=== PATIENT | male | born 1970 | race Caucasian/White ===

== ENCOUNTER → 2017-09-11 | Outpatient (CLI) | payer OTHER ==
[~2017-09-11] MED LIST: DILT120C68 PO; LISI-726 PO; LPR100 PO; LPT40 PO; XRL20 PO
[2017-09-11 17:07] LABS: BLOOD UREA NITROGEN 19 mg/dl (7-18); CALCIUM 9.2 mg/dl (8.5-10.1); CARBON DIOXIDE 26 mmol/L (21-32); GLUCOSE 99 mg/dl (70-99); POTASSIUM 4.4 mmol/L (3.5-5.1); SODIUM 137 mmol/L (136-145)
== END | disposition home or self-care (01) ==
LOC: C.LABPBG 13:51
PROVIDERS: ATTEND Physician Assistant
DX: I10 Essential (primary) hypertension (principal)

== ENCOUNTER → 2017-09-26 | Outpatient (CLI) | payer OTHER | END | disposition home or self-care (01) | LOC: C.LABPBG 07:36 | PROVIDERS: ATTEND Physician Assistant | DX: R63.8 Other symptoms and signs concerning food and fluid intake (principal) ==

== ENCOUNTER 2018-05-31 10:27 | Inpatient (IN) ==
[2018-05-31] MEDS ORDERED: LEVALBUTEROL 0.31MG/3 ML VIAL NEB STA (11:06)
--- NOTE | 2018-05-31 11:11 | XRay Report ---
XR chest 1V portable CLINICAL HISTORY: Chest Pain dyspnea COMPARISON STUDY: 03/15/2018 FINDINGS: Stable cardiomegaly. Diaphragms are smooth. Lungs are clear. Mild chronic prominence of the pulmonary vasculature. IMPRESSION: Cardiomegaly. Mild chronic pulmonary vascular congestion. The above report was generated using voice recognition software. It may contain grammatical, syntax or spelling errors. Electronically signed by: Jamari Ch M.D. 05/31/2018 11:10 AM
[2018-05-31] MEDS ORDERED: FUROSEMIDE 40 MG/4 ML VIAL IV STA (11:20)
[2018-05-31 11:28] LABS: Basophils # (auto) 0.01 K/uL (0-0.2); Basophils % (auto) 0.1 %; Eosinophils # (auto) 0.09 K/uL (0-0.5); Eosinophils % (auto) 1.3 %; Hematocrit (blood only) 44.6 % (42-52); Hemoglobin 14.9 g/dL (14.0-18.0); Immature Granulocytes # (auto) 0.02 K/uL (0.00-0.02); Immature Granulocytes % (auto) 0.3 %; Lymphocytes # (auto) 1.61 K/uL (1.2-3.4); Lymphocytes % (auto) 22.6 %; Mean Corpuscular Hgb Conc 33.4 g/dL (32-36); Mean Corpuscular Volume 93.3 fL (80-100); Mean Platelet Volume 11.8 fL (7.4-10.4); Monocytes # (auto) 0.77 K/uL (0.11-0.59); Monocytes % (auto) 10.8 %; Neutrophils # (auto) 4.62 K/uL (1.4-6.5); Neutrophils % (auto) 64.9 %; Platelet Count 219 K/uL (130-400); RDW Coefficient of Variation 14.2 % (11.5-14.5); RDW Standard Deviation 48.4 fL (36.4-46.3); Red Blood Count 4.78 M/uL (4.7-6.1); White Blood Count 7.12 K/uL (4.8-10.8)
[2018-05-31 11:45] LABS: Albumin Level 3.6 gm/dl (3.4-5.0); BUN Creatinine Ratio 12.8 (10-20); Creatinine Clr Calc Pharmacy 110.8 ml/min; Est GFR (Non-African American) 68.1; Potassium 4.2 mmol/L (3.5-5.1)
[2018-05-31 11:50] LABS: Albumin Globulin Ratio 1.1 (0.9-2); Bilirubin,Total 0.7 mg/dl (0.2-1); Creatine Kinase MB 6.9 ng/ml (0.5-3.6); Globulin 3.3 gm/dl (2.5-4.0); Total Protein 6.9 gm/dl (6.4-8.2); Troponin I 0.045 ng/ml (0-0.045)
--- NOTE | 2018-05-31 13:05 | History & Physical Report ---
Date of Service May 31, 2018 History of Present Illness Chief Complaint: Shortness of breath Primary Care Provider: Margarita Morgan DO 47 y/o M Hx HTN, HLD, DM II Allergies Allergy/AdvReac Type Severity Reaction Status Date / Time No Known Allergies Allergy Verified 05/31/18 10:58 Home Medications Home Medications Medication Instructions Recorded Confirmed Type Xarelto 20 mg PO PM 03/15/18 05/31/18 History atorvastatin 40 mg PO PM 03/15/18 05/31/18 History diltiazem HCl 240 mg PO DAILY 03/15/18 05/31/18 History lisinopril 40 mg PO DAILY 03/15/18 05/31/18 History metformin 500 mg PO PM 03/15/18 05/31/18 History metoprolol tartrate 100 mg PO BID 03/15/18 05/31/18 History metoprolol tartrate 150 mg PO BID 03/15/18 05/31/18 History furosemide 20 mg PO DAILY 05/31/18 05/31/18 History Past Med/Surg History Medical History Hypertension (Chronic) Hematuria (Acute) Abdominal pain (Acute) Atrial fibrillation Diabetes mellitus Atrial fibrillation Diabetes mellitus, type 2 Family History Other No significant family history Social History Preferred Language: Egyptian Beliefs That Will Affect Care: None marital status: Current Living Situation: Family current occupational status: employed Feels Safe at Home: Yes Smoking Status: Never smoker Hx Alcohol Use: No Hx Substance Use: No Physical Exam Vital Signs (Past 24 Hours): Last Vital Signs Temp 36.5 C 05/31/18 10:40 Pulse 99 H 05/31/18 12:10 Resp 25 H 05/31/18 12:10 BP 120/103 H 05/31/18 12:10 Pulse Ox 96 05/31/18 12:50
[2018-05-31] MEDS ORDERED: PROPOFOL IV EMULSION 10 MG/ML 20 ML VIAL IV STA (13:17)
[2018-05-31] MEDS ORDERED: ONDANSETRON INJ 2 MG/ML 2 ML VIAL IV STA (13:17)
--- NOTE | 2018-05-31 15:49 | History & Physical Report ---
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 Presents with progressive SOB pronounced with exertion. The pt was requiring supplemental oxygen on arrival to the ER. He was also notably in AF with a borderline HR around 100. He tends to develop volume overload with onset of AF. The pt was provided with a dose of Lasix in the ER and cardioversion was then attempted. Despite 2 attempt with 200J, he did not revert to a sinus rhythm. He has not c/o CP a productive cough or fevers. He does have a degree of orthopnea. He also notes that he was diagn osed with DAVID as early as 15 years prior but has not followed up on this issue since that time. 1) Volume overload owing to AF and a reduced EF. The pt will ne placed on IV Lasix - I/O daily weights requested. As his volume status appears to be tied to AF and rate, I have placed him on a Cardizem GTT to attain an HR between 60-80. 02 protocol is provided. He is comfortable with 02 and at rest. 2) PAF - AF on arrival - rate 90-110. It might make sense to place the pt on Sotalol as 2 cardioversion attempts failed. This may increase the chances of being able to cardiovert him and additionally, may better prevent relapse. He is on a Cardizem drip as above. We will continue his PO B rocio as well. Anticoagulated with Xarelto. 3) It is noted that a CK and MB were elevated on arrival where as his trop was WNL. We will recheck this PM essentially to avoid missing a developing rhabdo, however, his enzymes will likely now elevate regardless having received to 200J shocks prior to admission. He is anticoagulated with Xarelto. 4) DM II - sliding scale 5) HTN, HLD - Lisinopril held to allow for rate agents, cont atorvastatin. 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 Presents with progressive SOB pronounced with exertion. The pt was requiring supplemental oxygen on arrival to the ER. He was also notably in AF with a borderline HR around 100. He tends to develop volume overload with onset of AF. The pt was provided with a dose of Lasix in the ER and cardioversion was then attempted. Despite 2 attempt with 200J, he did not revert to a sinus rhythm. He has not c/o CP a productive cough or fevers. He does have a degree of orthopnea. He also notes that he was diagnosed with DAVID as early as 15 years prior but has not followed up on this issue since that time. PMH: 1) Paroxysmal AF 2) DM II 3) HTN 4) HLD 5) Morbidly obese - BMI 43 6) DAVID - not treated 7) Tachycardic cardiomyopathy - systolic dysfunction - EF 40-45% Surgical: Has not had surgery Social: He works construction for [employer] and is currently spending a lot of time at [employer]. He does not smoke or drink. He chews tobacco. Family: DM - both parents Allergies Allergy/AdvReac Type Severity Reaction Status Date / Time No Known Allergies Allergy Verified 05/31/18 10:58 Home Medications Home Medications Medication Instructions Recorded Confirmed Type Xarelto 20 mg PO PM 03/15/18 05/31/18 History atorvastatin 40 mg PO PM 03/15/18 05/31/18 History diltiazem HCl 240 mg PO DAILY 03/15/18 05/31/18 History lisinopril 40 mg PO DAILY 03/15/18 05/31/18 History metformin 500 mg PO PM 03/15/18 05/31/18 History metoprolol tartrate 100 mg PO BID 03/15/18 05/31/18 History metoprolol tartrate 150 mg PO BID 03/15/18 05/31/18 History furosemide 20 mg PO DAILY 05/31/18 05/31/18 History Past Med/Surg History Medical History Hypertension (Chronic) Hematuria (Acute) Abdominal pain (Acute) Atrial fibrillation Diabetes mellitus Atrial fibrillation Diabetes mellitus, type 2 Family History Other No significant family history Social History Preferred Language: Portuguese Beliefs That Will Affect Care: None marital status: Current Living Situation: Family current occupational status: employed Feels Safe at Home: Yes Smoking Status: Never smoker Hx Alcohol Use: No Hx Substance Use: No Review of Systems Gen: Denies fevers, night sweats, rigors, fatigue, malaise, weight loss/gain ENT: Denies congestion, throat pain, hearing loss Eyes: Denies acute visual changes CV: Denies CP, palpitations + orthopnea Pulmonary: Progressive SOB, exertional dyspnea, orthopnea GI: Denies N/V, diarrhea, constipation Neuro: Denies acute or unilateral weakness, acute gait impairment, headache or acute visual changes Musculoskeletal: Denies joint pain, inflammation Endocrine: Denies polydipsia, polyuria Skin: Denies acute rashes or ulcers Physical Exam Vital Signs (Past 24 Hours): Last Vital Signs Temp 36.5 C 05/31/18 10:40 Pulse 99 H 05/31/18 14:30 Resp 25 H 05/31/18 14:30 BP 140/113 H 05/31/18 14:30 Pulse Ox 96 05/31/18 14:30 Physical Exam: General: Middle-aged male with a grand stature, AAO x 3, no distress ENT: No erythema or exudates, no thrush Eyes: ESTUARDO, EOMI Head and neck: Normocephalic, atraumatic - cannot assess JVD due to habitus Chest/heart: Nontender, S1,2, RRR, no murmurs, no gallops Lungs: Lungs are clear although I am assessing the pt an hour after Lasix Abdomen: Nontender, nondistended, BS+ Neuro: AAO x 3, speech is clear, no unilateral weakness or loss of sensation, coordination intact Musculoskeletal: No joint inflammation, muscle tenderness, FROM Skin: No acute rashes or ulcers Extremities: No clubbing, cyanosis, edema (1) Congestive heart failure Heart failure chronicity: unspecified Heart failure type: unspecified Qualified Code(s): I50.9 - Heart failure, unspecified
[2018-05-31] MEDS ORDERED: ALUMINUM/MAGNESIUM SUSP 30 ML UDC PO PRN (15:55)
[2018-05-31] MEDS ORDERED: ONDANSETRON INJ 2 MG/ML 2 ML VIAL IV PRN (15:55)
[2018-05-31] MEDS ORDERED: ACETAMINOPHEN 325 MG TAB PO PRN (15:55)
[2018-05-31] MEDS ORDERED: ZOLPIDEM TARTRATE 5 MG TAB PO PRN (15:55)
[2018-05-31] MEDS ORDERED: MAGNESIUM HYDROXIDE SUSP 30 ML UDC PO PRN (15:55)
[2018-05-31] MEDS ORDERED: POLYETHYLENE (MIRALAX) 17 GM PACK PO PRN (15:55)
[2018-05-31] MEDS ORDERED: DEXTROSE 50% 50 ML SYRINGE IV PRN (16:15)
[2018-05-31] MEDS ORDERED: GLUCAGON FOR INJ 1 MG VIAL IM PRN (16:15)
[2018-05-31] MEDS ORDERED: GLUCOSE 40% GEL 15 GM TUBE PO PRN (16:15)
[2018-05-31] MEDS ORDERED: CARBOHYDRATES FOR HYPOGLYCEMIA PO PRN (16:15)
[2018-05-31] MEDS ORDERED: GLUCOSE 10 TABS/TUBE PO PRN (16:15)
[2018-05-31] MEDS ORDERED: MAGNESIUM SULFATE / D5W 1 GM/100 ML BAG IV ONE (16:30)
[2018-05-31] MEDS: INSULIN ASPART 100 UNITS/ML 3 ML PEN SC SCH ×2 (16:49→20:32)
[2018-05-31] MEDS: dilTIAZem HCl 125 MG in DEXTROSE 5% 100 ML IV SCH ×2 (17:18→18:02)
[2018-05-31] MEDS ORDERED: BENZOCAINE 20% (ORAJEL) 11.9 GM TUBE MT PRN (20:13)
[2018-05-31] MEDS: RIVAROXABAN 20 MG TAB PO SCH (20:38)
[2018-05-31] MEDS: ATORVASTATIN 40 MG TAB PO SCH (20:38)
[2018-05-31] MEDS: METOPROLOL TARTRATE 50 MG TAB PO SCH (20:38)
[2018-05-31 20:58] LABS: Troponin I 0.041 ng/ml (0-0.045)
[2018-06-01] MEDS: INSULIN ASPART 100 UNITS/ML 3 ML PEN SC SCH ×4 (08:10→20:31)
[2018-06-01] MEDS: FUROSEMIDE 40 MG in SYRINGE 0 ML IV SCH (08:30)
[2018-06-01] MEDS: METOPROLOL TARTRATE 50 MG TAB PO SCH (08:30)
--- NOTE | 2018-06-01 09:25 | Cardiology Consultation ---
Date of Consultation June 01, 2018 Assessment & Plan (1) Congestive heart failure: Mr. Lomeli is a 47-year-old male with a history of Hypertension, Dyslipidemia, Obesity, DAVID, Paroxysmal Atrial Fibrillation, Tachycardia Induced Cardiomyopathy (most recent LVEF 40% to 45% February 2018) who was admitted on 05/31/2018 with SOB, SALEH, Fatigue, and Palpitations / Atrial Fibrillation and Acute Systolic CHF. Patient remains in Atrial Fibrillation with a V-rate in 90 to 100 bpm range and has evidence of CHF / Volume Overload. Patient is currently on a Diltiazem Drip, Lopressor 150 mg bid, Xarelto 20 mg daily, and IV Lasix 40 mg daily. Patient has a negative fluid balance of - 293 ml total and his breathing has improved. Patient does not tolerate A-Fib which manifests as palpitations, reduced LV systolic function, and CHF. -- Continue IV Lasix 40 mg daily. -- Monitor daily I&O's, body weights. -- Monitor daily labs. -- Stop Metoprolol Tartrate -- convert to Sotalol 80 mg now x 1 dose. -- Beginning this evening Sotalol will be increased and maintained at 120 mg bid. -- Continue Xarelto 20 mg daily. -- Daily EKG's, monitor QT interval. -- Continue Diltiazem Drip for the time being. Present on Admission?: Yes (2) Paroxysmal atrial fibrillation: As described above: -- Stop Metoprolol. -- Begin Sotalol 80 mg now x 1 dose (since he already received his morning dose of metoprolol tartrate). -- This evening Sotalol will be increased and maintained at 120 mg bid. -- Continue Xarelto 20 mg daily. -- Continue telemetry. -- If patient doesn't covert after 5th dose of Sotalol -- we will likely attempt an Elective Electrical Cardioversion. Present on Admission?: Yes (3) Hypertension: -- On IV diltiazem drip currently. -- Can resume oral diltiazem when no longer on Iv Diltiazem. -- Sotalol will also reduce his BP. Present on Admission?: Yes (4) Cardiomyopathy: -- Most recent LVEF 40% to 45% -- which is likely decreased due to the presence of Atrial Fibrillation. -- Most likely this Cardiomyopathy will resolve if we can keep him in a normal sinus rhythm -- converting from Metoprolol Tartrate to Sotalol. Present on Admission?: Yes Supervising Physician Co-Signing Physician Notes Kain Tejeda MD History of Present Illness Reason for Consultation: -- Paroxysmal Atrial Fibrillation. -- Tachycardia Induced Cardiomyopathy. -- Acute Systolic CHF. Requesting Physician: Cas Lomeli MD Attending Physician: Kain Tejeda MD History of Present Illness Mr. Lomeli is a 47-year-old male with a history of Hypertension, Dyslipidemia, Obesity, DAVID, Paroxysmal Atrial Fibrillation, Tachycardia Induced Cardiomyopathy (most recent LVEF 40% to 45% February 2018) who was admitted on 05/31/2018 with SOB, SALEH, Fatigue, and Palpitations / Atrial Fibrillation and Acute Systolic CHF. Patient states that he has not been feeling well for a few weeks -- thought he may have had a cold which was going into chest -- but on 05/29/2018 he noticed worsening SOB, SALEH, Fatigue, Palpitations, and Non-Intentional Weight Gain. On admission he was noted to be in Atrial Fibrillation with a V-rate in 90 to 110 bpm range and had evidence of CHF. Patient started on a Diltiazem Drip, maintained on Lopressor 150 mg bid and Xarelto 20 mg daily, and was given IV Lasix. Patient has a negative fluid balance of - 293 ml total. His breathing has improved but he remains in A-Fib. He denies any chest pain, heaviness, tightness, or pressure. He denies any exertional neck, jaw, back, or arm pain. No syncope or near syncope. The patient's recent cardiac history began back in July of 2017 when the patient presented to an outside institution complaining of profound exertional dyspnea and fatigue over 1 week timeframe. He was found to be in atrial fibrillation with a rapid ventricular response. An echocardiogram noted moderate left ventricular dysfunction with an ejection fraction of 35-40% and mild LVH. Attempts at rate control were not successful and patient was transiently placed on Amiodarone -- which was eventually stopped in December 2017 due to the risk of side effects custodial. He was hospitalized in February 2018 with A-Fib. Past Medical History: 1. Paroxysmal atrial fibrillation-July 2017 2. Transient, tachycardia induced cardiomyopathy 3. Hypertension 4. Mild LVH 5. Hypercholesterolemia 6. Hyperglycemia 7. Obesity 8. Obstructive sleep apnea Social History: and lives with his . Railway Equipment Operator for [employer] Uses 1 can of snuff per day No alcohol Family History: Mother 62 with diabetes Father 65 diabetes Siblings are healthy No premature coronary artery disease Allergies Allergy/AdvReac Type Severity Reaction Status Date / Time No Known Allergies Allergy Verified 05/31/18 10:58 Home Medications Home Medications Medication Instructions Recorded Confirmed Type Xarelto 20 mg PO PM 03/15/18 05/31/18 History atorvastatin 40 mg PO PM 03/15/18 05/31/18 History diltiazem HCl 240 mg PO DAILY 03/15/18 05/31/18 History lisinopril 40 mg PO DAILY 03/15/18 05/31/18 History metformin 500 mg PO PM 03/15/18 05/31/18 History metoprolol tartrate 100 mg PO BID 03/15/18 05/31/18 History metoprolol tartrate 150 mg PO BID 03/15/18 05/31/18 History furosemide 20 mg PO DAILY 05/31/18 05/31/18 History Patient History Medical History Hypertension (Chronic) Hematuria (Acute) Abdominal pain (Acute) Atrial fibrillation Diabetes mellitus Atrial fibrillation (Acute) Diabetes mellitus, type 2 Family History Other No significant family history Social History Preferred Language: Malaysian Communication Ability: Effective Blast Furnace Checker Required: No Beliefs That Will Affect Care: None marital status: Current Living Situation: Spouse current occupational status: employed Other Information That Helps Us Care for You: No Feels Safe at Home: Yes Safety Concerns: Feels Safe At This Time Smoking Status: Never smoker Hx Alcohol Use: No Hx Substance Use: No Physical Exam Vital Signs (Past 24 Hours): Last Vital Signs Temp 37.1 C 06/01/18 07:38 Pulse 103 H 06/01/18 07:38 Resp 20 06/01/18 07:38 BP 140/97 06/01/18 07:38 Pulse Ox 91 06/01/18 07:38 Physical Exam: General: Patient in no acute distress. HEENT: Head is atraumatic, normocephalic. EOMs intact. Sclerae anicteric. Facies symmetric. No perioral cyanosis. Neck: No JVD. Carotid upstrokes +2 bilaterally without bruits. JVP is slightly elevated Chest and Lungs: Mildly diminished breath sounds in bilateral bases. No wheezes, rales, or rhonchi. CVS: S1 and S2 are irregularly irregular without obvious murmurs, gallops, or rubs. PMI is nonpalpable. No lifts, heaves, or thrills. No abdominal aortic or renal bruits. Abdominal Exam: Bowel sounds present. No masses, organomegaly, or tenderness. Extremities: No clubbing or cyanosis. Trace to +1 pretibial edema is noted bilaterally. Intact posterior tibial and radial pulses bilaterally. Neurologic Exam: Patient is awake, alert, and oriented. Pleasant and cooperative. Answers questions appropriately. Speech is clear. Normal movement in all 4 extremities. Gait pattern is unremarkable. Results & Data Laboratory Results Laboratory Results - last 24 hr 05/31/18 05/31/18 05/31/18 11:15 11:15 11:15 WBC 7.12 RBC 4.78 Hgb 14.9 Hct 44.6 MCV 93.3 MCH 31.2 MCHC 33.4 RDW Std Deviation 48.4 H RDW Coeff of Kaley 14.2 Plt Count 219 MPV 11.8 H Immature Gran % (Auto) 0.3 Neut % (Auto) 64.9 Lymph % (Auto) 22.6 [place] % (Auto) 10.8 Eos % (Auto) 1.3 Baso % (Auto) 0.1 Immature Gran # (Auto) 0.02 Neut # (Auto) 4.62 Lymph # (Auto) 1.61 [place] # (Auto) 0.77 H Eos # (Auto) 0.09 Baso # (Auto) 0.01 Sodium 141 Potassium 4.2 Chloride 108 H Carbon Dioxide 26 Anion Gap 7.0 BUN 16 Creatinine 1.25 Est Cr Clr Drug Dosing 110.8 Est GFR ( Amer) 79.0 Est GFR (Non-Af Amer) 68.1 BUN/Creatinine Ratio 12.8 Glucose 125 H POC Glucose Calcium 9.0 Total Bilirubin 0.7 AST 41 H ALT 87 H Alkaline Phosphatase 66 Total Creatine Kinase 559 H CK-MB (CK-2) 6.9 H CK/CKMB % Calc 1.2 Troponin I 0.045 NT-Pro-B Natriuret Pep 1495 H Cancelled Total Protein 6.9 Albumin 3.6 Globulin 3.3 Albumin/Globulin Ratio 1.1 Lipase 163 Influenza Type A Ag Influenza Type B Ag 05/31/18 05/31/18 05/31/18 11:23 16:12 20:07 WBC RBC Hgb Hct MCV MCH MCHC RDW Std Deviation RDW Coeff of Kaley Plt Count MPV Immature Gran % (Auto) Neut % (Auto) Lymph % (Auto) [place] % (Auto) Eos % (Auto) Baso % (Auto) Immature Gran # (Auto) Neut # (Auto) Lymph # (Auto) [place] # (Auto) Eos # (Auto) Baso # (Auto) Sodium Potassium Chloride Carbon Dioxide Anion Gap BUN Creatinine Est Cr Clr Drug Dosing Est GFR ( Amer) Est GFR (Non-Af Amer) BUN/Creatinine Ratio Glucose POC Glucose 128 H Calcium Total Bilirubin AST ALT Alkaline Phosphatase Total Creatine Kinase TNP CK-MB (CK-2) CK/CKMB % Calc Troponin I 0.041 NT-Pro-B Natriuret Pep Total Protein Albumin Globulin Albumin/Globulin Ratio Lipase Influenza Type A Ag Neg for Influ A Influenza Type B Ag Neg for Influ B 05/31/18 05/31/18 06/01/18 20:13 21:18 07:50 WBC RBC Hgb Hct MCV MCH MCHC RDW Std Deviation RDW Coeff of Kaley Plt Count MPV Immature Gran % (Auto) Neut % (Auto) Lymph % (Auto) [place] % (Auto) Eos % (Auto) Baso % (Auto) Immature Gran # (Auto) Neut # (Auto) Lymph # (Auto) [place] # (Auto) Eos # (Auto) Baso # (Auto) Sodium Potassium Chloride Carbon Dioxide Anion Gap BUN Creatinine Est Cr Clr Drug Dosing Est GFR ( Amer) Est GFR (Non-Af Amer) BUN/Creatinine Ratio Glucose POC Glucose 125 H 128 H Calcium Total Bilirubin AST ALT Alkaline Phosphatase Total Creatine Kinase 474 H CK-MB (CK-2) CK/CKMB % Calc Troponin I NT-Pro-B Natriuret Pep Total Protein Albumin Globulin Albumin/Globulin Ratio Lipase Influenza Type A Ag Influenza Type B Ag Medications Administered Active Medications Generic Name Dose Route Start Last Admin Trade Name Freq PRN Reason Stop Dose Admin Acetaminophen 650 mg 05/31/18 15:55 05/31/18 19:56 Tylenol PO 06/30/18 15:54 650 mg Q4H PRN Administration Pain or Fever Al Hydrox/Mg Hydrox/Simethicone 15 ml 05/31/18 15:55 Maalox PO 06/30/18 15:54 Q4H PRN Dyspepsia Atorvastatin Calcium 40 mg 05/31/18 21:00 05/31/18 20:38 Lipitor PO 06/30/18 20:59 40 mg PM KAY Administration Benzocaine 1 appln 05/31/18 20:13 05/31/18 20:39 Orajel 20% MT 06/30/18 20:12 1 appln Q1H PRN Administration Pain Dextrose 25 - 50 ml 05/31/18 16:15 Dextrose 50% IV 06/30/18 16:14 UD PRN Hypoglycemia Protocol Protocol Glucagon 1 mg 05/31/18 16:15 Glucagen IM 06/30/18 16:14 UD PRN Hypoglycemia Protocol Protocol Glucose 15 - 30 gm 05/31/18 16:15 Glucose 40% PO 06/30/18 16:14 UD PRN Hypoglycemia Protocol Protocol Glucose 4 - 8 tabs 05/31/18 16:15 Dex4 Glucose PO 06/30/18 16:14 UD PRN Hypoglycemia Protocol Protocol Diltiazem HCl 125 mg/ Dextrose 125 mls @ 10 mls/hr 05/31/18 15:55 06/01/18 08:40 IV 06/30/18 15:54 10 mg/hr .[id number] KAY 10 mls/hr Titration Protocol 10 MG/HR Furosemide 40 mg/ Syringe 4 mls @ 4 mls/min 06/01/18 09:00 06/01/18 08:30 IV 07/01/18 08:59 4 mls/min DAILY KAY Administration Insulin Aspart 0 units 05/31/18 16:30 06/01/18 08:10 Novolog Flexpen SC 06/30/18 16:29 Not Given ACHS KAY Magnesium Hydroxide 30 ml 05/31/18 15:55 Milk Of Magnesia PO 06/30/18 15:54 Q12H PRN Constipation Miscellaneous 15 - 30 gm 05/31/18 16:15 Carbohydrates For Hypoglycemia PO 06/30/18 16:14 UD PRN Hypoglycemia Treatment Ondansetron HCl 4 mg 05/31/18 15:55 Zofran IV 06/30/18 15:54 Q6H PRN Nausea Polyethylene Glycol 17 gm 05/31/18 15:55 Miralax Powder Packet PO 06/30/18 15:54 DAILY PRN Constipation Rivaroxaban 20 mg 05/31/18 21:00 05/31/18 20:38 Xarelto PO 06/30/18 20:59 20 mg PM KAY Administration Sotalol HCl 120 mg 06/01/18 21:00 Betapace PO 07/01/18 20:59 Q12 KAY Zolpidem Tartrate 5 mg 05/31/18 15:55 Ambien PO 06/30/18 15:54 HS PRN Sleep (1) Congestive heart failure Heart failure chronicity: unspecified Heart failure type: unspecified Qualified Code(s): I50.9 - Heart failure, unspecified
--- NOTE | 2018-06-01 13:50 | Hospitalist Progress Note ---
Date of Service June 01, 2018 Assessment & Plan (1) Acute on chronic systolic (congestive) heart failure: Systolic CHF due to tachycardic cardiomyopathy. Exacerbation caused by afib with RVR. - Continue Lasix 40mg IV daily - Monitor I&Os, weights - Telemetry - Sotalol per cardiology (2) Paroxysmal atrial fibrillation: Failed cardioversion x 2 in the ED this admission. Rate control with beta- rocio and calcium channel rocio. - Started sotalol on 06/01 per cardiology - Rivaroxaban for anticoagulation (3) Diabetes mellitus: A1c was 6.9% in 02/2018. - Hold metformin - Sliding scale insulin (4) Hypertension: BP was 100/50 to 150/110 so far this admission. - Holding lisinopril for conversion to sotalol - Monitor BP (5) DVT prophylaxis: On Xarelto for his afib Subjective 47yo M w/ hx of cardiomyopathy who presents with afib and CHF exacerbation. Feels better this morning after his first dose of Lasix. Reports no fevers/chills, chest pain, shortness of breath, abdominal pain, nausea, or vomiting. Physical Exam Vital Signs (Past 24 Hours): Last Vital Signs Temp 36.4 C L 06/01/18 11:43 Pulse 72 06/01/18 11:43 Resp 19 06/01/18 11:43 BP 109/79 06/01/18 11:43 Pulse Ox 90 06/01/18 11:43 Constitutional: WD/WN, vitals as above Eyes: EOM intact bilaterally; no conjunctival abnormality ENMT: external ear and nose normal, oropharynx normal Neck: trachea midline, no thyromegaly normal visual inspection Respiratory: normal respiratory effort, lungs clear to auscultation no respiratory distress Cardiovascular: Rate/Rhythm: + irregularly irregular Heart Sounds: normal S1 and normal S2 Extremities: + edema Gastrointestinal (Abdomen): Inspection/Auscultation: abdomen normal to inspection; abdomen not distended Musculoskeletal: no cyanosis or clubbing, extremities motor strength 5/5 Skin: no rashes, warm and dry Neurologic: moves all extremities and awake Psychiatric: Orientation: alert, oriented to person and cooperative
[2018-06-01] MEDS ORDERED: ALBUT/IPRATROP 3MG/0.5MG NEB 3 ML VIAL NEB STA (14:47)
[2018-06-01] MEDS ORDERED: ALBUT/IPRATROP 3MG/0.5MG NEB 3 ML VIAL NEB PRN (15:39)
[2018-06-01] MEDS: ATORVASTATIN 40 MG TAB PO SCH (19:49)
[2018-06-01] MEDS: SOTALOL HCL 80 MG TAB PO SCH (19:49)
[2018-06-01] MEDS: RIVAROXABAN 20 MG TAB PO SCH (19:49)
[2018-06-02 06:44] LABS: Hematocrit (blood only) 43.3 % (42-52); Hemoglobin 14.5 g/dL (14.0-18.0); Mean Corpuscular Hgb Conc 33.5 g/dL (32-36); Mean Corpuscular Volume 91.9 fL (80-100); Mean Platelet Volume 11.8 fL (7.4-10.4); Platelet Count 219 K/uL (130-400); RDW Coefficient of Variation 13.9 % (11.5-14.5); RDW Standard Deviation 46.8 fL (36.4-46.3); Red Blood Count 4.71 M/uL (4.7-6.1); White Blood Count 9.17 K/uL (4.8-10.8)
[2018-06-02 07:14] LABS: BUN Creatinine Ratio 15.6 (10-20); Calcium 8.8 mg/dl (8.5-10.1); Creatinine Clr Calc Pharmacy 100.9 ml/min; Est GFR (African American) 71.9; Est GFR (Non-African American) 62.1; Magnesium 2.2 mg/dl (1.8-2.4); Potassium 3.9 mmol/L (3.5-5.1)
[2018-06-02] MEDS: FUROSEMIDE 40 MG in SYRINGE 0 ML IV SCH (08:20)
[2018-06-02] MEDS: INSULIN ASPART 100 UNITS/ML 3 ML PEN SC SCH ×4 (08:20→21:37)
[2018-06-02] MEDS: SOTALOL HCL 80 MG TAB PO SCH ×2 (08:21→19:46)
--- NOTE | 2018-06-02 09:35 | Cardiology Progress Note ---
Date of Service June 02, 2018 Assessment & Plan (1) Congestive heart failure: Mr. Lomeli is a 47-year-old male with a history of Hypertension, Dyslipidemia, Obesity, DAVID, Paroxysmal Atrial Fibrillation, Tachycardia Induced Cardiomyopathy (most recent LVEF 40% to 45% February 2018) who was admitted on 05/31/2018 with SOB, SALEH, Fatigue, and Palpitations / Atrial Fibrillation and Acute Systolic CHF. Patient remains in Atrial Fibrillation with a V-rate in 90 to 100 bpm range and has evidence of CHF / Volume Overload. Patient is currently on a Diltiazem Drip, Lopressor 150 mg bid, Xarelto 20 mg daily, and IV Lasix 40 mg daily. Patient has a negative fluid balance of - 1314 ml total and his breathing has improved. Patient does not tolerate A-Fib which manifests as palpitations, reduced LV systolic function, and CHF. -- Continue IV Lasix 40 mg daily. -- Monitor daily I&O's, body weights. -- Monitor daily labs. -- Continue Sotalol 120 mg BID -- Continue Xarelto 20 mg daily. -- Daily EKG's, monitor QT interval. -- Continue Diltiazem Drip for the time being. (2) Paroxysmal atrial fibrillation: As described above: -- Continue Sotalol 120 mg BID. -- Continue Xarelto 20 mg daily. -- Continue telemetry. -- If patient doesn't convert after 5th dose of Sotalol -- we will arrange an Elective Electrical Cardioversion. (3) Hypertension: -- Restart Lisinopril 40 mg daily -- On IV diltiazem drip currently. -- Can resume oral Diltiazem when no longer on IV Diltiazem. -- Sotalol will also reduce his BP. (4) Cardiomyopathy: -- Most recent LVEF 40% to 45% -- which is likely decreased due to the presence of Atrial Fibrillation. -- Most likely this Cardiomyopathy will resolve if he maintains a normal sinus rhythm. Supervising Physician Co-Signing Physician Notes Kain Tejeda MD Subjective Review of Systems All systems reviewed & are unremarkable except as noted in HPI & below Mr Lomeli is a 47 year old white male with a past medical history of Hypertension, Dyslipidemia, Obesity, DAVID, Paroxysmal Atrial Fibrillation, Tachycardia Induced Cardiomyopathy (most recent LVEF 40% to 45% February 2018) who was admitted on 05/31/2018 with SOB, SALEH, Fatigue, and Palpitations / Atrial Fibrillation and Acute Systolic CHF. Today, he has no acute complaints and states he is feeling well. He used a CPAP machine last night for the first time and states he had a great night of sleep. He says his swelling in his lower extremities has improved since yesterday. He denies any chest pain or tightness, neck/arm/jaw pain, dyspnea, palpitations, orthopnea, or PND. He had no problem with the start of Sotalol yesterday morning and denied any lightheadness, dizziness, near syncope, or syncope. Since yesterday, he has had a negative fluid balance of 1314.583 ml and has lost 4.3 kg of water weight. His blood pressure was mildly elevated this morning at 147/114. His EKG shows that he remains in rate controlled Atrial Fibrillation at a rate of 90-100. Physical Exam Vital Signs (Past 24 Hours): Last Vital Signs Temp 36.7 C 06/02/18 07:46 Pulse 92 H 06/02/18 07:46 Resp 17 06/02/18 07:46 BP 147/114 H 06/02/18 07:46 Pulse Ox 92 06/02/18 07:46 Physical Exam: General: Patient in no acute distress. HEENT: Head is atraumatic, normocephalic. EOMs intact. Sclerae anicteric. Facies symmetric. No perioral cyanosis. Neck: No JVD. Carotid upstrokes +2 bilaterally without bruits. JVP is at the level of the clavicle sitting upright. Chest and Lungs: Clear to auscultation throughout all lung tejeda, no wheezes, rales, or rhonchi. CVS: Rate is irregularly irregular. S1 and S2 appreciated without murmurs, gallops, or rubs. PMI is nondisplaced. No lifts, heaves, or thrills. No abdominal aortic or renal bruits. Abdominal Exam: Bowel sounds present. No masses, organomegaly, or tenderness. Extremities: No clubbing, cyanosis, or edema. Intact posterior tibial and radial pulses bilaterally. Neurologic Exam: Patient is awake, alert, and oriented. Pleasant and coopera tive. Answers questions appropriately. Speech is clear. Results & Data Laboratory Results Laboratory Results - last 24 hr 0406/01/18 06/01/18 11:19 16:15 20:23 WBC RBC Hgb Hct MCV MCH MCHC RDW Std Deviation RDW Coeff of Kaley Plt Count MPV Sodium Potassium Chloride Carbon Dioxide Anion Gap BUN Creatinine Est Cr Clr Drug Dosing Est GFR ( Amer) Est GFR (Non-Af Amer) BUN/Creatinine Ratio Glucose POC Glucose 109 H 109 H 107 H Calcium Magnesium 06/02/18 06/02/18 06/02/18 06:15 06:15 07:35 WBC 9.17 RBC 4.71 Hgb 14.5 Hct 43.3 MCV 91.9 MCH 30.8 MCHC 33.5 RDW Std Deviation 46.8 H RDW Coeff of Kaley 13.9 Plt Count 219 MPV 11.8 H Sodium 140 Potassium 3.9 Chloride 105 Carbon Dioxide 30 Anion Gap 5.0 BUN 21 H Creatinine 1.35 Est Cr Clr Drug Dosing 100.9 Est GFR ( Amer) 71.9 Est GFR (Non-Af Amer) 62.1 BUN/Creatinine Ratio 15.6 Glucose 106 H POC Glucose 115 H Calcium 8.8 Magnesium 2.2 Medications Administered Active Medications Generic Name Dose Route Start Last Admin Trade Name Freq PRN Reason Stop Dose Admin Acetaminophen 650 mg 05/31/18 15:55 05/31/18 19:56 Tylenol PO 06/30/18 15:54 650 mg Q4H PRN Administration Pain or Fever Al Hydrox/Mg Hydrox/Simethicone 15 ml 05/31/18 15:55 Maalox PO 06/30/18 15:54 Q4H PRN Dyspepsia Albuterol 3 ml 06/01/18 15:39 Duoneb NEB 07/01/18 15:59 QIDR PRN Shortness Of Breath Or Wheezing Atorvastatin Calcium 40 mg 05/31/18 21:00 06/01/18 19:49 Lipitor PO 06/30/18 20:59 40 mg PM KAY Administration Benzocaine 1 appln 05/31/18 20:13 05/31/18 20:39 Orajel 20% MT 06/30/18 20:12 1 appln Q1H PRN Administration Pain Dextrose 25 - 50 ml 05/31/18 16:15 Dextrose 50% IV 06/30/18 16:14 UD PRN Hypoglycemia Protocol Protocol Glucagon 1 mg 05/31/18 16:15 Glucagen IM 06/30/18 16:14 UD PRN Hypoglycemia Protocol Protocol Glucose 15 - 30 gm 05/31/18 16:15 Glucose 40% PO 06/30/18 16:14 UD PRN Hypoglycemia Protocol Protocol Glucose 4 - 8 tabs 05/31/18 16:15 Dex4 Glucose PO 06/30/18 16:14 UD PRN Hypoglycemia Protocol Protocol Diltiazem HCl 125 mg/ Dextrose 125 mls @ 0 mls/hr 05/31/18 15:55 06/01/18 13:15 IV 06/30/18 15:54 0 mg/hr .Q0M KAY 0 mls/hr Titration Protocol 0 MG/HR Furosemide 40 mg/ Syringe 4 mls @ 4 mls/min 06/01/18 09:00 06/02/18 08:20 IV 07/01/18 08:59 4 mls/min DAILY KAY Administration Insulin Aspart 0 units 05/31/18 16:30 06/02/18 08:20 Novolog Flexpen SC 06/30/18 16:29 Not Given ACHS KAY Magnesium Hydroxide 30 ml 05/31/18 15:55 Milk Of Magnesia PO 06/30/18 15:54 Q12H PRN Constipation Miscellaneous 15 - 30 gm 05/31/18 16:15 Carbohydrates For Hypoglycemia PO 06/30/18 16:14 UD PRN Hypoglycemia Treatment Ondansetron HCl 4 mg 05/31/18 15:55 Zofran IV 06/30/18 15:54 Q6H PRN Nausea Polyethylene Glycol 17 gm 05/31/18 15:55 Miralax Powder Packet PO 06/30/18 15:54 DAILY PRN Constipation Rivaroxaban 20 mg 05/31/18 21:00 06/01/18 19:49 Xarelto PO 06/30/18 20:59 20 mg PM KAY Administration Sotalol HCl 120 mg 06/01/18 21:00 06/02/18 08:21 Betapace PO 07/01/18 20:59 120 mg Q12 KAY Administration Zolpidem Tartrate 5 mg 05/31/18 15:55 Ambien PO 06/30/18 15:54 HS PRN Sleep ECG Additional Comments: EKG on 06/02 at 07:00 showed Atrial Fibrillation with ventricular rate of 99 bpm. Corrected QT interval 465 msec. (1) Congestive heart failure Heart failure chronicity: unspecified Heart failure type: unspecified Qualified Code(s): I50.9 - Heart failure, unspecified
--- NOTE | 2018-06-02 09:49 | Cardiology Progress Note ---
Date of Service June 02, 2018 Assessment & Plan (1) Congestive heart failure: The patient remains in negative fluid balance and has lost 4 kilogram since admission. Would continue intravenous furosemide for now. He may benefit from daily weights and sliding-scale diuretics as an outpatient. Suspect the etiology of his recent decompensation is related to his atrial fibrillation with a rapid ventricular response in the face of his tachycardic induced cardiomyopathy. (2) Paroxysmal atrial fibrillation: The patient is tolerating addition of sotalol. No significant QT prolongation. Would continue sotalol at 120 mg b.i.d. and discussed a possible extra cardioversion on if needed. (3) Hypertension: Consider Re initiating lisinopril at 40 mg daily. (4) Cardiomyopathy: Suspect this is a tachycardic induced phenomena. Most recent echocardiogram was performed in February of the noted an ejection fraction of 40- 45%. Hopefully, this will normalize with conversion to sinus rhythm. Subjective Mr. Lomeli is resting comfortably in the bedside chair without complaints of chest pain, dyspnea, palpitations. Slept well last night as he used a CPAP mask. Physical Exam Vital Signs (Past 24 Hours): Last Vital Signs Temp 36.7 C 06/02/18 07:46 Pulse 92 H 06/02/18 07:46 Resp 17 06/02/18 07:46 BP 147/114 H 06/02/18 07:46 Pulse Ox 92 06/02/18 07:46 Physical Exam: In general is obese white male in no acute distress. HEENT exam is negative. Neck is supple with full carotid upstrokes. There are no carotid bruits. Jugular venous pressure is flat at 90 degrees. There is no thyromegaly. Cardiovascular exam reveals an irregular irregular rhythm with distant heart sounds. No obvious murmurs. Lungs are clear without rales, rhonchi, or wheezes. Abdomen is obese without bruits. Extremities reveal intact radial artery pulses bilaterally. There is trace pretibial edema. Results & Data Diagnostic Findings senior manager quality assurance notes atrial fibrillation with a ventricular response of approximately 100 beats per minute. (1) Congestive heart failure Heart failure chronicity: unspecified Heart failure type: unspecified Qualified Code(s): I50.9 - Heart failure, unspecified
--- NOTE | 2018-06-02 15:56 | Emergency Department Note ---
Entered by Marj Palumbo acting as a scribe for Dayne Astudillo MD History of Present Illness General Chief complaint: Arrhythmia/Palpitations Stated complaint: AFIB Time Seen by Provider: 05/31/18 10:49 Source: patient History of Present Illness Onset (ago): week(s) 2 Location: chest Pain Consistency: + other (persistent) Maximum Pain Intensity: 0 Quality: + other (atrial fibrillations) Associated symptoms: + cough (productive) The patient is a 47 year old male who presents to the Emergency Room with complaints of persistent atrial fibrillation that started 2 weeks ago. The patient reports that he has had atrial fibrillation intermittently for awhile but it usually passes quickly. He states that he has had a chest cold recently that has mostly resolved except for a productive cough. He notes that this episode of atrial fibrillation started around the same time as the chest cold. He reports that he is currently followed by Dr. Tejeda, Cardiology, and is taking Xarelto as prescribed. He denies using any inhalers. He states that he has never needed to be defibrillated back into normal sinus rhythm. He notes that he is supposed to see Dr. Tejeda in 2 days. He states that his PCP told him to come into the Emergency Room 2 days ago but refused. He noted that his symptoms have not changed over the past 48 hours so he decided to come in today. Home Medications Home Medications Medication Instructions Recorded Confirmed Type Xarelto 20 mg PO PM 03/15/18 05/31/18 History atorvastatin 40 mg PO PM 03/15/18 05/31/18 History diltiazem HCl 240 mg PO DAILY 03/15/18 05/31/18 History lisinopril 40 mg PO DAILY 03/15/18 05/31/18 History metformin 500 mg PO PM 03/15/18 05/31/18 History metoprolol tartrate 100 mg PO BID 03/15/18 05/31/18 History metoprolol tartrate 150 mg PO BID 03/15/18 05/31/18 History furosemide 20 mg PO DAILY 05/31/18 05/31/18 History Allergies Allergy/AdvReac Type Severity Reaction Status Date / Time No Known Allergies Allergy Verified 05/31/18 10:58 Past Med/Surg History Medical History Hypertension (Chronic) Hematuria (Acute) Abdominal pain (Acute) Atrial fibrillation Diabetes mellitus Atrial fibrillation (Acute) Diabetes mellitus, type 2 Family History Other No significant family history Social History Preferred Language: Lao Communication Ability: Effective Tooling Inspector Required: No Beliefs That Will Affect Care: None marital status: Current Living Situation: Spouse current occupational status: employed Other Information That Helps Us Care for You: No Feels Safe at Home: Yes Safety Concerns: Feels Safe At This Time Smoking Status: Never smoker Hx Alcohol Use: No Hx Substance Use: No Review of Systems See HPI for pertinent positives & negatives. and A total of 10 systems reviewed and were otherwise negative Physical Exam Vital Signs Vital Signs - 24 hr 06/01/18 19:10 06/01/18 23:30 06/01/18 23:39 Temperature 36.6 C 36.0 C L Temperature Source Oral Axillary Pulse Rate 76 Pulse Rate [Right Finger] 80 74 Respiratory Rate 20 23 19 Respiratory Effort / Characteristics Non-Labored Spontaneous Respiratory Depth Normal Respiratory Pattern Regular Blood Pressure [Left Arm] 146/80 H Blood Pressure [Right Arm] 109/75 Blood Pressure Mean [Left Arm] 102 Blood Pressure Mean [Right Arm] 86 Blood Pressure Position [Left Arm] Sitting Blood Pressure Position [Right Arm] Lying Pulse Oximetry 94 96 94 Oxygen Delivery Method Room Air BiPAP Oxygen Flow Rate 2 2 06/02/18 01:57 06/02/18 04:17 06/02/18 07:35 Temperature 36.0 C L Temperature Source Oral Pulse Rate 73 102 H Pulse Rate [Right Finger] 96 H Respiratory Rate 20 Respiratory Effort / Characteristics Respiratory Depth Respiratory Pattern Blood Pressure [Left Arm] 128/89 Blood Pressure [Right Arm] Blood Pressure Mean [Left Arm] 102 Blood Pressure Mean [Right Arm] Blood Pressure Position [Left Arm] Lying Blood Pressure Position [Right Arm] Pulse Oximetry 97 Oxygen Delivery Method BiPAP Oxygen Flow Rate 2 06/02/18 07:46 06/02/18 11:30 06/02/18 15:15 Temperature 36.7 C 36.6 C 37.0 C Temperature Source Oral Oral Oral Pulse Rate Pulse Rate [Right Finger] 92 H 97 H 89 Respiratory Rate 17 18 18 Respiratory Effort / Characteristics Respiratory Depth Respiratory Pattern Blood Pressure [Left Arm] Blood Pressure [Right Arm] 147/114 H 125/76 120/85 Blood Pressure Mean [Left Arm] Blood Pressure Mean [Right Arm] 125 92 96 Blood Pressure Position [Left Arm] Blood Pressure Position [Right Arm] Sitting Sitting Sitting Pulse Oximetry 92 95 96 Oxygen Delivery Method Room Air Room Air Room Air Oxygen Flow Rate GENERAL: Patient is a healthy-appearing well-nourished HEAD: Normocephalic atraumatic EYES: Ocular movements intact pupils equal and react to light OROPHARYNX mucous membranes are moist no exudates present no erythema or edema present NECK: Supple no nuchal rigidity CHEST: Good equal expansion LUNGS: Clear and equal to auscultation CARDIAC: Normal S1 and S2 ABDOMEN: Soft nontender no guarding BACK: No CVA tenderness EXTREMITIES: No pain upon palpation normal muscle strength in all groups no clubbing cyanosis or edema NEURO: Patient is following commands is answering questions appropriately. Alert and oriented x3 Cranial Nerves 2-12 grossly intact Procedures Free Text Procedures Indication: Atrial Fibrillation Written consent was obtained after the risks and benefits were explained, including but not limited to pain, thermal burn, allergic reaction, aspiration, airway obstruction, laryngospasm, infection, hypotension, and cardiorespiratory arrest. At this time, the risks of the procedure are less than the risks of NOT performing the procedure. A time out was taken and the correct patient and procedure identified. The patient was on 100% via NRB and end tidal CO2 monitoring prior to the procedure. Suction, airway equipment, medications, respiratory equipment, ACLS cart, and appropriate personnel were prepared prior to the initiation of the procedure. Sedation was achieved utilizing Propofol 170mg. The biphasic defibrillator was set to 200 joules of energy and synched. After confirmation of sedation and "all clear" safety check the synchronized shock was delivered. This resulted in successful conversion of the dysrhythmia back into sinus rhythm. See nursing notes for dosages and times. There were no complications and the patient recovered uneventfully from the procedure. Procedural Sedation Indication: other (Cardioversion) ASA Class: III Time of Last PO Intake: 00:00 Preparation: threat monitoring analyst applied, pulse oximeter, capnometry used, supplemental O2 applied, suction/airway equipment at bedside and IV secured IV Propofol dose (mg): 170 Patient Tolerated Procedure: well and no complications Interventions: oxygen applied Additional Comments: Total time: 20 minutes Course 1049: The patient was evaluated in room C9, and a complete history and physical examination were performed. 1210: I discussed the patient's case with [facility], who agreed with the patient's treatment plan and recommended the patient be evaluated by a hospitalist for further management and care. 1226: I discussed the patient's case with OSKAR Bey Hospitalist, who will evaluate the patient for further management and care. 1310: I reevaluated the patient's status with OSKAR Bey, who agreed that we should attempt cardioversion to put the patient back in normal rhythm. 1330: I performed a cardioversion on the patient. The patient tolerated the procedure well but I was unable to get the patient back into normal sinus rhythm. Dr. Spring will evaluate the patient for further management and care. 1345: I discussed today's findings with the patient. He verbalized agreement of the treatment plan. He will be evaluated for further management and care. Consultations Consultation #1: I discussed the patient's case with [facility], who agreed with the patient's treatment plan and recommended the pa tient be evaluated by a hospitalist for further management and care. Time: 12:10 Consultation #2: I discussed the patient's case with OSKAR Bey Hospitalist, who will evaluate the patient for further management and care. Time: 12:26 Consultation #3: I reevaluated the patient's status with OSKAR Bey, who agreed that we should attempt cardioversion to put the patient back in normal rhythm. Time: 13:10 Additional Consultation(s): 1345: Dr. Spring will evaluate the patient for further management and care. Administered Medications Acetaminophen (Tylenol) 650 mg PO Q4H PRN PRN Reason: Pain or Fever Stop: 06/30/18 15:54 Last Admin: 05/31/18 19:56 Dose: 650 mg Documented by: [id number] Atorvastatin Calcium (Lipitor) 40 mg PO PM KAY Stop: 06/30/18 20:59 Last Admin: 06/01/18 19:49 Dose: 40 mg Documented by: [id number] Admin: 05/31/18 20:38 Dose: 40 mg Documented by: [id number] Benzocaine (Orajel 20%) 1 appln MT Q1H PRN PRN Reason: Pain Stop: 06/30/18 20:12 Last Admin: 05/31/18 20:39 Dose: 1 appln Documented by: [id number] Diltiazem HCl 125 mg/ Dextrose 125 mls @ 0 mls/hr IV .Q0M KAY; Protocol Stop: 06/30/18 15:54 Last Titration: 06/01/18 13:15 Dose: 0 mg/hr, 0 mls/hr Documented by: [id number] Titration: 06/01/18 10:35 Dose: 5 mg/hr, 5 mls/hr Documented by: [id number] Titration: 06/01/18 08:40 Dose: 10 mg/hr, 10 mls/hr Documented by: [id number] Titration: 06/01/18 08:05 Dose: 5 mg/hr, 5 mls/hr Documented by: [id number] Titration: 05/31/18 21:45 Dose: 0 mg/hr, 0 mls/hr Documented by: [id number] Titration: 05/31/18 20:50 Dose: 5 mg/hr, 5 mls/hr Documented by: [id number] Titration: 05/31/18 20:20 Dose: 10 mg/hr, 10 mls/hr Documented by: [id number] Titration: 05/31/18 19:03 Dose: 15 mg/hr, 15 mls/hr Documented by: [id number] Cosigned by: [id number] Admin: 05/31/18 18:02 Dose: Not Given Documented by: [id number] Titration: 05/31/18 17:52 Dose: 15 mg/hr, 15 mls/hr Documented by: [id number] Admin: 05/31/18 17:18 Dose: 10 mg/hr, 10 mls/hr Documented by: [id number] Cosigned by: [id number] Furosemide 40 mg/ Syringe 4 mls @ 4 mls/min IV DAILY KAY Stop: 07/01/18 08:59 Last Admin: 06/02/18 08:20 Dose: 4 mls/min Documented by: [id number] Admin: 06/01/18 08:30 Dose: 4 mls/min Documented by: [id number] Insulin Aspart (Novolog Flexpen) 0 units SC ACHS KAY Stop: 06/30/18 16:29 Last Admin: 06/02/18 11:53 Dose: Not Given Documented by: [id number] Cosigned by: [id number] Admin: 06/02/18 08:20 Dose: Not Given Documented by: [id number] Cosigned by: [id number] Admin: 06/01/18 20:31 Dose: Not Given Documented by: [id number] Cosigned by: [id number] Admin: 06/01/18 17:49 Dose: Not Given Documented by: [id number] Cosigned by: [id number] Admin: 06/01/18 12:21 Dose: Not Given Documented by: [id number] Cosigned by: [id number] Admin: 06/01/18 08:10 Dose: Not Given Documented by: [id number] Cosigned by: [id number] Admin: 05/31/18 20:32 Dose: Not Given Documented by: [id number] Cosigned by: [id number] Admin: 05/31/18 16:49 Dose: Not Given Documented by: [id number] Cosigned by: [id number] Rivaroxaban (Xarelto) 20 mg PO PM KAY Stop: 06/30/18 20:59 Last Admin: 06/01/18 19:49 Dose: 20 mg Documented by: [id number] Admin: 05/31/18 20:38 Dose: 20 mg Documented by: [id number] Sotalol HCl (Betapace) 120 mg PO Q12 KAY Stop: 07/01/18 20:59 Last Admin: 06/02/18 08:21 Dose: 120 mg Documented by: [id number] Admin: 06/01/18 19:49 Dose: 120 mg Documented by: [id number] Discontinued Medications Albuterol (Duoneb) 3 ml NEB NOW STA Stop: 06/01/18 14:48 Last Admin: 06/01/18 14:58 Dose: 3 ml Documented by: [id number] Furosemide (Lasix) 40 mg IV NOW STA Stop: 05/31/18 11:21 Last Admin: 05/31/18 11:36 Dose: 40 mg Documented by: [id number] Magnesium Sulfate/Dextrose (Magnesium Sulfate / D5w) 1 gm in 100 mls @ 100 mls/hr IV TODAY@1630 ONE Stop: 05/31/18 17:29 Last Infusion: 05/31/18 17:44 Dose: 0 mls/hr Documented by: [id number] Admin: 05/31/18 16:42 Dose: 100 mls/hr Documented by: [id number] Levalbuterol HCl (Xopenex 0.31mg/3 Ml) 0.31 mg NEB NOW STA Stop: 05/31/18 11:07 Last Admin: 05/31/18 11:23 Dose: 0.31 mg Documented by: [id number] Metoprolol Tartrate (Lopressor) 150 mg PO BID KAY Stop: 06/30/18 20:59 Last Admin: 06/01/18 08:30 Dose: 150 mg Documented by: [id number] Admin: 05/31/18 20:38 Dose: 150 mg Documented by: [id number] Ondansetron HCl (Zofran) 4 mg IV NOW STA Stop: 05/31/18 13:18 Last Admin: 05/31/18 13:41 Dose: 4 mg Documented by: [id number] Propofol (Diprivan) 150 mg IV NOW STA Stop: 05/31/18 13:18 Last Admin: 05/31/18 13:41 Dose: 170 mg Documented by: [id number] Cosigned by: [id number] Medical Decision Making Differential Diagnosis Differential diagnosis: Etiologies such as cardiac ischemia, aortic dissection, pulmonary embolism, pneumonia, pneumothorax, musculoskeletal, infections, pericarditis, myocarditis, esophageal rupture, gastrointestinal, as well as others were entertained. Medical Records Attestation: I reviewed the patient's medical records. Home Medications Current Medication List: was personally reviewed by me Laboratory Data Attestation: I reviewed the patient's lab results. Result diagrams: 06/02/18 06:15 06/02/18 06:15 Lab Results 05/31/18 05/31/18 05/31/18 Range/Units 11:15 11:15 11:15 WBC 7.12 (4.8-10.8) K/uL RBC 4.78 (4.7-6.1) M/uL Hgb 14.9 (14.0-18.0) g/dL Hct 44.6 (42-52) % MCV 93.3 (80-100) fL MCH 31.2 (25-34) pg MCHC 33.4 (32-36) g/dL RDW Std Deviation 48.4 H (36.4-46.3) fL RDW Coeff of Kaley 14.2 (11.5-14.5) % Plt Count 219 (130-400) K/uL MPV 11.8 H (7.4-10.4) fL Immature Gran % (Auto) 0.3 % Neut % (Auto) 64.9 % Lymph % (Auto) 22.6 % [place] % (Auto) 10.8 % Eos % (Auto) 1.3 % Baso % (Auto) 0.1 % Immature Gran # (Auto) 0.02 (0.00-0.02) K/uL Neut # (Auto) 4.62 (1.4-6.5) K/uL Lymph # (Auto) 1.61 (1.2-3.4) K/uL [place] # (Auto) 0.77 H (0.11-0.59) K/uL Eos # (Auto) 0.09 (0-0.5) K/uL Baso # (Auto) 0.01 (0-0.2) K/uL Sodium 141 (136-145) mmol/L Potassium 4.2 (3.5-5.1) mmol/L Chloride 108 H (98-107) mmol/L Carbon Dioxide 26 (21-32) mmol/L Anion Gap 7.0 (3-11) BUN 16 (7-18) mg/dl Creatinine 1.25 (0.6-1.4) mg/dl Est Cr Clr Drug Dosing 110.8 ml/min Est GFR ( Amer) 79.0 Est GFR (Non-Af Amer) 68.1 BUN/Creatinine Ratio 12.8 (10-20) Glucose 125 H (70-99) mg/dl POC Glucose (70-99) Calcium 9.0 (8.5-10.1) mg/dl Magnesium (1.8-2.4) mg/dl Total Bilirubin 0.7 (0.2-1) mg/dl AST 41 H (15-37) U/L ALT 87 H (12-78) U/L Alkaline Phosphatase 66 (45-117) U/L Total Creatine Kinase 559 H (39-308) U/L CK-MB (CK-2) 6.9 H (0.5-3.6) ng/ml CK/CKMB % Calc 1.2 (0-3.0) Troponin I 0.045 (0-0.045) ng/ml NT-Pro-B Natriuret Pep 1495 H Cancelled (0-450) pg/ml Total Protein 6.9 (6.4-8.2) gm/dl Albumin 3.6 (3.4-5.0) gm/dl Globulin 3.3 (2.5-4.0) gm/dl Albumin/Globulin Ratio 1.1 (0.9-2) Lipase 163 (73-393) U/L Influenza Type A Ag (Neg) Influenza Type B Ag (Neg) 05/31/18 05/31/18 05/31/18 Range/Units 11:23 16:12 20:07 WBC (4.8-10.8) K/uL RBC (4.7-6.1) M/uL Hgb (14.0-18.0) g/dL Hct (42-52) % MCV (80-100) fL MCH (25-34) pg MCHC (32-36) g/dL RDW Std Deviation (36.4-46.3) fL RDW Coeff of Kaley (11.5-14.5) % Plt Count (130-400) K/uL MPV (7.4-10.4) fL Immature Gran % (Auto) % Neut % (Auto) % Lymph % (Auto) % [place] % (Auto) % Eos % (Auto) % Baso % (Auto) % Immature Gran # (Auto) (0.00-0.02) K/uL Neut # (Auto) (1.4-6.5) K/uL Lymph # (Auto) (1.2-3.4) K/uL [place] # (Auto) (0.11-0.59) K/uL Eos # (Auto) (0-0.5) K/uL Baso # (Auto) (0-0.2) K/uL Sodium (136-145) mmol/L Potassium (3.5-5.1) mmol/L Chloride (98-107) mmol/L Carbon Dioxide (21-32) mmol/L Anion Gap (3-11) BUN (7-18) mg/dl Creatinine (0.6-1.4) mg/dl Est Cr Clr Drug Dosing ml/min Est GFR ( Amer) Est GFR (Non-Af Amer) BUN/Creatinine Ratio (10-20) Glucose (70-99) mg/dl POC Glucose 128 H (70-99) Calcium (8.5-10.1) mg/dl Magnesium (1.8-2.4) mg/dl Total Bilirubin (0.2-1) mg/dl AST (15-37) U/L ALT (12-78) U/L Alkaline Phosphatase (45-117) U/L Total Creatine Kinase TNP (39-308) U/L CK-MB (CK-2) (0.5-3.6) ng/ml CK/CKMB % Calc (0-3.0) Troponin I 0.041 (0-0.045) ng/ml NT-Pro-B Natriuret Pep (0-450) pg/ml Total Protein (6.4-8.2) gm/dl Albumin (3.4-5.0) gm/dl Globulin (2.5-4.0) gm/dl Albumin/Globulin Ratio (0.9-2) Lipase (73-393) U/L Influenza Type A Ag Neg for Influ A (Neg) Influenza Type B Ag Neg for Influ B (Neg) 05/31/18 05/31/18 06/01/18 Range/Units 20:13 21:18 07:50 WBC (4.8-10.8) K/uL RBC (4.7-6.1) M/uL Hgb (14.0-18.0) g/dL Hct (42-52) % MCV (80-100) fL MCH (25-34) pg MCHC (32-36) g/dL RDW Std Deviation (36.4-46.3) fL RDW Coeff of Kaley (11.5-14.5) % Plt Count (130-400) K/uL MPV (7.4-10.4) fL Immature Gran % (Auto) % Neut % (Auto) % Lymph % (Auto) % [place] % (Auto) % Eos % (Auto) % Baso % (Auto) % Immature Gran # (Auto) (0.00-0.02) K/uL Neut # (Auto) (1.4-6.5) K/uL Lymph # (Auto) (1.2-3.4) K/uL [place] # (Auto) (0.11-0.59) K/uL Eos # (Auto) (0-0.5) K/uL Baso # (Auto) (0-0.2) K/uL Sodium (136-145) mmol/L Potassium (3.5-5.1) mmol/L Chloride (98-107) mmol/L Carbon Dioxide (21-32) mmol/L Anion Gap (3-11) BUN (7-18) mg/dl Creatinine (0.6-1.4) mg/dl Est Cr Clr Drug Dosing ml/min Est GFR ( Amer) Est GFR (Non-Af Amer) BUN/Creatinine Ratio (10-20) Glucose (70-99) mg/dl POC Glucose 125 H 128 H (70-99) Calcium (8.5-10.1) mg/dl Magnesium (1.8-2.4) mg/dl Total Bilirubin (0.2-1) mg/dl AST (15-37) U/L ALT (12-78) U/L Alkaline Phosphatase (45-117) U/L Total Creatine Kinase 474 H (39-308) U/L CK-MB (CK-2) (0.5-3.6) ng/ml CK/CKMB % Calc (0-3.0) Troponin I (0-0.045) ng/ml NT-Pro-B Natriuret Pep (0-450) pg/ml Total Protein (6.4-8.2) gm/dl Albumin (3.4-5.0) gm/dl Globulin (2.5-4.0) gm/dl Albumin/Globulin Ratio (0.9-2) Lipase (73-393) U/L Influenza Type A Ag (Neg) Influenza Type B Ag (Neg) 06/01/18 06/01/18 06/01/18 Range/Units 11:19 16:15 20:23 WBC (4.8-10.8) K/uL RBC (4.7-6.1) M/uL Hgb (14.0-18.0) g/dL Hct (42-52) % MCV (80-100) fL MCH (25-34) pg MCHC (32-36) g/dL RDW Std Deviation (36.4-46.3) fL RDW Coeff of Kaley (11.5-14.5) % Plt Count (130-400) K/uL MPV (7.4-10.4) fL Immature Gran % (Auto) % Neut % (Auto) % Lymph % (Auto) % [place] % (Auto) % Eos % (Auto) % Baso % (Auto) % Immature Gran # (Auto) (0.00-0.02) K/uL Neut # (Auto) (1.4-6.5) K/uL Lymph # (Auto) (1.2-3.4) K/uL [place] # (Auto) (0.11-0.59) K/uL Eos # (Auto) (0-0.5) K/uL Baso # (Auto) (0-0.2) K/uL Sodium (136-145) mmol/L Potassium (3.5-5.1) mmol/L Chloride (98-107) mmol/L Carbon Dioxide (21-32) mmol/L Anion Gap (3-11) BUN (7-18) mg/dl Creatinine (0.6-1.4) mg/dl Est Cr Clr Drug Dosing ml/min Est GFR ( Amer) Est GFR (Non-Af Amer) BUN/Creatinine Ratio (10-20) Glucose (70-99) mg/dl POC Glucose 109 H 109 H 107 H (70-99) Calcium (8.5-10.1) mg/dl Magnesium (1.8-2.4) mg/dl Total Bilirubin (0.2-1) mg/dl AST (15-37) U/L ALT (12-78) U/L Alkaline Phosphatase (45-117) U/L Total Creatine Kinase (39-308) U/L CK-MB (CK-2) (0.5-3.6) ng/ml CK/CKMB % Calc (0-3.0) Troponin I (0-0.045) ng/ml NT-Pro-B Natriuret Pep (0-450) pg/ml Total Protein (6.4-8.2) gm/dl Albumin (3.4-5.0) gm/dl Globulin (2.5-4.0) gm/dl Albumin/Globulin Ratio (0.9-2) Lipase (73-393) U/L Influenza Type A Ag (Neg) Influenza Type B Ag (Neg) 06/02/18 06/02/18 06/02/18 Range/Units 06:15 06:15 07:35 WBC 9.17 (4.8-10.8) K/uL RBC 4.71 (4.7-6.1) M/uL Hgb 14.5 (14.0-18.0) g/dL Hct 43.3 (42-52) % MCV 91.9 (80-100) fL MCH 30.8 (25-34) pg MCHC 33.5 (32-36) g/dL RDW Std Deviation 46.8 H (36.4-46.3) fL RDW Coeff of Kaley 13.9 (11.5-14.5) % Plt Count 219 (130-400) K/uL MPV 11.8 H (7.4-10.4) fL Immature Gran % (Auto) % Neut % (Auto) % Lymph % (Auto) % [place] % (Auto) % Eos % (Auto) % Baso % (Auto) % Immature Gran # (Auto) (0.00-0.02) K/uL Neut # (Auto) (1.4-6.5) K/uL Lymph # (Auto) (1.2-3.4) K/uL [place] # (Auto) (0.11-0.59) K/uL Eos # (Auto) (0-0.5) K/uL Baso # (Auto) (0-0.2) K/uL Sodium 140 (136-145) mmol/L Potassium 3.9 (3.5-5.1) mmol/L Chloride 105 (98-107) mmol/L Carbon Dioxide 30 (21-32) mmol/L Anion Gap 5.0 (3-11) BUN 21 H (7-18) mg/dl Creatinine 1.35 (0.6-1.4) mg/dl Est Cr Clr Drug Dosing 100.9 ml/min Est GFR ( Amer) 71.9 Est GFR (Non-Af Amer) 62.1 BUN/Creatinine Ratio 15.6 (10-20) Glucose 106 H (70-99) mg/dl POC Glucose 115 H (70-99) Calcium 8.8 (8.5-10.1) mg/dl Magnesium 2.2 (1.8-2.4) mg/dl Total Bilirubin (0.2-1) mg/dl AST (15-37) U/L ALT (12-78) U/L Alkaline Phosphatase (45-117) U/L Total Creatine Kinase (39-308) U/L CK-MB (CK-2) (0.5-3.6) ng/ml CK/CKMB % Calc (0-3.0) Troponin I (0-0.045) ng/ml NT-Pro-B Natriuret Pep (0-450) pg/ml Total Protein (6.4-8.2) gm/dl Albumin (3.4-5.0) gm/dl Globulin (2.5-4.0) gm/dl Albumin/Globulin Ratio (0.9-2) Lipase (73-393) U/L Influenza Type A Ag (Neg) Influenza Type B Ag (Neg) 06/02/18 Range/Units 11:13 WBC (4.8-10.8) K/uL RBC (4.7-6.1) M/uL Hgb (14.0-18.0) g/dL Hct (42-52) % MCV (80-100) fL MCH (25-34) pg MCHC (32-36) g/dL RDW Std Deviation (36.4-46.3) fL RDW Coeff of Kaley (11.5-14.5) % Plt Count (130-400) K/uL MPV (7.4-10.4) fL Immature Gran % (Auto) % Neut % (Auto) % Lymph % (Auto) % [place] % (Auto) % Eos % (Auto) % Baso % (Auto) % Immature Gran # (Auto) (0.00-0.02) K/uL Neut # (Auto) (1.4-6.5) K/uL Lymph # (Auto) (1.2-3.4) K/uL [place] # (Auto) (0.11-0.59) K/uL Eos # (Auto) (0-0.5) K/uL Baso # (Auto) (0-0.2) K/uL Sodium (136-145) mmol/L Potassium (3.5-5.1) mmol/L Chloride (98-107) mmol/L Carbon Dioxide (21-32) mmol/L Anion Gap (3-11) BUN (7-18) mg/dl Creatinine (0.6-1.4) mg/dl Est Cr Clr Drug Dosing ml/min Est GFR ( Amer) Est GFR (Non-Af Amer) BUN/Creatinine Ratio (10-20) Glucose (70-99) mg/dl POC Glucose 114 H (70-99) Calcium (8.5-10.1) mg/dl Magnesium (1.8-2.4) mg/dl Total Bilirubin (0.2-1) mg/dl AST (15-37) U/L ALT (12-78) U/L Alkaline Phosphatase (45-117) U/L Total Creatine Kinase (39-308) U/L CK-MB (CK-2) (0.5-3.6) ng/ml CK/CKMB % Calc (0-3.0) Troponin I (0-0.045) ng/ml NT-Pro-B Natriuret Pep (0-450) pg/ml Total Protein (6.4-8.2) gm/dl Albumin (3.4-5.0) gm/dl Globulin (2.5-4.0) gm/dl Albumin/Globulin Ratio (0.9-2) Lipase (73-393) U/L Influenza Type A Ag (Neg) Influenza Type B Ag (Neg) Imaging Data Radiologist's Impression: Radiology results as stated below per my review and the radiologist's interpretation: XR chest 1V portable CLINICAL HISTORY: Chest Pain dyspnea COMPARISON STUDY: 03/15/2018 FINDINGS: Stable cardiomegaly. Diaphragms are smooth. Lungs are clear. Mild chronic prominence of the pulmonary vasculature. IMPRESSION: Cardiomegaly. Mild chronic pulmonary vascular congestion. The above report was generated using voice recognition software. It may contain grammatical, syntax or spelling errors. Electronically signed by: Jamari Ch M.D. 05/31/2018 11:10 AM ECG Data Attestation: I personally reviewed and interpreted this ECG as follows: Indication: chest pain Rate (beats per minute): 97 Rhythm: atrial fibrillation Findings: no PAC, no PVC, no ST depression, no ST elevation, no acute ischemic change and no ectopy Blood Pressure Blood Pressure Findings: Normal blood pressure MDM Narrative This is a 47-year-old male who presents emergency department complaining of shortness of breath. The patient is in atrial fibrillation. He admits to history of paroxysmal atrial fibrillation. He believes he has been in atrial fibrillation for apparently the past 2 weeks. He denies missing any doses of his Xarelto during that time. His chest x-ray is concerning for congestive heart failure. For this reason he was given Lasix here in the emergency department. I did discuss the case with cardiology as well as the hospitalist and the decision was made to cardiovert the patient. He has not eaten since yesterday afternoon. Procedural sedation was done as above. I attempted to cardiovert this patient x2 however he did not convert to a normal sinus rhythm. For this reason the decision was made to admit the patient. Patient was in agreement with the treatment plan. Impression & Plan Atrial fibrillation, Congestive heart failure Critical Care Time I have personally spent greater than 30 minutes of critical care time in the dir ect management of this patient. This includes bedside care, interpretation of diagnostic studies, and testing, discussion with consultants, patient, and family members, and other required patient management activities. This 30 minutes is in excess of all separately billable procedures. Discharge Plan Visit Data *Final* Discharge Date/Time: 05/31/18 15:36 Chief Complaint: Arrhythmia/Palpitations Stated Complaint: AFIB ED Provider: Dayne Astudillo Discharge Problem: Atrial fibrillation, Congestive heart failure Patient Disposition: Admitted As Inpatient Discharge Instructions Interventions: ED Discharge Assessment Last Done: 05/31/18 15:36 Discharge Problem: Atrial fibrillation Qualifiers: Atrial fibrillation type: unspecified Qualified Code(s): I48.91 - Unspecified atrial fibrillation The scribe's documentation has been prepared under my direction and personally reviewed by me in its entirety. I confirm that the note above accurately reflects all work, treatment, procedures, and medical decision making performed by me.
--- NOTE | 2018-06-02 15:56 | Emergency Department Note ---
ED Visit Note The planned sedation has been discussed with the patient. Informed Consent was obtained. I have identified the patient, determined the appropriateness of sedation and have assessed the patient immediately prior to the procedure. All medicine(s) and interventions are by my order. . : Atrial fibrillation Qualifiers: Atrial fibrillation type: unspecified Qualified Code(s): I48.91 - Unspecified atrial fibrillation
--- NOTE | 2018-06-02 15:58 | Emergency Department Note ---
ED Visit Note On clinical assessment, the patient appears to have tolerated the sedation without complications. Patient is recovering as anticipated. Patient will continue to be monitored by nursing and may be discharged when sedation discharge criteria are met per below protocol. Upon Completions of procedure and additional 15 minutes continue every 5 minute vital signs and the P.A.R. score; then discharge to a Phase I or Fast Track to Phase II per the following guidelines: * Discharge Patient to appropriate Phase II area if PAR is 8 or greater or retur n to pre- procedure baseline. The post - procedure orders will be as directed. * If PAR score is less than 8 or not return to pre-procedure baseline then patient will follow Phase I monitoring till PAR is reached for Phase II. The Phase I may be done in procedure room or may call to secure a Phase I area. * If naloxone or flumazenil are used for reversal, hold in Phase I for continued monitoring from when last reversal dose was given for a minimum of 60 minutes or longer pending the nurse and/or physician discretion of patient condition before discharge to Phase II. Please call the Sedation Physician to re-evaluate and complete post-note for discharge to Phase II area. Do NOT discharge from procedure sedation or Phase 1 until post- sedation evaluation note is complete by procedure /sedation MD Sedation Discharge Instructions to be given to the patient at discharge to home. . : Atrial fibrillation Qualifiers: Atrial fibrillation type: unspecified Qualified Code(s): I48.91 - Unspecified atrial fibrillation
--- NOTE | 2018-06-02 16:48 | Hospitalist Progress Note ---
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 Exacerbation caused by afib with RVR. - Continue Lasix 40mg IV daily - Monitor I&Os, weights - Telemetry - Sotalol per cardiology - On 06/02, net -1L, weight is down. Continue current IV diuresis. (2) Paroxysmal atrial fibrillation: Failed cardioversion x 2 in the ED this admission. Rate control with beta- rocio and calcium channel rocio as outpatient. - Started sotalol on 06/01 per cardiology - Holding diltiazem and metoprolol while on sotalol. - Rivaroxaban for anticoagulation (3) Diabetes mellitus: A1c was 6.9% in 02/2018. - Hold metformin - Sliding scale insulin (4) Hypertension: BP was 100/50 to 150/110 so far this admission. - Held lisinopril for conversion to sotalol - Restart on 06/03 for continued HTN - Will lower dose though to prevent hypotension - Monitor BP (5) DVT prophylaxis: On Xarelto for his afib Subjective 47yo M w/ hx of cardiomyopathy who presents with afib and CHF exacerbation. Feels better this morning. No further shortness of breath. Legs are mostly at baseline. Reports no fevers/chills, chest pain, shortness of breath, abdominal pain, nausea, or vomiting. Physical Exam Vital Signs (Past 24 Hours): Last Vital Signs Temp 37.0 C 06/02/18 15:15 Pulse 89 06/02/18 15:15 Resp 18 06/02/18 15:15 BP 120/85 06/02/18 15:15 Pulse Ox 96 06/02/18 15:15 Constitutional: WD/WN, vitals as above Eyes: EOM intact bilaterally; no conjunctival abnormality ENMT: external ear and nose normal, oropharynx normal Neck: trachea midline, no thyromegaly normal visual inspection Respiratory: normal respiratory effort, lungs clear to auscultation no respiratory distress Cardiovascular: Rate/Rhythm: + irregularly irregular Heart Sounds: normal S1 and normal S2 Gastrointestinal (Abdomen): Inspection/Auscultation: abdomen normal to inspection; abdomen not distended Musculoskeletal: no cyanosis or clubbing, extremities motor strength 5/5 Skin: no rashes, warm and dry Neurologic: moves all extremities and awake Psychiatric: Orientation: alert, oriented to person and cooperative
[2018-06-02] MEDS: ATORVASTATIN 40 MG TAB PO SCH (19:47)
[2018-06-02] MEDS: RIVAROXABAN 20 MG TAB PO SCH (19:47)
[2018-06-03 07:42] LABS: BUN Creatinine Ratio 16.3 (10-20); Creatinine Clr Calc Pharmacy 112.4 ml/min; Est GFR (Non-African American) 71.6; Potassium 4.2 mmol/L (3.5-5.1)
[2018-06-03] MEDS: SOTALOL HCL 80 MG TAB PO SCH ×2 (08:13→20:53)
[2018-06-03] MEDS: FUROSEMIDE 40 MG in SYRINGE 0 ML IV SCH (08:13)
[2018-06-03] MEDS: LISINOPRIL 10 MG TAB PO SCH (08:14)
[2018-06-03] MEDS: INSULIN ASPART 100 UNITS/ML 3 ML PEN SC SCH ×4 (09:47→20:54)
--- NOTE | 2018-06-03 10:41 | Cardiology Progress Note ---
Date of Service June 03, 2018 Assessment & Plan (1) Congestive heart failure: Admitted with acute on chronic systolic CHF The patient continues to diurese. Was down to 311 pounds today. His typical dry weight is 295 pounds. (2) Paroxysmal atrial fibrillation: Fortunately, his ventricular response is now well controlled. He is tolerating sotalol without difficulty. EKG today notes no evidence of QT prolongation. We will proceed with an elective, electrical cardioversion tomorrow at 7:45 a.m. (3) Hypertension: Adequate control now that lisinopril has been restarted. 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 Ejection fraction was 40-45% on his last echocardiogram. Subjective Mr. Lomeli is resting comfortably in the bedside chair without complaints of chest pain, dyspnea, or palpitations. We have discussed proceeding with an electrical cardioversion tomorrow. Physical Exam Vital Signs (Past 24 Hours): Last Vital Signs Temp 36.5 C 06/03/18 07:45 Pulse 100 H 06/03/18 07:45 Resp 18 06/03/18 07:45 BP 137/99 06/03/18 07:45 Pulse Ox 96 06/03/18 07:45 Physical Exam: In general is obese white male in no acute distress. HEENT exam is negative. Neck is supple with full carotid upstrokes. There are no carotid bruits. Jugular venous pressure is flat at 90 degrees. There is no thyromegaly. Cardiovascular exam reveals an irregular irregular rhythm with distant heart sounds. No obvious murmurs. Lungs are clear without rales, rhonchi, or wheezes. Abdomen is obese without bruits. Extremities reveal intact radial artery pulses bilaterally. There is trace pretibial edema. 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 EKG notes atrial fibrillation with a controlled ventricular response. (1) Congestive heart failure Heart failure chronicity: unspecified Heart failure type: unspecified Qualified Code(s): I50.9 - Heart failure, unspecified
--- NOTE | 2018-06-03 15:43 | Hospitalist Progress Note ---
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 Exacerbation caused by afib with RVR. - Continue Lasix 40mg IV daily - Monitor I&Os, weights - Telemetry - Sotalol per cardiology - On 06/03, net -1L, weight is down to 141kg. Baseline appears to be ~135-140kg. Continue current IV diuresis. (2) Paroxysmal atrial fibrillation: Failed cardioversion x 2 in the ED this admission. Rate control with beta- rocio and calcium channel rocio as outpatient. - Started sotalol on 06/01 per cardiology - Holding diltiazem and metoprolol while on sotalol. - Rivaroxaban for anticoagulation (3) Diabetes mellitus: A1c was 6.9% in 02/2018. - Hold metformin - Sliding scale insulin (4) Hypertension: BP was 100/50 to 150/110 so far this admission. - Held lisinopril for conversion to sotalol - Restarted on 06/03 for continued HTN - Started 10mg dose to prevent hy potension - Monitor BP (5) DVT prophylaxis: On Xarelto for his afib Subjective 47yo M w/ tachycardia-induced cardiomyopathy who presents with afib and RVR. Mr. Lomeli is resting comfortably in the bedside chair without complaints of chest pain, dyspnea, or palpitations. We have discussed proceeding with an electrical cardioversion tomorrow. Review of Systems Constitutional: no fever, no chills and no sweats Eyes: no diplopia Ear, Nose, Mouth, Throat: no ear trauma, no nasal discharge and no dental pain Respiratory: no cough, no chest congestion and no dyspnea Cardiovascular: no chest pain, no dyspnea on exertion, no palpitations and no syncope Gastrointestinal: no abdominal pain, no belching, no constipation, no diarrhea/loose stools, no blood in stools and no melena Musculoskeletal: no back pain, no joint pain and no muscle weakness Integumentary: no rash, no skin ulcer and no erythema Neurologic: no generalized weakness, no loss of sensation, no numbness and no paresthesia Psychiatric: no depression and no anxiety Endocrine: no fatigue, no polydipsia and no polyphagia Physical Exam Constitutional: WD/WN, vitals as above Eyes: EOM intact bilaterally; no conjunctival abnormality ENMT: external ear and nose normal, oropharynx normal Neck: trachea midline, no thyromegaly normal visual inspection Respiratory: normal respiratory effort, lungs clear to auscultation no respiratory distress Cardiovascular: Rate/Rhythm: + irregularly irregular Heart Sounds: normal S1 and normal S2 Extremities: + edema Gastrointestinal (Abdomen): Inspection/Auscultation: abdomen normal to inspection; abdomen not distended Musculoskeletal: no cyanosis or clubbing, extremities motor strength 5/5 Skin: no rashes, warm and dry Neurologic: moves all extremities and awake Psychiatric: Orientation: alert, oriented to person and cooperative Results & Data Vital Signs (Past 12 Hours) Vital Signs Temp Pulse Pulse Resp BP BP Pulse Ox 06/03/18 15:05 37.2 C 103 H 20 124/85 98 06/03/18 14:49 100 H 06/03/18 11:30 36.9 C 84 18 128/90 95 06/03/18 07:45 36.5 C 100 H 18 137/99 96 06/03/18 07:40 91 H 06/03/18 04:21 37.0 C 66 18 124/77 92
--- NOTE | 2018-06-03 16:26 | Anesthesiology Consultation ---
Date of Service June 03, 2018 Assessment & Plan (1) Encounter for pre-operative examination: Chart Review Chart Review: Acceptable Risk for Surgery History Surgery Operation Date: 06/04/18 07:45 Proposed Procedures p Cardioversion Service Consultant w/Anesthesia - Kain Tejeda MD Height/Weight Height: 6 ft 1 in Weight: 141.3 kg Allergies Allergy/AdvReac Type Severity Reaction Status Date / Time No Known Allergies Allergy Verified 05/31/18 10:58 Medications Home Medications Medication Instructions Recorded Confirmed Last Taken Xarelto 20 mg PO PM 03/15/18 05/31/18 05/30/18 atorvastatin 40 mg PO PM 03/15/18 05/31/18 05/30/18 diltiazem HCl 240 mg PO DAILY 03/15/18 05/31/18 05/30/18 lisinopril 40 mg PO DAILY 03/15/18 05/31/18 05/30/18 metformin 500 mg PO PM 03/15/18 05/31/18 05/30/18 metoprolol tartrate 100 mg PO BID 03/15/18 05/31/18 05/30/18 metoprolol tartrate 150 mg PO BID 03/15/18 05/31/18 05/30/18 furosemide 20 mg PO DAILY 05/31/18 05/31/18 05/30/18 Active Medications Generic Name Dose Route Start Last Admin Trade Name Freq PRN Reason Stop Dose Admin Acetaminophen 650 mg 05/31/18 15:55 05/31/18 19:56 Tylenol PO 06/30/18 15:54 650 mg Q4H PRN Administration Pain or Fever Atorvastatin Calcium 40 mg 05/31/18 21:00 06/02/18 19:47 Lipitor PO 06/30/18 20:59 40 mg PM KAY Administration Benzocaine 1 appln 05/31/18 20:13 05/31/18 20:39 Orajel 20% MT 06/30/18 20:12 1 appln Q1H PRN Administration Pain Furosemide 40 mg/ Syringe 4 mls @ 4 mls/min 06/01/18 09:00 06/03/18 08:13 IV 07/01/18 08:59 4 mls/min DAILY KAY Administration Insulin Aspart 0 units 05/31/18 16:30 06/03/18 17:57 Novolog Flexpen SC 06/30/18 16:29 Not Given ACHS KAY Lisinopril 10 mg 06/03/18 09:00 06/03/18 08:14 Zestril PO 07/03/18 08:59 10 mg QAM KAY Administration Rivaroxaban 20 mg 05/31/18 21:00 06/02/18 19:47 Xarelto PO 06/30/18 20:59 20 mg PM KAY Administration Sotalol HCl 120 mg 06/01/18 21:00 06/03/18 08:13 Betapace PO 07/01/18 20:59 120 mg Q12 KAY Administration Beta Nav Beta Nav Taken Within 24 Hours: Yes Past Medical History Medical History Hypertension (Chronic) Hematuria (Acute) Abdominal pain (Acute) Atrial fibrillation Diabetes mellitus Atrial fibrillation (Acute) CHF (congestive heart failure) Diabetes mellitus, type 2 Past Family History Family History Other No significant family history Social History Smoking Status: Never smoker tobacco type: smokeless tobacco Do You Dip or Chew Tobacco: No Hx Alcohol Use: No Hx Substance Use: No substance use type: does not use Physical Exam Vital Signs Last Vital Signs Temp 37.2 C 06/03/18 15:05 Pulse 103 H 06/03/18 15:05 Resp 20 06/03/18 15:05 BP 124/85 06/03/18 15:05 Pulse Ox 98 06/03/18 15:05 Testing Electrocardiogram Date: 06/03/18 Findings: + AFIB @ (86) and + WV (?inf WV) Echocardiogram Date: 03/16/18 EF: 40-45% Valvular Disease: + no significant valvular disease Laboratory Results 06/02/18 06:15 06/03/18 07:06 06/03/18 06/03/18 11:08 07:18 POC Glucose 99 114 H
[2018-06-03] MEDS: ATORVASTATIN 40 MG TAB PO SCH (20:53)
[2018-06-03] MEDS: RIVAROXABAN 20 MG TAB PO SCH (20:54)
[2018-06-04 07:12] LABS: BUN Creatinine Ratio 15.6 (10-20); Calcium 9.2 mg/dl (8.5-10.1); Creatinine Clr Calc Pharmacy 105.1 ml/min; Est GFR (African American) 76.7; Est GFR (Non-African American) 66.2; Potassium 4.1 mmol/L (3.5-5.1)
[2018-06-04] MEDS ORDERED: PROPOFOL IV EMULSION 10 MG/ML 20 ML VIAL IV ONE (07:21)
[2018-06-04] MEDS ORDERED: ePHEDrine sulfate 50 MG/ML AMP IV PRN (07:33)
[2018-06-04] MEDS ORDERED: ATROPINE SULFATE 0.1 MG/ML 10ML SYR IV PRN (07:33)
--- NOTE | 2018-06-04 07:51 | Anesthesiology Progress Note ---
Date of Service June 04, 2018 Anesthesia Post Procedure Vital Signs Vital Signs: Temp Pulse Pulse Resp BP Pulse Ox 06/04/18 03:01 36.8 C 83 24 122/82 94 06/04/18 00:24 36.8 C 91 H 18 109/73 93 06/03/18 21:00 78 20 95 06/03/18 20:50 95 H 18 134/92 06/03/18 19:20 37.0 C 109 H 18 146/108 H 94 06/03/18 15:05 37.2 C 103 H 20 124/85 98 06/03/18 14:49 100 H 06/03/18 11:30 36.9 C 84 18 128/90 95 Notes Mental Status: alert / awake / arousable Patient Amnestic to Procedure: Yes Nausea / Vomiting: adequately controlled Pain: adequately controlled Airway Patency, RR, SpO2: stable & adequate BP & HR: stable & adequate Hydration State: stable & adequate Anesthetic Complications: no major complications apparent and Pt Satisfied with anesthetic care
--- NOTE | 2018-06-04 07:56 | Cardioversion ---
Date of Service June 04, 2018 Electrical Cardioversion Rpt Electrical Cardioversion Report Date of procedure: June 04, 2018 Principle procedure: Elective, electrical cardioversion. Indication: Refractory atrial fibrillation, CHF, tachycardic induced cardiomyopathy. Protocal: After informed consent was obtained, a "time-out" was undertaken. The patient was monitored continuously following his blood pressure, ECG, oxygen saturation, and end-tidal CO2. The patient was sedated smoothly by Dr. Pierre using 50 mg of intravenous propofol. The patient was initially given 100 joules of synchronized biphasic energy via hand off paddles. This defibrillation was unsuccessful, and therefore, the patient was given 150 joules of synchronized biphasic energy. The patient was successfully converted to normal sinus rhythm. The patient tolerated the procedure well. There were no complications. Following the procedure, the patient is hemodynamically stable conversant, and without complaints. Conclusions: 1. successful cardioversion to normal sinus rhythm.
[2018-06-04] MEDS: INSULIN ASPART 100 UNITS/ML 3 ML PEN SC SCH ×2 (08:49→12:27)
[2018-06-04] MEDS: LISINOPRIL 10 MG TAB PO SCH (08:50)
[2018-06-04] MEDS: SOTALOL HCL 80 MG TAB PO SCH (08:50)
[2018-06-04] MEDS: FUROSEMIDE 40 MG in SYRINGE 0 ML IV SCH (08:51)
[2018-06-04 09:28] VITALS: O2SAT 97
[2018-06-04 12:18] VITALS: BP 136/97; PULSE 79; TEMP 98.1
--- NOTE | 2018-06-04 13:27 | Cardiology Progress Note ---
Date of Service June 04, 2018 Assessment & Plan (1) Congestive heart failure: Admitted with acute on chronic systolic CHF. The patient continues to diurese and is now down to 309 lb. His typical dry weight at home is 295-300 lb. The patient will use Lasix at home on a daily basis until he reaches his dry weight. He will then uses Lasix on a p.r.n. basis. (2) Paroxysmal atrial fibrillation: The patient was successfully converted to sinus rhythm earlier today. He is tolerating treatment with sotalol which we plan to continue indefinitely. He is tolerating long-term anticoagulation without difficulty. (3) Hypertension: Adequate control. 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 Ejection fraction was 40-45% on his last echocardiogram. We will reassess systolic function in 2- 3 months. Subjective Mr. Lomeli is resting comfortably in the bedside chair without complaints. Tolerated his cardioversion without difficulty. Physical Exam Physical Exam: In general is obese white male in no acute distress. HEENT exam is negative. Neck is supple with full carotid upstrokes. There are no carotid bruits. Jugular venous pressure is flat at 90 degrees. There is no thyro megaly. Cardiovascular exam reveals a regular rhythm with distant heart sounds. No obvious murmurs. Lungs are clear without rales, rhonchi, or wheezes. Abdomen is obese without bruits. Extremities reveal intact radial artery pulses bilaterally. There is trace pretibial edema. Results & Data Vital Signs (Past 12 Hours) Vital Signs Temp Pulse Resp BP BP Pulse Ox 06/04/18 13:08 36.7 C 79 18 137/99 136/97 97 06/04/18 12:01 36.7 C 79 18 136/97 97 06/04/18 09:00 77 16 164/88 H 97 06/04/18 08:45 68 16 126/88 96 06/04/18 08:30 65 18 120/84 94 06/04/18 08:15 66 16 120/83 93 06/04/18 07:56 36.9 C 74 18 140/86 95 06/04/18 03:01 36.8 C 83 24 122/82 94 Diagnostic Findings conveyor monitor notes normal sinus rhythm. (1) Congestive heart failure Heart failure chronicity: unspecified Heart failure type: unspecified Qualified Code(s): I50.9 - Heart failure, unspecified
--- NOTE | 2018-06-04 15:44 | Discharge Summary ---
Date of Service June 04, 2018 Admission HPI Per Admitting Provider 47 y/o M Hx PAF, systolic CHF due to tachycardic cardiomyopathy, DM II, HTN, HLD, DAVID, morbidly obese. Presents with progressive SOB pronounced with exertion. The pt was requiring supplemental oxygen on arrival to the ER. He was also notably in AF with a borderline HR around 100. He tends to develop volume overload with onset of AF. The pt was provided with a dose of Lasix in the ER and cardioversion was then attempted. Despite 2 attempt with 200J, he did not revert to a sinus rhythm. He has not c/o CP a productive cough or fevers. He does have a degree of orthopnea. He also notes that he was diagnosed with DAVID as early as 15 years prior but has not followed up on this issue since that time. 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 He does not smoke or drink. He chews tobacco. Family: DM - both parents Principal Diagnosis Atrial fib with RVR causing CHF Discharge Exam Constitutional WD/WN, vitals as above Eyes EOM intact bilaterally; no conjunctival abnormality ENMT external ear and nose normal, oropharynx normal Neck trachea midline, no thyromegaly normal visual inspection Respiratory normal respiratory effort, lungs clear to auscultation no respiratory distress Cardiovascular Heart Sounds: normal S1 and normal S2 Extremities: + edema Gastrointestinal (Abdomen) Inspection/Auscultation: abdomen normal to inspection; abdomen not distended Musculoskeletal no cyanosis or clubbing, extremities motor strength 5/5 Skin no rashes, warm and dry Neurologic moves all extremities and awake Psychiatric Orientation: alert, oriented to person and cooperative Discharge Data Allergies Allergy/AdvReac Type Severity Reaction Status Date / Time No Known Allergies Allergy Verified 05/31/18 10:58 Consultations 05/31/18 12:14 Consult Cardiology Stat ED Decision to Admit Stat 05/31/18 15:55 Consult Cardiology Routine Procedures Performed Operation Date: 06/04/18 07:45 Actual Procedures p Cardioversion - Kain Tejeda MD Hospital Course (1) Acute on chronic systolic (congestive) heart failure: Systolic CHF due to tachycardic cardiomyopathy. Exacerbation caused by afib with RVR. - Continued Lasix 40mg IV daily while inpatient - On discharge, prescribed Lasix 40mg PO daily until down to dry weight of ~295-300 lbs. - Follow up with Jose Sofy and Dr. Tejeda (2) Paroxysmal atrial fibrillation: Failed cardioversion x 2 in the ED this admission. Rate control with beta- rocio and calcium channel rocio as outpatient. - Started sotalol on 06/01 per cardiology - On 06/04, successfully cardioverted. - Discharged off diltiazem and on metoprolol 100mg PO BID - Rivaroxaban for anticoagulation (3) Diabetes mellitus: A1c was 6.9% in 02/2018. - Held metformin; return to it on discharge (4) Hypertension: BP was 100/50 to 150/110 so far this admission. - Held lisinopril for conversion to sotalol - Restarted on 06/03 for continued HTN - Started 20mg dose to prevent hypotension - On discharge, told to take the lower dose. Can be increased as outpatient. (5) DVT prophylaxis: On Xarelto for his afib Total Time Total Time Spent Total Time Spent (In Minutes): 35 Total Time Includes: Examination of the Patient, Discharge Planning and Communication With Other Providers Discharge Plan Discharge Items Patient Disposition: Home - Self-Care Reason For Visit: CHF EXACERBATION, RAPID AF Discharge Diagnosis: Atrial fib with rapid rate; CHF exacerbation Discharge Goals: Decrease discomfort, Prevent disease and Therapeutic intervention Activity: Resume your previous activity Lifting: Gradually increase as tolerated Lifting Comment: No heavy (power) lifting for 3-4 weeks. Non-emergency contact: Primary Care Provider and [employer] Machine Feeder Call non-emergency contact if: your symptoms worsen, your pain is not controlled and your temperature is above 100.5 Follow-up/Referrals: Kain Tejeda MD [Physician] - 06/18/18 3:00 pm (Please, follow up at [facility] Office with Dr. Tejeda's senior assistant manager, Geno Ritter PA-C, on June 18 at 3:00 pm. *If you need to change or cancel this appointment, call the office at [phone]. The office is located in [address] of [facility] - big building next to the hospital. UNFORTUNATELY, THERE WERE NO AVAILABLE APPOINTMENTS IN THE [facility] OFFICE) Margarita Morgan DO [Primary Care Provider] - 06/10/18 9:20 am (Please, follow up with Dr. Morgan on FridayJune 10 at 9:20 am. *If you need to change this appointment, call the office at [phone]. The equipment for an overnight sleep study will be mailed to your home by [employer]. It will include easy to follow instructions. The results of the study will be sent to Dr. Morgan. ) Jennifer Goetz PA-C [Physician Patient Case Coordinator] - 06/12/18 10:30 am (Please bring medications and weight log to your appointment. Labs will be ordered to be completed 1-2 days prior to your appt. ) Diet: Heart Healthy Addtl Provider Instructions: Mr. Lomeli, You were admitted to the hospital with a CHF exacerbation that was caused by your heart going into atrial fib and running too fast. We tried to cardiovert you in the Emergency Department without success. We gave you a medication called sotalol for 3 days, and tried again, and this time your heart rhythm went back into normal (sinus) rhythm. Please note that we lower both your metoprolol and your lisinopril due to being on the new medication. You should be taking metoprolol 100 mg by mouth two times per day and the lisinopril is only 20 mg every day (half the usual dose). We gave you Lasix while you were here to help get fluid off. Your baseline weight is ~295 lbs. Please take the Lasix 40mg (1 tablet) by mouth every day until you are ~300 lbs. Then, take it as needed if you gain more than 3 lbs. You should see Dr. Morgan or the cardiology team around the time you switch to "as needed" to be sure you are doing well. If you gain weight, and the Lasix does not get you back to 300 lbs in a day or so, please call Dr. Morgan or your e commerce merchandising coordinator to adjust dosing and help keep you out of the hospital. Please come back to the hospital with any shortness of breath, chest pain, dizziness, lightheadedness, or other concerning symptoms. Prescriptions: New sotalol 80 mg Tablet 120 mg PO Q12H Qty: 90 RF: 0 furosemide 40 mg tablet 40 mg PO DAILY Qty: 30 RF: 0 Continued atorvastatin 40 mg Tablet 40 mg PO PM RF: 0 metoprolol tartrate 100 mg Tablet 100 mg PO BID RF: 0 metformin 500 mg Tablet Extended Release 24 Hr 500 mg PO PM RF: 0 Xarelto 20 mg Tablet 20 mg PO PM RF: 0 Changed lisinopril 40 mg Tablet 20 mg PO DAILY Qty: 0 RF: 0 Discontinued diltiazem HCl 240 mg Capsule,Extended Release 24 Hr 240 mg PO DAILY RF: 0 metoprolol tartrate 50 mg Tablet 150 mg PO BID RF: 0 furosemide 20 mg tablet 20 mg PO DAILY RF: 0 Stand-Alone Forms: [employer], Opioid Pain Management, Work/School Release (Inpt) [employer]/Other Patient Handouts: Heart Failure Meds Control, Heart Failure Warning Signs, Heart Failure Tracking Weight, Cardiomyopathy Living, Cardiomyopathy Meds Discharge Orders: Discharge Order (Routine); Ordered 06/04/18 Ordered By: Cas Lomeli Admission Data Admit Date/Time: 05/31/18 14:54 Attending Provider: Cas Lomeli Admit Provider: Dru Bull Primary Care Provider: Margarita Morgan Other Providers: Jai Tovar ; Kain Tejeda ; Cas Lomeli Service: Telemetry Other Interventions: Discharge Summary Assessment (RN) Last Done: 06/04/18 13:08 DC Date/Time DO NOT enter until pt leaves facility: 06/04/18 13:33
== END 2018-06-04 13:33 | disposition home or self-care (01) | DRG 308 ==
LOC: ED 10:27 → 2S 14:54 → SUATTDRO 14:54 → 2S 15:36

== ENCOUNTER 2021-02-05 18:39 | Inpatient (IN) ==
[2021-02-05 19:07] LABS: Basophils # (auto) 0.03 K/uL (0-0.2); Basophils % (auto) 0.4 %; Eosinophils # (auto) 0.07 K/uL (0-0.5); Eosinophils % (auto) 0.9 %; Hematocrit (blood only) 50.6 % (42-52); Hemoglobin 17.6 g/dL (14.0-18.0); Immature Granulocytes # (auto) 0.03 K/uL (0.00-0.02); Immature Granulocytes % (auto) 0.4 %; Lymphocytes # (auto) 1.88 K/uL (1.2-3.4); Lymphocytes % (auto) 24.2 %; Mean Corpuscular Hemoglobin 30.4 pg (25-34); Mean Corpuscular Hgb Conc 34.8 g/dL (32-36); Mean Corpuscular Volume 87.4 fL (80-100); Monocytes # (auto) 0.47 K/uL (0.11-0.59); Neutrophils # (auto) 5.29 K/uL (1.4-6.5); Neutrophils % (auto) 68.1 %; Platelet Count 203 K/uL (130-400); RDW Coefficient of Variation 13.7 % (11.5-14.5); RDW Standard Deviation 43.5 fL (36.4-46.3); Red Blood Count 5.79 M/uL (4.7-6.1); White Blood Count 7.77 K/uL (4.8-10.8)
[2021-02-05 19:21] LABS: INR 1.2 (0.9-1.1); Partial Thromboplastin Ratio 1.1; Partial Thromboplastin Time 29.3 Seconds (21.0-31.0); Prothrombin Time 12.1 Seconds (9.0-12.0)
[2021-02-05] MEDS ORDERED: SODIUM CHLORIDE 0.9% 1000ML 1,000 ML IV ONE (19:28)
[2021-02-05 19:29] LABS: Albumin Level 3.9 gm/dl (3.4-5.0); BUN Creatinine Ratio 12.6 (10-20); Calcium 9.5 mg/dl (8.5-10.1); Creatinine Clr Calc Pharmacy 91.9 ml/min; Est GFR (African American) 73.1 ml/min; Potassium 4.2 mmol/L (3.5-5.1)
[2021-02-05] MEDS ORDERED: NovoLIN-R INSULIN PER UNIT CHARGE IV STA ×2 (19:29→20:45)
--- NOTE | 2021-02-05 19:30 | Emergency Department Note ---
History of Present Illness General Chief complaint: Arrhythmia/Palpitations Stated complaint: DR GAITAN TO ER FOR A-FIB Time Seen by Provider: 02/05/21 19:18 Source: patient History of Present Illness Provider complaint: Tachycardia Onset (ago): hour(s) Location: chest Severity: moderate Pain Consistency: + constant Quality: + other (A. fib with tachycardia) Relieved By: + none Associated symptoms: + cough; no chest pain, no fever/chills, no nausea/vomiting or no shortness of breath This is a 50-year-old male sent over from his doctor's office for evaluation of tachycardia and A. fib. The patient has a history of paroxysmal A. fib and is on Xarelto for it. He stopped taking his cardiac medications including metoprolol 9 months ago because it was giving him chest pain and shortness of b reath. Since he stopped taking the medication he has not had any chest discomfort or pain or shortness of breath. He does state that he developed a cough on the seventh of this month which seems to be persistent. He states that it is nonproductive. He has no associated fever, loss of taste or smell or diarrhea. He denies any malaise. He had a Covid test which was negative. He also states that for the past month he has had elevated blood sugars in the 4-5 100s. He had his Metformin increased last week and has been compliant with his meds. He avoids carbs and eats mostly salads. He has been trying to lose weight and lost about 50 pounds. He states that he has been thirsty and urinat ing quite frequently. He has no pain with urination. He denies any palpitations, abdominal pain, vomiting, diarrhea or leg swelling or pain. He was sent here by his doctor because of the tachycardia and A. fib. Home Medications Medication Instructions Recorded Confirmed Type atorvastatin 40 mg tablet 40 mg PO PM #90 tab 01/31/20 02/05/21 Rx rivaroxaban 20 mg tablet (Xarelto) 20 mg PO HS #30 tab 08/04/20 02/05/21 Rx metformin 500 mg tablet,extended 1,000 mg PO BID #180 tab 02/01/21 02/05/21 Rx release 24 hr benzonatate 100 mg capsule 100 mg PO TID PRN 02/05/21 02/05/21 History doxycycline hyclate 100 mg tablet 100 mg PO BID 02/05/21 02/05/21 History febuxostat 40 mg tablet (Uloric) 40 mg PO QPM 02/05/21 02/05/21 History furosemide 40 mg tablet 40 mg PO BID PRN 02/05/21 02/05/21 History lisinopril 20 mg tablet 20 mg PO QPM 02/05/21 02/05/21 History tamsulosin 0.4 mg capsule 0.4 mg PO DAILY PRN 02/05/21 02/05/21 History Allergies Allergy/AdvReac Type Severity Reaction Status Date / Time empagliflozin AdvReac Nausea Unverified 02/05/21 16:46 [From Jardiance] Past Med/Surg History Medical History Atrial fibrillation with RVR CHF NYHA class II (symptoms with moderately strenuous activities) Diabetes mellitus, type 2 Gout Hyperlipidemia LDL goal <100 Hypertension Left ventricular dysfunction LVH (left ventricular hypertrophy) Metabolic disorder Nephrolithiasis Nonischemic cardiomyopathy Obesity Obstructive sleep apnea Paroxysmal atrial fibrillation Pulmonary nodule Right ureteral calculus (06/2019) Smokeless tobacco use Surgical History H/O local excision of skin lesion Family History Sister Breast cancer Diabetes Ovarian cancer Father Diabetes Hypertension Kidney stones Brother Diabetes Mother Diabetes GERD (gastroesophageal reflux disease) Hypertension Denies family history of Prostate cancer Lung cancer Colorectal cancer Social History Smoking Status: Never smoker Tobacco Type: Smokeless Tobacco (Dip or Chew) Second Hand Exposure: No; Hx Alcohol Use: No Hx Substance Use: No Preferred Language: Divehi Communication Ability: Effective Visual Impairment: No Limitations Hearing Ability: Normal Float Tender Required: No Beliefs That Will Affect Care: None marital status: Current Living Situation: Spouse current occupational status: employed current occupation: [employer] How many Children do You have: 4 Feels Safe at Home: Yes Childhood Exposure to Second-Hand Smoke: Yes Diet Comment: regular caffeine: No during the past year weight has: decreased > 10 lbs Dental Care, Regularly: Yes Physical Activity Frequency: Daily Physical Activity Frequency Comment: walking at work Seatbelt Use: sometimes Sunscreen Use: No Assistive Devices: CPAP Review of Systems See HPI for pertinent positives & negatives. and A total of 10 systems reviewed and were otherwise negative Physical Exam Vital Signs Vital Signs - 24 hr 02/05/21 18:39 02/05/21 18:47 02/05/21 18:51 Temperature 36.5 C Temperature Source Temporal Artery Scan Pulse Rate 114 H 116 H Pulse Rate [Right Finger] Pulse Rhythm Regular Pulse Rhythm [Right Finger] Pulse Strength Normal Respiratory Rate 20 15 Respiratory Effort / Characteristics Non-Labored Spontaneous Respiratory Depth Normal Respiratory Pattern Regular Blood Pressure 145/90 H Blood Pressure [Right Arm] Blood Pressure Mean 108 Blood Pressure Mean [Right Arm] Blood Pressure Position Sitting Pulse Oximetry 96 97 96 Oxygen Delivery Method Room Air Room Air Room Air Sepsis Recent Fever Within 48 Hours No Sepsis New/Unexplained Change in Mental Status No Sepsis Action Taken by Nursing No Action Required 02/05/21 19:59 02/05/21 20:13 02/05/21 21:18 Temperature Temperature Source Pulse Rate 125 H 96 H Pulse Rate [Right Finger] 123 H Pulse Rhythm Pulse Rhythm [Right Finger] Irregular Pulse Strength Respiratory Rate 15 Respiratory Effort / Characteristics Respiratory Depth Respiratory Pattern Blood Pressure 160/117 H 112/86 Blood Pressure [Right Arm] 147/116 H Blood Pressure Mean Blood Pressure Mean [Right Arm] 126 Blood Pressure Position Pulse Oximetry 96 Oxygen Delivery Method Sepsis Recent Fever Within 48 Hours Sepsis New/Unexplained Change in Mental Status Sepsis Action Taken by Nursing Constitutional: Vital signs reviewed. Eyes: Pupils are equal round reactive to light. Conjunctiva are noninjected. ENT: Pharynx is clear without erythema or exudate. Mucous membranes are slightly dry.. Neck supple without meningeal signs. Respiratory: Mild scattered expiratory wheezing. Breath sounds are equal agustina aterally. Cardiovascular: Irregularly irregular rhythm. Mild tachycardia. GI: Soft, nondistended and nontender. Bowel sounds are present. Musculoskeletal: No peripheral edema. No lower extremity tenderness. Integumentary: No cyanosis. or jaundice. Neurological: The patient is awake and alert. No focal deficits. Psychiatric: Normal affect. Not anxious appearing. Course Administered Medications Sodium Chloride (Nss 1000ml) 1,000 mls @ 100 mls/hr IV .Q10H KAY Stop: 02/06/21 17:28 Last Admin: 02/05/21 22:19 Dose: 100 mls/hr Documented by: [id number] Discontinued Medications Aspirin (Aspirin 81 Mg Chew) 324 mg PO NOW STA Stop: 02/05/21 20:00 Last Admin: 02/05/21 20:13 Dose: 324 mg Documented by: [id number] Sodium Chloride (Nss 1000ml) 1,000 mls @ 999 mls/hr IV .Q1H1M ONE Stop: 02/05/21 20:28 Last Infusion: 02/05/21 21:49 Dose: 0 mls/hr Documented by: [id number] Admin: 02/05/21 19:45 Dose: 999 mls/hr Documented by: [id number] Insulin Human Regular (Novolin-R Insulin Per Unit Charge) 8 units IV NOW STA Stop: 02/05/21 19:30 Last Admin: 02/05/21 19:45 Dose: 8 units Documented by: [id number] Cosigned by: [id number] Insulin Human Regular (Novolin-R Insulin Per Unit Charge) 10 units IV NOW STA Stop: 02/05/21 20:46 Last Admin: 02/05/21 21:13 Dose: 10 units Documented by: [id number] Cosigned by: [id number] Metoprolol Tartrate (Metoprolol Tartrate 1 Mg/Ml Vial) 5 mg IV NOW STA Stop: 02/05/21 20:00 Last Admin: 02/05/21 20:13 Dose: 5 mg Documented by: [id number] Metoprolol Tartrate (Metoprolol Tartrate 1 Mg/Ml Vial) 5 mg IV NOW STA Stop: 02/05/21 20:46 Last Admin: 02/05/21 21:18 Dose: Not Given Documented by: [id number] Critical Care Time Critical Care Time: Yes Total Critical Care Time: 35 I have personally spent approximately 35 minutes of critical care time in the direct management of this patient. This includes bedside care, interpretation of diagnostic studies, and testing, discussion with consultants, patient, and family members, and other required patient management activities. These minutes are in excess of all separately billable procedures. Medical Decision Making Differential Diagnosis Metabolic arrangement, dehydration, DKA, hyperglycemia, dysrhythmia, A. fib Medical Records Attestation: I reviewed the patient's medical records. I did perform a limited focused review of portions of the patient's old chart on the electronic medical record. The patient was seen on the seventh for a cough and had a negative Covid test at that time. He did have a blood sugar of over 500 and he had his Metformin increased to 1000 mg twice a day on the . Home Medications Current Medication List: was personally reviewed by me Laboratory Data Attestation: I reviewed the patient's lab results. Result diagrams: 02/05/21 18:55 02/05/21 18:55 Lab Results 02/05/21 02/05/21 02/05/21 Range/Units 18:55 18:55 18:55 WBC 7.77 (4.8-10.8) K/uL RBC 5.79 (4.7-6.1) M/uL Hgb 17.6 (14.0-18.0) g/dL Hct 50.6 (42-52) % MCV 87.4 (80-100) fL MCH 30.4 (25-34) pg MCHC 34.8 (32-36) g/dL RDW Std Deviation 43.5 (36.4-46.3) fL RDW Coeff of Kaley 13.7 (11.5-14.5) % Plt Count 203 (130-400) K/uL MPV 12.0 H (7.4-10.4) fL Immature Gran % (Auto) 0.4 % Neut % (Auto) 68.1 % Lymph % (Auto) 24.2 % [place] % (Auto) 6.0 % Eos % (Auto) 0.9 % Baso % (Auto) 0.4 % Neut # (Auto) 5.29 (1.4-6.5) K/uL Lymph # (Auto) 1.88 (1.2-3.4) K/uL [place] # (Auto) 0.47 (0.11-0.59) K/uL Eos # (Auto) 0.07 (0-0.5) K/uL Baso # (Auto) 0.03 (0-0.2) K/uL Immature Gran # (Auto) 0.03 H (0.00-0.02) K/uL PT 12.1 H (9.0-12.0) Seconds INR 1.2 H (0.9-1.1) APTT 29.3 (21.0-31.0) Seconds PTT Ratio 1.1 Sodium 132 L (136-145) mmol/L Potassium 4.2 (3.5-5.1) mmol/L Chloride 97 L (98-107) mmol/L Carbon Dioxide 26 (21-32) mmol/L Anion Gap 9.0 (3-11) BUN 17 (7-18) mg/dl Creatinine 1.31 (0.6-1.4) mg/dl Est Cr Clr Drug Dosing 91.9 ml/min Est GFR ( Amer) 73.1 ml/min Est GFR (Non-Af Amer) 63.0 ml/min BUN/Creatinine Ratio 12.6 (10-20) Glucose 475 H* (70-99) mg/dl POC Glucose (70-99) mg/dl Calcium 9.5 (8.5-10.1) mg/dl Magnesium (1.8-2.4) mg/dl Total Bilirubin 1.1 H (0.2-1) mg/dl AST 23 (15-37) U/L ALT 35 (12-78) Alkaline Phosphatase 104 (45-117) U/L Troponin I 0.103 H* (0-0.045) ng/ml Total Protein 7.7 (6.4-8.2) gm/dl Albumin 3.9 (3.4-5.0) gm/dl Globulin 3.8 (2.5-4.0) gm/dl Albumin/Globulin Ratio 1.0 (0.9-2) Beta-Hydroxybutyric Acd 11.37 H (0.2-2.81) mg/dl Urine Color Urine Appearance (Clear) Urine pH (4.5-7.5) Ur Specific Oxly (1.000-1.030) Urine Protein (Negative) Urine Glucose (UA) (Negative) Urine Ketones (Negative) Urine Blood (Negative) Urine Nitrite (Negative) Urine Bilirubin (Negative) Urine Urobilinogen (Negative) Ur Leukocyte Esterase (Negative) SARS-CoV-2 (PCR) (Negative) Influenza Type A (PCR) (Neg) Influenza Type B (PCR) (Neg) RSV (RT-PCR) (Neg) 02/05/21 02/05/21 02/05/21 Range/Units 18:55 18:55 19:35 WBC (4.8-10.8) K/uL RBC (4.7-6.1) M/uL Hgb (14.0-18.0) g/dL Hct (42-52) % MCV (80-100) fL MCH (25-34) pg MCHC (32-36) g/dL RDW Std Deviation (36.4-46.3) fL RDW Coeff of Kaley (11.5-14.5) % Plt Count (130-400) K/uL MPV (7.4-10.4) fL Immature Gran % (Auto) % Neut % (Auto) % Lymph % (Auto) % [place] % (Auto) % Eos % (Auto) % Baso % (Auto) % Neut # (Auto) (1.4-6.5) K/uL Lymph # (Auto) (1.2-3.4) K/uL [place] # (Auto) (0.11-0.59) K/uL Eos # (Auto) (0-0.5) K/uL Baso # (Auto) (0-0.2) K/uL Immature Gran # (Auto) (0.00-0.02) K/uL PT (9.0-12.0) Seconds INR (0.9-1.1) APTT (21.0-31.0) Seconds PTT Ratio Sodium (136-145) mmol/L Potassium (3.5-5.1) mmol/L Chloride (98-107) mmol/L Carbon Dioxide (21-32) mmol/L Anion Gap (3-11) BUN (7-18) mg/dl Creatinine (0.6-1.4) mg/dl Est Cr Clr Drug Dosing ml/min Est GFR ( Amer) ml/min Est GFR (Non-Af Amer) ml/min BUN/Creatinine Ratio (10-20) Glucose (70-99) mg/dl POC Glucose 444 H* (70-99) mg/dl Calcium (8.5-10.1) mg/dl Magnesium 1.9 (1.8-2.4) mg/dl Total Bilirubin (0.2-1) mg/dl AST (15-37) U/L ALT (12-78) Alkaline Phosphatase (45-117) U/L Troponin I (0-0.045) ng/ml Total Protein (6.4-8.2) gm/dl Albumin (3.4-5.0) gm/dl Globulin (2.5-4.0) gm/dl Albumin/Globulin Ratio (0.9-2) Beta-Hydroxybutyric Acd (0.2-2.81) mg/dl Urine Color Urine Appearance (Clear) Urine pH (4.5-7.5) Ur Specific Oxly (1.000-1.030) Urine Protein (Negative) Urine Glucose (UA) (Negative) Urine Ketones (Negative) Urine Blood (Negative) Urine Nitrite (Negative) Urine Bilirubin (Negative) Urine Urobilinogen (Negative) Ur Leukocyte Esterase (Negative) SARS-CoV-2 (PCR) NEGATIVE (Negative) Influenza Type A (PCR) Negative (Neg) Influenza Type B (PCR) Negative (Neg) RSV (RT-PCR) Negative (Neg) 02/05/21 02/05/21 02/05/21 Range/Units 20:05 20:41 22:26 WBC (4.8-10.8) K/uL RBC (4.7-6.1) M/uL Hgb (14.0-18.0) g/dL Hct (42-52) % MCV (80-100) fL MCH (25-34) pg MCHC (32-36) g/dL RDW Std Deviation (36.4-46.3) fL RDW Coeff of Kaley (11.5-14.5) % Plt Count (130-400) K/uL MPV (7.4-10.4) fL Immature Gran % (Auto) % Neut % (Auto) % Lymph % (Auto) % [place] % (Auto) % Eos % (Auto) % Baso % (Auto) % Neut # (Auto) (1.4-6.5) K/uL Lymph # (Auto) (1.2-3.4) K/uL [place] # (Auto) (0.11-0.59) K/uL Eos # (Auto) (0-0.5) K/uL Baso # (Auto) (0-0.2) K/uL Immature Gran # (Auto) (0.00-0.02) K/uL PT (9.0-12.0) Seconds INR (0.9-1.1) APTT (21.0-31.0) Seconds PTT Ratio Sodium (136-145) mmol/L Potassium (3.5-5.1) mmol/L Chloride (98-107) mmol/L Carbon Dioxide (21-32) mmol/L Anion Gap (3-11) BUN (7-18) mg/dl Creatinine (0.6-1.4) mg/dl Est Cr Clr Drug Dosing ml/min Est GFR ( Amer) ml/min Est GFR (Non-Af Amer) ml/min BUN/Creatinine Ratio (10-20) Glucose (70-99) mg/dl POC Glucose 304 H* 265 H (70-99) mg/dl Calcium (8.5-10.1) mg/dl Magnesium (1.8-2.4) mg/dl Total Bilirubin (0.2-1) mg/dl AST (15-37) U/L ALT (12-78) Alkaline Phosphatase (45-117) U/L Troponin I (0-0.045) ng/ml Total Protein (6.4-8.2) gm/dl Albumin (3.4-5.0) gm/dl Globulin (2.5-4.0) gm/dl Albumin/Globulin Ratio (0.9-2) Beta-Hydroxybutyric Acd (0.2-2.81) mg/dl Urine Color Yellow Urine Appearance Clear (Clear) Urine pH 5.5 (4.5-7.5) Ur Specific Oxly 1.039 H (1.000-1.030) Urine Protein Negative (Negative) Urine Glucose (UA) 3+ H (Negative) Urine Ketones 1+ H (Negative) Urine Blood Negative (Negative) Urine Nitrite Negative (Negative) Urine Bilirubin Negative (Negative) Urine Urobilinogen Negative (Negative) Ur Leukocyte Esterase Negative (Negative) SARS-CoV-2 (PCR) (Negative) Influenza Type A (PCR) (Neg) Influenza Type B (PCR) (Neg) RSV (RT-PCR) (Neg) Imaging Data Radiologist's Impression: Chest X-Ray 02/05/21 19:31 XR chest 1V portable CLINICAL HISTORY: cough eval for pna. COMPARISON STUDY: 10/23/2019 TECHNIQUE: 1 view of the chest FINDINGS: Single frontal view of the chest demonstrates the heart to be enlarged. There is a decreased inspiratory effort with elevation of the hemidiaphragms and crowding of the bronchovascular markings at the lung bases and centrally. The lungs are clear of alveolar opacities. There is no evidence for pleural effusion. There is no evidence for vascular congestion. There is no acute osseous pathology. IMPRESSION: There is a decreased inspiratory effort with otherwise no acute chest disease. ACT 112: Negative or not required by law. Electronically signed by: Galen Noel M.D. 02/05/2021 8:18 PM ECG Data Attestation: I personally reviewed and interpreted this ECG as follows: Indication: + tachycardia Rate (beats per minute): 125 Rhythm: + atrial fibrillation ECG [place]: + Normal ECG ST segments: + T-wave inversions ECG Findings: no PVCs MDM Narrative I did evaluate the patient as noted above. IV access was established. I did place an order for continuous cardiac monitoring. The monitor showed atrial f ibrillation with a rate of 112 bpm. I did order and personally review the patient's 12-lead EKG as described above. He has atrial fibrillation with T wave inversions in RVR. I did treat the patient with Lopressor 5 mg IV. He was also given aspirin p.o. I did order and personally reviewed the images of the patient's chest x-ray as described above. No pneumonia is noted. I did order a urine analysis. I did order and review the patient's blood work as noted in the electronic medical record. CBC does not demonstrate leukocytosis or anemia. His electrolytes demonstrate a pseudohyponatremia at 132. His glucose is 475 and chloride is 97. Creatinine is 1.31 with a BUN of 17. Troponin is elevated at 0.103. Beta hydroxybutyric acid is 11.37. Anion gap is 9. I did discuss the test results with the patient. He denies having any type of chest discomfort or pain in the recent past. He states the last time he had any chest discomfort was 9 months ago when he was on his cardiac meds. Covid testing is negative. On reassessment his blood pressure has dropped and his heart rate came down to about 111. He is not having any symptoms currently. I did discuss the test results with him. He did receive about 500 cc of normal saline and so I will hold off on giving any further doses of Lopressor till his blood pressure improved somewhat. His repeat blood sugar was 306. The case was discussed with the case hardener and the hospitalist was informed. They did treat him with another IV bolus of Lopressor. His heart rate did come down to 96 with a blood pressure 112/86. Impression & Plan Atrial fibrillation with RVR, Elevated troponin, Acute hyperglycemia, Acute bronchitis Discharge Plan Visit Data Chief Complaint: Arrhythmia/Palpitations Stated Complaint: DR ARCHULETA'Dk TO ER FOR A-FIB ED Provider: Kwame Downey Discharge Problem: Atrial fibrillation with RVR, Elevated troponin, Acute hyperglycemia, Acute bronchitis Patient Disposition: Being Evaluated by Hospitalist Forms Stand Alone Forms: My [facility] Prescriptions Prescriptions: No Action atorvastatin 40 mg tablet 40 mg PO PM Qty: 90 RF: 3 Xarelto 20 mg tablet 20 mg PO HS Qty: 30 RF: 5 metformin 500 mg tablet extended release 24 hr 1,000 mg PO BID Qty: 180 RF: 1 tamsulosin 0.4 mg capsule 0.4 mg PO DAILY PRN (Reason: ..) RF: 0 benzonatate 100 mg capsule 100 mg PO TID PRN (Reason: Cough) RF: 0 doxycycline hyclate 100 mg tablet 100 mg PO BID RF: 0 furosemide 40 mg tablet 40 mg PO BID PRN (Reason: .fluid build up) RF: 0 lisinopril 20 mg tablet 20 mg PO QPM RF: 0 febuxostat [Uloric] 40 mg tablet 40 mg PO QPM RF: 0 Referrals Referrals: Margarita Morgan DO [Primary Care Provider] - Discharge Problem: Acute bronchitis Qualifiers: Bronchitis organism: unspecified organism Qualified Code(s): J20.9 - Acute bronchitis, unspecified
[2021-02-05 19:32] LABS: Bilirubin,Total 1.1 mg/dl (0.2-1); Globulin 3.8 gm/dl (2.5-4.0); Total Protein 7.7 gm/dl (6.4-8.2); Troponin I 0.103 ng/ml (0-0.045)
[2021-02-05 19:43] LABS: Beta-Hydroxybutyrate 11.37 mg/dl (0.2-2.81)
[2021-02-05] MEDS ORDERED: ASPIRIN 81 MG CHEW PO STA (19:59)
[2021-02-05] MEDS ORDERED: METOPROLOL TARTRATE 1 MG/ML VIAL IV STA ×2 (19:59→20:45)
--- NOTE | 2021-02-05 20:19 | XRay Report ---
XR chest 1V portable CLINICAL HISTORY: cough eval for pna. COMPARISON STUDY: 10/23/2019 TECHNIQUE: 1 view of the chest FINDINGS: Single frontal view of the chest demonstrates the heart to be enlarged. There is a decreased inspirat ory effort with elevation of the hemidiaphragms and crowding of the bronchovascular markings at the l karen bases and centrally. The lungs are clear of alveolar opacities. There is no evidence for pleural effusion. There is no evidence for vascular congestion. There is no acute osseous pathology. IMPRESSION: There is a decreased inspiratory effort with otherwise no acute chest disease. ACT 112: Negative or not required by law. Electronically signed by: Galen Noel M.D. 02/05/2021 8:18 PM
[2021-02-05 20:35] LABS: Influenza A virus by PCR Negative (Neg); Influenza B virus by PCR Negative (Neg); RSV by PCR Negative (Neg); SARS CoV2 RNA(COVID-19) InHosp NEGATIVE (Negative)
[2021-02-05 20:44] LABS: Appearance Urine Clear (Clear); Bilirubin Urine Negative (Negative); Blood Urine Negative (Negative); Color Urine Yellow; Glucose Urine UA 3+ (Negative); Ketones Urine 1+ (Negative); Leukocyte Esterase Urine Negative (Negative); Nitrite Urine Negative (Negative); Protein Urine Negative (Negative); Specific Gravity Urine 1.039 (1.000-1.030); Urobilinogen Urine Negative (Negative); pH Urine 5.5 (4.5-7.5)
--- NOTE | 2021-02-05 20:49 | History & Physical Report ---
Date of Service February 05, 2021 Assessment & Plan (1) Atrial fibrillation with RVR: (2) Diabetes mellitus, type 2: (3) Obstructive sleep apnea: (4) Hypertension: (5) CHF NYHA class II (symptoms with moderately strenuous activities): (6) Nonischemic cardiomyopathy: Plan: 50 yo M Hx DM2, HTN, nonischemic cardiomyopathy with EF 40-45%, DAVID admitted for hyperglycemia and AFib with RVR. DM2, diabetic ketosis without acidosis: Presented with BSG 475. A1c pending. Anion gap 9, corrected Na 141, BHB elevated at 11.37. Urine is concentrated (specific gravity 1.039) with 1+ ketones. NSS at 100cc/hr given decreased EF with reassessment by day team and adjustme nts to be made based on labs overnight. Received 8u Insulin Regular with BSG down to 302; another 10u Regular Insulin ordered with repeat BSG 1 hour later of 265. Novolog sliding scale CF 20, carb ratio 7. Lantus 20u BID to start now. BMP at 1am to evaluate electrolytes. Ultimately the patient will require diabetic education, as well as adjustment to his medication regimen. Patient has been on Jardiance in the past which is listed as an allergy. He has also been on Ozempic per EMR, may be worth considering again. AFib with RVR: Presented with HR in 120s; with decrease in HR to 90-100s after metoprolol 5mg IV x1 and NSS bolus. Has not been taking diltiazem, metoprolol, digoxin for last 9 months. Reports that this was relayed to PCP but do not see in notes prior to today. Used to follow with Dr. Tejeda, with last visit 05/2018. At that time EMR records indicate that he was on sotalol 120mg BID. Cardiology consulted for assistance given multiple medication intolerances in the past with clear need for rate control. Metoprolol tartrate 25mg BID added for now; adjustments can be made based on Cardiology recommendations. Patient has, however, been taking his Xarelto as prescribed. Will continue. No urgent need for cardioversion. Telemetry for cardiac monitoring. Elevated troponin, Hx nonischemic cardiomyopathy, HFrEF: Last Echo February 2018 with EF 40-45%. Takes furosemide as needed for weight gain, but reports he has not had to take it in weeks. Troponin on admission elevated to 0.103 in the setting of AFib with RVR, suspect due to demand ischemia. Will trend troponins q6h. Echo and lipid profile ordered for AM. HTN: History of, on lisinopril 20mg daily. 140-160s/90-110s on presentation to ER, however decreased to normal following Toprol IV. Continue lisinopril and continue to monitor. Metoprolol tartrate 25mg BID added for AFib. Code Status: FULL CODE FEN: DM2 diet, NSS at 100cc/hr, q4h BMP at this time DVT ppx: Xarelto Dispo: Telemetry History of Present Illness Chief Complaint: referred by PCP Primary Care Provider: Margarita Morgan, DO 50 yo M Hx DM2, HTN, nonischemic cardiomyopathy with EF 40-45%, DAVID presented to the ER after seeing his PCP due to having rapid heart rate in the office as well as concern for severely uncontrolled diabetes. In the ER patient was noted to have BSG 475, anion gap of 9, troponin 0.1, elevated BHB, and HR in 120s. He was given Regular Insulin 8u x1 with decrease in BSG to 300. He was also given Lopressor 5mg IV x1 with decrease in HR to 90-100s. Lastly, he received 500cc NSS bolus. Hospitalist service was consulted for admission for AFib with RVR and hyperglycemia. On my interview patient reports that he stopped taking diltiazem and metoprolol and "another one" about 9 months ago due to a sensation of chest pressure and flutters that he was getting on them. He is not clear which medication was the offending agent, but he reports that within days of stopping them he began to feel better. He reports that he told his PCP about this but was told that he had to be on the medications. Despite that guidance, due to feeling unwell, he stopped them. He has been taking his Xarelto daily as prescribed. He also reports that his BSGs have been "all over the place" and he is not sure why. He works at the [employer] but reports eating a lot of salads and "eating well for my diabetes". Per EMR record patient has been on Jardiance in the past but had nausea on the medication. At home he takes metformin 1000mg BID. Today on interview he denies chest pain, SOB, nausea or vomiting, diarrhea, lightheadedness, palpitations. Allergies Allergy/AdvReac Type Severity Reaction Status Date / Time empagliflozin AdvReac Nausea Unverified 02/05/21 16:46 [From Jardiance] Home Medications Medication Instructions Recorded Confirmed Type atorvastatin 40 mg tablet 40 mg PO PM #90 tab 01/31/20 02/05/21 Rx rivaroxaban 20 mg tablet (Xarelto) 20 mg PO HS #30 tab 08/04/20 02/05/21 Rx metformin 500 mg tablet,extended 1,000 mg PO BID #180 tab 02/01/21 02/05/21 Rx release 24 hr benzonatate 100 mg capsule 100 mg PO TID PRN 02/05/21 02/05/21 History doxycycline hyclate 100 mg tablet 100 mg PO BID 02/05/21 02/05/21 History febuxostat 40 mg tablet (Uloric) 40 mg PO QPM 02/05/21 02/05/21 History furosemide 40 mg tablet 40 mg PO BID PRN 02/05/21 02/05/21 History lisinopril 20 mg tablet 20 mg PO QPM 02/05/21 02/05/21 History tamsulosin 0.4 mg capsule 0.4 mg PO DAILY PRN 02/05/21 02/05/21 History Auto Titrating CPAP #1 ea 02/06/21 02/06/21 Rx Past Med/Surg History Medical History Atrial fibrillation with RVR CHF NYHA class II (symptoms with moderately strenuous activities) Diabetes mellitus, type 2 Gout Hyperlipidemia LDL goal <100 Hypertension Left ventricular dysfunction LVH (left ventricular hypertrophy) Metabolic disorder Nephrolithiasis Nonischemic cardiomyopathy Obesity Obstructive sleep apnea Paroxysmal atrial fibrillation Pulmonary nodule Right ureteral calculus (06/2019) Smokeless tobacco use Surgical History H/O local excision of skin lesion Family History Sister Breast cancer Diabetes Ovarian cancer Father Diabetes Hypertension Kidney stones Brother Diabetes Mother Diabetes GERD (gastroesophageal reflux disease) Hypertension Denies family history of Prostate cancer Lung cancer Colorectal cancer Social History Smoking Status: Never smoker Tobacco Type: Smokeless Tobacco (Dip or Chew) Second Hand Exposure: No; Hx Alcohol Use: No Hx Substance Use: No Preferred Language: Maldivian Communication Ability: Effective Visual Impairment: No Limitations Hearing Ability: Normal 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 Beliefs That Will Affect Care: None marital status: Current Living Situation: Spouse current occupational status: employed current occupation: [employer] How many Children do You have: 4 Feels Safe at Home: Yes Safety Concerns: Feels Safe At This Time Childhood Exposure to Second-Hand Smoke: Yes Diet Comment: regular caffeine: No during the past year weight has: decreased > 10 lbs Dental Care, Regularly: Yes Physical Activity Frequency: Daily Physical Activity Frequency Comment: walking at work Seatbelt Use: sometimes Sunscreen Use: No Assistive Devices: None Review of Systems Review of Systems: All systems reviewed & are unremarkable except as noted in HPI & below Constitutional: no fever, no chills and no malaise Respiratory: no cough and no dyspnea Cardiovascular: no chest pain, no palpitations and no edema Gastrointestinal: no abdominal pain, no constipation and no diarrhea/loose stools Physical Exam Constitutional: WD/WN, vitals as above Eyes: PERRL, conjunctivae normal, anicteric sclerae ENMT: external ear and nose normal, oropharynx normal Neck: normal visual inspection Respiratory: normal respiratory effort, lungs clear to auscultation Cardiovascular: RRR, no murmur, no edema Rate/Rhythm: + tachycardic and + irregularly irregular Heart Sounds: no murmur Extremities: no edema Gastrointestinal (Abdomen): normal bowel sounds, soft, nontender, no hepatosplenomegaly Musculoskeletal: no cyanosis or clubbing, extremities motor strength 5/5 Skin: no rashes, warm and dry Neurologic: No sensory deficits. Normal speech. No tremor. Psychiatric: A+Ox3, euthymic affect Results & Data Results & Data ([facility]) Vital Signs (Past 12 Hours) Vital Signs Temp Pulse Pulse Resp BP BP Pulse Ox 02/05/21 20:13 125 H 160/117 H 02/05/21 19:59 123 H 15 147/116 H 96 02/05/21 18:51 116 H 15 96 02/05/21 18:47 36.5 C 114 H 20 145/90 H 97 02/05/21 18:39 96 Supervising Physician Co-Signing Physician Notes Attending addendum: I have physically seen this patient, have supervised the medical residents activities, and agree with the H&P unless as otherwise noted. Assessment and Plan: Elevated troponin/atrial fibrillation with RVR/CHF/hypertension/nonischemic cardiomyopathy/HFrEF- The patient will be admitted to telemetry for serial cardiac enzymes, serial EKG's, cardiac rhythm monitoring and a 2-D echocardiogram with Dopplers. Continue Xarelto Improved rate control after Lopressor IV Toprol tartrate 25 mg p.o. twice daily with as needed IV Lopressor heart rate greater than 110 Medical noncompliance as noted with patient not taking diltiazem, metoprolol or digoxin for the past 9 months Consult cardiology Hyperglycemia and diabetes mellitus- BSG 475 upon admission Normal anion gap of 9 IV fluids as noted, regular insulin IV as noted, then NovoLog sliding scale Remaining orders and notations as noted Resident Activity Tracking Resident Involvement: Resident Care Provided Care Provided: Adult Hospital Medicine
[2021-02-05] MEDS ORDERED: SODIUM CHLORIDE 0.9% 1000ML 1,000 ML IV SCH (21:29)
[2021-02-05] MEDS ORDERED: GLUCAGON FOR INJ 1 MG VIAL SQ PRN (22:46)
[2021-02-05] MEDS ORDERED: GLUCOSE 10 TABS/TUBE PO PRN (22:46)
[2021-02-05] MEDS ORDERED: CARBOHYDRATES FOR HYPOGLYCEMIA PO PRN (22:46)
[2021-02-05] MEDS ORDERED: ACETAMINOPHEN 325 MG TAB PO PRN (22:46)
[2021-02-05] MEDS ORDERED: ONDANSETRON INJ 2 MG/ML 2 ML VIAL IV PRN (22:46)
[2021-02-05] MEDS ORDERED: GLUCOSE 40% GEL 15 GM TUBE PO PRN (22:46)
[2021-02-05] MEDS ORDERED: DEXTROSE 50% 50 ML SYRINGE IV PRN (22:46)
[2021-02-05] MEDS: RIVAROXABAN 20 MG TAB PO SCH (23:58)
[2021-02-05] MEDS: ATORVASTATIN 40 MG TAB PO SCH (23:58)
[2021-02-06] MEDS: INSULIN GLARGINE SOLOSTAR 100 UNITS/ML 3 ML PEN SC SCH ×2 (01:12→08:56)
[2021-02-06] MEDS: INSULIN ASPART PER UNIT SC SCH ×5 (01:12→22:04)
[2021-02-06 01:30] LABS: BUN Creatinine Ratio 14.5 (10-20); Calcium 8.8 mg/dl (8.5-10.1); Creatinine Clr Calc Pharmacy 107.5 ml/min; Est GFR (African American) 88.3 ml/min; Est GFR (Non-African American) 76.2 ml/min; Potassium 3.6 mmol/L (3.5-5.1); Troponin I 0.13 ng/ml (0-0.045)
[2021-02-06] MEDS ORDERED: POTASSIUM CHLORIDE 30 MEQ in SODIUM CHLORIDE 0.9% 1000ML 1,000 ML IV SCH (04:05)
[2021-02-06 05:54] LABS: Basophils # (auto) 0.02 K/uL (0-0.2); Basophils % (auto) 0.3 %; Eosinophils # (auto) 0.15 K/uL (0-0.5); Eosinophils % (auto) 2.3 %; Hematocrit (blood only) 45.9 % (42-52); Hemoglobin 15.7 g/dL (14.0-18.0); Immature Granulocytes # (auto) 0.01 K/uL (0.00-0.02); Immature Granulocytes % (auto) 0.2 %; Lymphocytes # (auto) 2.53 K/uL (1.2-3.4); Mean Corpuscular Hemoglobin 29.8 pg (25-34); Mean Corpuscular Hgb Conc 34.2 g/dL (32-36); Mean Corpuscular Volume 87.3 fL (80-100); Mean Platelet Volume 12.1 fL (7.4-10.4); Monocytes % (auto) 7.5 %; Neutrophils # (auto) 3.45 K/uL (1.4-6.5); Neutrophils % (auto) 51.7 %; Platelet Count 204 K/uL (130-400); RDW Coefficient of Variation 13.7 % (11.5-14.5); RDW Standard Deviation 44.1 fL (36.4-46.3); Red Blood Count 5.26 M/uL (4.7-6.1); White Blood Count 6.66 K/uL (4.8-10.8)
[2021-02-06] MEDS: NSS + 20MEQ KCL 20 MEQ/1,000 ML BAG IV SCH ×2 (06:13→18:30)
[2021-02-06 06:43] LABS: BUN Creatinine Ratio 16.1 (10-20); Calcium 8.9 mg/dl (8.5-10.1); Est GFR (African American) 98.9 ml/min; Est GFR (Non-African American) 85.3 ml/min; Potassium 3.6 mmol/L (3.5-5.1)
[2021-02-06] MEDS ORDERED: PHARMACY GLYCEMIC MGMT CONSULT PRN (07:40)
--- NOTE | 2021-02-06 07:52 | Hospitalist Progress Note ---
Date of Service February 06, 2021 Assessment & Plan (1) Atrial fibrillation with RVR: (2) Diabetes mellitus, type 2: (3) Obstructive sleep apnea: (4) Hypertension: (5) CHF NYHA class II (symptoms with moderately strenuous activities): (6) Nonischemic cardiomyopathy: Plan: 50 yo M Hx DM2, HTN, nonischemic cardiomyopathy with EF 40-45%, DAVID admitted for hyperglycemia and AFib with RVR. #DM2, diabetic ketosis without acidosis: Presented with BSG 475. A1c pending. Anion gap 9, corrected Na 141, BHB elevated at 11.37. Urine is concentrated (specific gravity 1.039) with 1+ ketones. NSS at 100cc/hr given on admit 2/2 decreased EF. given poor baseline control. Ultimately the patient will require diabetic education, as well as adjustment to his medication regimen. Patient has been on Jardiance in the past which is listed as an allergy. He has also been on Ozempic per EMR, may be worth considering again. -a1c Pending -02/06 am labs have normalized -daily BMP -glycemic cx placed -Lantus 20 units subcu twice daily, NovoLog sliding scale AC at bedtime goal 1 10-1 40, correction factor 15, carb ratio 1:4 -Appreciate recommendations for outpatient regimen given patient's previous intolerance of Metformin, glipizide, Jardiance, Ozempic. #AFib with RVR: Presented with HR in 120s; with decrease in HR to 90-100s after metoprolol 5mg IV x1 and NSS bolus. Has not been taking diltiazem, metoprolol, digoxin for last 9 months. Reports that this was relayed to PCP but do not see in notes prior to today. Used to follow with Dr. Tejeda, with last visit 05/2018. At that time EMR records indicate that he was on sotalol 120mg BID. Patient has, however, been taking his Xarelto as prescribed. Cardiology consulted for assistance given multiple medication intolerances in the past with clear need for rate control. -Admit to telemetry for cardiac monitoring -Metoprolol tartrate 25mg BID added for now; adjustments can be made based on Cardiology recommendations. -No urgent need for cardioversion. -Cardiology consulted following recommendations -Recommending restarting on 120 mg sotalol twice daily -Given patient's experience with this previously will initiate at 90 mg -Convert metoprolol tartrate to 25 mg p.o. twice daily to metoprolol succinate 50 mg p.o. daily -Continue atorvastatin #Elevated troponin, Hx nonischemic cardiomyopathy, HFrEF: Last Echo February 2018 with EF 40-45%. Takes furosemide as needed for weight gain, but reports he has not had to take it in weeks. Troponin on admission elevated to 0.103 in the setting of AFib with RVR, suspect due to demand ischemia. -Will trend troponins q6h. -Peaked at 0.103 now downtrending -Echo pending -Lipid profile: Total cholesterol 116, LDL 47, HDL 36 #HTN: History of, on lisinopril 20mg daily. 140-160s/90-110s on presentation to ER, however decreased to normal following Toprol IV. -Continue lisinopril and continue to monitor. -Metoprolol tartrate 25mg BID added for AFib. Code Status: FULL CODE FEN: DM2 diet, NSS at 100cc/hr, q4h BMP at this time DVT ppx: Xarelto Dispo: Telemetry Admission and Anticipated Discharge Date Admission Date: February 05, 2021 Supervising Physician Co-Signing Physician Notes Patient seen and examined, chart reviewed, case discussed with Dr. Huffman and I agree with the assessment and plan as above except as otherwise noted General: A&Ox3. NAD. Cooperative. HEENT: Atraumatic, normocephalic. Visual acuity/hearing intact Pulm: Symmetrical chest rise. No increase work of breathing. No respiratory d istress. Cardiac: Tachycardic, irregularly irregular. No ANNA. Discussed treatment options with patient. Reports that he was on multiple medications for his A. fib and these were tolerable as it made him feel terrible and fatigued with some palpitations before, although he is not sure which medication caused him to feel poorly. He notes that he stopped taking all of these, and felt better for a period of time. He has continued to take his Xarelto regularly and has not missed any doses of this. Also attributes his sotalol/cardiac meds to kidney stones in the past. Discussed that while he may have had a adverse reaction/intolerance to one of his A. fib medications before, it is unclear which that would be. At this point his EF has been reduced from 40 to 45% to 20 to 25% and has A. fib with RVR. Discussed that he can have rate related cardiomyopathy, and that ultimately his treatment will have to be tolerable to him, but that is important to get his A. fib under better control. He expresses that regardless of his medication choices in the hospital, he would like to follow-up for ablation evaluation after his hospitalization. Discussed with cardiology, recommend restarting his sotalol and continuing metoprolol at this time. Borderline QT, recommended daily EKG to follow for prolongation. Will start sotalol 80 mg overnight and follow for rate control. Continue metoprolol. Blood pressure adequate. 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 He reports he could use an injectable medication either with breakfast before going in, or in the evening after returning home, but that this is not an option during the day. Reports that he also tolerates Metformin up to 1000 mg of the extended release, but 2000 causes intolerable GI side effects. A1c remains pending. Discussed potential for adjunct medications including semaglutide and Farxiga depending on his A1c. Patient has not tolerated sitagliptin in the past. If patient were to require insulin long-acting insulin versus 7030 a.m./p.m. her options, however he is adamant that a basal bolus regimen with insulin during his lunchtime meal would not work. A1c pending, reassess based on results. Inpatient glycemic control adequate with most recent glucose 114. Subjective Patient lying in bed this morning in no acute distress. He relayed the events for which she presented to the hospital. He states he is feeling much better now. We discussed his prior medication history and he indicated that he believes the sotalol was responsible for the majority of his fill feelings previously. We also reviewed his diabetes medication we indicated 2 gram doses of Metformin led to stomach upset. Otherwise the patient reports that he is doing well, tolerating his diet, voiding and stooling slept a little bit last night. Currently he denies any chest pressure chest pain Physical Exam Physical Exam: General: No acute distress HEENT: Normocephalic atraumatic Neck: No significant lymphadenopathy, trachea midline, normal to visual inspection Cardiac: Regular rate and rhythm, normal S1, normal S2, I did not appreciated any significant murmurs rubs or gallops, I did not appreciate any significant pedal edema, No calf tenderness, capillary refill is less than 3 seconds Respiratory: Clear to auscultation bilaterally with symmetrical chest rise, I did not appreciate any significant wheezes, rales, rhonchi, no increased work of breathing GI: Normal bowel sounds, soft, nontender in all 4 quadrants, nondistended MSK: No sensory or motor changes, moves all extremities without issue, extremities are warm and well-perfused Skin: [place], clean, dry, intact. Neuro: Alert and oriented x4 Psych: Calm, cooperative, logical thought process Results & Data Results & Data ([facility]) Vital Signs (Past 12 Hours) Vital Signs Pulse Pulse Pulse Resp BP BP Pulse Ox 02/06/21 07:41 96 H 18 138/95 96 02/06/21 03:33 102 H 20 95/73 L 94 02/05/21 23:22 102 H 16 110/85 97 02/05/21 22:46 102 H 16 110/85 97 02/05/21 21:18 96 H 112/86 02/05/21 20:13 125 H 160/117 H 02/05/21 19:59 123 H 15 147/116 H 96 Pulse Ox 02/06/21 07:41 02/06/21 03:33 02/05/21 23:22 96 02/05/21 22:46 02/05/21 21:18 02/05/21 20:13 02/05/21 19:59 Laboratory Results 02/06/21 02/06/21 02/06/21 Range/Units 07:33 07:01 05:20 WBC (4.8-10.8) K/uL RBC (4.7-6.1) M/uL Hgb (14.0-18.0) g/dL Hct (42-52) % MCV (80-100) fL MCH (25-34) pg MCHC (32-36) g/dL RDW Std Deviation (36.4-46.3) fL RDW Coeff of Kaley (11.5-14.5) % Plt Count (130-400) K/uL MPV (7.4-10.4) fL Immature Gran % (Auto) % Neut % (Auto) % Lymph % (Auto) % Edmunds % (Auto) % Eos % (Auto) % Baso % (Auto) % Neut # (Auto) (1.4-6.5) K/uL Lymph # (Auto) (1.2-3.4) K/uL Edmunds # (Auto) (0.11-0.59) K/uL Eos # (Auto) (0-0.5) K/uL Baso # (Auto) (0-0.2) K/uL Immature Gran # (Auto) (0.00-0.02) K/uL PT (9.0-12.0) Seconds INR (0.9-1.1) APTT (21.0-31.0) Seconds PTT Ratio Sodium 137 (136-145) mmol/L Potassium 3.6 (3.5-5.1) mmol/L Chloride 104 (98-107) mmol/L Carbon Dioxide 27 (21-32) mmol/L Anion Gap 6.0 (3-11) BUN 16 (7-18) mg/dl Creatinine 1.02 (0.6-1.4) mg/dl Est Cr Clr Drug Dosing 118.0 ml/min Est GFR ( Amer) 98.9 ml/min Est GFR (Non-Af Amer) 85.3 ml/min BUN/Creatinine Ratio 16.1 (10-20) Glucose 177 H (70-99) mg/dl POC Glucose 204 H (70-99) mg/dl Estimat Average Glucose Hemoglobin A1c Calcium 8.9 (8.5-10.1) mg/dl Magnesium (1.8-2.4) mg/dl Total Bilirubin (0.2-1) mg/dl AST (15-37) U/L ALT (12-78) Alkaline Phosphatase (45-117) U/L Troponin I Pending (0-0.045) ng/ml Total Protein (6.4-8.2) gm/dl Albumin (3.4-5.0) gm/dl Globulin (2.5-4.0) gm/dl Albumin/Globulin Ratio (0.9-2) Triglycerides (0-150) mg/dl Cholesterol (0-200) mg/dl LDL Cholesterol, Calc mg/dl VLDL Cholesterol, Calc mg/dl HDL Cholesterol mg/dl Cholesterol/HDL Ratio Beta-Hydroxybutyric Acd (0.2-2.81) mg/dl Urine Color Urine Appearance (Clear) Urine pH (4.5-7.5) Ur Specific [place] (1.000-1.030) Urine Protein (Negative) Urine Glucose (UA) (Negative) Urine Ketones (Negative) Urine Blood (Negative) Urine Nitrite (Negative) Urine Bilirubin (Negative) Urine Urobilinogen (Negative) Ur Leukocyte Esterase (Negative) SARS-CoV-2 (PCR) (Negative) Influenza Type A (PCR) (Neg) Influenza Type B (PCR) (Neg) RSV (RT-PCR) (Neg) 02/06/21 02/06/21 02/06/21 Range/Units 05:20 01:05 00:45 WBC 6.66 (4.8-10.8) K/uL RBC 5.26 (4.7-6.1) M/uL Hgb 15.7 (14.0-18.0) g/dL Hct 45.9 (42-52) % MCV 87.3 (80-100) fL MCH 29.8 (25-34) pg MCHC 34.2 (32-36) g/dL RDW Std Deviation 44.1 (36.4-46.3) fL RDW Coeff of Kaley 13.7 (11.5-14.5) % Plt Count 204 (130-400) K/uL MPV 12.1 H (7.4-10.4) fL Immature Gran % (Auto) 0.2 % Neut % (Auto) 51.7 % Lymph % (Auto) 38.0 % Edmunds % (Auto) 7.5 % Eos % (Auto) 2.3 % Baso % (Auto) 0.3 % Neut # (Auto) 3.45 (1.4-6.5) K/uL Lymph # (Auto) 2.53 (1.2-3.4) K/uL Edmunds # (Auto) 0.50 (0.11-0.59) K/uL Eos # (Auto) 0.15 (0-0.5) K/uL Baso # (Auto) 0.02 (0-0.2) K/uL Immature Gran # (Auto) 0.01 (0.00-0.02) K/uL PT (9.0-12.0) Seconds INR (0.9-1.1) APTT (21.0-31.0) Seconds PTT Ratio Sodium 136 (136-145) mmol/L Potassium 3.6 (3.5-5.1) mmol/L Chloride 102 (98-107) mmol/L Carbon Dioxide 27 (21-32) mmol/L Anion Gap 7.0 (3-11) BUN 16 (7-18) mg/dl Creatinine 1.12 (0.6-1.4) mg/dl Est Cr Clr Drug Dosing 107.5 ml/min Est GFR ( Amer) 88.3 ml/min Est GFR (Non-Af Amer) 76.2 ml/min BUN/Creatinine Ratio 14.5 (10-20) Glucose 299 H (70-99) mg/dl POC Glucose 294 H (70-99) mg/dl Estimat Average Glucose Hemoglobin A1c Calcium 8.8 (8.5-10.1) mg/dl Magnesium (1.8-2.4) mg/dl Total Bilirubin (0.2-1) mg/dl AST (15-37) U/L ALT (12-78) Alkaline Phosphatase (45-117) U/L Troponin I 0.130 H* (0-0.045) ng/ml Total Protein (6.4-8.2) gm/dl Albumin (3.4-5.0) gm/dl Globulin (2.5-4.0) gm/dl Albumin/Globulin Ratio (0.9-2) Triglycerides (0-150) mg/dl Cholesterol (0-200) mg/dl LDL Cholesterol, Calc mg/dl VLDL Cholesterol, Calc mg/dl HDL Cholesterol mg/dl Cholesterol/HDL Ratio Beta-Hydroxybutyric Acd (0.2-2.81) mg/dl Urine Color Urine Appearance (Clear) Urine pH (4.5-7.5) Ur Specific [place] (1.000-1.030) Urine Protein (Negative) Urine Glucose (UA) (Negative) Urine Ketones (Negative) Urine Blood (Negative) Urine Nitrite (Negative) Urine Bilirubin (Negative) Urine Urobilinogen (Negative) Ur Leukocyte Esterase (Negative) SARS-CoV-2 (PCR) (Negative) Influenza Type A (PCR) (Neg) Influenza Type B (PCR) (Neg) RSV (RT-PCR) (Neg) 02/05/21 02/05/21 02/05/21 Range/Units 22:26 20:41 20:05 WBC (4.8-10.8) K/uL RBC (4.7-6.1) M/uL Hgb (14.0-18.0) g/dL Hct (42-52) % MCV (80-100) fL MCH (25-34) pg MCHC (32-36) g/dL RDW Std Deviation (36.4-46.3) fL RDW Coeff of Kaley (11.5-14.5) % Plt Count (130-400) K/uL MPV (7.4-10.4) fL Immature Gran % (Auto) % Neut % (Auto) % Lymph % (Auto) % Edmunds % (Auto) % Eos % (Auto) % Baso % (Auto) % Neut # (Auto) (1.4-6.5) K/uL Lymph # (Auto) (1.2-3.4) K/uL Edmunds # (Auto) (0.11-0.59) K/uL Eos # (Auto) (0-0.5) K/uL Baso # (Auto) (0-0.2) K/uL Immature Gran # (Auto) (0.00-0.02) K/uL PT (9.0-12.0) Seconds INR (0.9-1.1) APTT (21.0-31.0) Seconds PTT Ratio Sodium (136-145) mmol/L Potassium (3.5-5.1) mmol/L Chloride (98-107) mmol/L Carbon Dioxide (21-32) mmol/L Anion Gap (3-11) BUN (7-18) mg/dl Creatinine (0.6-1.4) mg/dl Est Cr Clr Drug Dosing ml/min Est GFR ( Amer) ml/min Est GFR (Non-Af Amer) ml/min BUN/Creatinine Ratio (10-20) Glucose (70-99) mg/dl POC Glucose 265 H 304 H* (70-99) mg/dl Estimat Average Glucose Hemoglobin A1c Calcium (8.5-10.1) mg/dl Magnesium (1.8-2.4) mg/dl Total Bilirubin (0.2-1) mg/dl AST (15-37) U/L ALT (12-78) Alkaline Phosphatase (45-117) U/L Troponin I (0-0.045) ng/ml Total Protein (6.4-8.2) gm/dl Albumin (3.4-5.0) gm/dl Globulin (2.5-4.0) gm/dl Albumin/Globulin Ratio (0.9-2) Triglycerides (0-150) mg/dl Cholesterol (0-200) mg/dl LDL Cholesterol, Calc mg/dl VLDL Cholesterol, Calc mg/dl HDL Cholesterol mg/dl Cholesterol/HDL Ratio Beta-Hydroxybutyric Acd (0.2-2.81) mg/dl Urine Color Yellow Urine Appearance Clear (Clear) Urine pH 5.5 (4.5-7.5) Ur Specific [place] 1.039 H (1.000-1.030) Urine Protein Negative (Negative) Urine Glucose (UA) 3+ H (Negative) Urine Ketones 1+ H (Negative) Urine Blood Negative (Negative) Urine Nitrite Negative (Negative) Urine Bilirubin Negative (Negative) Urine Urobilinogen Negative (Negative) Ur Leukocyte Esterase Negative (Negative) SARS-CoV-2 (PCR) (Negative) Influenza Type A (PCR) (Neg) Influenza Type B (PCR) (Neg) RSV (RT-PCR) (Neg) 02/05/21 02/05/21 02/05/21 Range/Units 19:35 18:55 18:55 WBC (4.8-10.8) K/uL RBC (4.7-6.1) M/uL Hgb (14.0-18.0) g/dL Hct (42-52) % MCV (80-100) fL MCH (25-34) pg MCHC (32-36) g/dL RDW Std Deviation (36.4-46.3) fL RDW Coeff of Kaley (11.5-14.5) % Plt Count (130-400) K/uL MPV (7.4-10.4) fL Immature Gran % (Auto) % Neut % (Auto) % Lymph % (Auto) % Edmunds % (Auto) % Eos % (Auto) % Baso % (Auto) % Neut # (Auto) (1.4-6.5) K/uL Lymph # (Auto) (1.2-3.4) K/uL Edmunds # (Auto) (0.11-0.59) K/uL Eos # (Auto) (0-0.5) K/uL Baso # (Auto) (0-0.2) K/uL Immature Gran # (Auto) (0.00-0.02) K/uL PT (9.0-12.0) Seconds INR (0.9-1.1) APTT (21.0-31.0) Seconds PTT Ratio Sodium (136-145) mmol/L Potassium (3.5-5.1) mmol/L Chloride (98-107) mmol/L Carbon Dioxide (21-32) mmol/L Anion Gap (3-11) BUN (7-18) mg/dl Creatinine (0.6-1.4) mg/dl Est Cr Clr Drug Dosing ml/min Est GFR ( Amer) ml/min Est GFR (Non-Af Amer) ml/min BUN/Creatinine Ratio (10-20) Glucose (70-99) mg/dl POC Glucose (70-99) mg/dl Estimat Average Glucose Pending Hemoglobin A1c Pending Calcium (8.5-10.1) mg/dl Magnesium 1.9 (1.8-2.4) mg/dl Total Bilirubin (0.2-1) mg/dl AST (15-37) U/L ALT (12-78) Alkaline Phosphatase (45-117) U/L Troponin I (0-0.045) ng/ml Total Protein (6.4-8.2) gm/dl Albumin (3.4-5.0) gm/dl Globulin (2.5-4.0) gm/dl Albumin/Globulin Ratio (0.9-2) Triglycerides (0-150) mg/dl Cholesterol (0-200) mg/dl LDL Cholesterol, Calc mg/dl VLDL Cholesterol, Calc mg/dl HDL Cholesterol mg/dl Cholesterol/HDL Ratio Beta-Hydroxybutyric Acd (0.2-2.81) mg/dl Urine Color Urine Appearance (Clear) Urine pH (4.5-7.5) Ur Specific [place] (1.000-1.030) Urine Protein (Negative) Urine Glucose (UA) (Negative) Urine Ketones (Negative) Urine Blood (Negative) Urine Nitrite (Negative) Urine Bilirubin (Negative) Urine Urobilinogen (Negative) Ur Leukocyte Esterase (Negative) SARS-CoV-2 (PCR) NEGATIVE (Negative) Influenza Type A (PCR) Negative (Neg) Influenza Type B (PCR) Negative (Neg) RSV (RT-PCR) Negative (Neg) 02/05/21 02/05/21 02/05/21 Range/Units 18:55 18:55 18:55 WBC (4.8-10.8) K/uL RBC (4.7-6.1) M/uL Hgb (14.0-18.0) g/dL Hct (42-52) % MCV (80-100) fL MCH (25-34) pg MCHC (32-36) g/dL RDW Std Deviation (36.4-46.3) fL RDW Coeff of Kaley (11.5-14.5) % Plt Count (130-400) K/uL MPV (7.4-10.4) fL Immature Gran % (Auto) % Neut % (Auto) % Lymph % (Auto) % Edmunds % (Auto) % Eos % (Auto) % Baso % (Auto) % Neut # (Auto) (1.4-6.5) K/uL Lymph # (Auto) (1.2-3.4) K/uL Edmunds # (Auto) (0.11-0.59) K/uL Eos # (Auto) (0-0.5) K/uL Baso # (Auto) (0-0.2) K/uL Immature Gran # (Auto) (0.00-0.02) K/uL PT 12.1 H (9.0-12.0) Seconds INR 1.2 H (0.9-1.1) APTT 29.3 (21.0-31.0) Seconds PTT Ratio 1.1 Sodium 132 L (136-145) mmol/L Potassium 4.2 (3.5-5.1) mmol/L Chloride 97 L (98-107) mmol/L Carbon Dioxide 26 (21-32) mmol/L Anion Gap 9.0 (3-11) BUN 17 (7-18) mg/dl Creatinine 1.31 (0.6-1.4) mg/dl Est Cr Clr Drug Dosing 91.9 ml/min Est GFR ( Amer) 73.1 ml/min Est GFR (Non-Af Amer) 63.0 ml/min BUN/Creatinine Ratio 12.6 (10-20) Glucose 475 H* (70-99) mg/dl POC Glucose 444 H* (70-99) mg/dl Estimat Average Glucose Hemoglobin A1c Calcium 9.5 (8.5-10.1) mg/dl Magnesium (1.8-2.4) mg/dl Total Bilirubin 1.1 H (0.2-1) mg/dl AST 23 (15-37) U/L ALT 35 (12-78) Alkaline Phosphatase 104 (45-117) U/L Troponin I 0.103 H* (0-0.045) ng/ml Total Protein 7.7 (6.4-8.2) gm/dl Albumin 3.9 (3.4-5.0) gm/dl Globulin 3.8 (2.5-4.0) gm/dl Albumin/Globulin Ratio 1.0 (0.9-2) Triglycerides 167 H (0-150) mg/dl Cholesterol 116 (0-200) mg/dl LDL Cholesterol, Calc 47 mg/dl VLDL Cholesterol, Calc 33 mg/dl HDL Cholesterol 36 mg/dl Cholesterol/HDL Ratio 3 Beta-Hydroxybutyric Acd 11.37 H (0.2-2.81) mg/dl Urine Color Urine Appearance (Clear) Urine pH (4.5-7.5) Ur Specific [place] (1.000-1.030) Urine Protein (Negative) Urine Glucose (UA) (Negative) Urine Ketones (Negative) Urine Blood (Negative) Urine Nitrite (Negative) Urine Bilirubin (Negative) Urine Urobilinogen (Negative) Ur Leukocyte Esterase (Negative) SARS-CoV-2 (PCR) (Negative) Influenza Type A (PCR) (Neg) Influenza Type B (PCR) (Neg) RSV (RT-PCR) (Neg) 02/05/21 Range/Units 18:55 WBC 7.77 (4.8-10.8) K/uL RBC 5.79 (4.7-6.1) M/uL Hgb 17.6 (14.0-18.0) g/dL Hct 50.6 (42-52) % MCV 87.4 (80-100) fL MCH 30.4 (25-34) pg MCHC 34.8 (32-36) g/dL RDW Std Deviation 43.5 (36.4-46.3) fL RDW Coeff of Kaley 13.7 (11.5-14.5) % Plt Count 203 (130-400) K/uL MPV 12.0 H (7.4-10.4) fL Immature Gran % (Auto) 0.4 % Neut % (Auto) 68.1 % Lymph % (Auto) 24.2 % Edmunds % (Auto) 6.0 % Eos % (Auto) 0.9 % Baso % (Auto) 0.4 % Neut # (Auto) 5.29 (1.4-6.5) K/uL Lymph # (Auto) 1.88 (1.2-3.4) K/uL Edmunds # (Auto) 0.47 (0.11-0.59) K/uL Eos # (Auto) 0.07 (0-0.5) K/uL Baso # (Auto) 0.03 (0-0.2) K/uL Immature Gran # (Auto) 0.03 H (0.00-0.02) K/uL PT (9.0-12.0) Seconds INR (0.9-1.1) APTT (21.0-31.0) Seconds PTT Ratio Sodium (136-145) mmol/L Potassium (3.5-5.1) mmol/L Chloride (98-107) mmol/L Carbon Dioxide (21-32) mmol/L Anion Gap (3-11) BUN (7-18) mg/dl Creatinine (0.6-1.4) mg/dl Est Cr Clr Drug Dosing ml/min Est GFR ( Amer) ml/min Est GFR (Non-Af Amer) ml/min BUN/Creatinine Ratio (10-20) Glucose (70-99) mg/dl POC Glucose (70-99) mg/dl Estimat Average Glucose Hemoglobin A1c Calcium (8.5-10.1) mg/dl Magnesium (1.8-2.4) mg/dl Total Bilirubin (0.2-1) mg/dl AST (15-37) U/L ALT (12-78) Alkaline Phosphatase (45-117) U/L Troponin I (0-0.045) ng/ml Total Protein (6.4-8.2) gm/dl Albumin (3.4-5.0) gm/dl Globulin (2.5-4.0) gm/dl Albumin/Globulin Ratio (0.9-2) Triglycerides (0-150) mg/dl Cholesterol (0-200) mg/dl LDL Cholesterol, Calc mg/dl VLDL Cholesterol, Calc mg/dl HDL Cholesterol mg/dl Cholesterol/HDL Ratio Beta-Hydroxybutyric Acd (0.2-2.81) mg/dl Urine Color Urine Appearance (Clear) Urine pH (4.5-7.5) Ur Specific [place] (1.000-1.030) Urine Protein (Negative) Urine Glucose (UA) (Negative) Urine Ketones (Negative) Urine Blood (Negative) Urine Nitrite (Negative) Urine Bilirubin (Negative) Urine Urobilinogen (Negative) Ur Leukocyte Esterase (Negative) SARS-CoV-2 (PCR) (Negative) Influenza Type A (PCR) (Neg) Influenza Type B (PCR) (Neg) RSV (RT-PCR) (Neg) Medications Administered Current Inpatient Medications Acetaminophen (Acetaminophen 325 Mg Tab) 650 mg PO Q4H PRN PRN Reason: Pain or Fever Stop: 03/07/21 22:45 Atorvastatin Calcium (Atorvastatin 40 Mg Tab) 40 mg PO PM KAY Stop: 03/07/21 22:45 Last Admin: 02/05/21 23:58 Dose: 40 mg Documented by: Dextrose (Dextrose 50% 50 Ml Syringe) 25 - 50 ml IV UD PRN; Protocol PRN Reason: Hypoglycemia Protocol Stop: 03/07/21 22:45 Glucagon (Glucagon For Inj 1 Mg Vial) 1 mg SQ UD PRN; Protocol PRN Reason: Hypoglycemia Protocol Stop: 03/07/21 22:45 Glucose (Glucose 10 Tabs/Tube) 4 - 8 tabs PO UD PRN; Protocol PRN Reason: Hypoglycemia Protocol Stop: 03/07/21 22:45 Glucose (Glucose 40% Gel 15 Gm Tube) 15 - 30 gm PO UD PRN; Protocol PRN Reason: Hypoglycemia Protocol Stop: 03/07/21 22:45 Potassium Chloride/Sodium Chloride (Normal Saline W/20 Meq Kcl) 20 meq in 1,000 mls @ 100 mls/hr IV .Q10H KAY Stop: 02/07/21 00:14 Last Admin: 02/06/21 06:13 Dose: 100 mls/hr Documented by: Insulin Aspart (Insulin Aspart Per Unit) 0 units SC ACHS KAY Stop: 03/08/21 00:14 Last Admin: 02/06/21 01:12 Dose: 6 units Documented by: Insulin Glargine (Insulin Glargine Solostar 100 Units/Ml 3 Ml Pen) 20 units SC BID [facility] Stop: 03/08/21 00:04 Last Admin: 02/06/21 01:12 Dose: 20 units Documented by: Lisinopril (Lisinopril 20 Mg Tab) 20 mg PO DAILY [facility] Stop: 03/08/21 08:59 Metoprolol Tartrate (Metoprolol Tartrate 25 Mg Tab) 25 mg PO BID KAY Stop: 03/08/21 08:59 Miscellaneous (Febuxostat: Order Awaiting Action) 1 ea N/A QS [facility] Stop: 03/08/21 07:59 Miscellaneous (Carbohydrates For Hypoglycemia ) 15 - 30 gm PO UD PRN PRN Reason: Hypoglycemia Protocol Stop: 03/07/21 22:45 Miscellaneous Information (Pharmacy Glycemic Mgmt Consult) 1 ea N/A UD PRN PRN Reason: Consult Stop: 03/08/21 07:39 Ondansetron HCl (Ondansetron Inj 2 Mg/Ml 2 Ml Vial) 4 mg IV Q6H PRN PRN Reason: Nausea Stop: 03/07/21 22:45 Potassium Chloride (Potassium Chloride Crtab 20 Meq Tabcr) 40 meq PO QAM [facility] Stop: 03/08/21 08:59 Rivaroxaban (Rivaroxaban 20 Mg Tab) 20 mg PO HS [facility] Stop: 03/07/21 22:45 Last Admin: 02/05/21 23:58 Dose: 20 mg Documented by:
[2021-02-06] MEDS: lisinopril 20 MG TAB PO SCH (08:26)
[2021-02-06] MEDS: POTASSIUM CHLORIDE CRTAB 20 MEQ TABCR PO SCH (08:26)
[2021-02-06] MEDS: METOPROLOL TARTRATE 25 MG TAB PO SCH ×2 (08:26→22:01)
[2021-02-06 09:32] LABS: Calcium 8.8 mg/dl (8.5-10.1); Creatinine Clr Calc Pharmacy 110.4 ml/min; Est GFR (African American) 91.2 ml/min; Est GFR (Non-African American) 78.7 ml/min; Potassium 3.9 mmol/L (3.5-5.1)
--- NOTE | 2021-02-06 11:30 | Pharmacy Report ---
Pharmacy Glycemic Short Note 2 - Date of Service February 06, 2021 - Glycemic Short BSG Results (Last 24 hours): 02/05/21 02/05/21 02/05/21 18:55 18:55 20:41 Glucose 475 H* POC Glucose 444 H* 304 H* 02/05/21 02/06/21 02/06/21 22:26 00:45 01:05 Glucose 299 H POC Glucose 265 H 294 H 02/06/21 02/06/21 02/06/21 05:20 07:33 09:04 Glucose 177 H 209 H POC Glucose 204 H OUTPATIENT ANTIDIABETIC REGIMEN: * Metformin ER 1000 mg PO BIDM * HbA1c pending ASSESSMENT: * 50 yo M admitted yesterday from PCP's office secondary to hyperglycemia and Afib w/ RVR. Pharmacy was consulted this AM to assist with inpatient glycemic management. Appears patient has tried Jardiance, Ozempic and Glipizide in the past all of which he quit taking due to stomach discomfort. * BSGs upon admission was 444 mg/dL. There was no elevated anion gap and CO2 was normal. Potassium was normal at 4.2. 1+ ketones were present in the urine. Patient received an 8 unit IV regular insulin bolus and BSG improved to 304 mg/dL. Another 10 unit IV regular insulin bolus was administered at that time and BSG improved to 265 mg/dL. This caused patient's potassium to decrease to 3.6 so NSS + 20 KCl fluids were started at 100 mL/hr. * Fasting BSG was 204 mg/dL this AM when pharmacy was consulted. T2DM is ordered and being tolerated. * Lantus 20 units was given around 1 am. Will continue with Lantus 20 units SC BID starting this AM. * Tightened Novolog from what provider had ordered this AM. Also tightened goal range. * Per ADA recommendations, will hold oral medications while inpatient or until closer to discharge. PLAN FOR INPATIENT GLYCEMIC CONTROL: * Hold outpatient oral diabetes medications * Basal insulin * Lantus 20 units SC BID * Bolus insulin * NovoLog per scale ACHS or Q6hrs while NPO * Goal Range: Low 110 mg/dL - High 140 mg/dL * Correction Factor: 15 mg/dL/unit * Nutritional / Prandial insulin per carb ratio of 1 unit per 4 grams CHO consumed PLAN FOR DISCHARGE: * To be determined
--- NOTE | 2021-02-06 13:04 | Cardiology Consultation ---
Date of Consultation February 06, 2021 Assessment & Plan (1) Atrial fibrillation with RVR: -secondary to noncompliance with his anti rhythmic and rate controlling medications. -has been compliant with his daily dose of Xarelto. -would restart at 120 mg b.i.d.. (2) Left ventricular dysfunction: -ejection fraction was 40-45% in May 2018. -ejection fraction on current echocardiogram severely reduced at 20-25%. -suspect this is secondary to his rapid ventricular response. -would convert metoprolol tartrate to metoprolol succinate prior to discharge. (3) Hypertension: -adequate control on current regimen. (4) Hyperlipidemia LDL goal <100: -continue atorvastatin. History of Present Illness Attending Physician: Pop Jernigan MD History of Present Illness Mr. Lomeli is a 50-year-old male admitted atrial fibrillation and a rapid ventricular response. This consultation was ordered to assist in his cardiac management. Of note, patient is well known to me from the outpatient setting. The patient was in his usual state of health until yesterday when he presented to his primary care office complaining of an upper respiratory syndrome. An EKG performed at that visit noted atrial fibrillation with a rapid ventricular response. The patient was sent to the emergency room for further care. On arrival here, patient was noted to be in atrial fibrillation with a rapid ventricular response. He was placed on metoprolol tartrate 25 mg b.i.d. with some improvement in his ventricular response. The patient explains that he discontinued sotalol and diltiazem approximately 9 months ago. He has been compliant with his daily dose of Xarelto. We have discussed Re initiating his sotalol. The patient has not experienced any exertional chest pain or limiting dyspnea. He further denies syncope, presyncope, PND, orthopnea, lower extremity edema, and claudication. Currently, patient is resting comfortably in bed without complaints. Past medical history 1. Paroxysmal atrial fibrillation-July 2017 2. Transient, tachycardic induced cardiomyopathy 3. Hypertension 4. Mild LVH 5. Hypercholesterolemia 6. Hyperglycemia 7. Obesity 8. Obstructive sleep apnea 9. Gout Social history and lives with his . 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 Allergies Allergy/AdvReac Type Severity Reaction Status Date / Time empagliflozin AdvReac Nausea Unverified 02/05/21 16:46 [From [place]] Home Medications Medication Instructions Recorded Confirmed Type atorvastatin 40 mg tablet 40 mg PO PM #90 tab 01/31/20 02/05/21 Rx rivaroxaban 20 mg tablet (Xarelto) 20 mg PO HS #30 tab 08/04/20 02/05/21 Rx metformin 500 mg tablet,extended 1,000 mg PO BID #180 tab 02/01/21 02/05/21 Rx release 24 hr benzonatate 100 mg capsule 100 mg PO TID PRN 02/05/21 02/05/21 History doxycycline hyclate 100 mg tablet 100 mg PO BID 02/05/21 02/05/21 History febuxostat 40 mg tablet (Uloric) 40 mg PO QPM 02/05/21 02/05/21 History furosemide 40 mg tablet 40 mg PO BID PRN 02/05/21 02/05/21 History lisinopril 20 mg tablet 20 mg PO QPM 02/05/21 02/05/21 History tamsulosin 0.4 mg capsule 0.4 mg PO DAILY PRN 02/05/21 02/05/21 History Auto Titrating CPAP #1 ea 02/06/21 02/06/21 Rx Patient History Medical History Atrial fibrillation with RVR CHF NYHA class II (symptoms with moderately strenuous activities) Diabetes mellitus, type 2 Gout Hyperlipidemia LDL goal <100 Hypertension Left ventricular dysfunction LVH (left ventricular hypertrophy) Metabolic disorder Nephrolithiasis Nonischemic cardiomyopathy Obesity Obstructive sleep apnea Paroxysmal atrial fibrillation Pulmonary nodule Right ureteral calculus (06/2019) Smokeless tobacco use Surgical History H/O local excision of skin lesion Family History Sister Breast cancer Diabetes Ovarian cancer Father Diabetes Hypertension Kidney stones Brother Diabetes Mother Diabetes GERD (gastroesophageal reflux disease) Hypertension Denies family history of Prostate cancer Lung cancer Colorectal cancer Social History Smoking Status: Never smoker Tobacco Type: Smokeless Tobacco (Dip or Chew) Second Hand Exposure: No; Hx Alcohol Use: No Hx Substance Use: No Preferred Language: Colombian Communication Ability: Effective Visual Impairment: No Limitations Hearing Ability: Normal Survey Superintendent Required: No Beliefs That Will Affect Care: None marital status: Current Living Situation: Spouse current occupational status: employed current occupation: [employer] How many Children do You have: 4 Feels Safe at Home: Yes Safety Concerns: Feels Safe At This Time Childhood Exposure to Second-Hand Smoke: Yes Diet Comment: regular caffeine: No during the past year weight has: decreased > 10 lbs Dental Care, Regularly: Yes Physical Activity Frequency: Daily Physical Activity Frequency Comment: walking at work Seatbelt Use: sometimes Sunscreen Use: No Assistive Devices: None Physical Exam Physical Exam: In general this is an obese white male lying spina bed without complaints. HEENT exam is negative. Neck is supple with full carotid upstrok es. No carotid bruits. Jugular venous pressure is flat at 90. There is no thyromegaly. Cardiovascular exam reveals an irregular irregular rhythm with distant heart sounds. No obvious murmurs. Lungs are clear without rales, rhonchi, or wheezes. Abdomen is soft and nontender without bruits. Extremities reveal intact radial artery and posterior tibial pulses bilaterally. There is no peripheral edema. Results & Data ([facility]) Vital Signs (Past 12 Hours) Vital Signs Pulse Resp BP Pulse Ox 02/06/21 09:03 108 H 18 122/94 97 02/06/21 07:41 96 H 18 138/95 96 02/06/21 03:33 102 H 20 95/73 L 94 Laboratory Results CBC notes hemoglobin 15.7, hematocrit 45.9, white count 6.66, and platelet count of [id number]. Electrolytes note a sodium of 137, potassium 3.6, chloride 104, bicarb 27, BUN 16, creatinine 1.02, glucose of 177. Initial troponin was mildly elevated 0.103 with follow-up values of 0.13 and 0.103. Magnesium level is normal at 1.9. Diagnostic Findings EKG notes atrial fibrillation with a rapid ventricular response and nonspecific T-wave abnormality. PG Care Time/CCT Total # of Minutes Spent Total Time Spent with Patient: Total time spent is greater than 50% in coordination of care (as documented) at patient's floor/unit and/or counseling patient: Coding Level of Care Code 98894 Inpt Consult Level 4 Diagnoses Atrial fibrillation with RVR I48.91 Hypertension I10 Hyperlipidemia LDL goal <100 E78.5 Left ventricular dysfunction I51.9
--- NOTE | 2021-02-06 18:11 | Billing Data ---
Date of Service February 06, 2021 Coding Level of Care Code 00631 Subseq Hosp Care Lvl 3
--- NOTE | 2021-02-06 18:24 | XCELERA ---
[id number]
[2021-02-06] MEDS ORDERED: INSULIN GLARGINE SOLOSTAR 100 UNITS/ML 3 ML PEN SC ONE (20:45)
[2021-02-06] MEDS ORDERED: SOTALOL HCL 80 MG TAB PO SCH (21:00)
[2021-02-06] MEDS: RIVAROXABAN 20 MG TAB PO SCH (22:01)
[2021-02-06] MEDS: ATORVASTATIN 40 MG TAB PO SCH (22:01)
[2021-02-07 02:07] LABS: EAG mmol/L DNR mmol/L; HA1C >14.0 (<5.7)
[2021-02-07] MEDS ORDERED: ONDANSETRON INJ 2 MG/ML 2 ML VIAL IV STA (03:22)
[2021-02-07] MEDS ORDERED: SODIUM CHLORIDE 0.9% 1000ML 500 ML IV ONE (03:22)
[2021-02-07] MEDS ORDERED: SODIUM CHLORIDE 0.9% 500 ML IV SCH (04:15)
[2021-02-07 04:19] LABS: Basophils # (auto) 0.03 K/uL (0-0.2); Basophils % (auto) 0.3 %; Eosinophils # (auto) 0.13 K/uL (0-0.5); Eosinophils % (auto) 1.5 %; Hemoglobin 16.9 g/dL (14.0-18.0); Immature Granulocytes # (auto) 0.02 K/uL (0.00-0.02); Immature Granulocytes % (auto) 0.2 %; Lymphocytes # (auto) 2.69 K/uL (1.2-3.4); Lymphocytes % (auto) 30.3 %; Mean Corpuscular Hemoglobin 30.2 pg (25-34); Mean Corpuscular Hgb Conc 33.8 g/dL (32-36); Mean Corpuscular Volume 89.4 fL (80-100); Mean Platelet Volume 12.7 fL (7.4-10.4); Monocytes # (auto) 0.66 K/uL (0.11-0.59); Monocytes % (auto) 7.4 %; Neutrophils # (auto) 5.36 K/uL (1.4-6.5); Neutrophils % (auto) 60.3 %; Platelet Count 224 K/uL (130-400); RDW Coefficient of Variation 14.2 % (11.5-14.5); RDW Standard Deviation 46.7 fL (36.4-46.3); Red Blood Count 5.59 M/uL (4.7-6.1); White Blood Count 8.89 K/uL (4.8-10.8)
[2021-02-07 04:35] LABS: Albumin Level 3.5 gm/dl (3.4-5.0); BUN Creatinine Ratio 16.7 (10-20); Creatinine Clr Calc Pharmacy 100.1 ml/min; Est GFR (African American) 79.6 ml/min; Est GFR (Non-African American) 68.7 ml/min; Magnesium 2.1 mg/dl (1.8-2.4); Potassium 4.2 mmol/L (3.5-5.1)
[2021-02-07 04:53] LABS: Globulin 3.5 gm/dl (2.5-4.0); Phosphorus 3.2 mg/dl (2.5-4.9); Troponin I 0.073 ng/ml (0-0.045)
[2021-02-07] MEDS ORDERED: SODIUM CHLORIDE 0.9% 1000ML 1,000 ML IV SCH (05:00)
--- NOTE | 2021-02-07 05:16 | Billing Data ---
Date of Service February 07, 2021 Coding Level of Care Code 78587 Initial Inpt Care Lvl 3
[2021-02-07] MEDS ORDERED: LACTATED RINGER'S 1,000 ML IV SCH (07:15)
--- NOTE | 2021-02-07 07:20 | Hospitalist Progress Note ---
Date of Service February 07, 2021 Assessment & Plan (1) Atrial fibrillation with RVR: (2) Diabetes mellitus, type 2: (3) Obstructive sleep apnea: (4) Hypertension: (5) CHF NYHA class II (symptoms with moderately strenuous activities): (6) Nonischemic cardiomyopathy: Plan: 50 yo M Hx DM2, HTN, nonischemic cardiomyopathy with EF 40-45%, DAVID admitted for hyperglycemia and AFib with RVR. #DM2, diabetic ketosis without acidosis: Presented with BSG 475. A1c pending. Anion gap 9, corrected Na 141, BHB elevated at 11.37. Urine is concentrated (specific gravity 1.039) with 1+ ketones. NSS at 100cc/hr given on admit 2/2 decreased EF. given poor baseline control. Ultimately the patient will require diabetic education, as well as adjustment to his medication regimen. Patient has been on Jardiance in the past which is listed as an allergy. He has also been on Ozempic per EMR, may be worth considering again. -a1c Pending -02/06 am labs have normalized -daily BMP -Glycemic cx placed -Lantus 20 units subcu twice daily, NovoLog sliding scale AC at bedtime goal 1 10-1 40, correction factor 15, carb ratio 1:4 -Appreciate recommendations for outpatient regimen given patient's previous intolerance of Metformin, glipizide, Jardiance, Ozempic. #AFib with RVR: Presented with HR in 120s; with decrease in HR to 90-100s after metoprolol 5mg IV x1 and NSS bolus. Has not been taking diltiazem, metoprolol, digoxin for last 9 months. Reports that this was relayed to PCP but do not see in notes prior to today. Used to follow with Dr. Tejeda, with last visit 05/2018. At that time EMR records indicate that he was on sotalol 120mg BID. Patient has, however, been taking his Xarelto as prescribed. Cardiology consulted for assistance given multiple medication intolerances in the past with clear need for rate control. -Admit to telemetry for cardiac monitoring -No urgent need for cardioversion. -Cardiology consulted following recommendations -Optimize beta-blockers plus or minus digoxin for rate control -Resume beta-rocio when able -If hypotensive and rate control required use digoxin #Elevated troponin, Hx nonischemic cardiomyopathy, HFrEF: Last Echo February 2018 with EF 40-45%. Takes furosemide as needed for weight gain, but reports he has not had to take it in weeks. TTE during admission with EF 15-20%Troponin on admission elevated to 0.103 in the setting of AFib with RVR, suspect due to demand ischemia. -troponin peaked at 0.103 now downtrending -Lipid profile: Total cholesterol 116, LDL 47, HDL 36 #HTN: History of, on lisinopril 20mg daily. 140-160s/90-110s on presentation to ER, however decreased to normal following Toprol IV. -Holding in the setting of hypotension #Hypotension Multiple bouts of hypotension since admission. Overnight 02/06 patient went to go to the bathroom and felt dizzy night resident evaluated the patient and felt like his symptoms were secondary to hypotension. -Question whether this is secondary to medication side effect versus hypovolemia secondary to HHNK like presentation. -Given his response to fluids suspect likely related to hypovolemia -With his history of nonischemic cardiomyopathy will judiciously administer fluids. -250 ml boluses of LR as needed to maintain pressures Code Status: FULL CODE FEN: DM2 diet, DVT ppx: Xarelto Dispo: Telemetry Admission and Anticipated Discharge Date Admission Date: February 05, 2021 Supervising Physician Co-Signing Physician Notes Neo is 50-year-old male with a past medical history of A. fib and type 2 diabetes who presented with A. fib with RVR and he was found to have uncontrolled diabetes. Was previously on sotalol/metoprolol/diltiazem but was not able to tolerate these medications due to side effects and feeling poor and stopped taking these due to feeling poorly. He has been anticoagulated with rivaroxaban, and has not missed any doses of this as an outpatient. On admission he was found to have a interval decrease in ejection fraction from previously normal to 20%, suspected due to rate related cardiomyopathy with global hypokinesis. He denies any prior chest pain/chest pressure/dyspnea with exertion/neck pain. He notes that he has been intolerant to several diabetes medications as well, and while his diabetes was somewhat controlled had a very elevated BSG as outpatient requiring presentation. Morning assessment patient felt mostly well and denies chest pain, chest pressure, lightheadedness, dizziness. Midmorning patient developed a episode of hypotension. Patient also expressed a feeling of lightheadedness/dizziness and some neck discomfort during the episode, denied chest pressure/chest pain. He reports he has continued to urinate dark urine. Has been breathing comfortably on room air, received fluid boluses on admission with IV fluids running. At bedside assessment he appeared pale, with a irregular rhythm but without tachycardia, and good air movement with no crackles/rales. Initially concern for fluid overload given his decreased EF and approximately 4 L of total fluid in prior day, on assessment his lungs were clear without signs of pulmonary edema. ?Voluem status after presenting with a severe hypoglycemic episode, Labs obtained, chest x-ray without pulmonary edema. After initial assessment fluid bolus discontinued, improved inpatient pressures. Continue to reassess, patient clinically stable in afternoon. TTE: Interval reduction in systolic function to EF 15-20%, global hypokinesis, mod concentric LVH. Mild pulm HTN, Afib. Intolerant of sotalol, immediate recurrence of prior symptoms causing pt to discontinue in the past, & with hypotension overnight Discontinued sotalol, maximize Metoprolol, currently held for hypotensive episode. If inadequate control or BP limited +digoxin Previously on lisinopril, stopped and pending 36 hour washout for entresto A1C >14%. Discussed extensively with patient. Adamant he cannot take a basal/bolus insulin due to work constraints; he is able to take BID injections before and after shift. Anticipate D/c on lantus BID, metformin XR (pt only able to tolerate 1g TDD), and Trulicity. Continue Lantus/aspart while inpatient, current glucose control reasonable. An additional 35 minutes of time was spent in room with the patient today for clinical reassessment, discussion of plan of care, and management Subjective Patient lying in bed this morning stating he is not feeling well. He states he did not have a good night. He noted overnight he felt some chest heaviness and attributes it secondary to sotalol. He states these are similar symptoms he used to have when he was taking sotalol and the reason why he stopped taking the medication. Overnight he was given fluid boluses and improved. At present he denies any chest pressure chest pain, shortness of breath. Around 12 noon the patient had another episode of malaise hypotension despite holding his morning medications. He reports his urine is dark yellow in color. His symptoms resolved with fluid administration. He reports he is tolerating his diet, and stooling. Acute concerns at present relate to symptomatic hypotension. Physical Exam Physical Exam: General: No acute distress HEENT: Normocephalic atraumatic Neck: No significant lymphadenopathy, trachea midline, normal to visual inspection Cardiac: Irregularly irregular, normal S1, normal S2, I did not appreciated any significant murmurs rubs or gallops, I did not appreciate any significant pedal edema, No calf tenderness, capillary refill is less than 3 seconds Respiratory: Clear to auscultation bilaterally with symmetrical chest rise, I did not appreciate any significant wheezes, rales, rhonchi, no increased work of breathing GI: Normal bowel sounds, soft, nontender in all 4 quadrants, nondistended MSK: No sensory or motor changes, moves all extremities without issue, extremities are warm and well-perfused Skin: [place], clean, dry, intact. Neuro: Alert and oriented x4 Psych: Calm, cooperative, logical thought process Results & Data Results & Data ([facility]) Vital Signs (Past 12 Hours) Vital Signs Temp Pulse Pulse Resp BP Pulse Ox 02/07/21 04:56 76 95/69 L 02/07/21 04:37 92 H 101/72 02/07/21 04:22 78 94/76 L 98 02/07/21 03:55 91 H 85/66 L 02/07/21 03:37 85 79/61 L 97 02/07/21 03:30 84 81/64 L 02/06/21 23:58 36.6 C 73 18 114/90 95 02/06/21 22:20 98 H 02/06/21 20:27 36.4 C L 90 18 127/73 99 Laboratory Results 02/07/21 02/07/21 02/07/21 Range/Units 03:54 03:54 02:58 WBC 8.89 (4.8-10.8) K/uL RBC 5.59 (4.7-6.1) M/uL Hgb 16.9 (14.0-18.0) g/dL Hct 50.0 (42-52) % MCV 89.4 (80-100) fL MCH 30.2 (25-34) pg MCHC 33.8 (32-36) g/dL RDW Std Deviation 46.7 H (36.4-46.3) fL RDW Coeff of Kaley 14.2 (11.5-14.5) % Plt Count 224 (130-400) K/uL MPV 12.7 H (7.4-10.4) fL Immature Gran % (Auto) 0.2 % Neut % (Auto) 60.3 % Lymph % (Auto) 30.3 % [place] % (Auto) 7.4 % Eos % (Auto) 1.5 % Baso % (Auto) 0.3 % Neut # (Auto) 5.36 (1.4-6.5) K/uL Lymph # (Auto) 2.69 (1.2-3.4) K/uL [place] # (Auto) 0.66 H (0.11-0.59) K/uL Eos # (Auto) 0.13 (0-0.5) K/uL Baso # (Auto) 0.03 (0-0.2) K/uL Immature Gran # (Auto) 0.02 (0.00-0.02) K/uL Sodium 135 L (136-145) mmol/L Potassium 4.2 (3.5-5.1) mmol/L Chloride 103 (98-107) mmol/L Carbon Dioxide 25 (21-32) mmol/L Anion Gap 7.0 (3-11) BUN 20 H (7-18) mg/dl Creatinine 1.22 (0.6-1.4) mg/dl Est Cr Clr Drug Dosing 100.1 ml/min Est GFR ( Amer) 79.6 ml/min Est GFR (Non-Af Amer) 68.7 ml/min BUN/Creatinine Ratio 16.7 (10-20) Glucose 120 H (70-99) mg/dl POC Glucose 134 H (70-99) mg/dl Estimat Average Glucose Estimated Ave Glu mmol/L mmol/L Estimated Ave Glu mg/dL mg/dL Hemoglobin A1c Calcium 9.0 (8.5-10.1) mg/dl Phosphorus 3.2 (2.5-4.9) mg/dl Magnesium 2.1 (1.8-2.4) mg/dl Total Bilirubin 1.0 (0.2-1) mg/dl AST 51 H (15-37) U/L ALT 48 (12-78) Alkaline Phosphatase 95 (45-117) U/L Troponin I 0.073 H* (0-0.045) ng/ml Total Protein 7.0 (6.4-8.2) gm/dl Albumin 3.5 (3.4-5.0) gm/dl Globulin 3.5 (2.5-4.0) gm/dl Albumin/Globulin Ratio 1.0 (0.9-2) 02/06/21 02/06/21 02/06/21 Range/Units 20:31 17:23 12:42 WBC (4.8-10.8) K/uL RBC (4.7-6.1) M/uL Hgb (14.0-18.0) g/dL Hct (42-52) % MCV (80-100) fL MCH (25-34) pg MCHC (32-36) g/dL RDW Std Deviation (36.4-46.3) fL RDW Coeff of Kaley (11.5-14.5) % Plt Count (130-400) K/uL MPV (7.4-10.4) fL Immature Gran % (Auto) % Neut % (Auto) % Lymph % (Auto) % [place] % (Auto) % Eos % (Auto) % Baso % (Auto) % Neut # (Auto) (1.4-6.5) K/uL Lymph # (Auto) (1.2-3.4) K/uL [place] # (Auto) (0.11-0.59) K/uL Eos # (Auto) (0-0.5) K/uL Baso # (Auto) (0-0.2) K/uL Immature Gran # (Auto) (0.00-0.02) K/uL Sodium (136-145) mmol/L Potassium (3.5-5.1) mmol/L Chloride (98-107) mmol/L Carbon Dioxide (21-32) mmol/L Anion Gap (3-11) BUN (7-18) mg/dl Creatinine (0.6-1.4) mg/dl Est Cr Clr Drug Dosing ml/min Est GFR ( Amer) ml/min Est GFR (Non-Af Amer) ml/min BUN/Creatinine Ratio (10-20) Glucose (70-99) mg/dl POC Glucose 127 H 114 H (70-99) mg/dl Estimat Average Glucose Estimated Ave Glu mmol/L mmol/L Estimated Ave Glu mg/dL mg/dL Hemoglobin A1c Calcium (8.5-10.1) mg/dl Phosphorus (2.5-4.9) mg/dl Magnesium (1.8-2.4) mg/dl Total Bilirubin (0.2-1) mg/dl AST (15-37) U/L ALT (12-78) Alkaline Phosphatase (45-117) U/L Troponin I 0.075 H* (0-0.045) ng/ml Total Protein (6.4-8.2) gm/dl Albumin (3.4-5.0) gm/dl Globulin (2.5-4.0) gm/dl Albumin/Globulin Ratio (0.9-2) 02/06/21 02/06/21 02/06/21 Range/Units 11:42 09:04 07:33 WBC (4.8-10.8) K/uL RBC (4.7-6.1) M/uL Hgb (14.0-18.0) g/dL Hct (42-52) % MCV (80-100) fL MCH (25-34) pg MCHC (32-36) g/dL RDW Std Deviation (36.4-46.3) fL RDW Coeff of Kaley (11.5-14.5) % Plt Count (130-400) K/uL MPV (7.4-10.4) fL Immature Gran % (Auto) % Neut % (Auto) % Lymph % (Auto) % [place] % (Auto) % Eos % (Auto) % Baso % (Auto) % Neut # (Auto) (1.4-6.5) K/uL Lymph # (Auto) (1.2-3.4) K/uL [place] # (Auto) (0.11-0.59) K/uL Eos # (Auto) (0-0.5) K/uL Baso # (Auto) (0-0.2) K/uL Immature Gran # (Auto) (0.00-0.02) K/uL Sodium 136 (136-145) mmol/L Potassium 3.9 (3.5-5.1) mmol/L Chloride 103 (98-107) mmol/L Carbon Dioxide 28 (21-32) mmol/L Anion Gap 5.0 (3-11) BUN 15 (7-18) mg/dl Creatinine 1.09 (0.6-1.4) mg/dl Est Cr Clr Drug Dosing 110.4 ml/min Est GFR ( Amer) 91.2 ml/min Est GFR (Non-Af Amer) 78.7 ml/min BUN/Creatinine Ratio 14.0 (10-20) Glucose 209 H (70-99) mg/dl POC Glucose 264 H 204 H (70-99) mg/dl Estimat Average Glucose Estimated Ave Glu mmol/L mmol/L Estimated Ave Glu mg/dL mg/dL Hemoglobin A1c Calcium 8.8 (8.5-10.1) mg/dl Phosphorus (2.5-4.9) mg/dl Magnesium (1.8-2.4) mg/dl Total Bilirubin (0.2-1) mg/dl AST (15-37) U/L ALT (12-78) Alkaline Phosphatase (45-117) U/L Troponin I (0-0.045) ng/ml Total Protein (6.4-8.2) gm/dl Albumin (3.4-5.0) gm/dl Globulin (2.5-4.0) gm/dl Albumin/Globulin Ratio (0.9-2) 02/06/21 02/06/21 02/06/21 Range/Units 07:01 05:20 05:20 WBC (4.8-10.8) K/uL RBC (4.7-6.1) M/uL Hgb (14.0-18.0) g/dL Hct (42-52) % MCV (80-100) fL MCH (25-34) pg MCHC (32-36) g/dL RDW Std Deviation (36.4-46.3) fL RDW Coeff of Kaley (11.5-14.5) % Plt Count (130-400) K/uL MPV (7.4-10.4) fL Immature Gran % (Auto) % Neut % (Auto) % Lymph % (Auto) % [place] % (Auto) % Eos % (Auto) % Baso % (Auto) % Neut # (Auto) (1.4-6.5) K/uL Lymph # (Auto) (1.2-3.4) K/uL [place] # (Auto) (0.11-0.59) K/uL Eos # (Auto) (0-0.5) K/uL Baso # (Auto) (0-0.2) K/uL Immature Gran # (Auto) (0.00-0.02) K/uL Sodium (136-145) mmol/L Potassium (3.5-5.1) mmol/L Chloride (98-107) mmol/L Carbon Dioxide (21-32) mmol/L Anion Gap (3-11) BUN (7-18) mg/dl Creatinine (0.6-1.4) mg/dl Est Cr Clr Drug Dosing ml/min Est GFR ( Amer) ml/min Est GFR (Non-Af Amer) ml/min BUN/Creatinine Ratio (10-20) Glucose (70-99) mg/dl POC Glucose (70-99) mg/dl Estimat Average Glucose Cancelled Estimated Ave Glu mmol/L DNR mmol/L Estimated Ave Glu mg/dL SEE NOTE mg/dL Hemoglobin A1c >14.0 H Cancelled Calcium (8.5-10.1) mg/dl Phosphorus (2.5-4.9) mg/dl Magnesium (1.8-2.4) mg/dl Total Bilirubin (0.2-1) mg/dl AST (15-37) U/L ALT (12-78) Alkaline Phosphatase (45-117) U/L Troponin I 0.103 H* (0-0.045) ng/ml Total Protein (6.4-8.2) gm/dl Albumin (3.4-5.0) gm/dl Globulin (2.5-4.0) gm/dl Albumin/Globulin Ratio (0.9-2) Medications Administered Current Inpatient Medications Acetaminophen (Acetaminophen 325 Mg Tab) 650 mg PO Q4H PRN PRN Reason: Pain or Fever Stop: 03/07/21 22:45 Atorvastatin Calcium (Atorvastatin 40 Mg Tab) 40 mg PO PM KAY Stop: 03/07/21 22:45 Last Admin: 02/06/21 22:01 Dose: 40 mg Documented by: Dextrose (Dextrose 50% 50 Ml Syringe) 25 - 50 ml IV UD PRN; Protocol PRN Reason: Hypoglycemia Protocol Stop: 03/07/21 22:45 Glucagon (Glucagon For Inj 1 Mg Vial) 1 mg SQ UD PRN; Protocol PRN Reason: Hypoglycemia Protocol Stop: 03/07/21 22:45 Glucose (Glucose 10 Tabs/Tube) 4 - 8 tabs PO UD PRN; Protocol PRN Reason: Hypoglycemia Protocol Stop: 03/07/21 22:45 Glucose (Glucose 40% Gel 15 Gm Tube) 15 - 30 gm PO UD PRN; Protocol PRN Reason: Hypoglycemia Protocol Stop: 03/07/21 22:45 Lactated Ringer's (Lr) 1,000 mls @ 125 mls/hr IV .Q8H [facility] Stop: 02/07/21 23:14 Insulin Aspart (Insulin Aspart Per Unit) 0 units SC ACHS [facility]; Protocol Stop: 03/08/21 00:14 Last Admin: 02/06/21 22:04 Dose: Not Given Documented by: Lisinopril (Lisinopril 20 Mg Tab) 20 mg PO DAILY [facility] Stop: 03/08/21 08:59 Last Admin: 02/06/21 08:26 Dose: 20 mg Documented by: Metoprolol Succinate (Metoprolol Succ 50mg Ext Rel Tab) [facility] Stop: 03/09/21 08:59 Metoprolol Tartrate (Metoprolol Tartrate 25 Mg Tab) 25 mg PO BID [facility] Stop: 03/08/21 08:59 Last Admin: 02/06/21 22:01 Dose: 25 mg Documented by: Miscellaneous (Febuxostat: Order Awaiting Action) 1 ea N/A QS [facility] Stop: 03/08/21 07:59 Last Admin: 02/06/21 22:12 Dose: Not Given Documented by: Miscellaneous (Carbohydrates For Hypoglycemia ) 15 - 30 gm PO UD PRN PRN Reason: Hypoglycemia Protocol Stop: 03/07/21 22:45 Miscellaneous Information (Pharmacy Glycemic Mgmt Consult) 1 ea N/A UD PRN PRN Reason: Consult Stop: 03/08/21 07:39 Potassium Chloride (Potassium Chloride Crtab 20 Meq Tabcr) 40 meq PO QAM [facility] Stop: 03/08/21 08:59 Last Admin: 02/06/21 08:26 Dose: 40 meq Documented by: Rivaroxaban (Rivaroxaban 20 Mg Tab) 20 mg PO HS [facility] Stop: 03/07/21 22:45 Last Admin: 02/06/21 22:01 Dose: 20 mg Documented by: Sotalol HCl (Sotalol Hcl 80 Mg Tab) 80 mg PO BID KAY Stop: 03/08/21 20:59 Last Admin: 02/06/21 22:02 Dose: 80 mg Documented by:
[2021-02-07] MEDS: INSULIN ASPART PER UNIT SC SCH ×4 (08:25→21:00)
[2021-02-07] MEDS: INSULIN GLARGINE SOLOSTAR 100 UNITS/ML 3 ML PEN SC SCH (08:26)
[2021-02-07] MEDS: POTASSIUM CHLORIDE CRTAB 20 MEQ TABCR PO SCH (08:27)
[2021-02-07] MEDS: lisinopril 20 MG TAB PO SCH (08:27)
[2021-02-07] MEDS ORDERED: METOPROLOL SUCC 50MG EXT REL TAB PO SCH ×2 (09:00→12:15)
--- NOTE | 2021-02-07 09:18 | Pharmacy Report ---
Pharmacy Glycemic Short Note 2 - Date of Service February 07, 2021 - Glycemic Short BSG Results (Last 24 hours): 02/06/21 02/06/21 02/06/21 09:04 11:42 17:23 Glucose 209 H POC Glucose 264 H 114 H 02/06/21 02/07/21 02/07/21 20:31 02:58 03:54 Glucose 120 H POC Glucose 127 H 134 H 02/07/21 07:37 Glucose POC Glucose 153 H OUTPATIENT ANTIDIABETIC REGIMEN: * Metformin ER 1000 mg PO BIDM * HbA1c > 14% on 02/05/21 ASSESSMENT: 02/07/21: * Patient received total of 99 units of insulin yesterday of which 55 units was basal Lantus and 44 units bolus Novolog. * Fasting BSG was 153 mg/dl today. Reduced AM Lantus dose to 30 units since dinner BSG trended down to 114 mg/dl yesterday pretty quickly. Continued HS Lantus dose the same as yesterday. * Novolog CR was loosened to 5 with dinner yesterday. Continued the same parameters today. Background 02/06/21: * 50 yo M admitted yesterday from PCP's office secondary to hyperglycemia and Af ib w/ RVR. Pharmacy was consulted this AM to assist with inpatient glycemic management. Appears patient has tried Jardiance, Ozempic and Glipizide in the past all of which he quit taking due to stomach discomfort. * BSGs upon admission was 444 mg/dL. There was no elevated anion gap and CO2 was normal. Potassium was normal at 4.2. 1+ ketones were present in the urine. Patient received an 8 unit IV regular insulin bolus and BSG improved to 304 mg/dL. Another 10 unit IV regular insulin bolus was administered at that time and BSG improved to 265 mg/dL. This caused patient's potassium to decrease to 3.6 so NSS + 20 KCl fluids were started at 100 mL/hr. * Fasting BSG was 204 mg/dL this AM when pharmacy was consulted. T2DM is ordered and being tolerated. * Lantus 20 units was given around 1 am. Will continue with Lantus 20 units SC BID starting this AM. * Tightened Novolog from what provider had ordered this AM. Also tightened goal range. * Per ADA recommendations, will hold oral medications while inpatient or until closer to discharge. PLAN FOR INPATIENT GLYCEMIC CONTROL: * Hold outpatient oral diabetes medications * Basal insulin * Lantus 30 units SC QAM and 15 units SC HS * Bolus insulin * NovoLog per scale ACHS or Q6hrs while NPO * Goal Range: Low 110 mg/dL - High 140 mg/dL * Correction Factor: 15 mg/dL/unit * Nutritional / Prandial insulin per carb ratio of 1 unit per 5 grams CHO consumed PLAN FOR DISCHARGE: * HbA1c > 14% on 02/05/21. Goal A1c for this patient given his age and co- morbidities is less than 7%. * Since A1c is significantly elevated, consider triple therapy with metformin + basal insulin + (GLP1-RA OR prandial insulin). * Would continue current outpatient Metformin XR 1000 mg PO BID with meals (breakfast and dinner). * Recommend starting basal insulin: Glargine/Detemir/Degludec 20 units SQ BID in the morning and at bedtime. Titrate upwards per outpatient provider. * Recommend starting GLP1-RA injection. Patient seems to have tried Ozempic once weekly and discontinued this due to stomach discomfort. Would trial a different agent in the same class such as Trulicity 0.75 mg SC once weekly OR Victoza 0.6 mg SC once daily. * Prandial insulin is the other option instead of GLP1-RA but less desirable if sub Q administrations are not possible at work. * Support Patient Self-Management Healthy Lifestyle (diet, exercise, and smoking cessation) Disease self-management (SMBG) Prevention of complications (BP, Lipid goals, Immunizations) Consider outpatient Diabetes Self-Management Education & Support
--- NOTE | 2021-02-07 13:27 | XRay Report ---
XR chest 1V portable HISTORY: 50 years-old Male ?pulm edema acute shortness of breath with pulmonary edema COMPARISON: Chest radiograph 02/05/2021 TECHNIQUE: Portable AP view of the chest FINDINGS: The cardiac silhouette is enlarged. Pulmonary vascular congestion without overt pulmonary edema. No p neumothorax, large pleural effusion or lobar airspace consolidation. Bones appear grossly intact. IMPRESSION: Cardiomegaly with pulmonary vascular congestion. ACT 112: Negative or not required by law. The above report was generated using voice recognition software. It may contain grammatical, syntax o r spelling errors. Electronically signed by: Luis Prescott M.D. 02/07/2021 1:25 PM
[2021-02-07 13:34] LABS: Basophils # (auto) 0.03 K/uL (0-0.2); Basophils % (auto) 0.3 %; Eosinophils % (auto) 1.2 %; Hematocrit (blood only) 50.4 % (42-52); Immature Granulocytes # (auto) 0.02 K/uL (0.00-0.02); Immature Granulocytes % (auto) 0.2 %; Lymphocytes # (auto) 2.78 K/uL (1.2-3.4); Mean Corpuscular Hemoglobin 30.2 pg (25-34); Mean Corpuscular Volume 89.7 fL (80-100); Mean Platelet Volume 12.6 fL (7.4-10.4); Monocytes # (auto) 0.83 K/uL (0.11-0.59); Monocytes % (auto) 9.6 %; Neutrophils # (auto) 4.92 K/uL (1.4-6.5); Neutrophils % (auto) 56.7 %; Platelet Count 225 K/uL (130-400); RDW Coefficient of Variation 14.5 % (11.5-14.5); RDW Standard Deviation 47.9 fL (36.4-46.3); Red Blood Count 5.62 M/uL (4.7-6.1); White Blood Count 8.68 K/uL (4.8-10.8)
[2021-02-07 13:51] LABS: Mean Corpuscular Hgb Conc 33.7 g/dL (32-36)
[2021-02-07 14:03] LABS: Albumin Level 3.7 gm/dl (3.4-5.0); BUN Creatinine Ratio 16.6 (10-20); Calcium 9.3 mg/dl (8.5-10.1); Creatinine Clr Calc Pharmacy 95.4 ml/min; Est GFR (African American) 75.1 ml/min; Est GFR (Non-African American) 64.8 ml/min; Magnesium 2.2 mg/dl (1.8-2.4); Potassium 4.5 mmol/L (3.5-5.1)
[2021-02-07 14:08] LABS: Albumin Globulin Ratio 1.1 (0.9-2); Bilirubin,Total 1.2 mg/dl (0.2-1); Globulin 3.5 gm/dl (2.5-4.0); Total Protein 7.2 gm/dl (6.4-8.2); Troponin I 0.044 ng/ml (0-0.045)
[2021-02-07] MEDS ORDERED: LACTATED RINGER'S 250 ML IV ONE ×4 (15:13→18:15)
[2021-02-07] MEDS ORDERED: SODIUM CHLORIDE 0.9% 1000ML 250 ML IV ONE (17:04)
--- NOTE | 2021-02-07 17:10 | Billing Data ---
Date of Service February 07, 2021 Coding Level of Care Code 69200 Prolonged Care (int'l)
--- NOTE | 2021-02-07 17:10 | Billing Data ---
Date of Service February 07, 2021 Coding Level of Care Code 95172 Subseq Hosp Care Lvl 3
[2021-02-07] MEDS: RIVAROXABAN 20 MG TAB PO SCH (20:59)
[2021-02-07] MEDS: ATORVASTATIN 40 MG TAB PO SCH (20:59)
[2021-02-07] MEDS ORDERED: INSULIN GLARGINE SOLOSTAR 100 UNITS/ML 3 ML PEN SC ONE (21:00)
--- NOTE | 2021-02-08 05:56 | Electrocardiogram Report ---
Test Reason : Blood Pressure : / mmHG Vent. Rate : 125 BPM Atrial Rate : 416 BPM P-R Int : 000 ms QRS Dur : 088 ms QT Int : 334 ms P-R-T Axes : 000 029 074 degrees QTc Int : 482 ms Atrial fibrillation with rapid ventricular response Nonspecific T wave abnormality Abnormal ECG When compared with ECG of 23-OCT-2019 04:45, Borderline criteria for Inferior infarct are no longer Present Nonspecific T wave abnormality no longer evident in Inferior leads Confirmed by Morgan Garcia ([id number]) on 02/08/2021 5:56:18 AM Referred By: Margarita Morgan Confirmed By:Morgan Garcia
--- NOTE | 2021-02-08 06:17 | Electrocardiogram Report ---
Test Reason : Blood Pressure : / mmHG Vent. Rate : 102 BPM Atrial Rate : 108 BPM P-R Int : 000 ms QRS Dur : 092 ms QT Int : 370 ms P-R-T Axes : 000 -19 118 degrees QTc Int : 482 ms Atrial fibrillation with rapid ventricular response Low voltage QRS Poor R wave progression, consider anterior PA vs. lead placement vs. LVH T wave abnormality, consider lateral ischemia Abnormal ECG When compared with ECG of 05-FEB-2021 18:52, No significant change was found Confirmed by Morgan Garcia ([id number]) on 02/08/2021 6:16:49 AM Referred By: Margarita Morgan Confirmed By:Morgan Garcia
--- NOTE | 2021-02-08 06:49 | Electrocardiogram Report ---
Test Reason : Blood Pressure : / mmHG Vent. Rate : 103 BPM Atrial Rate : 159 BPM P-R Int : 000 ms QRS Dur : 086 ms QT Int : 378 ms P-R-T Axes : 000 -17 123 degrees QTc Int : 495 ms Atrial fibrillation with rapid ventricular response Low voltage QRS Nonspecific T wave abnormality Abnormal ECG When compared with ECG of 06-FEB-2021 09:02, T wave inversion less evident in Lateral leads Confirmed by Morgan Garcia ([id number] on 02/08/2021 6:49:05 AM Referred By: Margarita Morgan Confirmed By:Morgan Garcia
--- NOTE | 2021-02-08 08:15 | Hospitalist Progress Note ---
Date of Service February 08, 2021 Assessment & Plan (1) Atrial fibrillation with RVR: (2) Diabetes mellitus, type 2: (3) Obstructive sleep apnea: (4) Hypertension: (5) CHF NYHA class II (symptoms with moderately strenuous activities): (6) Nonischemic cardiomyopathy: Plan: 50 yo M Hx DM2, HTN, nonischemic cardiomyopathy with EF 40-45%, DAVID admitted for hyperglycemia and AFib with RVR. #DM2, diabetic ketosis without acidosis: Presented with BSG 475. A1c pending. Anion gap 9, corrected Na 141, BHB elevated at 11.37. Urine is concentrated (specific gravity 1.039) with 1+ ketones. NSS at 100cc/hr given on admit 2/2 decreased EF. given poor baseline control. Ultimately the patient will require diabetic education, as well as adjustment to his medication regimen. Patient has been on Jardiance in the past which is listed as an allergy. He has also been on Ozempic per EMR, may be worth considering again. -a1c >14 -12 am labs have normalized -daily BMP -Glycemic cx placed -Lantus 20 units subcu twice daily, NovoLog sliding scale AC at bedtime goal 1 10-1 40, correction factor 15, carb ratio 1:4 -On discharge will continue Metformin XR 1 g p.o. twice daily with meals breakfast and dinner, will start basal insulin glargine 20 units subcu twice da nanette, will start Trulicity 0.75 mg subcu weekly #AFib with RVR: Presented with HR in 120s; with decrease in HR to 90-100s after metoprolol 5mg IV x1 and NSS bolus. Has not been taking diltiazem, metoprolol, digoxin for last 9 months. Reports that this was relayed to PCP but do not see in notes prior to today. Used to follow with Dr. Tejeda, with last visit 05/2018. At that time EMR records indicate that he was on sotalol 120mg BID. Patient has, however, been taking his Xarelto as prescribed. Cardiology consulted for assistance given multiple medication intolerances in the past with clear need for rate control. -Admit to telemetry for cardiac monitoring -No urgent need for cardioversion. -Cardiology consulted following recommendations -Start digoxin -Diurese with IV Lasix 40 mg BID, if no reasonable diuresis consider increasing to 80, low-sodium diet -Intolerant of metoprolol and sotalol could consider carvedilol versus Entresto -Blood pressures down to 90 systolic are acceptable, do not administer more fluids, heart rate in the 100s is appropriate. -Consider BiPAP for assistance with diuresis -Low threshold for upgrade to the ICU -Once more stable consider cardiac catheterization -May need to consider ICD #Acute on chronic CHF exacerbation Patient with history of heart failure with reduced ejection fraction, TTE on this admission demonstrated dilated LV with EF of 15 to 20% severe global hypokinesis moderate concentric LVH. Borderline dilated RV with severely reduced function, biatrial dilation, pulmonary hypertension, A. fib, when compared to prior study on 09/04/2018 severe biventricular systolic dysfunction is now present. -Judicious with fluid administration -Following cardiology recommendations as above #Elevated troponin, Hx nonischemic cardiomyopathy, HFrEF: Last Echo February 2018 with EF 40-45%. Takes furosemide as needed for weight gain, but reports he has not had to take it in weeks. TTE during admission with EF 15-20%Troponin on admission elevated to 0.103 in the setting of AFib with RVR, suspect due to demand ischemia. -troponin peaked at 0.103 now downtrending -Lipid profile: Total cholesterol 116, LDL 47, HDL 36 #HTN: History of, on lisinopril 20mg daily. 140-160s/90-110s on presentation to ER, however decreased to normal following Toprol IV. -Holding in the setting of hypotension #Hypotension Multiple bouts of hypotension since admission. Overnight 02/06 patient went to go to the bathroom and felt dizzy night resident evaluated the patient and felt like his symptoms were secondary to hypotension. -Per cardiology given his severely reduced ejection fraction heart rates in the low 100s and systolic blood pressures in the low 90s are acceptable Code Status: FULL CODE FEN: DM2 diet, DVT ppx: Xarelto Dispo: Telemetry Admission and Anticipated Discharge Date Admission Date: February 05, 2021 Supervising Physician Co-Signing Physician Notes Neo is 50-year-old male with a past medical history of A. fib and type 2 diabetes who presented with A. fib with RVR and he was found to have uncontrolled diabetes. Was previously on sotalol/metoprolol/diltiazem but was not able to tolerate these medications due to side effects and feeling poor and stopped taking these due to feeling poorly. He has been anticoagulated with rivaroxaban, and has not missed any doses of this as an outpatient. On admission he was found to have a interval decrease in ejection fraction from previously normal to 20%, suspected due to rate related cardiomyopathy with global hypokinesis. He denies any prior chest pain/chest pressure/dyspnea with exertion/neck pain. He notes that he has been intolerant to several diabetes medications as well, and while his diabetes was somewhat controlled had a very elevated BSG as outpatient requiring presentation. Midmorning repeat episode of hypotension. Pt again felt lightheaded with some chest pressure and a feeling of filling up with fluid. More short of breath on back today. Discussed with cardiology. While pt is saturating well on room air and without overt rales/crackles/periph edema, but is with severely reduced EF, fluid sensitive, and hypervolemic at this time. trop slightly elevated, trended. Tolerate BPs in 90s given EF reduction. Acute CHF: +Lasix 40mg IV BID as needed and tolerated. Rate control reasonable at this time, if worsening +digoxin. Pt intolerant to metoprolol/sotalol, with anginal symptoms. Unable to tolerate cath at this time, medically optimizing as above. If severely hypotensive midodrine vs dobutamine, minimize/avoid chronotropics as likely to exacerbate rate related failure. Previously on lisinopril, stopped and pending 36 hour washout for entresto and held at this time for hypotension A1C >14%. Discussed extensively with patient. Adamant he cannot take a basal/bolus insulin due to work constraints; he is able to take BID injections before and after shift. Anticipate D/c on lantus BID, metformin XR (pt only able to tolerate 1g TDD), and Trulicity. Continue Lantus/aspart while inpatient, current glucose control reasonable. Subjective This morning patient was lying in bed in no acute distress reporting that he felt significantly better when compared to yesterday. After administration of morning metoprolol patient acutely decompensated and had episodes of symptomatic hypotension similar to yesterday. During these episodes he would endorse chest pressure, some shortness of breath, generalized malaise and fatigue. His symptoms improved with fluid administration. He was able to tolerate lunch without issue. He had another episode in the early afternoon this time endorsing more significant dyspnea and also having developed a cough. Physical Exam Physical Exam: General: No acute distress HEENT: Normocephalic atraumatic Neck: No significant lymphadenopathy, trachea midline, normal to visual inspection Cardiac: Irregularly irregular, normal S1, normal S2, I did not appreciated any significant murmurs rubs or gallops, I did not appreciate any significant pedal edema, No calf tenderness, capillary refill is less than 3 seconds Respiratory: Coarse breath sounds on the left side, scattered rhonchi throughout the lungs, no crackles, no respiratory distress GI: Normal bowel sounds, soft, nontender in all 4 quadrants, nondistended MSK: No sensory or motor changes, moves all extremities without issue, extremities are warm and well-perfused Skin: [place], clean, dry, intact. Neuro: Alert and oriented x4 Psych: Calm, cooperative, logical thought process Results & Data Results & Data ([facility]) Vital Signs (Past 12 Hours) Vital Signs Temp Pulse Pulse Resp BP Pulse Ox 02/08/21 03:58 36.6 C 91 H 18 122/82 95 02/08/21 02:59 18 93 02/07/21 23:48 72 13 94 02/07/21 22:48 36.4 C L 91 H 16 110/87 96 02/07/21 22:20 111 H Resident Activity Tracking Resident Involvement: Resident Care Provided Care Provided: Adult Hospital Medicine
[2021-02-08 08:24] LABS: Basophils # (auto) 0.02 K/uL (0-0.2); Basophils % (auto) 0.2 %; Eosinophils % (auto) 1.2 %; Hematocrit (blood only) 48.9 % (42-52); Hemoglobin 16.3 g/dL (14.0-18.0); Immature Granulocytes # (auto) 0.02 K/uL (0.00-0.02); Immature Granulocytes % (auto) 0.2 %; Lymphocytes # (auto) 2.02 K/uL (1.2-3.4); Mean Corpuscular Hemoglobin 30.2 pg (25-34); Mean Corpuscular Hgb Conc 33.3 g/dL (32-36); Mean Corpuscular Volume 90.6 fL (80-100); Mean Platelet Volume 12.6 fL (7.4-10.4); Monocytes # (auto) 0.83 K/uL (0.11-0.59); Monocytes % (auto) 10.3 %; Neutrophils % (auto) 63.1 %; Platelet Count 197 K/uL (130-400); RDW Coefficient of Variation 14.8 % (11.5-14.5); RDW Standard Deviation 49.2 fL (36.4-46.3); White Blood Count 8.09 K/uL (4.8-10.8)
[2021-02-08] MEDS: INSULIN GLARGINE SOLOSTAR 100 UNITS/ML 3 ML PEN SC SCH (08:29)
[2021-02-08] MEDS: FEBUXOSTAT 40 MG TABLET PO SCH (08:30)
[2021-02-08] MEDS: INSULIN ASPART PER UNIT SC SCH ×4 (08:33→21:25)
[2021-02-08] MEDS ORDERED: METOPROLOL TARTRATE 25 MG TAB PO SCH (09:00)
[2021-02-08 09:15] LABS: Albumin Level 3.3 gm/dl (3.4-5.0); BUN Creatinine Ratio 17.8 (10-20); Calcium 8.8 mg/dl (8.5-10.1); Creatinine Clr Calc Pharmacy 103.5 ml/min; Est GFR (African American) 82.9 ml/min; Est GFR (Non-African American) 71.5 ml/min; Potassium 4.3 mmol/L (3.5-5.1)
[2021-02-08 09:19] LABS: Globulin 3.2 gm/dl (2.5-4.0); Total Protein 6.5 gm/dl (6.4-8.2)
[2021-02-08] MEDS: POTASSIUM CHLORIDE CRTAB 20 MEQ TABCR PO SCH (09:19)
--- NOTE | 2021-02-08 10:19 | Electrocardiogram Report ---
Test Reason : Blood Pressure : / mmHG Vent. Rate : 084 BPM Atrial Rate : 300 BPM P-R Int : 000 ms QRS Dur : 082 ms QT Int : 426 ms P-R-T Axes : 000 -14 112 degrees QTc Int : 503 ms Atrial fibrillation Low voltage QRS Possible Inferior infarct , age undetermined T wave abnormality, consider lateral ischemia Prolonged QT Abnormal ECG When compared with ECG of 06-FEB-2021 16:55, T wave inversion now evident in Anterolateral leads Confirmed by Morgan Garcia ([id number]) on 02/08/2021 10:18:45 AM Referred By: Margarita Morgan Confirmed By:Morgan Garcia
[2021-02-08] MEDS ORDERED: LACTATED RINGER'S 1,000 ML IV SCH (11:45)
--- NOTE | 2021-02-08 13:53 | XRay Report ---
XR chest 1V portable HISTORY: 50 years-old Male CHF acute shortness of breath COMPARISON: Chest radiograph 02/07/2021, chest CT 08/14/2020 TECHNIQUE: Portable AP view of the chest FINDINGS: Cardiac silhouette is enlarged. Pulmonary vascular congestion. No pneumothorax, pleural effusion or o vert pulmonary edema. No lobar airspace consolidation. Degenerative changes of the shoulders and spin e. IMPRESSION: Cardiomegaly with suggested pulmonary vascular congestion. ACT 112: Negative or not required by law. The above report was generated using voice recognition software. It may contain grammatical, syntax o r spelling errors. Electronically signed by: Luis Prescott M.D. 02/08/2021 1:51 PM
--- NOTE | 2021-02-08 14:47 | Cardiology Progress Note ---
Date of Service February 08, 2021 Assessment & Plan (1) Acute HFrEF (heart failure with reduced ejection fraction): (2) Cardiomyopathy: (3) Atrial fibrillation with RVR: (4) Elevated troponin: (5) Coronary artery calcification: (6) Chest pain: Plan: ASSESSMENT/PLAN: 1. Acute heart failure with reduced EF: He appears hypervolemic and symptoms are consistent with hypervolemia. Recommend Lasix 40 mg IV x1 now, and likely b.i.d.. If he does not have a reasonable diuresis, would increase dose to 80 mg IV. Low-sodium diet. Strict I&Os. Recommended earlier that IV fluids be discontinued. Daily weights. 2. Cardiomyopathy: Possibly tachycardia induced as he has not been taking his rate-controlling or rhythm controlling medications for some time. Also has risk factors for CAD including type 2 diabetes, dyslipidemia, and hypertension. Coronary artery calcifications also reported on CT scan. Would first diurese as above. Then would try to introduce evidence based beta-rocio. He has reported intolerance to metoprolol succinate and therefore would consider carvedilol. Would also recommend Entresto at some point in the near future. If LV systolic function does not significantly improve with medical therapy, would consider ICD for primary prevention. Consider ischemic evaluation. Currently no role for inotropics therapy as his blood pressures are acceptable. Systolic blood pressure in the 90s not unexpected for someone with his degree of systolic dysfunction. 3. Atrial fibrillation with rapid ventricular response: Currently heart rate is acceptable. He has received doses of sotalol and metoprolol in the past couple of days. He presented with tachycardia. Can use digoxin for now as would like to avoid beta-blockers while acutely decompensated with CHF. Monitor digoxin level if digoxin continued once beta-rocio can be initiated. Continue anticoagulation for stroke risk reduction. Monitor CBC periodically. 4. Chest pain: He relates this to sotalol and metoprolol, but symptoms also concerning for angina. Could be due to decompensated CHF but does have risk factors for CAD. We discussed cardiac catheterization but currently chest pain- free and unable to lie flat due to CHF. Would need likely BiPAP or mechanical ventilation to lay flat long enough to undergo cardiac catheterization in his current state. Treat heart failure as above. Monitor for further symptoms. 5. Coronary artery calcifications: Risk factor modification. Continue high- intensity statin therapy. Beta-rocio when able. If recurrent chest discomfort, especially if CHF compensated, would have very low threshold for ischemic evaluation. 6. Elevated troponin: Not diagnostic of DE. likely related to demand ischemia in the setting of decompensated CHF, AFib with RVR, but cannot exclude underlying CAD given CAD risk factors, cardiomyopathy, and coronary artery calcifications. Plan as above. 7. Disposition: Plan of care discussed with nursing staff, primary hospitalist service, and also related to his primary professor of communication, Dr. Tejeda, who will resume his cardiology care tomorrow. Please call with other questions and concerns in the meantime. Admission and Anticipated Discharge Date Admission Date: February 05, 2021 Subjective Was asked to see Mr. Lomeli today by primary hospitalist service. He had an episode of pressure in his chest with radiation to his right jaw although the jaw pain was very brief. The chest pressure itself persisted for approximately 5 minutes. He states that the symptoms occurred in the past while taking sotalol and metoprolol succinate and have not occurred until he was hospitalized here and once again received both of these medications. Hospitalist service reports that during these episodes he can become diaphoretic with hypotension with systolic blood pressure in the 90s. They have treated this with IV fluids and symptoms have improved. He has noted orthopnea that began once hospitalized. He admits that he takes furosemide at home anywhere from 40-80 mg depending on how he feels. He typically has a decent diuresis and breathing improves. He feels as though he is retaining fluid while here. He states that pre-hospital he is very active and has not had any chest pain. He slept better last night with CPAP. He does not want to take sotalol or metoprolol. During the hospital stay, he is 6.5 L positive thus far from a fluid balance standpoint. Was called to his room this afternoon for another episode. This episode began with shortness of breath, orthopnea, diaphoresis, and abdominal fullness. He states that he did not have any chest discomfort with this episode and that this reminds him of once again retaining fluid. His breathing has worsened since this morning. He was sitting up in bed and then later sitting upright at the side of the bed to help catch his breath. His son was at the bedside this afternoon when returned to his room for evaluation acutely. Review of systems: As above. Physical Exam Physical Exam: Gen.: No acute distress. Alert and oriented. HEENT: Anicteric sclera. Neck: Thick neck but elevated JVD nearly to the mandible sitting completely upright. Cardiac: Irregularly irregular. Normal S1-S2. No murmurs, rubs, or gallops. Pulmonary: Clear to auscultation bilaterally without wheezes, rales, or rhonchi. Abdomen: Soft, nontender, nondistended, with normoactive bowel sounds. No bruits noted. Extremities: 2+ radial pulses bilaterally. 2+ posterior tibialis pulses bilaterally. Trace to 1+ bilateral lower extremity edema. No cyanosis. Psychiatric: Affect appears appropriate. Results & Data ([facility]) Vital Signs (Past 12 Hours) Vital Signs Temp Pulse Resp BP Pulse Ox 02/08/21 11:00 36.4 C L 93 H 14 111/82 100 02/08/21 07:00 36.4 C L 102 H 14 124/82 98 02/08/21 03:58 36.6 C 91 H 18 122/82 95 02/08/21 02:59 18 93 Intake & Output 02/06/21 02/07/21 02/08/21 02/09/21 06:59 06:59 06:59 06:59 Intake Total 1999.000 / 1999.000 3120 / 3120 2837.083 / 2837.083 Output Total 1475 / 1475 Balance 1999.000 / 1999.000 3120 / 3120 1362.083 / 1362.083 Weight 266 lb 8.622 oz 274 lb 4.081 oz 274 lb 4.081 oz Laboratory Results Laboratory Results - last 24 hr 02/07/21 02/07/21 02/08/21 16:36 20:10 07:39 WBC RBC Hgb Hct MCV MCH MCHC RDW Std Deviation RDW Coeff of Kaley Plt Count MPV Immature Gran % (Auto) Neut % (Auto) Lymph % (Auto) [place] % (Auto) Eos % (Auto) Baso % (Auto) Neut # (Auto) Lymph # (Auto) [place] # (Auto) Eos # (Auto) Baso # (Auto) Immature Gran # (Auto) ESR Sodium Potassium Chloride Carbon Dioxide Anion Gap BUN Creatinine Est Cr Clr Drug Dosing Est GFR ( Amer) Est GFR (Non-Af Amer) BUN/Creatinine Ratio Glucose POC Glucose 94 127 H 106 H Calcium Total Bilirubin AST ALT Alkaline Phosphatase Troponin I Total Protein Albumin Globulin Albumin/Globulin Ratio Procalcitonin Random Cortisol SARS-CoV-2 (PCR) Influenza Type A (PCR) Influenza Type B (PCR) RSV (RT-PCR) 02/08/21 02/08/21 02/08/21 08:13 08:13 10:42 WBC 8.09 RBC 5.40 Hgb 16.3 Hct 48.9 MCV 90.6 MCH 30.2 MCHC 33.3 RDW Std Deviation 49.2 H RDW Coeff of Kaley 14.8 H Plt Count 197 MPV 12.6 H Immature Gran % (Auto) 0.2 Neut % (Auto) 63.1 Lymph % (Auto) 25.0 [place] % (Auto) 10.3 Eos % (Auto) 1.2 Baso % (Auto) 0.2 Neut # (Auto) 5.10 Lymph # (Auto) 2.02 [place] # (Auto) 0.83 H Eos # (Auto) 0.10 Baso # (Auto) 0.02 Immature Gran # (Auto) 0.02 ESR Sodium 136 Potassium 4.3 Chloride 106 Carbon Dioxide 21 Anion Gap 9.0 BUN 21 H Creatinine 1.18 Est Cr Clr Drug Dosing 103.5 Est GFR ( Amer) 82.9 Est GFR (Non-Af Amer) 71.5 BUN/Creatinine Ratio 17.8 Glucose 137 H POC Glucose 184 H Calcium 8.8 Total Bilirubin 1.0 AST 71 H ALT 71 Alkaline Phosphatase 103 Troponin I Total Protein 6.5 Albumin 3.3 L Globulin 3.2 Albumin/Globulin Ratio 1.0 Procalcitonin Random Cortisol SARS-CoV-2 (PCR) Influenza Type A (PCR) Influenza Type B (PCR) RSV (RT-PCR) 02/08/21 02/08/21 02/08/21 11:27 11:29 11:29 WBC RBC Hgb Hct MCV MCH MCHC RDW Std Deviation RDW Coeff of Kaley Plt Count MPV Immature Gran % (Auto) Neut % (Auto) Lymph % (Auto) [place] % (Auto) Eos % (Auto) Baso % (Auto) Neut # (Auto) Lymph # (Auto) [place] # (Auto) Eos # (Auto) Baso # (Auto) Immature Gran # (Auto) ESR Sodium Potassium Chloride Carbon Dioxide Anion Gap BUN Creatinine Est Cr Clr Drug Dosing Est GFR ( Amer) Est GFR (Non-Af Amer) BUN/Creatinine Ratio Glucose POC Glucose Calcium Total Bilirubin AST ALT Alkaline Phosphatase Troponin I 0.051 H* Total Protein Albumin Globulin Albumin/Globulin Ratio Procalcitonin 0.05 Random Cortisol 24.31 SARS-CoV-2 (PCR) Influenza Type A (PCR) Influenza Type B (PCR) RSV (RT-PCR) 02/08/21 02/08/21 11:29 15:00 WBC RBC Hgb Hct MCV MCH MCHC RDW Std Deviation RDW Coeff of Kaley Plt Count MPV Immature Gran % (Auto) Neut % (Auto) Lymph % (Auto) [place] % (Auto) Eos % (Auto) Baso % (Auto) Neut # (Auto) Lymph # (Auto) [place] # (Auto) Eos # (Auto) Baso # (Auto) Immature Gran # (Auto) ESR 2 Sodium Potassium Chloride Carbon Dioxide Anion Gap BUN Creatinine Est Cr Clr Drug Dosing Est GFR ( Amer) Est GFR (Non-Af Amer) BUN/Creatinine Ratio Glucose POC Glucose Calcium Total Bilirubin AST ALT Alkaline Phosphatase Troponin I Total Protein Albumin Globulin Albumin/Globulin Ratio Procalcitonin Random Cortisol SARS-CoV-2 (PCR) Pending Influenza Type A (PCR) Pending Influenza Type B (PCR) Pending RSV (RT-PCR) Pending Diagnostic Findings Telemetry personally reviewed: Atrial fibrillation with mild tachycardia at times. ECG personally reviewed: ECG 02/08/2021 at 10:57 a.m.: AFib 85 beats per minute. Anterolateral T-wave inversion. ECG 02/08/2021 at 2:33 p.m.: AFib 99 beats per minute. Anterolateral T-wave inversion. Echo 02/06/2021: Severely reduced LV systolic function. EF 15-20%. Severely reduced right ventricular systolic function. Moderate biatrial dilation. Mild MR. RVSP 45. Medications Administered Current Inpatient Medications Acetaminophen (Acetaminophen 325 Mg Tab) 650 mg PO Q4H PRN PRN Reason: Pain or Fever Stop: 03/07/21 22:45 Atorvastatin Calcium (Atorvastatin 40 Mg Tab) 40 mg PO PM KAY Stop: 03/07/21 22:45 Last Admin: 02/07/21 20:59 Dose: 40 mg Documented by: Dextrose (Dextrose 50% 50 Ml Syringe) 25 - 50 ml IV UD PRN; Protocol PRN Reason: Hypoglycemia Protocol Stop: 03/07/21 22:45 Digoxin (Digoxin 0.25 Mg Tab) 0.25 mg PO DAILY@1600 [facility] Stop: 03/10/21 15:59 Febuxostat (Febuxostat 40 Mg Tablet) 40 mg PO DAILY [facility] Stop: 03/10/21 08:59 Last Admin: 02/08/21 08:30 Dose: 40 mg Documented by: Glucagon (Glucagon For Inj 1 Mg Vial) 1 mg SQ UD PRN; Protocol PRN Reason: Hypoglycemia Protocol Stop: 03/07/21 22:45 Glucose (Glucose 10 Tabs/Tube) 4 - 8 tabs PO UD PRN; Protocol PRN Reason: Hypoglycemia Protocol Stop: 03/07/21 22:45 Glucose (Glucose 40% Gel 15 Gm Tube) 15 - 30 gm PO UD PRN; Protocol PRN Reason: Hypoglycemia Protocol Stop: 03/07/21 22:45 Lactated Ringer's (Lr) 1,000 mls @ 125 mls/hr IV .Q8H [facility] Last Admin: 02/08/21 13:30 Dose: Not Given Documented by: Insulin Aspart (Insulin Aspart Per Unit) 0 units SC [facility]; Protocol Stop: 03/08/21 00:14 Last Admin: 02/08/21 12:59 Dose: 14 units Documented by: Insulin Glargine (Insulin Glargine Solostar 100 Units/Ml 3 Ml Pen) 30 units SC [facility] Stop: 03/09/21 08:59 Last Admin: 02/08/21 08:29 Dose: 30 units Documented by: Insulin Glargine (Insulin Glargine Solostar 100 Units/Ml 3 Ml Pen) 0 units SC [facility]; Protocol Stop: 02/08/21 21:01 Metoprolol Succinate (Metoprolol Succ 50mg Ext Rel Tab) 50 mg PO BID [facility] Stop: 03/09/21 12:14 Last Admin: 02/08/21 08:28 Dose: 50 mg Documented by: Metoprolol Tartrate (Metoprolol Tartrate 25 Mg Tab) 25 mg PO BID [facility] Stop: 03/10/21 08:59 Last Admin: 02/08/21 08:28 Dose: 25 mg Documented by: Miscellaneous (Carbohydrates For Hypoglycemia ) 15 - 30 gm PO UD PRN PRN Reason: Hypoglycemia Protocol Stop: 03/07/21 22:45 Miscellaneous Information (Pharmacy Glycemic Mgmt Consult) 1 ea N/A UD PRN PRN Reason: Consult Stop: 03/08/21 07:39 Potassium Chloride (Potassium Chloride Crtab 20 Meq Tabcr) 40 meq PO QAM [facility] Stop: 03/08/21 08:59 Last Admin: 02/08/21 09:19 Dose: 40 meq Documented by: Rivaroxaban (Rivaroxaban 20 Mg Tab) 20 mg PO HS [facility] Stop: 03/07/21 22:45 Last Admin: 02/07/21 20:59 Dose: 20 mg Documented by: PG Care Time/CCT Total # of Minutes Spent Total Time Spent with Patient: Total time spent is greater than 50% in coordination of care (as documented) at patient's floor/unit and/or counseling patient: Coding Level of Care Code 00600 Subseq Hosp Care Lvl 3 Diagnoses Acute HFrEF (heart failure with reduced ejection fraction) I50.21 Cardiomyopathy I42.9 Atrial fibrillation with RVR I48.91 Elevated troponin R77.8 Coronary artery calcification I25.10; I25.84 Chest pain R07.9
[2021-02-08] MEDS ORDERED: FUROSEMIDE 40 MG/4 ML VIAL IV ONE (15:11)
[2021-02-08] MEDS ORDERED: DIGOXIN 0.25 MG TAB PO SCH (16:00)
[2021-02-08 16:08] LABS: Influenza A virus by PCR Negative (Neg); Influenza B virus by PCR Negative (Neg); RSV by PCR Negative (Neg); SARS CoV2 RNA(COVID-19) InHosp NEGATIVE (Negative)
--- NOTE | 2021-02-08 17:45 | Billing Data ---
Date of Service February 08, 2021 Coding Level of Care Code 54216 Subseq Hosp Care Lvl 3
[2021-02-08] MEDS ORDERED: INSULIN GLARGINE SOLOSTAR 100 UNITS/ML 3 ML PEN SC ONE (21:00)
[2021-02-08] MEDS: RIVAROXABAN 20 MG TAB PO SCH (22:03)
[2021-02-08] MEDS: ATORVASTATIN 40 MG TAB PO SCH (22:03)
[2021-02-09 07:18] LABS: Basophils # (auto) 0.02 K/uL (0-0.2); Basophils % (auto) 0.2 %; Eosinophils # (auto) 0.05 K/uL (0-0.5); Eosinophils % (auto) 0.6 %; Hematocrit (blood only) 47.2 % (42-52); Hemoglobin 15.9 g/dL (14.0-18.0); Immature Granulocytes # (auto) 0.02 K/uL (0.00-0.02); Immature Granulocytes % (auto) 0.2 %; Lymphocytes # (auto) 1.67 K/uL (1.2-3.4); Mean Corpuscular Hemoglobin 30.3 pg (25-34); Mean Corpuscular Hgb Conc 33.7 g/dL (32-36); Mean Corpuscular Volume 89.9 fL (80-100); Mean Platelet Volume 12.7 fL (7.4-10.4); Monocytes # (auto) 0.84 K/uL (0.11-0.59); Monocytes % (auto) 10.1 %; Neutrophils # (auto) 5.73 K/uL (1.4-6.5); Neutrophils % (auto) 68.9 %; Platelet Count 178 K/uL (130-400); RDW Coefficient of Variation 14.8 % (11.5-14.5); RDW Standard Deviation 49.1 fL (36.4-46.3); Red Blood Count 5.25 M/uL (4.7-6.1); White Blood Count 8.33 K/uL (4.8-10.8)
[2021-02-09 07:37] LABS: BUN Creatinine Ratio 19.1 (10-20); Calcium 8.6 mg/dl (8.5-10.1); Creatinine Clr Calc Pharmacy 107.7 ml/min; Est GFR (African American) 84.6 ml/min; Potassium 4.8 mmol/L (3.5-5.1)
--- NOTE | 2021-02-09 08:15 | Hospitalist Progress Note ---
Date of Service February 09, 2021 Assessment & Plan (1) Atrial fibrillation with RVR: (2) Diabetes mellitus, type 2: (3) Obstructive sleep apnea: (4) Hypertension: (5) CHF NYHA class II (symptoms with moderately strenuous activities): (6) Nonischemic cardiomyopathy: Plan: 50 yo M Hx DM2, HTN, nonischemic cardiomyopathy with EF 40-45%, DAVID admitted for hyperglycemia and AFib with RVR. #DM2, diabetic ketosis without acidosis: Presented with BSG 475. A1c pending. Anion gap 9, corrected Na 141, BHB elevated at 11.37. Urine is concentrated (specific gravity 1.039) with 1+ ketones. NSS at 100cc/hr given on admit 2/2 decreased EF. given poor baseline control. Ultimately the patient will require diabetic education, as well as adjustment to his medication regimen. Patient has been on Jardiance in the past which is listed as an allergy. He has also been on Ozempic per EMR, may be worth considering again. -a1c >14 -12 am labs have normalized -daily BMP -Glycemic cx placed -Lantus 20 units subcu twice daily, NovoLog sliding scale AC at bedtime goal 1 10-1 40, correction factor 15, carb ratio 1:4 -On discharge will continue Metformin XR 1 g p.o. twice daily with meals breakfast and dinner, will start basal insulin glargine 20 units subcu twice da nanette, will start Trulicity 0.75 mg subcu weekly #AFib with RVR: Presented with HR in 120s; with decrease in HR to 90-100s after metoprolol 5mg IV x1 and NSS bolus. Has not been taking diltiazem, metoprolol, digoxin for last 9 months. Reports that this was relayed to PCP but do not see in notes prior to today. Used to follow with Dr. Tejeda, with last visit 05/2018. At that time EMR records indicate that he was on sotalol 120mg BID. Patient has, however, been taking his Xarelto as prescribed. Cardiology consulted for assistance given multiple medication intolerances in the past with clear need for rate control. -Admit to telemetry for cardiac monitoring -No urgent need for cardioversion. -Cardiology consulted following recommendations -Start digoxin -Diurese with IV Lasix 40 mg BID, if no reasonable diuresis consider increasing to 80, low-sodium diet -Intolerant of metoprolol and sotalol could consider carvedilol versus Entresto -Blood pressures down to 90 systolic are acceptable, do not administer more fluids, heart rate in the 100s is appropriate. -Consider BiPAP for assistance with diuresis -Low threshold for upgrade to the ICU -Once more stable consider cardiac catheterization -May need to consider ICD #Acute on chronic CHF exacerbation Patient with history of heart failure with reduced ejection fraction, TTE on this admission demonstrated dilated LV with EF of 15 to 20% severe global hypokinesis moderate concentric LVH. Borderline dilated RV with severely reduced function, biatrial dilation, pulmonary hypertension, A. fib, when compared to prior study on 09/04/2018 severe biventricular systolic dysfunction is now present. -Judicious with fluid administration -Following cardiology recommendations as above #Elevated troponin, Hx nonischemic cardiomyopathy, HFrEF: Last Echo February 2018 with EF 40-45%. Takes furosemide as needed for weight gain, but reports he has not had to take it in weeks. TTE during admission with EF 15-20%Troponin on admission elevated to 0.103 in the setting of AFib with RVR, suspect due to demand ischemia. -troponin peaked at 0.103 now downtrending -Lipid profile: Total cholesterol 116, LDL 47, HDL 36 #HTN: History of, on lisinopril 20mg daily. 140-160s/90-110s on presentation to ER, however decreased to normal following Toprol IV. -Holding in the setting of hypotension #Hypotension Multiple bouts of hypotension since admission. Overnight 02/06 patient went to go to the bathroom and felt dizzy night resident evaluated the patient and felt like his symptoms were secondary to hypotension. -Per cardiology given his severely reduced ejection fraction heart rates in the low 100s and systolic blood pressures in the low 90s are acceptable Code Status: FULL CODE FEN: DM2 diet, DVT ppx: Xarelto Dispo: Telemetry Admission and Anticipated Discharge Date Admission Date: February 05, 2021 Physical Exam Physical Exam: General: No acute distress HEENT: Normocephalic atraumatic Neck: No significant lymphadenopathy, trachea midline, normal to visual inspec tion Cardiac: Irregularly irregular, normal S1, normal S2, I did not appreciated any significant murmurs rubs or gallops, I did not appreciate any significant pedal edema, No calf tenderness, capillary refill is less than 3 seconds Respiratory: Coarse breath sounds on the left side, scattered rhonchi throughout the lungs, no crackles, no respiratory distress GI: Normal bowel sounds, soft, nontender in all 4 quadrants, nondistended MSK: No sensory or motor changes, moves all extremities without issue, extremities are warm and well-perfused Skin: [place], clean, dry, intact. Neuro: Alert and oriented x4 Psych: Calm, cooperative, logical thought process Results & Data Results & Data ([facility]) Vital Signs (Past 12 Hours) Vital Signs Temp Pulse Pulse Resp BP BP Pulse Ox 02/09/21 07:16 36.4 C L 85 18 142/85 H 99 02/09/21 04:05 36.5 C 97 H 17 104/78 98 02/08/21 23:00 36.5 C 89 18 110/69 96 02/08/21 22:18 91 H 02/08/21 22:16 51 L 15 97
--- NOTE | 2021-02-09 08:28 | Electrocardiogram Report ---
Test Reason : Blood Pressure : / mmHG Vent. Rate : 085 BPM Atrial Rate : 326 BPM P-R Int : 000 ms QRS Dur : 082 ms QT Int : 356 ms P-R-T Axes : 000 022 158 degrees QTc Int : 423 ms Atrial fibrillation Low voltage QRS Cannot rule out Inferior infarct Nonspecific T wave abnormality Abnormal ECG When compared with ECG of 07-FEB-2021 03:07, QT has shortened T wave inversion less evident in Anterolateral leads Confirmed by Morgan Garcia ([id number]) on 02/09/2021 8:27:43 AM Referred By: Margarita Morgan Confirmed By:Morgan Garcia
--- NOTE | 2021-02-09 08:41 | Electrocardiogram Report ---
Test Reason : Blood Pressure : / mmHG Vent. Rate : 099 BPM Atrial Rate : 170 BPM P-R Int : 000 ms QRS Dur : 078 ms QT Int : 352 ms P-R-T Axes : 000 033 098 degrees QTc Int : 451 ms Atrial fibrillation Low voltage QRS Cannot rule out Inferior infarct (cited on or before 07-FEB-2021) Nonspecific T wave abnormality Abnormal ECG When compared with ECG of 08-FEB-2021 10:57, No significant change was found Confirmed by Morgan Garcia ([id number] on 02/09/2021 8:40:30 AM Referred By: Margarita Morgan Confirmed By:Morgan Garcia
[2021-02-09] MEDS: FEBUXOSTAT 40 MG TABLET PO SCH (08:46)
[2021-02-09] MEDS: INSULIN ASPART PER UNIT SC SCH ×2 (08:48→12:08)
[2021-02-09] MEDS: POTASSIUM CHLORIDE CRTAB 20 MEQ TABCR PO SCH (08:52)
[2021-02-09] MEDS ORDERED: INSULIN GLARGINE SOLOSTAR 100 UNITS/ML 3 ML PEN SC SCH (09:00)
[2021-02-09] MEDS ORDERED: FUROSEMIDE 40 MG/4 ML VIAL IV SCH (09:00)
--- NOTE | 2021-02-09 10:16 | Cardiology Progress Note ---
Date of Service February 09, 2021 Assessment & Plan (1) Atrial fibrillation with RVR: Plan: -secondary to noncompliance with his antiarrhythmic and rate controlling medications. -significant side effects to beta-blockers and sotalol. -no exertional complaints when off beta blockade and sotalol. -consider outpatient workup to rule out coronary ischemia. -continue digoxin. -consider an intravenous dose of digoxin to improve rate control. -continue Xarelto. -if ventricular response remains less than 100 beats per minute, consider hospital discharge. (2) Left ventricular dysfunction: Plan: -ejection fraction was 40-45% in May 2018. -ejection fraction on current echocardiogram severely reduced at 20-25%. -suspect secondary to his rapid ventricular response. -agree with addition of an ACEI or an ARB. (3) Hypertension: Plan: -adequate control on current regimen. (4) Hyperlipidemia LDL goal <100: Plan: -continue atorvastatin. Admission and Anticipated Discharge Date Admission Date: February 05, 2021 Subjective The patient is resting comfortably in bed without complaints of chest pain, dyspnea, or palpitations. He is anxious for hospital discharge. We have reviewed the concept of daily weights and sliding-scale diuretics. Physical Exam Physical Exam: In general this is an obese white male lying in bed without complaints. HEENT exam is negative. Neck is supple with full carotid upstrokes. No carotid bruits. Jugular venous pressure is flat at 90. There is no thyromegaly. Cardiovascular exam reveals an irregular irregular rhythm w ith distant heart sounds. No obvious murmurs. Lungs are clear without rales, rhonchi, or wheezes. Abdomen is soft and nontender without bruits. Extremities reveal intact radial artery and posterior tibial pulses bilaterally. There is no peripheral edema. Results & Data ([facility]) Vital Signs (Past 12 Hours) Vital Signs Temp Pulse Pulse Resp BP BP Pulse Ox 02/09/21 07:16 36.4 C L 85 18 142/85 H 99 02/09/21 04:05 36.5 C 97 H 17 104/78 98 02/08/21 23:00 36.5 C 89 18 110/69 96 02/08/21 22:18 91 H Diagnostic Findings property assessment monitor notes atrial fibrillation with a ventricular response of approximately 100 beats per minute. PG Care Time/CCT Total # of Minutes Spent Total Time Spent with Patient: Total time spent is greater than 50% in coordination of care (as documented) at patient's floor/unit and/or counseling patient: Coding Level of Care Code 39810 Subseq Hosp Care Lvl 3 Diagnoses Atrial fibrillation with RVR I48.91 Left ventricular dysfunction I51.9 Hypertension I10 Hyperlipidemia LDL goal <100 E78.5
[2021-02-09] MEDS ORDERED: lisinopril 5 MG TAB PO SCH (13:00)
--- NOTE | 2021-02-09 14:51 | Pharmacy Report ---
Pharmacy Glycemic Short Note 2 - Date of Service February 09, 2021 - Glycemic Short BSG Results (Last 24 hours): 02/08/21 02/08/21 02/09/21 16:26 21:03 02:16 Glucose POC Glucose 113 H 79 66 L* 02/09/21 02/09/21 02/09/21 02:42 03:34 07:02 Glucose 167 H POC Glucose 65 L* 147 H 02/09/21 02/09/21 07:41 11:28 Glucose POC Glucose 132 H 171 H OUTPATIENT ANTIDIABETIC REGIMEN: * Metformin ER 1000 mg PO BIDM * HbA1c > 14% on 02/05/21 ASSESSMENT: 02/09/21: * Patient received 64 units of insulin yesterday, of which 35 units were Lantus * BSG overnight trending down to 66 mg/dL - plan to scale back to Lantus 25 units daily today * Will loosen CF/CR as well since BSGs much improving from day prior 02/07/21: * Patient received total of 99 units of insulin yesterday of which 55 units was basal Lantus and 44 units bolus Novolog. * Fasting BSG was 153 mg/dl today. Reduced AM Lantus dose to 30 units since dinner BSG trended down to 114 mg/dl yesterday pretty quickly. Continued HS Lantus dose the same as yesterday. * Novolog CR was loosened to 5 with dinner yesterday. Continued the same parameters today. Background 02/06/21: * 50 yo M admitted yesterday from PCP's office secondary to hyperglycemia and Afib w/ RVR. Pharmacy was consulted this AM to assist with inpatient glycemic management. Appears patient has tried Jardiance, Ozempic and Glipizide in the past all of which he quit taking due to stomach discomfort. * BSGs upon admission was 444 mg/dL. There was no elevated anion gap and CO2 was normal. Potassium was normal at 4.2. 1+ ketones were present in the urine. Patient received an 8 unit IV regular insulin bolus and BSG improved to 304 mg/dL. Another 10 unit IV regular insulin bolus was administered at that time and BSG improved to 265 mg/dL. This caused patient's potassium to decrease to 3.6 so NSS + 20 KCl fluids were started at 100 mL/hr. * Fasting BSG was 204 mg/dL this AM when pharmacy was consulted. T2DM is ordered and being tolerated. * Lantus 20 units was given around 1 am. Will continue with Lantus 20 units SC BID starting this AM. * Tightened Novolog from what provider had ordered this AM. Also tightened goal range. * Per ADA recommendations, will hold oral medications while inpatient or until closer to discharge. PLAN FOR INPATIENT GLYCEMIC CONTROL: * Hold outpatient oral diabetes medications * Basal insulin * Lantus 25 units daily * Bolus insulin * NovoLog per scale ACHS or Q6hrs while NPO * Goal Range: Low 110 mg/dL - High 140 mg/dL * Correction Factor: 20 mg/dL/unit * Nutritional / Prandial insulin per carb ratio of 1 unit per 7 grams CHO consumed PLAN FOR DISCHARGE: * HbA1c > 14% on 02/05/21. Goal A1c for this patient given his age and co- morbidities is less than 7%. * Since A1c is significantly elevated, consider triple therapy with metformin + basal insulin + (GLP1-RA OR prandial insulin). * Would continue current outpatient Metformin XR 1000 mg PO BID with meals (breakfast and dinner). * Recommend starting basal insulin: Glargine/Detemir/Degludec 25 - 30 units once daily. Titrate upwards per outpatient provider. * Recommend starting GLP1-RA injection. Patient seems to have tried Ozempic once weekly and discontinued this due to stomach discomfort. Would trial a different agent in the same class such as Trulicity 0.75 mg SC once weekly OR Victoza 0.6 mg SC once daily. * Prandial insulin is the other option instead of GLP1-RA but less desirable if sub Q administrations are not possible at work. * Support Patient Self-Management Healthy Lifestyle (diet, exercise, and smoking cessation) Disease self-management (SMBG) Prevention of complications (BP, Lipid goals, Immunizations) Consider outpatient Diabetes Self-Management Education & Support
--- NOTE | 2021-02-09 16:25 | Discharge Summary ---
Date of Service February 09, 2021 Admission HPI Per Admitting Provider 50 yo M Hx DM2, HTN, nonischemic cardiomyopathy with EF 40-45%, DAVID presented to the ER after seeing his PCP due to having rapid heart rate in the office as well as concern for severely uncontrolled diabetes. In the ER patient was noted to have BSG 475, anion gap of 9, troponin 0.1, elevated BHB, and HR in 120s. He was given Regular Insulin 8u x1 with decrease in BSG to 300. He was also given Lopressor 5mg IV x1 with decrease in HR to 90-100s. Lastly, he received 500cc NSS bolus. Hospitalist service was consulted for admission for AFib with RVR and hyperglycemia. On my interview patient reports that he stopped taking diltiazem and metoprolol and "another one" about 9 months ago due to a sensation of chest pressure and flutters that he was getting on them. He is not clear which medication was the offending agent, but he reports that within days of stopping them he began to feel better. He reports that he told his PCP about this but was told that he had to be on the medications. Despite that guidance, due to feeling unwell, he stopped them. He has been taking his Xarelto daily as prescribed. He also reports that his BSGs have been "all over the place" and he is not sure why. 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 Per EMR record patient has been on Jardiance in the past but had nausea on the medication. At home he takes metformin 1000mg BID. Today on interview he denies chest pain, SOB, nausea or vomiting, diarrhea, lightheadedness, palpitations. Admission Exam Per Admitting Provider Constitutional: WD/WN, vitals as above Eyes: PERRL, conjunctivae normal, anicteric sclerae ENMT: external ear and nose normal, oropharynx normal Neck: normal visual inspection Respiratory: normal respiratory effort, lungs clear to auscultation Cardiovascular: RRR, no murmur, no edema Rate/Rhythm: + tachycardic and + irregularly irregular Heart Sounds: no murmur Extremities: no edema Gastrointestinal (Abdomen): normal bowel sounds, soft, nontender, no hepatosplenomegaly Musculoskeletal: no cyanosis or clubbing, extremities motor strength 5/5 Skin: no rashes, warm and dry Neurologic: No sensory deficits. Normal speech. No tremor. Psychiatric: A+Ox3, euthymic affect Principal Diagnosis Atrial fibrillation with rapid ventricular response secondary to HHNK complicat ed by uncontrolled type 2 diabetes, history of congestive heart failure reduced ejection fraction, Discharge Exam General: No acute distress HEENT: Normocephalic atraumatic Neck: Normal to visual inspection, negative JVD Cardiac: Irregularly irregular rhythm negative pedal edema negative calf tenderness Respiratory: Bilateral scattered wheezes, no crackles or rhonchi, symmetrical chest expansion, no increased work of breathing GI: Soft, nontender, distended MSK: Moves all extremities Discharge Data Allergies Allergy/AdvReac Type Severity Reaction Status Date / Time empagliflozin AdvReac Mild Nausea Verified 02/07/21 13:04 [From Jardiance] Consultations 02/05/21 19:59 ED Decision to Admit Stat 02/05/21 22:46 Consult Cardiology Routine Diabetes Follow up Diabetes Follow-up Needed for HgbA1c >9% Hospital Course (1) Acute HFrEF (heart failure with reduced ejection fraction): (2) Atrial fibrillation with RVR: (3) Diabetes mellitus, type 2: (4) Obstructive sleep apnea: (5) Hypertension: (6) CHF NYHA class II (symptoms with moderately strenuous activities): (7) Nonischemic cardiomyopathy: 50 yo M Hx DM2, HTN, nonischemic cardiomyopathy with EF 40-45%, DAVID admitted for hyperglycemia and AFib with RVR. #DM2, diabetic ketosis without acidosis: Presented with BSG 475. A1c pending. Anion gap 9, corrected Na 141, BHB elevated at 11.37. Urine is concentrated (specific gravity 1.039) with 1+ ketones. NSS at 100cc/hr given on admit 2/2 decreased EF. given poor baseline control. Ultimately the patient will require diabetic education, as well as adjustment to his medication regimen. Patient has been on Jardiance in the past which is listed as an allergy. He has also been on Ozempic per EMR, may be worth considering again. -Glycemic cx placed -Lantus 20 units subcu twice daily, NovoLog sliding scale AC at bedtime goal 1 10-1 40, correction factor 15, carb ratio 1:4 -On discharge patient to start Metformin extended release 1 g daily, Basaglar 35 units every afternoon, Ozempic 0.5 mg weekly #AFib with RVR: Presented with HR in 120s; with decrease in HR to 90-100s after metoprolol 5mg IV x1 and NSS bolus. Has not been taking diltiazem, metoprolol, digoxin for last 9 months. Reports that this was relayed to PCP but do not see in notes prior to today. Used to follow with Dr. Tejeda, with last visit 05/2018. At that time EMR records indicate that he was on sotalol 120mg BID. Patient has, however, been taking his Xarelto as prescribed. Initially it was thought secondary to the patient's HH NK presentation that he was profoundly hypovolemic and fluid and electrolyte repletion was provided. Cardiology consulted for assistance given multiple medication intolerances in the past with clear need for rate control A trial of sotalol 120 mg was given and the patient acutely decompensated and subsequently improved with fluid administration. Given that he had absolutely no physical exam findings consistent with CHF exacerbation fluid administration was continued during his episodes of symptomatic hypotension. Chest x-rays demonstrated pulmonary vascular congestion but were negative for pulmonary edema. Cardiology diagnosed the patient with acute decompensated CHF exacerbation recommending management of his atrial fibrillation with digoxin and aggressive diuresis. As pressures improved they recommend resuming beta-rocio therapy. Patient made significant progress status post diuresis with intravenous Lasix. On the day of discharge the care team provided extensive counseling and education to the patient regarding the pathophysiology of his condition. Emphasizing the benefits of beta-rocio therapy. The patient insisted that his symptoms were directly related to both sotalol and metoprolol and insisted that he would like to defer initiating a beta-rocio and would reconsider it in his outpatient pocket grinder operator appointment. Advised the patient should he develop any further symptoms of shortness of breath, worsening dyspnea on exertion, heavy feelings in his lungs, he should return for follow-up. -It is important to note that this patient demonstrates limited physical exam findings of CHF exacerbation. He does not demonstrate significant pedal edema, he does not demonstrate significant crackles on exam, he does not have significant JVD, his chest x-ray only demonstrates pulmonary vascular congestion and does not demonstrate pulmonary edema. #Acute on chronic CHF exacerbation Patient with history of heart failure with reduced ejection fraction, TTE on this admission demonstrated dilated LV with EF of 15 to 20% severe global hypokinesis moderate concentric LVH. Borderline dilated RV with severely reduced function, biatrial dilation, pulmonary hypertension, A. fib, when compared to prior study on 09/04/2018 severe biventricular systolic dysfunction is now present. #Elevated troponin, Hx nonischemic cardiomyopathy, HFrEF: Last Echo February 2018 with EF 40-45%. Takes furosemide as needed for weight gain, but reports he has not had to take it in weeks. TTE during admission with EF 15-20%Troponin on admission elevated to 0.103 in the setting of AFib with RVR, suspect due to demand ischemia. -troponin peaked at 0.103 now downtrending -Lipid profile: Total cholesterol 116, LDL 47, HDL 36 #HTN: History of, on lisinopril 20mg daily. 140-160s/90-110s on presentation to ER, however decreased to normal following Toprol IV. -Discharged on lisinopril 5 mg daily #Wheezing On the day of discharge physical exam demonstrated bilateral lateral scattered wheezes. Patient notes that he has a history of this as a child. He states he has never had a formally worked up. When he is back to baseline outpatient PCP could consider pulmonary function testing Aba Huffman MD PGY 3, FCM This chart was completed utilizing [employer] voice recognition software. Grammatical errors, random word insertions, pronoun errors, and in complete sentences are an occasional consequence of the system. Any questions or concerns about the content, text, or information contained within the body of this dictation should be addressed directly to the physician for clarification. Total Time Total Time Spent Total Time Spent (In Minutes): 42 Discharge Plan Discharge Items Patient Disposition: Home - Self-Care Reason For Visit: EFIB RVR, HHS Discharge Diagnosis: Atrial fibrillation with rapid ventricular response secondary to HHNK complicated by uncontrolled type 2 diabetes, history of congestive heart failure reduced ejection fraction Activity: Resume your previous activity Non-emergency contact: Primary Care Provider Call non-emergency contact if: you have any medication questions and your temperature is above 101.5 Follow-up/Referrals: Margarita Morgan DO [Primary Care Provider] - Diet: Carb Consistent or DM2 Addtl Attending Provider Instructions: Care instructions: You were admitted to [facility] for treatment of uncontrolled type 2 diabetes, atrial fibrillation with rapid ventricular response, acute decompensated heart failure with reduced ejection fraction. When you presented to the hospital you were noted to have an abnormal heart rhythm called atrial fibrillation this was associated with a rapid ventricular response or a very fast heart rate. this coupled with your elevated blood sugars likely led to an acute exacerbation of your underlying CHF. You likely developed the symptoms because you stop taking your medication and did not follow-up with your outpatient physician. Initially we corrected your sugars and fluid imbalance however this necessitated diuresis to remove excess fluid. Moving forward is important you focus on good blood sugar control, and monitor your fluid balance. On the day of discharge we discussed the benefits and role beta-rocio therapy in CHF. You indicated to us that you would like to defer starting these medications until your outpatient appointment with your pocket grinder operator. While hospitalized we started you on a medication called digoxin to help control your heart rate. We will continue this medication on discharge. Additionally changes were made to your diabetes regimen as noted below. Diabetes medications: -Please take Metformin extended release 1000 mg once per day -Please take Basaglar 35 units every afternoon -Please take Ozempic 0.5 mg once per week -Until you have a better understanding of your blood sugar regimen we recommend you checking your sugars after meals and in the evening. -Please follow-up with your primary care physician to discuss your diabetes regimen Cardiac medications: -Please take digoxin 0.25 mg once per day in the afternoon. It is important that you try to take this medication at the same time every day to obtain optimum benefits -Please take lisinopril 5 mg every morning -Continue taking your Xarelto 20 mg in the evening -We recommend discussing initiating beta-rocio therapy with your outpatient pocket grinder operator at follow-up. Your medications have been sent to the [facility] in [place] A discharge summary will be sent to your primary care physician to ensure continuity of care. Please bring this discharge summary with you to your next office appointment so that your provider can review it at that time. Follow-up appointments: - Keep all your follow-up appointments as already scheduled. If you cannot make an appointment, notify your provider. - Please call to request a follow-up appointment with your primary care physician within one week of discharge. Please let us know if you are unable to obtain an appointment Medications: - Your medication list has been reviewed and reconciled upon discharge to ensure accuracy and continuity of care. - You are provided with a list of all your current medications at this time. Please review this list closely and make note of any changes. - Please take all of your medications exactly as prescribed. - Tell your primary care provider if you cannot afford your medications. - Call your primary care provider if you are having any side effects or any other problems. - Call your primary care provider before taking any over the counter medications or supplements, including herbals and vitamins, because some of these may interact with your current medications and/or make your symptoms worse. Symptoms: Please call your primary care provider for symptoms including, but not limited t o: fevers (temperatures greater than 100.4), chills, intractable nausea or vomiting, diarrhea, rash, shortness of breath, bleeding, pain, or if you experience any worsening of the symptoms that brought you to the hospital. For EMERGENCY and VERY SERIOUS health-related issues, such as chest pain, shortness of breath, or sudden onset of the symptoms that brought you to the hospital, you may need to call 911 or go directly to the Emergency Room It has been our privilege to take care of you during your hospital stay. And Above All Else Feel Better! Best Wishes, Aba Huffman MD PGY2 Resident, Family & Community Medicine [facility] Residency at [facility] [id number], [address] : [place] [address] Pending Studies at Discharge: No Stand-Alone Forms: My [facility], Smoking Cessation Medications and DC Order Prescriptions: New digoxin 250 mcg (0.25 mg) Tablet 250 mcg PO DAILY@1600 30 Days Qty: 30 RF: 0 lisinopril [Zestril] 5 mg Tablet 5 mg PO QAM Qty: 30 RF: 0 Basaglar KwikPen U-100 Insulin 100 unit/mL (3 mL) insulin pen 35 unit subcut PM Qty: 15 RF: 0 Ozempic 0.25 mg or 0.5 mg(2 mg/1.5 mL) pen injector 0.5 mg subcut .weekly 30 Days Qty: 1.5 RF: 0 Continued atorvastatin 40 mg tablet 40 mg PO PM Qty: 90 RF: 3 Xarelto 20 mg tablet 20 mg PO HS Qty: 30 RF: 5 tamsulosin 0.4 mg capsule 0.4 mg PO DAILY PRN (Reason: ..) RF: 0 febuxostat [Uloric] 40 mg tablet 40 mg PO QPM RF: 0 Changed furosemide 40 mg tablet 40 mg PO DAILY PRN (Reason: .fluid build up) Qty: 0 RF: 0 metformin 500 mg tablet extended release 24 hr 1,000 mg PO DAILY Qty: 180 RF: 1 Discontinued (DME) Auto Titrating CPAP Misc See Rx Instructions .Route Qty: 1 RF: 0 benzonatate 100 mg capsule 100 mg PO TID PRN (Reason: Cough) RF: 0 doxycycline hyclate 100 mg tablet 100 mg PO BID RF: 0 lisinopril 20 mg tablet 20 mg PO QPM RF: 0 Discharge Orders: Discharge Order (Routine); Ordered 02/09/21 Ordered By: Aba Huffman Admission Data Admit Date/Time: 02/05/21 22:11 Attending Provider: Pop Jernigan Admit Provider: Britney Roger Primary Care Provider: Margarita Morgan Other Providers: Den Rogers ; Jose Whtie Other Interventions: Discharge Summary Assessment (RN) Last Done: 02/09/21 17:11 Supervising Physician Co-Signing Physician Notes Neo Lomeli is a 50-year-old male with past history of atrial fibrillation, hyperlipidemia, DAVID, type 2 diabetes who presented with A. fib uncontrolled diabetes. He presents with a glucose of over 500 and received insulin and volume resuscitation. Following volume resuscitation and treatment of his A. fib various interventions for his A. fib were discussed. Patient had stopped his rate control medications several months ago as he felt that these caused side effects. He had continued to take rivaroxaban without any missed doses. Echo showed an interval decrease of his EF to 20%, suspected rate related. Patient did experience episodes of hypotension, and was treated with additional fluids. He did not have any pulmonary edema, oxygen requirement, or peripheral edema appreciated. Following recurrence of these episodes, he was reassessed and it was felt that despite physical exam findings as before he was actually likely volume overloaded and hypotensive episodes were being precipitated by volume overload. He was subsequently treated with Lasix with improvement in his blood pressure. His discharge continue his home Lasix dosing following hospital diuresis. He was continued on lisinopril and digoxin for blood pressure and rate control respectively. It was recommended that he take a beta-rocio at time of discharge; patient did not wish to start this at this time based on his difficulty with sotalol and metoprolol in the past. He agreed that he would follow-up with cardiology within a week and consider restarting it if his blood pressure remained well. Discussed the effect of beta-blockers and remodeling and benefit and heart failure, patient expressed understanding of this and defer this at time of discharge but agreeable to reevaluation within a week as outpatient. Case discussed with cardiology at time of discharge, he did have a mild troponin leak. On discussion with cardiology patient was recommended for discharge with follow-up as outpatient, additional lab/monitoring and catheterization was not recommended. He did experience anginal symptoms during his hypotensive episodes, and catheterization was discussed but recommended for following outpatient follow-up with potential stress study first as outpatient. He was discharged to follow-up with cardiology as noted. Return precautions including chest pain, chest pressure, hypertension, new/worsening symptoms discussed with patient. His A1c was greater than 14 and essentially uncontrolled, patient was adamant that he could not manage to have lunchtime insulin for basal bolus regimen due to his job constraints. He has had multiple intolerances to medications previously as noted. Case was followed by pharmacy, ultimately was discharged on glycemic regimen as above with close follow-up for adjustment as needed. Discharge exam patient alert and oriented x3, no acute distress, breathing un labored with symmetrical chest rise, lungs clear to auscultation bilaterally without crackles rales/rhonchi, trace expiratory wheeze, no pedal edema, regular heart rate, normotensive. Total time spent day of discharge 60 minutes including documentation, review of labs and images, direct patient care, counseling, coordination of care, and review of case with resident provider and cardiology.
--- NOTE | 2021-02-09 19:49 | Billing Data ---
Date of Service February 09, 2021 Coding Level of Care Code D/C DAY MANAGEMENT >30 MINS
== END 2021-02-09 17:55 | disposition home or self-care (01) | DRG 308 ==
LOC: ED 18:39 → EDINP 22:11 → SUATTDRO 22:11 → EDINP 22:54 → 2S 02-06 20:22

== ENCOUNTER 2022-10-15 10:36 | Observation (INO) ==
--- NOTE | 2022-10-15 11:00 | Emergency Department Note ---
Impression & Plan SALEH (dyspnea on exertion), Non-ST elevation [place] (NSTEMI) ED Provider Note HISTORY OF PRESENT ILLNESS: Patient is a 52-year-old male presenting with shortness of breath. Patient repo rts he has been having shortness of breath, most notably with exertion over the last 2 weeks. He reports that he has been having episodes in which he feels like his heart is racing. He has a history of A-fib. He is on Xarelto. Denies any missed doses of Xarelto. Denies any DVT or PE history. Denies any history of cardiac stents. Denies any chest pain. Denies any lower extremity edema. He reports he is only able to walk a few steps before becoming significantly winded. ROS: as above PHYSICAL EXAM: Constitutional: Patient appears in no acute distress. HENT: Head: Normocephalic and atraumatic. Eyes: EOMI, PERRL Mouth/Throat: Mucous membranes moist. Neck: Trachea midline. Neck supple. Cardiovascular: Irregular rhythm. No murmurs, rubs or gallops. Intact distal pulses. Pulmonary/Chest: No respiratory distress. Breath sounds clear and equal bilaterally. No wheezes or rales. Abdominal: Abdomen soft, no tenderness, rebound or guarding. Musculoskeletal: No edema, tenderness or deformity noted. Skin: Warm and dry. No rash, erythema, pallor or cyanosis Psychiatric: Appropriate mood and affect for situation. Neurological: Alert and keenly responsive. CN II-XII grossly intact, moving all extremities equally and fully. MDM: - Vitals signs showed hypertension and tachycardia - History obtained via patient. Patient presents with shortness of breath with exertion. Patient reports he has been having shortness of breath with exertion for over the last 2 weeks. Reports he has episodes in which she feels like his heart is racing. He is on Xarelto. Denies any missed doses. Denies any DVT or PE history. He reports some chest tightness with his shortness of breath earlier today. He reports he is only able to walk a few steps before becoming significantly winded - Chronic conditions affecting care: CHF; DM-2; HTN; HLD - Differential diagnoses include, but are not limited to: Congestive heart failure; acute coronary syndrome; COPD/asthma exacerbation; pulmonary edema; pulmonary embolism; pneumonia; pneumothorax; viral syndrome - Order placed for continuous cardiac monitoring. At this time, monitor showed rate of 80 bpm with irregular rhythm, per my interpretation. - External medical records reviewed. - EKG reviewed by myself showed atrial fibrillation. Rate 97 bpm. QTc 467. No acute ischemic changes - Laboratory workup interpreted by myself showed normal WBC; normal electrolytes; elevated troponin (31.8); elevated BNP (172) - CXR negative for pneumonia per my interpretation. Radiology notes cardiomegaly. - Repeat troponin continues to be elevated. - HEART score 5 (+1 story; +1 age; +2 risk factors; +1 troponin) - moderate ris k. - Discussion was had with social media coordinator about patient's case and need for admission. - Hospitalist consulted for admission - Discussed case with accounts clerk reconnaissance man, Dr. Garcia. Agrees with ad mission for anginal workup, as patient is currently rate controlled with Afib. - Patient admitted to [facility] for further evaluation and management. ASSESSMENT AND PLAN: Diagnosis: dyspnea with exertion; NSTEMI Plan: admit Past Med/Surg History Medical History CHF NYHA class II (symptoms with moderately strenuous activities) Diabetes mellitus, type 2 Gout History of COVID-19 History of kidney stones History of melanoma Hyperlipidemia LDL goal <100 Hypertension Metabolic disorder Nephrolithiasis Nonischemic cardiomyopathy Obesity Obstructive sleep apnea Paroxysmal atrial fibrillation Right ureteral calculus Surgical History H/O local excision of skin lesion History of cardiac radiofrequency ablation History of cardioversion History of tooth extraction Family History Sister Ovarian cancer Diabetes Breast cancer Father Diabetes Kidney stones Hypertension Brother Diabetes Mother Diabetes GERD (gastroesophageal reflux disease) Hypertension Other No family history of adverse response to anesthesia Denies family history of Prostate cancer Lung cancer Colorectal cancer Social History Smoking Status: Never smoker Tobacco Type: Smokeless Tobacco (Dip or Chew) Second Hand Exposure: No; Do You Dip or Chew Tobacco: No; Hx Alcohol Use: No Hx Substance Use: No Preferred Language: Bahraini Communication Ability: Effective Visual Impairment: No Limitations Hearing Ability: Normal Support Associate Required: No Beliefs That Will Affect Care: None marital status: Current Living Situation: Spouse and Family Current Living Situation Comment: Lives with and daughter current occupational status: 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 [employer] How many Children do You have: 4 Feels Safe at Home: Yes Childhood Exposure to Second-Hand Smoke: Yes Diet: regular Diet Comment: regular caffeine: No during the past year weight has: decreased > 10 lbs Dental Care, Regularly: Yes Physical Activity Frequency: Daily Physical Activity Frequency Comment: walking at work Seatbelt Use: sometimes Sunscreen Use: No Assistive Devices: None Allergies Allergies Allergy/AdvReac Type Severity Reaction Status Date / Time empagliflozin AdvReac Mild Nausea Verified 04/08/22 17:47 [From [employer]] Home Meds Home Medications Medication Instructions Recorded Confirmed semaglutide 1 mg/dose (4 mg/3 mL) 1 mg subcut ONCE 10/10/22 subcutaneous pen injector (Ozempic) Previous Rx's Medication Instructions Recorded blood sugar diagnostic (OneTouch #100 ea 02/13/21 Verio test strips) lancets 30 gauge (OneTouch Delica #200 ea 02/13/21 Plus Lancet) pen needle, diabetic 32 gauge x #100 ea 02/13/21 5/32" (1st Tier Unifine Pentips) furosemide 40 mg tablet 40 mg PO DAILY PRN .fluid build up 02/08/22 #90 tabs lisinopril 10 mg tablet 10 mg PO QAM #90 tabs 04/08/22 Basaglar KwikPen U-100 Insulin 100 20 unit (0.2 mL) subcut PM #18 mL 05/13/22 unit/mL (3 mL) subcutaneous (insulin glargine) rivaroxaban 20 mg tablet (Xarelto) 20 mg PO HS #30 tabs 05/14/22 metformin 500 mg tablet,extended 1,000 mg PO QAM #180 tabs 07/26/22 release 24 hr atorvastatin 40 mg tablet 40 mg PO PM #90 tabs 09/13/22 febuxostat 40 mg tablet (Uloric) 40 mg PO QPM #90 tabs 09/13/22 metoprolol succinate 50 mg 50 mg PO DAILY #90 tabs 10/10/22 tablet,extended release 24 hr Results & Data (ED) Vital Signs Vital Signs - 24 hr 10/15/22 10:39 10/15/22 10:58 10/15/22 11:01 Temperature 36.9 C Temperature Source Temporal Artery Scan Pulse Rate 105 H 103 H Respiratory Rate 18 Respiratory Effort / Characteristics Non-Labored Spontaneous Respiratory Depth Normal Respiratory Pattern Regular Blood Pressure 135/103 H Blood Pressure Mean 113 Pulse Oximetry 98 Oxygen Delivery Method Room Air Room Air Sepsis Recent Fever Within 48 Hours No Sepsis New/Unexplained Change in Mental Status No Sepsis Action Taken by Nursing No Action Required 10/15/22 11:02 10/15/22 10:48 10/15/22 11:00 Temperature Temperature Source Oral Pulse Rate 97 H 79 Respiratory Rate 19 21 Respiratory Effort / Characteristics Respiratory Depth Respiratory Pattern Blood Pressure Blood Pressure Mean Pulse Oximetry Oxygen Delivery Method Sepsis Recent Fever Within 48 Hours Sepsis New/Unexplained Change in Mental Status Sepsis Action Taken by Nursing 10/15/22 13:37 10/15/22 13:37 10/15/22 14:18 Temperature Temperature Source Pulse Rate 81 82 Respiratory Rate 23 Respiratory Effort / Characteristics Respiratory Depth Respiratory Pattern Blood Pressure 127/84 Blood Pressure Mean 95 Pulse Oximetry 96 Oxygen Delivery Method Sepsis Recent Fever Within 48 Hours Sepsis New/Unexplained Change in Mental Status Sepsis Action Taken by Nursing Laboratory Data 10/15/22 10:55 10/15/22 10:55 Lab Results 10/15/22 10/15/22 10/15/22 Range/Units 10:55 10:55 10:55 WBC 6.05 (4.8-10.8) K/ul RBC 5.24 (4.70-6.10) M/uL Hgb 16.3 (14.0-18.0) g/dl Hct 47.6 (42.0-52.0) % MCV 90.8 (80.0-100.0) fL MCH 31.1 (25.0-34.0) pg MCHC 34.2 (32.0-36.0) g/dL RDW Std Deviation 44.6 (36.4-46.3) fL RDW Coeff of Kaley 13.3 (11.5-14.5) % Plt Count 247 (130-400) K/uL MPV 11.1 (9.4-12.4) fL Immature Gran % (Auto) 0.2 % Neut % (Auto) 58.8 % Lymph % (Auto) 27.6 % Spencer % (Auto) 11.2 % Eos % (Auto) 1.7 % Baso % (Auto) 0.5 % Neut # (Auto) 3.56 (1.40-6.50) K/uL Lymph # (Auto) 1.67 (1.20-3.40) K/uL Spencer # (Auto) 0.68 H (0.11-0.59) K/uL Eos # (Auto) 0.10 (0.00-0.50) K/uL Baso # (Auto) 0.03 (0.00-0.20) K/uL Immature Gran # (Auto) 0.01 (0.01-0.20) K/uL PT 13.1 H (9.0-12.0) Seconds INR 1.2 H (0.9-1.1) Sodium (136-145) mmol/L Potassium (3.5-5.1) mmol/L Chloride (98-107) mmol/L Carbon Dioxide (21-32) mmol/L Anion Gap (3-11) BUN (6-23) mg/dl Creatinine (0.6-1.4) mg/dl Est Cr Clr Drug Dosing ml/min Est GFR ( Amer) ml/min Est GFR (Non-Af Amer) ml/min BUN/Creatinine Ratio (10-20) Glucose (70-99(Fasting)) mg/dl Calcium (8.6-10.3) mg/dl Total Bilirubin (0.2-1.0) mg/dl AST (13-39) U/L ALT (7-52) U/L Alkaline Phosphatase (34-104) U/L Troponin I High Sens (0-20) pg/ml B-Natriuretic Peptide 172 H (0-100) pg/ml Total Protein (6.0-8.3) gm/dl Albumin (3.4-5.0) gm/dl Globulin (2.5-4.0) gm/dl Albumin/Globulin Ratio (0.9-2) Lipase (11-82) U/L 10/15/22 10/15/22 Range/Units 10:55 13:38 WBC (4.8-10.8) K/ul RBC (4.70-6.10) M/uL Hgb (14.0-18.0) g/dl Hct (42.0-52.0) % MCV (80.0-100.0) fL MCH (25.0-34.0) pg MCHC (32.0-36.0) g/dL RDW Std Deviation (36.4-46.3) fL RDW Coeff of Kaley (11.5-14.5) % Plt Count (130-400) K/uL MPV (9.4-12.4) fL Immature Gran % (Auto) % Neut % (Auto) % Lymph % (Auto) % Spencer % (Auto) % Eos % (Auto) % Baso % (Auto) % Neut # (Auto) (1.40-6.50) K/uL Lymph # (Auto) (1.20-3.40) K/uL Spencer # (Auto) (0.11-0.59) K/uL Eos # (Auto) (0.00-0.50) K/uL Baso # (Auto) (0.00-0.20) K/uL Immature Gran # (Auto) (0.01-0.20) K/uL PT (9.0-12.0) Seconds INR (0.9-1.1) Sodium 140 (136-145) mmol/L Potassium 3.8 (3.5-5.1) mmol/L Chloride 107 (98-107) mmol/L Carbon Dioxide 26 (21-32) mmol/L Anion Gap 7 (3-11) BUN 18 (6-23) mg/dl Creatinine 1.09 (0.6-1.4) mg/dl Est Cr Clr Drug Dosing 109.1 ml/min Est GFR ( Amer) 90.0 ml/min Est GFR (Non-Af Amer) 77.6 ml/min BUN/Creatinine Ratio 16.5 (10-20) Glucose 117 H (70-99(Fasting)) mg/dl Calcium 9.7 (8.6-10.3) mg/dl Total Bilirubin 1.0 (0.2-1.0) mg/dl AST 22 (13-39) U/L ALT 26 (7-52) U/L Alkaline Phosphatase 67 (34-104) U/L Troponin I High Sens 31.8 H 30.7 H (0-20) pg/ml B-Natriuretic Peptide (0-100) pg/ml Total Protein 7.4 (6.0-8.3) gm/dl Albumin 4.6 (3.4-5.0) gm/dl Globulin 2.8 (2.5-4.0) gm/dl Albumin/Globulin Ratio 1.6 (0.9-2) Lipase 60 (11-82) U/L Imaging Data Radiologist's Impression: Chest X-Ray 10/15/22 10:59 SINGLE VIEW CHEST CLINICAL HISTORY: Atypical chest pain. FINDINGS: An AP, portable, upright chest radiograph is compared to chest x-ray and chest CT dated 09/11/2021. The heart is enlarged. The pulmonary vasculature is noncongested. The lungs and pleural spaces are clear noting mild dependent atelectasis. No pneumothorax is seen. The bony thorax is grossly intact. IMPRESSION: Cardiomegaly with no active disease in the chest. ACT 112: Negative or not required by law. Electronically signed by: Yariel Espinoza M.D. 10/15/2022 11:44 AM Discharge Plan Visit Data Chief Complaint: Arrhythmia/Palpitations Stated Complaint: AFIB ED Provider: Mickie Briggs Discharge Problem: SALEH (dyspnea on exertion), Non-ST elevation [place] (NSTEMI) Forms Stand Alone Forms: [employer] Prescriptions Prescriptions: No Action (DME) OneTouch Verio test strips Strip See Rx Instructions .Route Qty: 100 5RF Rx Instructions: testing 3 times per day (DME) lancets [OneTouch Delica Plus Lancet] 30 gauge misc See Rx Instructions .Route Qty: 200 5RF Rx Instructions: testing 3 times per day (DME) pen needle, diabetic [1st Tier Unifine Pentips] 32 gauge x 5/32" needle See Rx Instructions .Route Qty: 100 5RF Rx Instructions: use with basaglar and ozempic furosemide 40 mg tablet 40 mg PO DAILY PRN (Reason: .fluid build up) Qty: 90 1RF insulin glargine [Basaglar KwikPen U-100 Insulin] 100 unit/mL (3 mL) insulin pen 20 unit subcut PM Qty: 18 5RF Xarelto 20 mg tablet 20 mg PO HS Qty: 30 5RF Rx Instructions: TAKE 1 TABLET BY MOUTH AT BEDTIME metformin 500 mg tablet extended release 24 hr 1,000 mg PO QAM Qty: 180 1RF febuxostat [Uloric] 40 mg tablet 40 mg PO QPM Qty: 90 1RF atorvastatin 40 mg tablet 40 mg PO PM Qty: 90 1RF lisinopril 10 mg tablet 10 mg PO QAM Qty: 90 1RF Ozempic 1 mg/dose (4 mg/3 mL) pen injector 1 mg subcut ONCE Rx Instructions: takes 0.75mg metoprolol succinate 50 mg tablet extended release 24 hr 50 mg PO DAILY Qty: 90 3RF Referrals Referrals: Margarita Morgan DO [Primary Care Provider] -
[2022-10-15 11:16] LABS: Basophils # (auto) 0.03 K/uL (0.00-0.20); Basophils % (auto) 0.5 %; Eosinophils % (auto) 1.7 %; Hematocrit (blood only) 47.6 % (42.0-52.0); Hemoglobin 16.3 g/dl (14.0-18.0); Immature Granulocytes # (auto) 0.01 K/uL (0.01-0.20); Immature Granulocytes % (auto) 0.2 %; Lymphocytes # (auto) 1.67 K/uL (1.20-3.40); Lymphocytes % (auto) 27.6 %; Mean Corpuscular Hemoglobin 31.1 pg (25.0-34.0); Mean Corpuscular Hgb Conc 34.2 g/dL (32.0-36.0); Mean Corpuscular Volume 90.8 fL (80.0-100.0); Mean Platelet Volume 11.1 fL (9.4-12.4); Monocytes # (auto) 0.68 K/uL (0.11-0.59); Monocytes % (auto) 11.2 %; Neutrophils # (auto) 3.56 K/uL (1.40-6.50); Neutrophils % (auto) 58.8 %; Platelet Count 247 K/uL (130-400); RDW Coefficient of Variation 13.3 % (11.5-14.5); RDW Standard Deviation 44.6 fL (36.4-46.3); Red Blood Count 5.24 M/uL (4.70-6.10); White Blood Count 6.05 K/ul (4.8-10.8)
[2022-10-15 11:28] LABS: INR 1.2 (0.9-1.1); Prothrombin Time 13.1 Seconds (9.0-12.0)
--- NOTE | 2022-10-15 11:46 | XRay Report ---
SINGLE VIEW CHEST CLINICAL HISTORY: Atypical chest pain. FINDINGS: An AP, portable, upright chest radiograph is compared to chest x-ray and chest CT dated 08/18. The heart is enlarged. The pulmonary vasculature is noncongested. The lungs and pleural space s are clear noting mild dependent atelectasis. No pneumothorax is seen. The bony thorax is grossly in tact. IMPRESSION: Cardiomegaly with no active disease in the chest. ACT 112: Negative or not required by law. Electronically signed by: Yariel Espinoza M.D. 10/15/2022 11:44 AM
[2022-10-15 11:48] LABS: Albumin Globulin Ratio 1.6 (0.9-2); Albumin Level 4.6 gm/dl (3.4-5.0); BUN Creatinine Ratio 16.5 (10-20); Calcium 9.7 mg/dl (8.6-10.3); Creatinine Clr Calc Pharmacy 109.1 ml/min; Est GFR (Non-African American) 77.6 ml/min; Globulin 2.8 gm/dl (2.5-4.0); Potassium 3.8 mmol/L (3.5-5.1); Total Protein 7.4 gm/dl (6.0-8.3)
[2022-10-15 11:53] LABS: Troponin I High Sensitivity 31.8 pg/ml (0-20)
--- NOTE | 2022-10-15 14:39 | History & Physical Report ---
Date of Service October 15, 2022 Assessment & Plan (1) Shortness of breath: Plan: Unclear if just related to his atrial fibrillation even though rate normal in setting of non-ischemic cardiomyopathy vs. ischemia. Suspect the former. No pulmonary edema, leg swelling, weight gain or JVD to suspect acute heart failure. TTE Trend troponins Consult cardiology to consider more rhythm control strategy once ischemia ruled out Consider outpatient lung functions tests - no wheezing on exam but worse with increased metoprolol use may suggest underlying reactive airway disease (2) Paroxysmal atrial fibrillation: Plan: Continue anticoagulation with Xarelto Will defer ongoing rhythm/rate controlling strategy to cardiology but continue his usual metoprolol currently (3) Cardiomyopathy: Plan: Continue metoprolol succinate (4) Diabetes mellitus, type 2: Plan: HbA1C 5.9 in September 2021, very variable prior to this, will repeat with AM labs Switch Basal dosing to Lantus 10 units HS given low glucose levels Novolog: --Goal BSG Range: Low 110 mg/dL, High 140 mg/dL --Correction Factor: 40 mg/dL/unit --Carbohydrate ratio = 13 g/unit --BSGs ACHS if eating, q6h if npo (5) Obstructive sleep apnea: Plan: CPAP HS (6) Hypertension: Plan: Continue metoprolol succinate and lisinopril Plan VTE Prophylaxis - Xarelto Diet - T2DM, heart healthy, low Na Disposition - observation to med/tele Admission and Anticipated Discharge Date Admission Date: October 15, 2022 History of Present Illness Chief Complaint: Shortness of breath Primary Care Provider: DO Kaiden Rojas is a 52 year old male who presents to the ER with 3 weeks of shortness of breath associated with palpitations which have been constant. Shortness of breath on exertion. No fever, chills, leg swelling, weight gain, chest pain, orthopnea, PND, presyncope or claudication. 2 days ago he increased his metoprolol succinate from 12.5mg PO daily to 50mg PO daily and has felt more short of breath since then. He has a longstanding history of atrial fibrilation requiring ablation p reviously, cardioversion in December last year. Previously on sotalol (and temporarily amiodarone) for rhythm control but currently not on anything. Allergies Allergy/AdvReac Type Severity Reaction Status Date / Time empagliflozin AdvReac Mild Nausea Verified 10/15/22 14:59 [From [employer]] Home Medications Medication Instructions Recorded Confirmed Type blood sugar diagnostic (OneTouch #100 ea 02/13/21 10/10/22 Rx Verio test strips) lancets 30 gauge (OneTouch Delica #200 ea 02/13/21 10/10/22 Rx Plus Lancet) pen needle, diabetic 32 gauge x #100 ea 02/13/21 10/10/22 Rx 5/32" (1st Tier Unifine Pentips) lisinopril 10 mg tablet 10 mg PO QAM #90 tabs 04/08/22 10/15/22 Rx Basaglar KwikPen U-100 Insulin 100 20 unit (0.2 mL) subcut PM #18 mL 05/13/22 10/15/22 Rx unit/mL (3 mL) subcutaneous (insulin glargine) rivaroxaban 20 mg tablet (Xarelto) 20 mg PO HS #30 tabs 05/14/22 10/15/22 Rx metformin 500 mg tablet,extended 1,000 mg PO QAM #180 tabs 07/26/22 10/15/22 Rx release 24 hr atorvastatin 40 mg tablet 40 mg PO PM #90 tabs 09/13/22 10/15/22 Rx febuxostat 40 mg tablet (Uloric) 40 mg PO QPM #90 tabs 09/13/22 10/15/22 Rx semaglutide 1 mg/dose (4 mg/3 mL) 1 mg subcut WK 10/10/22 10/15/22 History subcutaneous pen injector (Ozempic) furosemide 40 mg tablet 40 mg PO DAILY PRN Fluid Retention 10/15/22 10/15/22 History metoprolol succinate 50 mg 50 mg PO HS 10/15/22 10/15/22 History tablet,extended release 24 hr Past Med/Surg History Medical History CHF NYHA class II (symptoms with moderately strenuous activities) Diabetes mellitus, type 2 Gout History of COVID-19 History of kidney stones History of melanoma Hyperlipidemia LDL goal <100 Hypertension Metabolic disorder Nephrolithiasis Nonischemic cardiomyopathy Obesity Obstructive sleep apnea Paroxysmal atrial fibrillation Right ureteral calculus Surgical History H/O local excision of skin lesion History of cardiac radiofrequency ablation History of cardioversion History of tooth extraction Family History Sister Ovarian cancer Diabetes Breast cancer Father Diabetes Kidney stones Hypertension Brother Diabetes Mother Diabetes GERD (gastroesophageal reflux disease) Hypertension Other No family history of adverse response to anesthesia Denies family history of Prostate cancer Lung cancer Colorectal cancer Social History Smoking Status: Never smoker Tobacco Type: Smokeless Tobacco (Dip or Chew) Second Hand Exposure: No; Do You Dip or Chew Tobacco: No; Hx Alcohol Use: No Hx Substance Use: No Preferred Language: Wolof Communication Ability: Effective Visual Impairment: No Limitations Hearing Ability: Normal Condenser Setter Required: No Beliefs That Will Affect Care: None marital status: Current Living Situation: Spouse Current Living Situation Comment: Lives with and daughter current occupational status: employed current occupation: pa [employer] How many Children do You have: 4 Other Information That Helps Us Care for You: No Feels Safe at Home: Yes Safety Concerns: Feels Safe At This Time Childhood Exposure to Second-Hand Smoke: Yes Diet: regular Diet Comment: regular caffeine: No during the past year weight has: decreased > 10 lbs Dental Care, Regularly: Yes Physical Activity Frequency: Daily Physical Activity Frequency Comment: walking at work Seatbelt Use: sometimes Sunscreen Use: No Assistive Devices: None Review of Systems Review of Systems: All systems reviewed & are unremarkable except as noted in HPI & below Physical Exam Constitutional: WD/WN, vitals as above ENMT: external ear and nose normal, oropharynx normal Neck: trachea midline, no thyromegaly Respiratory: normal respiratory effort, lungs clear to auscultation Cardiovascular: Rate/Rhythm: regular rate and + irregularly irregular Heart Sounds: no murmur Vessels: no JVD Extremities: normal capillary refill and + pedal edema (trace b/l equal); no calf tenderness Gastrointestinal (Abdomen): normal bowel sounds, soft, nontender, no hepatosplenomegaly Neurologic: moves all extremities and awake; not confused Psychiatric: A+Ox3, euthymic affect Results & Data Results & Data Vital Signs (Past 12 Hours) Vital Signs Temp Pulse Resp BP Pulse Ox O2 Del Method 10/15/22 14:18 82 10/15/22 13:37 81 23 96 10/15/22 13:37 127/84 10/15/22 11:00 79 21 10/15/22 10:48 97 H 19 10/15/22 11:01 Room Air 10/15/22 10:58 103 H 10/15/22 10:39 36.9 C 105 H 18 135/103 H 98 Room Air Laboratory Results Abnormal lab results 10/15/22 10/15/22 10/15/22 Range/Units 10:55 10:55 10:55 Pike # (Auto) 0.68 H (0.11-0.59) K/uL PT 13.1 H (9.0-12.0) Seconds INR 1.2 H (0.9-1.1) Glucose (70-99(Fasting)) mg/dl Troponin I High Sens (0-20) pg/ml B-Natriuretic Peptide 172 H (0-100) pg/ml 10/15/22 Range/Units 10:55 Pike # (Auto) (0.11-0.59) K/uL PT (9.0-12.0) Seconds INR (0.9-1.1) Glucose 117 H (70-99(Fasting)) mg/dl Troponin I High Sens 31.8 H (0-20) pg/ml B-Natriuretic Peptide (0-100) pg/ml Diagnostic Findings SINGLE VIEW CHEST CLINICAL HISTORY: Atypical chest pain. FINDINGS: An AP, portable, upright chest radiograph is compared to chest x-ray and chest CT dated 09/11/2021. The heart is enlarged. The pulmonary vasculature is noncongested. The lungs and pleural spaces are clear noting mild dependent atelectasis. No pneumothorax is seen. The bony thorax is grossly intact. IMPRESSION: Cardiomegaly with no active disease in the chest. Medications Administered ER Medications Given: None ECG Rate (beats per minute): 97 Rhythm: atrial fibrillation Findings: no acute ischemic change Comparison ECG Date: from (January 02, 2022) Change: the following changes noted (Atrial fibrillation has replaced sinus rhythm) Code Status & VTE Plan Code Status Full PG Care Time/CCT Total # of Minutes Spent Total Time Spent with Patient: Total time spent is greater than 50% in coordination of care (as documented) at patient's floor/unit and/or counseling patient: Coding Level of Care Code 89681 INT INP/OBS CARE 255MIN Diagnoses Shortness of breath R06.02 Paroxysmal atrial fibrillation I48.0 Cardiomyopathy I42.9 Diabetes mellitus, type 2 E11.9 Obstructive sleep apnea G47.33 Hypertension I10
[2022-10-15] MEDS ORDERED: ASPIRIN 81 MG CHEW PO STA (14:56)
[2022-10-15 16:17] LABS: Magnesium 1.7 mg/dl (1.7-2.4)
[2022-10-15 16:38] LABS: Influenza A virus by PCR Negative (Neg); Influenza B virus by PCR Negative (Neg); RSV by PCR Negative (Neg); SARS CoV2 RNA(COVID-19) Ceph NEGATIVE (Negative)
--- NOTE | 2022-10-15 18:27 | XCELERA ---
[id number] \\[id number]
[2022-10-15] MEDS ORDERED: CARBOHYDRATES FOR HYPOGLYCEMIA PO PRN (18:38)
[2022-10-15] MEDS ORDERED: GLUCOSE 40% GEL 15 GM TUBE PO PRN (18:38)
[2022-10-15] MEDS ORDERED: ACETAMINOPHEN 325 MG TAB PO PRN (18:38)
[2022-10-15] MEDS ORDERED: GLUCAGON FOR INJ 1 MG VIAL SQ PRN (18:38)
[2022-10-15] MEDS ORDERED: GLUCOSE 10 TAB/TUBE PO PRN (18:38)
[2022-10-15] MEDS ORDERED: DEXTROSE 50% 50 ML SYRINGE IV PRN (18:38)
[2022-10-15] MEDS ORDERED: POTASSIUM CHLORIDE CRTAB 20 MEQ TABCR PO STA (19:11)
[2022-10-15] MEDS: INSULIN ASPART PER UNIT CHARGE SC SCH ×2 (19:39→20:24)
[2022-10-15] MEDS: MAGNESIUM SULFATE / D5W 1 GM/100 ML BAG IV SCH ×2 (19:50→21:54)
[2022-10-15] MEDS: ATORVASTATIN 40 MG TAB PO SCH (20:11)
[2022-10-15] MEDS: METOPROLOL SUCC 50MG EXT REL TAB PO SCH (20:11)
[2022-10-15] MEDS: LANTUS PER UNIT CHARGE SQ SCH (20:19)
[2022-10-15] MEDS ORDERED: LANTUS PER UNIT CHARGE SQ SCH (21:00)
[2022-10-15] MEDS ORDERED: RIVAROXABAN 20 MG TAB PO SCH (21:00)
[2022-10-16 08:41] LABS: Basophils # (auto) 0.03 K/uL (0.00-0.20); Basophils % (auto) 0.4 %; Eosinophils # (auto) 0.14 K/uL (0.00-0.50); Eosinophils % (auto) 1.8 %; Hematocrit (blood only) 43.1 % (42.0-52.0); Hemoglobin 14.8 g/dl (14.0-18.0); Immature Granulocytes # (auto) 0.03 K/uL (0.01-0.20); Immature Granulocytes % (auto) 0.4 %; Lymphocytes # (auto) 1.53 K/uL (1.20-3.40); Mean Corpuscular Hemoglobin 30.6 pg (25.0-34.0); Mean Corpuscular Hgb Conc 34.3 g/dL (32.0-36.0); Mean Corpuscular Volume 89.2 fL (80.0-100.0); Mean Platelet Volume 11.7 fL (9.4-12.4); Monocytes # (auto) 0.71 K/uL (0.11-0.59); Monocytes % (auto) 9.3 %; Neutrophils % (auto) 68.1 %; Platelet Count 221 K/uL (130-400); RDW Coefficient of Variation 13.4 % (11.5-14.5); RDW Standard Deviation 43.7 fL (36.4-46.3); Red Blood Count 4.83 M/uL (4.70-6.10); White Blood Count 7.64 K/ul (4.8-10.8)
[2022-10-16] MEDS: lisinopril 10 MG TAB PO SCH (08:42)
[2022-10-16] MEDS: INSULIN ASPART PER UNIT CHARGE SC SCH ×4 (08:43→20:30)
[2022-10-16 08:58] LABS: BUN Creatinine Ratio 18.4 (10-20); Calcium 9.1 mg/dl (8.6-10.3); Chol HDL Ratio 3.2 (0-5); Creatinine Clr Calc Pharmacy 116.2 ml/min; Est GFR (African American) 96.3 ml/min; Est GFR (Non-African American) 83.1 ml/min
--- NOTE | 2022-10-16 09:01 | Hospitalist Progress Note ---
Date of Service October 16, 2022 Assessment & Plan (1) Cardiomyopathy: Plan: This admission with complaints of worsening dyspnea, with Echo showing further decline in EF to 20-25% from prior study in 2021 Continue metoprolol succinate Continue lisinopril Cardiology consulted, to eval for ischemic cause with catheterization this afternoon by Dr. Vernon, recs to follow, case discussed with Dr. Vernon (2) Shortness of breath: Plan: Unclear if symptoms related to his atrial fibrillation vs. cardiomyopathy, cath planned as above No pulmonary edema, leg swelling, weight gain or JVD to suggest acute heart failure TTE as above Troponin trend minimal elevation without rapid increase, staying stable, no further trend necessary Consulted Cardiology to consider more rhythm control strategy once ischemia ruled out Consider outpatient lung functions tests - no wheezing on exam but worse with increased metoprolol use may suggest underlying reactive airway disease, no smoking history or obvious occupational exposures, no Hx asthma (3) Paroxysmal atrial fibrillation: Plan: Continue anticoagulation with Xarelto Will defer ongoing rhythm/rate controlling strategy to Cardiology but continue his usual metoprolol currently, HR non-tachycardic this admission (4) Diabetes mellitus, type 2: Plan: HbA1C 5.9 in September 2021, very variable prior to this, repeat today 6.3% Continue basal/bolus insulin, adjust as necessary based on mealtime BSGs (5) Obstructive sleep apnea: Plan: CPAP HS (6) Hypertension: Plan: Continue metoprolol succinate and lisinopril Plan VTE Prophylaxis - Xarelto Diet - T2DM, heart healthy, low Na Disposition - Med/Tele Ongoing evaluation by Cardiology, do not anticipate discharge today Admission and Anticipated Discharge Date Admission Date: October 15, 2022 Subjective No acute events overnight, no complaints of SOB or chest pain/pressure with rest, denies current palpitations. Has had SALEH for about 3 weeks, recovers after a few minutes of sitting. Physical Exam Constitutional: WD/WN, vitals as above Respiratory: normal respiratory effort, lungs clear to auscultation Cardiovascular: HR irregularly irregular, no murmurs, no peripheral edema Gastrointestinal (Abdomen): normal bowel sounds, soft, nontender, no hepatosplenomegaly Skin: no rashes, warm and dry Psychiatric: A+Ox3, euthymic affect Results & Data Results & Data Vital Signs (Past 12 Hours) Vital Signs Temp Pulse Pulse Resp BP Pulse Ox O2 Del Method 10/16/22 07:28 36.7 C 66 19 119/81 99 Room Air 10/16/22 07:09 73 10/16/22 03:13 36.7 C 63 18 94/66 L 94 Room Air 10/15/22 23:09 36.5 C 91 H 20 123/84 98 Room Air PG Care Time/CCT Total # of Minutes Spent Total Time Spent with Patient: Total time spent is greater than 50% in coordination of care (as documented) at patient's floor/unit and/or counseling patient: Coding Level of Care Code 95467 SUB INP/OBS CARE 3/50MIN Diagnoses Cardiomyopathy I42.9 Shortness of breath R06.02 Paroxysmal atrial fibrillation I48.0 Diabetes mellitus, type 2 E11.9 Obstructive sleep apnea G47.33 Hypertension I10
[2022-10-16 09:06] LABS: Estimated Average Glucose 134 mg/dl; Hemoglobin A1C 6.3 % (4.5-5.6)
--- NOTE | 2022-10-16 09:58 | Cardiology Consultation ---
Date of Consultation October 16, 2022 Assessment & Plan (1) Left ventricular dysfunction: -3 week history of exertional dyspnea and fatigue. -need to rule out coronary artery disease as an etiology of his cardiomyopathy. -we will proceed with a cardiac catheterization this afternoon. Reviewed with Dr. Vernon. (2) Paroxysmal atrial fibrillation: -ventricular response adequately controlled. -Dr. Reese will determine the next step in treatment. (3) Hypertension: -adequate control on current regimen. History of Present Illness Attending Physician: Britney Roger DO History of Present Illness Mr. Broussard a 2-year-old male admitted yesterday exertional dyspnea. This consultation was ordered to assist in his cardiac management. Of note, the patient is well known to me from the outpatient setting. The patient was in his usual state of health until approximately 3 weeks ago when he began to note exertional dyspnea and fatigue. His shortness of breath was progressive and now occurs with minimal physical activity. At no time has he experienced exertional chest pain. Further denies PND, orthopnea, and lower extremity edema. His cardiac history began back in February 2018 when he was found to be in atrial fibrillation with a rapid ventricular response. Did have evidence of a tachycardic induced cardiomyopathy. He underwent several attempts at cardioversion and was eventually placed on a short course of amiodarone. We were able to successfully attains sinus rhythm and his tachycardic induced cardio myopathy resolved. Unfortunately, his dysrhythmia returned and he was evaluated by Dr. Reese. He was sent to [facility] in July 2021 and underwent a pulmonary vein isolation procedure. This was successful. The patient was seen in follow-up in November and was again found to be in atrial fibrillation. Underwent an electrical cardioversion at that time. The patient was to be seen by Dr. Reese in the outpatient office today. Currently, patient is resting comfortably in bed and without complaints. [facility], [id number] Cardiology Consultation Signed Patient:CARLI BROUSSARD JR Admit Date:02/05/21 MR#:[id number] Att Phy:Pop Jernigan MD Acct ID:[id number] Leann Phy:Margarita Morgan DO Date:1970 Fam Phy: Age:50 Location:[facility] Sex:M Room/Bed:[facility] 1-17 cc: ~ *NOTICE TO RECEIVING CONSTITUTION PARTY/AGENCY This information is strictly Confidential and protected under [place] law. [place] law prohibits you from making any further disclosure of this information unless further disclosure is expressly permitted by the written consent of the person to whom it pertains or is authorized by law. A general authorization for the release of medical or other information is not sufficient for this purpose. Hospital accepts no responsibility if the information is made available to any other person, INCLUDING THE PATIENT. Date of Consultation February 06, 2021 Assessment & Plan (1) Atrial fibrillation with RVR: -secondary to noncompliance with his anti rhythmic and rate controlling medications. -has been compliant with his daily dose of Xarelto. -would restart at 120 mg b.i.d.. (2) Left ventricular dysfunction: -ejection fraction was 40-45% in May 2018. -ejection fraction on current echocardiogram severely reduced at 20-25%. -suspect this is secondary to his rapid ventricular response. -would convert metoprolol tartrate to metoprolol succinate prior to discharge. (3) Hypertension: -adequate control on current regimen. (4) Hyperlipidemia LDL goal <100: -continue atorvastatin. History of Present Illness Attending Physician: Pop Jernigan MD History of Present Illness Mr. Broussard is a 50-year-old male admitted atrial fibrillation and a rapid ventricular response. This consultation was ordered to assist in his cardiac management. Of note, patient is well known to me from the outpatient setting. The patient was in his usual state of health until yesterday when he presented to his primary care office complaining of an upper respiratory syndrome. An EKG performed at that visit noted atrial fibrillation with a rapid ventricular response. The patient was sent to the emergency room for further care. On arrival here, patient was noted to be in atrial fibrillation with a rapid ventricular response. He was placed on metoprolol tartrate 25 mg b.i.d. with some improvement in his ventricular response. The patient explains that he discontinued sotalol and diltiazem approximately 9 months ago. He has been compliant with his daily dose of Xarelto. We have discussed Re initiating his sotalol. The patient has not experienced any exertional chest pain or limiting dyspnea. He further denies syncope, presyncope, PND, orthopnea, lower extremity edema, and claudication. Currently, patient is resting comfortably in bed without complaints. Past medical history 1. Paroxysmal atrial fibrillation-July 2017 2. Transient, tachycardic induced cardiomyopathy 3. Hypertension 4. Mild LVH 5. Hypercholesterolemia 6. Hyperglycemia 7. Obesity 8. Obstructive sleep apnea 9. Gout 10. Pulmonary vein isolation-July 2021, [facility] Social history and lives with his . 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 Allergies Allergy/AdvReac Type Severity Reaction Status Date / Time empagliflozin AdvReac Mild Nausea Verified 10/15/22 14:59 [From [employer]] Home Medications Medication Instructions Recorded Confirmed Type blood sugar diagnostic (OneTouch #100 ea 02/13/21 10/10/22 Rx Verio test strips) lancets 30 gauge (OneTouch Delica #200 ea 02/13/21 10/10/22 Rx Plus Lancet) pen needle, diabetic 32 gauge x #100 ea 02/13/21 10/10/22 Rx 5/32" (1st Tier Unifine Pentips) lisinopril 10 mg tablet 10 mg PO QAM #90 tabs 04/08/22 10/15/22 Rx Basaglar HollandPen U-100 Insulin 100 20 unit (0.2 mL) subcut PM #18 mL 05/13/22 10/15/22 Rx unit/mL (3 mL) subcutaneous (insulin glargine) rivaroxaban 20 mg tablet (Xarelto) 20 mg PO HS #30 tabs 05/14/22 10/15/22 Rx metformin 500 mg tablet,extended 1,000 mg PO QAM #180 tabs 07/26/22 10/15/22 Rx release 24 hr atorvastatin 40 mg tablet 40 mg PO PM #90 tabs 09/13/22 10/15/22 Rx febuxostat 40 mg tablet (Uloric) 40 mg PO QPM #90 tabs 09/13/22 10/15/22 Rx semaglutide 1 mg/dose (4 mg/3 mL) 1 mg subcut WK 10/10/22 10/15/22 History subcutaneous pen injector (Ozempic) furosemide 40 mg tablet 40 mg PO DAILY PRN Fluid Retention 10/15/22 10/15/22 History metoprolol succinate 50 mg 50 mg PO HS 10/15/22 10/15/22 History tablet,extended release 24 hr Patient History Medical History CHF NYHA class II (symptoms with moderately strenuous activities) Diabetes mellitus, type 2 Gout History of COVID-19 History of kidney stones History of melanoma Hyperlipidemia LDL goal <100 Hypertension Metabolic disorder Nephrolithiasis Nonischemic cardiomyopathy Obesity Obstructive sleep apnea Paroxysmal atrial fibrillation Right ureteral calculus Surgical History H/O local excision of skin lesion History of cardiac radiofrequency ablation History of cardioversion History of tooth extraction Family History Sister Ovarian cancer Diabetes Breast cancer Father Diabetes Kidney stones Hypertension Brother Diabetes Mother Diabetes GERD (gastroesophageal reflux disease) Hypertension Other No family history of adverse response to anesthesia Denies family history of Prostate cancer Lung cancer Colorectal cancer Social History Smoking Status: Never smoker Tobacco Type: Smokeless Tobacco (Dip or Chew) Second Hand Exposure: No; Do You Dip or Chew Tobacco: No; Hx Alcohol Use: No Hx Substance Use: No Preferred Language: Indonesian Communication Ability: Effective Visual Impairment: No Limitations Hearing Ability: Normal Marketing Sales Supervisor Required: No Beliefs That Will Affect Care: None marital status: Current Living Situation: Spouse Current Living Situation Comment: Lives with and daughter current occupational status: employed current occupation: [employer] How many Children do You have: 4 Other Information That Helps Us Care for You: No Feels Safe at Home: Yes Safety Concerns: Feels Safe At This Time Childhood Exposure to Second-Hand Smoke: Yes Diet: regular Diet Comment: regular caffeine: No during the past year weight has: decreased > 10 lbs Dental Care, Regularly: Yes Physical Activity Frequency: Daily Physical Activity Frequency Comment: walking at work Seatbelt Use: sometimes Sunscreen Use: No Assistive Devices: None Physical Exam Physical Exam: In general is well-developed well-nourished white male in no acute distress. HEENT exam is negative. Neck is supple with full carotid upstrokes. No carotid bruits. Jugular venous pressure is flat at 90. There is no thyromegaly. Cardiovascular exam reveals irregular irregular rhythm with distant heart sounds. No obvious murmurs. Lungs are clear without rales, rhonchi, or wheezes. Abdomen is soft and nontender without bruits. Extremities reveal intact radial artery pulses bilaterally. There is no peripheral edema. Results & Data Vital Signs (Past 12 Hours) Vital Signs Temp Pulse Pulse Resp BP Pulse Ox O2 Del Method 10/16/22 07:28 36.7 C 66 19 119/81 99 Room Air 10/16/22 07:09 73 10/16/22 03:13 36.7 C 63 18 94/66 L 94 Room Air 10/15/22 23:09 36.5 C 91 H 20 123/84 98 Room Air Laboratory Results CBC notes hemoglobin 14.8, hematocrit 43.1, white count 7.6, platelet count of 339110. Electrolytes note a sodium of 140, potassium 3.8, chloride 107, bicarb 26, BUN 18, creatinine 1.09, and glucose of 117. High sensitivity troponin on presentation was 31.8 with follow-up values of 29.8 and 28.5. Diagnostic Findings Echocardiogram notes severe left ventricular dysfunction with ejection fraction of 20-25%. There was global hypokinesis and moderate left ventricular hypertrophy. EKG notes atrial fibrillation with a controlled ventricular response. There is poor R-wave progression across the anterior precordium. quality assurance monitor notes rate controlled atrial fibrillation varying between 80- 100 beats per minute. PG Care Time/CCT Total # of Minutes Spent Total Time Spent with Patient: Total time spent is greater than 50% in coordination of care (as documented) at patient's floor/unit and/or counseling patient: Coding Level of Care Code 38696 IN/OBS CONSULT LVL 4,60M Diagnoses Left ventricular dysfunction I51.9 Paroxysmal atrial fibrillation I48.0 Hypertension I10
[2022-10-16] MEDS ORDERED: HEPARIN (PORCINE) 1000 UNIT/ML 10 ML (CATH LAB USE ONLY) ONE (13:24)
[2022-10-16] MEDS ORDERED: niCARdipine HCL INJ 2.5 MG/ML 10 ML AMP ONE (13:24)
[2022-10-16] MEDS ORDERED: fentaNYL citrate PF 100 MCG/2 ML VIAL ONE (13:24)
[2022-10-16] MEDS ORDERED: MIDAZOLAM HCL 1 MG/ML 2ML VIAL ONE ×2 (13:24→13:57)
[2022-10-16] MEDS ORDERED: NITROGLYCERIN/D5W 100MCG/ML 20ML SYR ONE (13:25)
--- NOTE | 2022-10-16 13:30 | Pre Anesthesia Assessment ---
Date of Service October 16, 2022 Pre Sedation Assessment Vital Signs Temp Pulse Pulse Pulse Resp BP BP 10/16/22 12:28 95 H 18 142/97 H 10/16/22 11:43 98.8 F 91 H 19 115/83 10/16/22 09:00 10/16/22 07:28 98.1 F 66 19 119/81 10/16/22 07:09 73 10/16/22 03:13 98.1 F 63 18 94/66 L 10/15/22 23:09 97.7 F 91 H 20 123/84 10/15/22 19:53 97.5 F L 84 19 130/94 10/15/22 18:40 88 10/15/22 18:31 97.5 F L 84 19 130/94 10/15/22 17:57 87 18 140/106 H 10/15/22 15:16 100 H 19 121/96 10/15/22 14:18 82 10/15/22 13:37 81 23 10/15/22 13:37 127/84 Pulse Ox O2 Del Method 10/16/22 12:28 96 Room Air 10/16/22 11:43 98 Room Air 10/16/22 09:00 Room Air 10/16/22 07:28 99 Room Air 10/16/22 07:09 10/16/22 03:13 94 Room Air 10/15/22 23:09 98 Room Air 10/15/22 19:53 99 Room Air 10/15/22 18:40 10/15/22 18:31 99 Room Air 10/15/22 17:57 99 Room Air 10/15/22 15:16 95 Room Air 10/15/22 14:18 10/15/22 13:37 96 10/15/22 13:37 Cardiovascular RRR, no murmur, no edema Respiratory normal respiratory effort, lungs clear to auscultation Pre-Sedation Airway Assessment Smoking Status: Never smoker Hx Sleep Apnea: No Hx Difficult Intubation: No Short, Thick Neck: No Thyromental Distance: > or= 3.5 Finger Breadths Oral Cavity: + WNL Mallampati Class: II ASA: ASA3 NPO Status Date of Last Intake of Fluids: 10/16/22 Time of Last Intake of Fluids: 08:00 Date of Last Intake of Solid Food: 10/16/22 Time of Last Intake of Solid Foods: 08:00 Procedure Planning Contraindications for Sedation: none Current Medications Reviewed: Yes Notes The planned sedation has been discussed with the patient. Informed Consent was obtained. I have identified the patient, determined the appropriateness of sedation and have assessed the patient immediately prior to the procedure. All medicine(s) and interventions are by my order.
--- NOTE | 2022-10-16 16:28 | Post Anesthesia Assessment ---
Date of Service October 16, 2022 Post Sedation Assessment Vital Signs Temp Pulse Pulse Pulse Pulse Resp BP 10/16/22 16:15 97.5 F L 78 19 131/97 10/16/22 15:35 78 16 10/16/22 15:20 88 16 10/16/22 15:05 91 H 16 10/16/22 14:50 87 16 10/16/22 14:35 88 16 10/16/22 14:20 79 16 10/16/22 12:28 95 H 18 10/16/22 11:43 98.8 F 91 H 19 10/16/22 09:00 10/16/22 07:28 98.1 F 66 19 10/16/22 07:09 73 10/16/22 03:13 98.1 F 63 18 10/15/22 23:09 97.7 F 91 H 20 10/15/22 19:53 97.5 F L 84 19 10/15/22 18:40 88 10/15/22 18:31 97.5 F L 84 19 10/15/22 17:57 87 18 BP Pulse Ox O2 Del Method 10/16/22 16:15 99 Room Air 10/16/22 15:35 135/97 96 Room Air 10/16/22 15:20 131/92 94 Room Air 10/16/22 15:05 127/95 95 Room Air 10/16/22 14:50 131/96 97 Room Air 10/16/22 14:35 137/98 93 Room Air 10/16/22 14:20 127/95 94 Room Air 10/16/22 12:28 142/97 H 96 Room Air 10/16/22 11:43 115/83 98 Room Air 10/16/22 09:00 Room Air 10/16/22 07:28 119/81 99 Room Air 10/16/22 07:09 10/16/22 03:13 94/66 L 94 Room Air 10/15/22 23:09 123/84 98 Room Air 10/15/22 19:53 130/94 99 Room Air 10/15/22 18:40 10/15/22 18:31 130/94 99 Room Air 10/15/22 17:57 140/106 H 99 Room Air Recovery Score Activity: Moves 4 extremities Respiration: Deep Breath/Cough Circulation: +/-20% PreAnes Value Consciousness: Fully Awake Oxygen Saturation: > 92% On Room Air Post Anesthesia Score: 10 Discharge Sedation Level of Care: Fast Track Phase II Post Sedation Plan On clinical assessment, the patient appears to have tolerated the sedation without complications. Patient is recovering as anticipated. Patient will continue to be monitored by nursing and may be discharged when sedation discharge criteria are met per below protocol. Upon Completions of procedure up to 15 minutes continue every 5 minute vital signs and the P.A.R. score; then discharge to a Phase I or Fast Track to Phase II per the following guidelines: * Discharge Patient to appropriate Phase II area if PAR is 8 or greater or return to pre- procedure baseline. The post - procedure orders will be as directed. * If PAR score is less than 8 or not return to pre-procedure baseline then patient will follow Phase I monitoring till PAR is reached for Phase II. The Phase I may be done in procedure room or may call to secure a Phase I area. * If naloxone or flumazenil are used for reversal, hold in Phase I for continued monitoring from when last reversal dose was given for a minimum of 60 minutes or longer pending the nurse and/or physician discretion of patient condition before discharge to Phase II. Please call the Sedation Physician to re-evaluate and complete post-note for discharge to Phase II area. Do NOT discharge from procedure sedation or Phase 1 until post- sedation eval uation note is complete by procedure /sedation MD Sedation Discharge Instructions to be given to the patient at discharge to home.
--- NOTE | 2022-10-16 16:39 | Cardiac Catheterization ---
[facility] Data: Keno Dealer Cardiac Status Clinical evaluation leading to the procedure CAD Presenation: Sx unlikely to be ischemic Heart Failure: NYHA Class: CCS IV Diagnostic Physicians Name: Nuno Vernon MD Closure Device Recommendations: Medical Therapy and/or Counseling Cardiac Cath Procedure Full Procedure Date October 16, 2022 Pre-Procedure Diagnosis Pre-Procedure Diagnosis: Cardiomyopathy AUC Score AUC Score: 7 Post-Procedure Diagnosis Post-Procedure Diagnosis: Mild CAD and Normal Intracardiac Pressures Procedure(s) Performed Procedure(s) Performed: Coronary Angiography, Left Heart Cath and Ultrasound Guided Vascular Access Cad Application Support Specialist Nuno Vernon MD Business Intelligence Developer(s) Showers Estimated Blood Loss Estimated Blood Loss: None Medication(s) Medication(s): Fentanyl, Heparin, Lidocaine 1%, Nicardipine, Nitroglycerin and Versed Summary of Findings Indication: Cardiomyopathy, ASCVD risk factors Access: 6 Fr right radial artery under ultrasound guidance Catheters: [place] Findings: LM -normal caliber, no significant disease LAD -large caliber, 20 to 30% proximal, 30% mid segment stenosis after takeoff D2. Remainder of vessel without significant disease and wraps around apex. Medium D2 with 30% ostial stenosis. Circumflex -medium caliber, midsegment luminal irregularities RCA -dominant, medium caliber, mid and distal luminal irregularities. RPDA, PLB without significant disease. LVEDP -16 Arterial Closure: TR band Summary: 1. Mild nonobstructive coronary artery disease -20 to 30% proximal, 30% mid LAD. 30% ostial D2 2. Normal intracardiac filling pressure Recommendations: Continued ASCVD risk factor modification and GDMT for nonischemic cardiomyopathy Hemodynamics Rest Ao:: 120/86/70 Final Ao: 125/89/115 LV: 107/16 Recommendations Recommendations: Medical Therapy and/or Counseling Specimens Specimens: None Radiation Exposure (mGy) 1559 Contrast (mls) 60 Anesthesia Moderate 9726-0856 Procedural Complication(s) None Disposition PCU I attest to the content of the Intraoperative Record and any orders documented therein. Any exceptions are noted below. [facility] Card Cath Procedure Codes Cardiac Catheterization Procedure 1: Cardiovascular Cath Procedures: 06390 Coronaries and LHC (+/-LV) Therapeutic Services & Ancillary Procedure 1: Cardiovascular Tx and Anc Procedures: 22310 Ultrasonic Guidance Vascular Access Moderate Sedation Procedure 1: Sedation/Anesthesia: 77833 Mod Sedation by the same physician;Init15 Min Child Age 5 & Up PG Care Time/CCT Total # of Minutes Spent Total Time Spent with Patient: Total time spent is greater than 50% in coordination of care (as documented) at patient's floor/unit and/or counseling patient:
[2022-10-16] MEDS: ATORVASTATIN 40 MG TAB PO SCH (20:31)
[2022-10-16] MEDS: METOPROLOL SUCC 50MG EXT REL TAB PO SCH (20:31)
[2022-10-16] MEDS: LANTUS PER UNIT CHARGE SQ SCH (20:57)
[2022-10-17 06:37] LABS: Basophils # (auto) 0.03 K/uL (0.00-0.20); Basophils % (auto) 0.4 %; Eosinophils # (auto) 0.11 K/uL (0.00-0.50); Eosinophils % (auto) 1.5 %; Hematocrit (blood only) 42.5 % (42.0-52.0); Immature Granulocytes # (auto) 0.03 K/uL (0.01-0.20); Immature Granulocytes % (auto) 0.4 %; Lymphocytes # (auto) 1.54 K/uL (1.20-3.40); Lymphocytes % (auto) 20.6 %; Mean Corpuscular Hemoglobin 30.9 pg (25.0-34.0); Mean Corpuscular Hgb Conc 35.3 g/dL (32.0-36.0); Mean Corpuscular Volume 87.4 fL (80.0-100.0); Monocytes # (auto) 0.73 K/uL (0.11-0.59); Monocytes % (auto) 9.7 %; Neutrophils # (auto) 5.05 K/uL (1.40-6.50); Neutrophils % (auto) 67.4 %; Platelet Count 203 K/uL (130-400); RDW Coefficient of Variation 13.2 % (11.5-14.5); Red Blood Count 4.86 M/uL (4.70-6.10); White Blood Count 7.49 K/ul (4.8-10.8)
[2022-10-17 07:07] LABS: BUN Creatinine Ratio 18.4 (10-20); Calcium 9.2 mg/dl (8.6-10.3); Creatinine Clr Calc Pharmacy 116.2 ml/min; Est GFR (African American) 96.3 ml/min; Est GFR (Non-African American) 83.1 ml/min; Potassium 4.1 mmol/L (3.5-5.1)
--- NOTE | 2022-10-17 07:24 | Anesthesiology Consultation ---
Date of Service October 17, 2022 Assessment & Plan (1) Encounter for pre-operative examination: Chart Review Chart Review: Acceptable Risk for Surgery and Patient NOT seen in Pre Admission Testing Consults Requested none History Surgery Operation Date: 10/16/22 13:00 Proposed Procedures p Cardiac Cath Procedure - Cem Vernon MD Operation Date: 10/17/22 07:20 Proposed Procedures p Cardioversion - Nuno Reese MD Height/Weight Height: 6 ft 1 in Weight: 124.9 kg Allergies Allergy/AdvReac Type Severity Reaction Status Date / Time empagliflozin AdvReac Mild Nausea Verified 10/15/22 14:59 [From Jardiance] Medications Home Medications Medication Instructions Recorded Confirmed Last Taken blood sugar diagnostic (OneTouch #100 ea 02/13/21 10/10/22 Unknown Verio test strips) lancets 30 gauge (OneTouch Delica #200 ea 02/13/21 10/10/22 Unknown Plus Lancet) pen needle, diabetic 32 gauge x #100 ea 02/13/21 10/10/22 Unknown " (1st Tier Unifine Pentips) lisinopril 10 mg tablet 10 mg PO QAM #90 tabs 04/08/22 10/15/22 10/15/22 Basaglar KwikPen U-100 Insulin 100 20 unit (0.2 mL) subcut PM #18 mL 05/13/22 10/15/22 10/14/22 unit/mL (3 mL) subcutaneous (insulin glargine) rivaroxaban 20 mg tablet (Xarelto) 20 mg PO HS #30 tabs 05/14/22 10/15/22 10/14/22 metformin 500 mg tablet,extended 1,000 mg PO QAM #180 tabs 07/26/22 10/15/22 10/15/22 release 24 hr atorvastatin 40 mg tablet 40 mg PO PM #90 tabs 09/13/22 10/15/22 10/14/22 febuxostat 40 mg tablet (Uloric) 40 mg PO QPM #90 tabs 09/13/22 10/15/22 10/14/22 semaglutide 1 mg/dose (4 mg/3 mL) 1 mg subcut WK 10/10/22 10/15/22 10/11/22 subcutaneous pen injector (Ozempic) furosemide 40 mg tablet 40 mg PO DAILY PRN Fluid Retention 10/15/22 10/15/22 Unknown metoprolol succinate 50 mg 50 mg PO HS 10/15/22 10/15/22 10/14/22 tablet,extended release 24 hr Active Medications Generic Name Dose Route Start Last Admin Trade Name Freq PRN Reason Stop Dose Admin Atorvastatin Calcium 40 mg 10/15/22 21:00 10/16/22 20:31 Atorvastatin 40 Mg Tab PO 11/14/22 20:59 40 mg PM KAY Administration Insulin Aspart 0 units 10/15/22 18:38 10/16/22 20:30 Insulin Aspart Per Unit Charge SC 11/14/22 18:37 Not Given ACHS KAY Insulin Glargine 10 units 10/15/22 21:00 10/16/22 20:57 Lantus Per Unit Charge SQ 11/14/22 20:59 Not Given HS KAY Lisinopril 10 mg 10/16/22 09:00 10/16/22 08:42 Lisinopril 10 Mg Tab PO 11/15/22 08:59 10 mg QAM KAY Administration Metoprolol Succinate 50 mg 10/15/22 21:00 10/16/22 20:31 Metoprolol Succ 50mg Ext Rel Tab PO 11/14/22 20:59 50 mg HS KAY Administration Miscellaneous 1 each 10/15/22 19:00 10/17/22 07:11 Febuxostat [Uloric] 40 Mg Tablet- Order Awaiting Action N/A 11/14/22 18:59 Not Given QS KAY Rivaroxaban 20 mg 10/15/22 21:00 10/15/22 20:10 Rivaroxaban 20 Mg Tab PO 11/14/22 20:59 20 mg HS KAY Administration Past Medical History Medical History CHF NYHA class II (symptoms with moderately strenuous activities) Diabetes mellitus, type 2 IDDM Gout History of COVID-19 Dx 2020- no symptoms now History of kidney stones History of melanoma Hx (face) Hyperlipidemia LDL goal <100 Hypertension Metabolic disorder Nephrolithiasis Nonischemic cardiomyopathy Obesity Obstructive sleep apnea Per records, pt denies Paroxysmal atrial fibrillation Follows with Dr. Reese Right ureteral calculus Past Family History Family History Sister Ovarian cancer Diabetes Breast cancer Father Diabetes Kidney stones Hypertension Brother Diabetes Mother Diabetes GERD (gastroesophageal reflux disease) Hypertension Other No family history of adverse response to anesthesia Denies family history of Prostate cancer Lung cancer Colorectal cancer Past Surgical History Surgical History H/O local excision of skin lesion [place] cardiac [place] [facility] [place] of cardioversion multiple History of tooth extraction Social History Smoking Status: Never smoker Do You Dip or Chew Tobacco: No Hx Alcohol Use: No Hx Substance Use: No substance use type: does not use Physical Exam Vital Signs Last Vital Signs Temp 98.2 F 10/17/22 02:23 Pulse 88 10/17/22 02:23 Resp 18 10/17/22 02:23 BP 113/72 10/17/22 02:23 Pulse Ox 94 10/17/22 02:23 O2 Del Method Room Air 10/17/22 02:23 Testing Laboratory Results 10/17/22 05:35 10/17/22 05:35 PT 13.1 Seconds (9.0-12.0) H 10/15/22 10:55 INR 1.2 (0.9-1.1) H 10/15/22 10:55 Hemoglobin A1c 6.3 % (4.5-5.6) H 10/16/22 07:43 10/16/22 20:04 POC Glucose 78 Electrocardiogram Date: 10/15/22 Findings: + AFIB @ Echocardiogram Date: 10/15/22 EF: 20-25 RWMA: + hypokinetic (global)
[2022-10-17] MEDS ORDERED: LIDOCAINE 2% 2 ML VIAL/AMP(20MG/ML) INFIL ONE (07:46)
[2022-10-17] MEDS ORDERED: PROPOFOL IV EMULSION 10 MG/ML 20 ML VIAL IV ONE (07:46)
[2022-10-17 08:06] VITALS: PULSE 82
--- NOTE | 2022-10-17 08:06 | Anesthesiology Progress Note ---
Date of Service October 17, 2022 Anesthesia Post Procedure Vital Signs Vital Signs: Temp Pulse Pulse Pulse Resp BP BP 10/17/22 08:05 97.5 F L 82 18 126/89 10/17/22 07:21 110 H 14 126/108 H 10/17/22 02:23 98.2 F 88 18 113/72 10/17/22 00:00 93 H 10/16/22 22:30 98.4 F 80 18 149/94 H 10/16/22 19:02 98.1 F 82 20 121/97 10/16/22 18:00 97.7 F 89 18 158/98 H 10/16/22 17:00 97.9 F 90 18 140/94 10/16/22 16:30 97.7 F 88 18 132/99 10/16/22 16:00 97.5 F L 92 H 18 144/92 H 10/16/22 16:15 97.5 F L 78 19 131/97 10/16/22 15:35 78 16 135/97 10/16/22 15:20 88 16 131/92 10/16/22 15:05 91 H 16 127/95 10/16/22 14:50 87 16 131/96 10/16/22 14:35 88 16 137/98 10/16/22 14:20 79 16 127/95 10/16/22 12:28 95 H 18 142/97 H 10/16/22 11:43 98.8 F 91 H 19 115/83 10/16/22 09:00 Pulse Ox O2 Del Method 10/17/22 08:05 98 Room Air 10/17/22 07:21 96 Room Air 10/17/22 02:23 94 Room Air 10/17/22 00:00 10/16/22 22:30 97 Room Air 10/16/22 19:02 96 Room Air 10/16/22 18:00 99 Room Air 10/16/22 17:00 99 Room Air 10/16/22 16:30 100 Room Air 10/16/22 16:00 96 Room Air 10/16/22 16:15 99 Room Air 10/16/22 15:35 96 Room Air 10/16/22 15:20 94 Room Air 10/16/22 15:05 95 Room Air 10/16/22 14:50 97 Room Air 08/30/23 14:35 93 Room Air 10/16/22 14:20 94 Room Air 10/16/22 12:28 96 Room Air 10/16/22 11:43 98 Room Air 10/16/22 09:00 Room Air Transfer of Care Handoff Completed per policy Notes Mental Status: alert / awake / arousable and participated in evaluation Patient Amnestic to Procedure: Yes Nausea / Vomiting: adequately controlled Pain: adequately controlled Airway Patency, RR, SpO2: stable & adequate BP & HR: stable & adequate Hydration State: stable & adequate Anesthetic Complications: no major complications apparent and Pt Satisfied with anesthetic care
[2022-10-17] MEDS: INSULIN ASPART PER UNIT CHARGE SC SCH ×2 (08:32→12:27)
[2022-10-17] MEDS: lisinopril 10 MG TAB PO SCH (08:33)
--- NOTE | 2022-10-17 11:50 | Cardioversion ---
Date of Service October 17, 2022 PG Electrical Cardioversion Rp Electrical Cardioversion Report Procedure performed: Cardioversion Indication: Atrial fibrillation Staff store associate: Nuno Reese MD Procedure in detail: The patient was informed of the risks benefits and alternatives to the intended procedure. He understood such which proceed. He was taken to the cardiac catheterization suite holding area. A general anesthetic was administered by the Anesthesiology Service. Once appropriately anesthetized, the patient was cardioverted using 200 joules delivered in a biphasic fashion. This returned the patient to sinus rhythm. The patient tolerated procedure well, there were no immediate complications. Patient was neurologically intact subsequent to the procedure. Impression: Successful cardioversion from atrial fibrillation to normal sinus rhythm Coding Level of Care Code 83072 CARDIOVERSION, ELECTIVE Additional Codes Electrical Cardioversion Report ([id number])
[2022-10-17 12:40] VITALS: BP 129/90; TEMP 98.2; O2SAT 97
--- NOTE | 2022-10-17 13:57 | Discharge Summary ---
Discharge Summary Date of Service October 17, 2022 Admission HPI Per Admitting Provider Kaiden Lomeli is a 52 year old male who presents to the ER with 3 weeks of shortness of breath associated with palpitations which have been constant. Shortness of breath on exertion. No fever, chills, leg swelling, weight gain, chest pain, orthopnea, PND, presyncope or claudication. 2 days ago he increased his metoprolol succinate from 12.5mg PO daily to 50mg PO daily and has felt more short of breath since then. He has a longstanding history of atrial fibrilation requiring ablation previously, cardioversion in December last year. Previously on sotalol (and temporarily amiodarone) for rhythm control but currently not on anything. Admission Exam Per Admitting Provider Constitutional: WD/WN, vitals as above ENMT: external ear and nose normal, oropharynx normal Neck: trachea midline, no thyromegaly Respiratory: normal respiratory effort, lungs clear to auscultation Cardiovascular: Rate/Rhythm: regular rate and + irregularly irregular Heart Sounds: no murmur Vessels: no JVD Extremities: normal capillary refill and + pedal edema (trace b/l equal); no calf tenderness Gastrointestinal (Abdomen): normal bowel sounds, soft, nontender, no hepatosplenomegaly Neurologic: moves all extremities and awake; not confused Psychiatric: A+Ox3, euthymic affect Principal Dx & Hospital Course #1 = Principal Diagnosis (1) Shortness of breath: Unclear if symptoms related to his atrial fibrillation vs. cardiomyopathy, cath as above No pulmonary edema, leg swelling, weight gain or JVD to suggest acute heart failure TTE as above Troponin trend minimal elevation without rapid increase, staying stable, no further trend necessary Cardioversion performed today 10/17 and patient in sinus rhythm on discharge Consider outpatient lung functions tests - no wheezing on exam but worse with increased metoprolol use may suggest underlying reactive airway disease, no smoking history or obvious occupational exposures, no Hx asthma (2) Cardiomyopathy: This admission with complaints of worsening dyspnea, with Echo showing further decline in EF to 20-25% from prior study in 2021 Cardiac catheterization fortunately without occlusive CAD Continue metoprolol succinate Continue lisinopril Follow up with Dr. Tejeda outpatient (3) Paroxysmal atrial fibrillation: Continue anticoagulation with Xarelto Will defer ongoing rhythm/rate controlling strategy to Cardiology but continue his usual metoprolol currently, HR non-tachycardic for the most part this admission (4) Diabetes mellitus, type 2: HbA1C 5.9 in September 2021, very variable prior to this, repeat today 6.3% Resume home regimen (5) Obstructive sleep apnea: CPAP HS (6) Hypertension: Continue metoprolol succinate and lisinopril Plan Discharge to home with Cardiology outpatient follow up Discharge Exam Constitutional WD/WN, vitals as above Respiratory normal respiratory effort, lungs clear to auscultation Cardiovascular RRR, no murmur, no edema Skin no rashes, warm and dry Psychiatric A+Ox3, euthymic affect Updated Medication List Medication Instructions Recorded Confirmed Type blood sugar diagnostic (OneTouch #100 ea 02/13/21 10/10/22 Rx Verio test strips) lancets 30 gauge (OneTouch Delica #200 ea 02/13/21 10/10/22 Rx Plus Lancet) pen needle, diabetic 32 gauge x #100 ea 02/13/21 10/10/22 Rx 5/32" (1st Tier Unifine Pentips) lisinopril 10 mg tablet 10 mg PO QAM #90 tabs 04/08/22 10/15/22 Rx Basaglar KwikPen U-100 Insulin 100 20 unit (0.2 mL) subcut PM #18 mL 05/13/22 10/15/22 Rx unit/mL (3 mL) subcutaneous (insulin glargine) rivaroxaban 20 mg tablet (Xarelto) 20 mg PO HS #30 tabs 05/14/22 10/15/22 Rx metformin 500 mg tablet,extended 1,000 mg PO QAM #180 tabs 07/26/22 10/15/22 Rx release 24 hr atorvastatin 40 mg tablet 40 mg PO PM #90 tabs 09/13/22 10/15/22 Rx febuxostat 40 mg tablet (Uloric) 40 mg PO QPM #90 tabs 09/13/22 10/15/22 Rx semaglutide 1 mg/dose (4 mg/3 mL) 1 mg subcut WK 10/10/22 10/15/22 History subcutaneous pen injector (Ozempic) furosemide 40 mg tablet 40 mg PO DAILY PRN Fluid Retention 10/15/22 10/15/22 History metoprolol succinate 50 mg 50 mg PO HS 10/15/22 10/15/22 History tablet,extended release 24 hr Hospital Stay Data Consultations 10/15/22 13:33 ED Decision to Admit Stat 10/15/22 18:38 Consult Cardiology Routine Procedures Performed Operation Date: 10/17/22 07:20 Actual Procedures p Cardioversion - Nuno Reese MD Diagnostic Imagining Performed 10/16/22 13:33 CL Cath Imgs for PACS use only Stat Pending Results Patient Have Any Pending Studies at Discharge: No Discharge Instructions Given to Patient (Per Discharging Provider) We believe that your shortness of breath is due to the decreased function of the heart, as well as atrial fibrillation. Dr. Reese did a cardioversion and you were in normal heart rhythm on discharge. He recommends you continue your meds as outlined below, and follow up with Dr. Tejeda in the office. Please call him with any concerns regarding your shortness of breath or palpitations. You should try to maintain a lower sodium diet if possible, and follow up with Jennifer Goetz in the heart failure clinic. Her information is provided above. Total Time Total Time Spent Total Time Spent (In Minutes): 35 min Coding Level of Care Code 67960 INP/OBS DISCH >30 MIN Diagnoses Shortness of breath R06.02 Cardiomyopathy I42.9 Paroxysmal atrial fibrillation I48.0 Diabetes mellitus, type 2 E11.9 Obstructive sleep apnea G47.33 Hypertension I10
--- NOTE | 2022-10-19 07:10 | Electrocardiogram Report ---
Test Reason : Blood Pressure : / mmHG Vent. Rate : 097 BPM Atrial Rate : 000 BPM P-R Int : 000 ms QRS Dur : 094 ms QT Int : 368 ms P-R-T Axes : 000 012 067 degrees QTc Int : 467 ms Atrial fibrillation Low voltage QRS Possible Inferior infarct (cited on or before 07-FEB-2021) Cannot rule out Anterior infarct , age undetermined Nonspecific T wave abnormality Abnormal ECG When compared with ECG of 02-JAN-2022 07:24, Atrial fibrillation has replaced Sinus rhythm Confirmed by Morgan Garcia ([id number]) on 10/19/2022 7:10:04 AM Referred By: REFERRED SELF Confirmed By:Morgan Garcia
== END 2022-10-17 15:15 | disposition home or self-care (01) ==
LOC: 2N 10:36 → ED 10:36 → SUATTDRO 14:48 → 2N 18:10 → 4W 10-16 16:14

== ENCOUNTER 2022-10-30 09:06 | Observation (INO) ==
[2022-10-30 09:41] LABS: Basophils # (auto) 0.03 K/uL (0.00-0.20); Basophils % (auto) 0.4 %; Eosinophils # (auto) 0.12 K/uL (0.00-0.50); Eosinophils % (auto) 1.4 %; Hematocrit (blood only) 48.7 % (42.0-52.0); Hemoglobin 16.4 g/dl (14.0-18.0); Immature Granulocytes # (auto) 0.03 K/uL (0.01-0.20); Immature Granulocytes % (auto) 0.4 %; Lymphocytes # (auto) 1.05 K/uL (1.20-3.40); Lymphocytes % (auto) 12.7 %; Mean Corpuscular Hemoglobin 30.1 pg (25.0-34.0); Mean Corpuscular Hgb Conc 33.7 g/dL (32.0-36.0); Mean Corpuscular Volume 89.5 fL (80.0-100.0); Mean Platelet Volume 11.3 fL (9.4-12.4); Monocytes # (auto) 0.66 K/uL (0.11-0.59); Neutrophils # (auto) 6.41 K/uL (1.40-6.50); Neutrophils % (auto) 77.1 %; Platelet Count 259 K/uL (130-400); RDW Coefficient of Variation 13.2 % (11.5-14.5); RDW Standard Deviation 43.2 fL (36.4-46.3); Red Blood Count 5.44 M/uL (4.70-6.10)
[2022-10-30 09:45] LABS: D Dimer < 190 ug/L FEU (0-500); INR 1.3 (0.9-1.1)
--- NOTE | 2022-10-30 09:52 | Emergency Department Note ---
Impression & Plan Chest pain, Non-ST elevation AK (NSTEMI) ED Provider Note HISTORY OF PRESENT ILLNESS: Patient is a 52-year-old male presenting after an episode of upper abdominal and lower chest pain. Patient reports he was in a vehicle being driven to work earlier this morning when he suddenly had intense pain across his upper abdomen described as "it felt like I needed to have a bowel movement immediately." States he became diaphoretic with the episode. He denies any chest pain or shortness of breath with the episode. He states that the pain in his abdomen improved after a few seconds, but he remained diaphoretic and feeling generally unwell, prompting him to present to the ER. On arrival to the ER, he has no complaints. He had a cardioversion and heart catheterization last week. He is on Xarelto. Denies any history of cardiac stents. Denies any DVT or PE history. Denies any nausea or vomiting. Denies any recent fevers. Denies any history of abdominal surgeries ROS: as above PHYSICAL EXAM: Constitutional: Patient appears in no acute distress. HENT: Head: Normocephalic and atraumatic. Eyes: EOMI, PERRL Mouth/Throat: Mucous membranes moist. Neck: Trachea midline. Neck supple. Cardiovascular: RRR, No murmurs, rubs or gallops. Intact distal pulses. Pulmonary/Chest: No respiratory distress. Breath sounds clear and equal bilaterally. No wheezes or rales. No Abdominal: Abdomen soft, no tenderness, rebound or guarding. Musculoskeletal: No edema, tenderness or deformity noted. Skin: Warm and dry. No rash, erythema, pallor or cyanosis Psychiatric: Appropriate mood and affect for situation. Neurological: Alert and keenly responsive. CN II-XII grossly intact, moving al l extremities equally and fully. MDM: - Vitals signs showed hypertension and tachycardia - History obtained via patient. Patient presents with upper abdominal pain and lower chest pain. Patient reports he had acute onset of pain across his upper abdomen and lower chest while driving to work. He reports pain lasted for seconds at a time. He states that he had no shortness of breath or nausea with it but was profoundly diaphoretic. He is on Xarelto. Denies any DVT or PE history. Is currently pain-free on arrival to the ER - Chronic conditions affecting care: CHF; DM-2; HTN; HLD - Differential diagnoses include, but are not limited to: Acute coronary syndrome; pulmonary embolism; dissection; tension pneumothorax; esophageal rupture; pneumonia8 - Order placed for continuous cardiac monitoring. At this time, monitor showed rate of 80 bpm with normal sinus rhythm, per my interpretation. - External medical records reviewed. EMS run sheet was reviewed. Patient was vitally stable in route. He was given 324 mg of aspirin. - EKG reviewed by myself showed atrial fibrillation. Rate 73 bpm. QTc 434. No acute ischemic changes. Significant delay in obtaining EKG by nursing staff. - Laboratory workup interpreted by myself showed normal WBC; negative dimer; elevated troponin (28.1); normal lipase; normal electrolytes - CXR negative for pneumonia, per my interpretation. - CT abdomen/pelvis with IV contrast negative for acute pathology. - Repeat troponin trended slightly up to 29.1 - HEART score 4 (+1 age; +2 risk factors; +1 troponin) - Discussion was had with social media strategist about patient's case and need for admission - Hospitalist consulted for admission - [facility] ASSESSMENT AND PLAN: Diagnosis: chest pain; NSTEMI Plan: admit Past Med/Surg History Medical History CHF NYHA class II (symptoms with moderately strenuous activities) Diabetes mellitus, type 2 Gout History of COVID-19 History of kidney stones History of melanoma Hyperlipidemia LDL goal <100 Hypertension Metabolic disorder Nephrolithiasis Nonischemic cardiomyopathy Obesity Obstructive sleep apnea Paroxysmal atrial fibrillation Right ureteral calculus Surgical History H/O local excision of skin lesion History of cardiac radiofrequency ablation History of cardioversion History of tooth extraction Family History Sister Ovarian cancer Diabetes Breast cancer Father Diabetes Kidney stones Hypertension Brother Diabetes Mother Diabetes GERD (gastroesophageal reflux disease) Hypertension Other No family history of adverse response to anesthesia Denies family history of Prostate cancer Lung cancer Colorectal cancer Social History Smoking Status: Never smoker Tobacco Type: Smokeless Tobacco (Dip or Chew) Second Hand Exposure: No; Do You Dip or Chew Tobacco: No; Hx Alcohol Use: No Hx Substance Use: No Preferred Language: Jamaican Communication Ability: Effective Visual Impairment: No Limitations Hearing Ability: Normal Court Advocate Required: No Beliefs That Will Affect Care: None marital status: Current Living Situation: Spouse Current Living Situation Comment: Lives with and daughter current occupational status: employed current occupation: [email or web address] How many Children do You have: 4 Feels Safe at Home: Yes Childhood Exposure to Second-Hand Smoke: Yes Diet: regular Diet Comment: regular caffeine: No during the past year weight has: decreased > 10 lbs Dental Care, Regularly: Yes Physical Activity Frequency: Daily Physical Activity Frequency Comment: walking at work Seatbelt Use: sometimes Sunscreen Use: No Assistive Devices: None Allergies Allergies Allergy/AdvReac Type Severity Reaction Status Date / Time empagliflozin AdvReac Mild Nausea Verified 10/15/22 14:59 [From [facility]] Home Meds Home Medications Medication Instructions Recorded Confirmed semaglutide 1 mg/dose (4 mg/3 mL) 1 mg subcut WK 10/10/22 10/15/22 subcutaneous pen injector (Ozempic) furosemide 40 mg tablet 40 mg PO DAILY PRN Fluid Retention 10/15/22 10/15/22 metoprolol succinate 50 mg 50 mg PO HS 10/15/22 10/15/22 tablet,extended release 24 hr Previous Rx's Medication Instructions Recorded blood sugar diagnostic (OneTouch #100 ea 02/13/21 Verio test strips) lancets 30 gauge (OneTouch Delica #200 ea 02/13/21 Plus Lancet) pen needle, diabetic 32 gauge x #100 ea 02/13/21 5/32" (1st Tier Unifine Pentips) Basaglar KwikPen U-100 Insulin 100 20 unit (0.2 mL) subcut PM #18 mL 05/13/22 unit/mL (3 mL) subcutaneous (insulin glargine) rivaroxaban 20 mg tablet (Xarelto) 20 mg PO HS #30 tabs 05/14/22 metformin 500 mg tablet,extended 1,000 mg PO QAM #180 tabs 07/26/22 release 24 hr atorvastatin 40 mg tablet 40 mg PO PM #90 tabs 09/13/22 febuxostat 40 mg tablet (Uloric) 40 mg PO QPM #90 tabs 09/13/22 lisinopril 10 mg tablet 10 mg PO QAM #90 tabs 10/22/22 Results & Data (ED) Vital Signs Vital Signs - 24 hr 10/30/22 09:16 10/30/22 08:43 10/30/22 09:32 Temperature 36.6 C Temperature Source Oral Pulse Rate 86 98 H Pulse Rate [Apical] Pulse Rate from SpO2 Sensor Pulse Rhythm Regular Pulse Strength Normal Respiratory Rate 18 Respiratory Effort / Characteristics Non-Labored Respiratory Depth Normal Respiratory Pattern Regular Blood Pressure 142/103 H Blood Pressure [Right Arm] Blood Pressure Mean 116 Blood Pressure Mean [Right Arm] Pulse Oximetry 98 98 Oxygen Delivery Method Room Air Room Air Sepsis Recent Fever Within 48 Hours No Sepsis New/Unexplained Change in Mental Status N/A Sepsis Action Taken by Nursing No Action Required 10/30/22 09:43 10/30/22 11:06 10/30/22 09:16 Temperature Temperature Source Pulse Rate 91 H Pulse Rate [Apical] Pulse Rate from SpO2 Sensor Pulse Rhythm Pulse Strength Respiratory Rate 20 Respiratory Effort / Characteristics Respiratory Depth Respiratory Pattern Blood Pressure Blood Pressure [Right Arm] 143/89 H Blood Pressure Mean Blood Pressure Mean [Right Arm] 107 Pulse Oximetry 98 Oxygen Delivery Method Sepsis Recent Fever Within 48 Hours Sepsis New/Unexplained Change in Mental Status Sepsis Action Taken by Nursing 10/30/22 09:20 10/30/22 09:30 10/30/22 09:40 Temperature Temperature Source Pulse Rate 89 99 H 86 Pulse Rate [Apical] Pulse Rate from SpO2 Sensor 81 Pulse Rhythm Pulse Strength Respiratory Rate 21 18 17 Respiratory Effort / Characteristics Respiratory Depth Respiratory Pattern Blood Pressure Blood Pressure [Right Arm] Blood Pressure Mean Blood Pressure Mean [Right Arm] Pulse Oximetry 97 Oxygen Delivery Method Sepsis Recent Fever Within 48 Hours Sepsis New/Unexplained Change in Mental Status Sepsis Action Taken by Nursing 10/30/22 09:50 10/30/22 10:00 10/30/22 10:10 Temperature Temperature Source Pulse Rate 81 86 92 H Pulse Rate [Apical] Pulse Rate from SpO2 Sensor 84 84 90 Pulse Rhythm Pulse Strength Respiratory Rate 14 19 23 Respiratory Effort / Characteristics Respiratory Depth Respiratory Pattern Blood Pressure Blood Pressure [Right Arm] Blood Pressure Mean Blood Pressure Mean [Right Arm] Pulse Oximetry 97 96 96 Oxygen Delivery Method Sepsis Recent Fever Within 48 Hours Sepsis New/Unexplained Change in Mental Status Sepsis Action Taken by Nursing 10/30/22 10:20 10/30/22 10:30 10/30/22 10:40 Temperature Temperature Source Pulse Rate 101 H 94 H 83 Pulse Rate [Apical] Pulse Rate from SpO2 Sensor 122 H 97 H 81 Pulse Rhythm Pulse Strength Respiratory Rate 20 21 22 Respiratory Effort / Characteristics Respiratory Depth Respiratory Pattern Blood Pressure Blood Pressure [Right Arm] Blood Pressure Mean Blood Pressure Mean [Right Arm] Pulse Oximetry 98 95 97 Oxygen Delivery Method Sepsis Recent Fever Within 48 Hours Sepsis New/Unexplained Change in Mental Status Sepsis Action Taken by Nursing 10/30/22 10:50 10/30/22 13:24 10/30/22 13:34 Temperature Temperature Source Pulse Rate 83 80 Pulse Rate [Apical] 102 H Pulse Rate from SpO2 Sensor 81 Pulse Rhythm Pulse Strength Respiratory Rate 21 18 Respiratory Effort / Characteristics Respiratory Depth Respiratory Pattern Blood Pressure Blood Pressure [Right Arm] Blood Pressure Mean Blood Pressure Mean [Right Arm] Pulse Oximetry 97 98 Oxygen Delivery Method Sepsis Recent Fever Within 48 Hours Sepsis New/Unexplained Change in Mental Status Sepsis Action Taken by Nursing Laboratory Data 10/30/22 09:14 10/30/22 09:14 Lab Results 10/30/22 10/30/22 10/30/22 Range/Units 09:14 09:14 09:14 WBC 8.30 (4.8-10.8) K/ul RBC 5.44 (4.70-6.10) M/uL Hgb 16.4 (14.0-18.0) g/dl Hct 48.7 (42.0-52.0) % MCV 89.5 (80.0-100.0) fL MCH 30.1 (25.0-34.0) pg MCHC 33.7 (32.0-36.0) g/dL RDW Std Deviation 43.2 (36.4-46.3) fL RDW Coeff of Kaley 13.2 (11.5-14.5) % Plt Count 259 (130-400) K/uL MPV 11.3 (9.4-12.4) fL Immature Gran % (Auto) 0.4 % Neut % (Auto) 77.1 % Lymph % (Auto) 12.7 % [place] % (Auto) 8.0 % Eos % (Auto) 1.4 % Baso % (Auto) 0.4 % Neut # (Auto) 6.41 (1.40-6.50) K/uL Lymph # (Auto) 1.05 L (1.20-3.40) K/uL [place] # (Auto) 0.66 H (0.11-0.59) K/uL Eos # (Auto) 0.12 (0.00-0.50) K/uL Baso # (Auto) 0.03 (0.00-0.20) K/uL Immature Gran # (Auto) 0.03 (0.01-0.20) K/uL PT 14.0 H (9.0-12.0) Seconds INR 1.3 H (0.9-1.1) D-Dimer < 190 (0-500) ug/L FEU Sodium 139 (136-145) mmol/L Potassium 4.3 (3.5-5.1) mmol/L Chloride 107 (98-107) mmol/L Carbon Dioxide 25 (21-32) mmol/L Anion Gap 7 (3-11) BUN 20 (6-23) mg/dl Creatinine 1.13 (0.6-1.4) mg/dl Est Cr Clr Drug Dosing 105.4 ml/min Est GFR ( Amer) 86.1 ml/min Est GFR (Non-Af Amer) 74.3 ml/min BUN/Creatinine Ratio 17.7 (10-20) Glucose 137 H (70-99(Fasting)) mg/dl Calcium 9.7 (8.6-10.3) mg/dl Total Bilirubin 0.6 (0.2-1.0) mg/dl AST 20 (13-39) U/L ALT 24 (7-52) U/L Alkaline Phosphatase 69 (34-104) U/L Troponin I High Sens 28.1 H (0-20) pg/ml Total Protein 7.5 (6.0-8.3) gm/dl Albumin 4.4 (3.4-5.0) gm/dl Globulin 3.1 (2.5-4.0) gm/dl Albumin/Globulin Ratio 1.4 (0.9-2) Lipase 32 (11-82) U/L 10/30/22 Range/Units 10:54 WBC (4.8-10.8) K/ul RBC (4.70-6.10) M/uL Hgb (14.0-18.0) g/dl Hct (42.0-52.0) % MCV (80.0-100.0) fL MCH (25.0-34.0) pg MCHC (32.0-36.0) g/dL RDW Std Deviation (36.4-46.3) fL RDW Coeff of Kaley (11.5-14.5) % Plt Count (130-400) K/uL MPV (9.4-12.4) fL Immature Gran % (Auto) % Neut % (Auto) % Lymph % (Auto) % [place] % (Auto) % Eos % (Auto) % Baso % (Auto) % Neut # (Auto) (1.40-6.50) K/uL Lymph # (Auto) (1.20-3.40) K/uL [place]cho # (Auto) (0.11-0.59) K/uL Eos # (Auto) (0.00-0.50) K/uL Baso # (Auto) (0.00-0.20) K/uL Immature Gran # (Auto) (0.01-0.20) K/uL PT (9.0-12.0) Seconds INR (0.9-1.1) D-Dimer (0-500) ug/L FEU Sodium (136-145) mmol/L Potassium (3.5-5.1) mmol/L Chloride (98-107) mmol/L Carbon Dioxide (21-32) mmol/L Anion Gap (3-11) BUN (6-23) mg/dl Creatinine (0.6-1.4) mg/dl Est Cr Clr Drug Dosing ml/min Est GFR ( Amer) ml/min Est GFR (Non-Af Amer) ml/min BUN/Creatinine Ratio (10-20) Glucose (70-99(Fasting)) mg/dl Calcium (8.6-10.3) mg/dl Total Bilirubin (0.2-1.0) mg/dl AST (13-39) U/L ALT (7-52) U/L Alkaline Phosphatase (34-104) U/L Troponin I High Sens 29.1 H (0-20) pg/ml Total Protein (6.0-8.3) gm/dl Albumin (3.4-5.0) gm/dl Globulin (2.5-4.0) gm/dl Albumin/Globulin Ratio (0.9-2) Lipase (11-82) U/L Administered Medications Discontinued Medications Aspirin (Aspirin Chew 324 Mg) 324 mg PO NOW STA Stop: 10/30/22 11:48 Last Admin: 10/30/22 11:49 Dose: Not Given Documented By: SAMI Ioversol (Optiray 320 125ml) 100 ml IV ONCE ONE Stop: 10/30/22 11:01 Last Admin: 10/30/22 11:01 Dose: 100 ml Documented By: COREY Imaging Data Radiologist's Impression: Chest X-Ray 10/30/22 09:21 XR chest 1V portable CLINICAL HISTORY: Chest pain, nonspecific COMPARISON STUDY: Chest CT September 11, 2021. Chest radiograph October 15, 2022. FINDINGS: There is no pneumothorax or pleural effusion. There is no consolidation to suggest pneumonia. Cardiomegaly is unchanged. There is no consolidation to suggest pneumonia. Apparent right infrahilar opacity is likely artifactual. IMPRESSION: No acute cardiopulmonary findings. Stable cardiomegaly. ACT 112: Negative or not required by law. Electronically signed by: Mickey Mora M.D. 10/30/2022 11:04 AM Abdomen/Pelvis CT 10/30/22 09:49 CT OF THE ABDOMEN AND PELVIS WITH CONTRAST CLINICAL HISTORY: Upper abdominal pain. COMPARISON STUDY: CT of the abdomen and pelvis September 11, 2021. TECHNIQUE: Following IV administration of 100 mL of Optiray, axial images of the abdomen and pelvis were obtained from the lung bases to the proximal femurs. Images were reviewed in the axial, sagittal, and coronal planes. IV contrast was administered without complication. Automated exposure control was utilized for the study. A dose lowering technique was utilized adhering to the principles of ALARA. CT DOSE: 1434.78 mGy.cm FINDINGS: Lung bases are unremarkable. No pneumatosis, free air or portal venous gas is present. There are no hepatic lesions. There is no biliary or pancreatic ductal dilatation. The spleen, adrenal glands and pancreas are unremarkable. Horseshoe kidney is again noted. There is no hydronephrosis. No ureteral calculi. There is a punctate calculus within the left renal moiety. The caliber and wall thickness of small and large bowel are normal. The appendix is normal. There is no lymphadenopathy. No ascites. No acute fractures within the visualized skeletal structures. Major vasculature is patent. IMPRESSION: 1. No acute process within the abdomen or pelvis. 2. No bowel obstruction. No bowel wall thickening. Normal appendix. 3. Horseshoe kidney. Punctate calculus within the left renal moiety. No hydronephrosis. No ureteral calculi. ACT 112: Negative or not required by law. Electronically signed by: Mickey Mora M.D. 10/30/2022 11:23 AM Discharge Plan Visit Data Chief Complaint: Cardiac Assessment ED Provider: Mickie Briggs Discharge Problem: Chest pain, Non-ST elevation AK (NSTEMI) Forms Stand Alone Forms: [facility] Prescriptions Prescriptions: No Action (DME) OneTouch Verio test strips Strip See Rx Instructions .Route Qty: 100 5RF Rx Instructions: testing 3 times per day (DME) lancets [OneTouch Delica Plus Lancet] 30 gauge misc See Rx Instructions .Route Qty: 200 5RF Rx Instructions: testing 3 times per day (DME) pen needle, diabetic [1st Tier Unifine Pentips] 32 gauge x 5/32" needle See Rx Instructions .Route Qty: 100 5RF Rx Instructions: use with basaglar and ozempic insulin glargine [Basaglar KwikPen U-100 Insulin] 100 unit/mL (3 mL) insulin pen 20 unit subcut PM Qty: 18 5RF Xarelto 20 mg tablet 20 mg PO HS Qty: 30 5RF Rx Instructions: TAKE 1 TABLET BY MOUTH AT BEDTIME metformin 500 mg tablet extended release 24 hr 1,000 mg PO QAM Qty: 180 1RF febuxostat [Uloric] 40 mg tablet 40 mg PO QPM Qty: 90 1RF atorvastatin 40 mg tablet 40 mg PO PM Qty: 90 1RF lisinopril 10 mg tablet 10 mg PO QAM Qty: 90 1RF Ozempic 1 mg/dose (4 mg/3 mL) pen injector 1 mg subcut WK Rx Instructions: FRIDAYS furosemide 40 mg tablet 40 mg PO DAILY PRN (Reason: Fluid Retention) metoprolol succinate 50 mg tablet extended release 24 hr 50 mg PO HS Referrals Referrals: Margarita Morgan DO [Primary Care Provider] -
[2022-10-30 09:55] LABS: Alanine Aminotransferase 24 U/L (7-52); Albumin Globulin Ratio 1.4 (0.9-2); Albumin Level 4.4 gm/dl (3.4-5.0); Alkaline Phosphatase 69 U/L (34-104); Anion Gap 7 (3-11); Aspartate Aminotransferase 20 U/L (13-39); BUN Creatinine Ratio 17.7 (10-20); Bilirubin,Total 0.6 mg/dl (0.2-1.0); Blood Urea Nitrogen 20 mg/dl (6-23); Calcium 9.7 mg/dl (8.6-10.3); Carbon Dioxide 25 mmol/L (21-32); Chloride 107 mmol/L (98-107); Creatinine Clr Calc Pharmacy 105.4 ml/min; Est GFR (African American) 86.1 ml/min; Est GFR (Non-African American) 74.3 ml/min; Globulin 3.1 gm/dl (2.5-4.0); Glucose 137 mg/dl (70-99(Fasting)); Lipase 32 U/L (11-82); Potassium 4.3 mmol/L (3.5-5.1); Sodium 139 mmol/L (136-145); Total Protein 7.5 gm/dl (6.0-8.3)
[2022-10-30 10:00] LABS: Troponin I High Sensitivity 28.1 pg/ml (0-20)
[2022-10-30] MEDS ORDERED: OPTIRAY 320 125ml IV ONE (11:00)
--- NOTE | 2022-10-30 11:06 | XRay Report ---
XR chest 1V portable CLINICAL HISTORY: Chest pain, nonspecific COMPARISON STUDY: Chest CT September 11, 2021. Chest radiograph October 15, 2022. FINDINGS: There is no pneumothorax or pleural effusion. There is no consolidation to suggest pneumoni a. Cardiomegaly is unchanged. There is no consolidation to suggest pneumonia. Apparent right infrahil ar opacity is likely artifactual. IMPRESSION: No acute cardiopulmonary findings. Stable cardiomegaly. ACT 112: Negative or not required by law. Electronically signed by: Mickey Mora M.D. 10/30/2022 11:04 AM
--- NOTE | 2022-10-30 11:25 | CT Scan Report ---
CT OF THE ABDOMEN AND PELVIS WITH CONTRAST CLINICAL HISTORY: Upper abdominal pain. COMPARISON STUDY: CT of the abdomen and pelvis September 11, 2021. TECHNIQUE: Following IV administration of 100 mL of Optiray, axial images of the abdomen and pelvis w ere obtained from the lung bases to the proximal femurs. Images were reviewed in the axial, sagittal, and coronal planes. IV contrast was administered without complication. Automated exposure control w as utilized for the study. A dose lowering technique was utilized adhering to the principles of CHARITY Gant. CT DOSE: 1434.78 mGy.cm FINDINGS: Lung bases are unremarkable. No pneumatosis, free air or portal venous gas is present. Ther e are no hepatic lesions. There is no biliary or pancreatic ductal dilatation. The spleen, adrenal gl ands and pancreas are unremarkable. Horseshoe kidney is again noted. There is no hydronephrosis. No u reteral calculi. There is a punctate calculus within the left renal moiety. The caliber and wall thic kness of small and large bowel are normal. The appendix is normal. There is no lymphadenopathy. No as cites. No acute fractures within the visualized skeletal structures. Major vasculature is patent. IMPRESSION: 1. No acute process within the abdomen or pelvis. 2. No bowel obstruction. No bowel wall thickening. Normal appendix. 3. Horseshoe kidney. Punctate calculus within the left renal moiety. No hydronephrosis. No ureteral c alculi. ACT 112: Negative or not required by law. Electronically signed by: Mickey Mora M.D. 10/30/2022 11:23 AM
[2022-10-30] MEDS ORDERED: ASPIRIN CHEW 324 MG PO STA (11:47)
--- NOTE | 2022-10-30 13:40 | Electrocardiogram Report ---
Test Reason : Blood Pressure : / mmHG Vent. Rate : 073 BPM Atrial Rate : 000 BPM P-R Int : 000 ms QRS Dur : 090 ms QT Int : 398 ms P-R-T Axes : 000 -34 075 degrees QTc Int : 438 ms Atrial fibrillation Left axis deviation Low voltage QRS Cannot rule out Anterior infarct (cited on or before 15-OCT-2022) Abnormal ECG When compared with ECG of 15-OCT-2022 10:46, QRS axis Shifted left Confirmed by Kain Tejeda ([id number]) on 10/30/2022 1:39:49 PM Referred By: REFERRED SELF Confirmed By:Kain Tejeda
--- NOTE | 2022-10-30 16:09 | History & Physical Report ---
Date of Service October 30, 2022 Assessment & Plan (1) Upper abdominal pain: Plan: Transient, 30 minute episode of upper abdominal pain this am while riding in a vehicle. No triggers for the episode - came on suddenly. Associated with severe diaphoresis and pallor. He did not have presyncope, dizziness, or syncope. No chest pain or dyspnea. He did not have nausea or emesis. No relief with having a small bowel movement. Symptoms resolved without intervention. CT abd/pelvis negative. Minimal troponin elevation is not from ACS - he just had a cardiac cath about 2 weeks ago showing mild nonobstructive CAD. He is on Xarelto chronically; VTE not suspected. He did not have palpitations during the episode. Lipase/LFTs wnl. Etiology -- intestinal spasm? Biliary/gall bladder attack? Transient intestinal ischemia? Coronary artery vasospasm? other?? Some of the description of the event suggests vasovagal type physiology but the length of the episode is too long for such and he never had dizziness/lightheadedness. Plan - * check 1 more troponin this afternoon but again ACS highly unlikely * place on telemetry - r/o tachyarrhythmia (is in a.fib but he is rate controlled) * check a set of orthostatics * check u/a and urine cx - r/o UTI * check a COVID swab * monitor overnight (2) Paroxysmal atrial fibrillation: Plan: s/p cardioversion on 10/17/22 during prior hospitalization. Was in NSR upon hospital discharge. Now back in a.fib but rates are controlled. Theoretically possible that converting back to a.fib caused #1 but highly unlikely since his rates are controlled. [place] [facility] [place] [facility] [place] no plan for repeat cardioversion while here. Simply continue rate control strategy with metoprolol. Continue xarelto. (3) Chronic systolic CHF (congestive heart failure): Plan: EF 20-25%. Compensated. Cont metoprolol succinate Cont lisinopril Lasix prn (4) Hyperlipidemia LDL goal <100: Plan: Cont statin agent (5) Hypertension: Plan: BPs are elevated upon admission. May need adjustment in lisinopril or metoprolol. Other option is changing JELLY inhibitor over to Entresto for his CHF + his HTN. (6) Diabetes mellitus, type 2: Plan: Hold metformin. BSGs ac/hs. Novolog SSI. Recent hemoglobin a1c 6.3% late September. (7) Nonischemic cardiomyopathy: Plan: Etiology uncertain. EF 20-25%. Compensated today. See above. (8) Nephrolithiasis: Plan: nonobstructing not causing any symptoms check ua and urine cx to r/o UTI, however (9) Horseshoe kidney: Plan: stable creatinine no Rx needed Plan pt's updated at bedside place on observation status History of Present Illness Chief Complaint: upper abdominal discomfort, diaphoresis Primary Care Provider: Margarita Morgan DO 52yo male with nonischemic cardiomyopathy with resulting chronic systolic CHF - EF 20-25% - atrial fibrillation, T2DM, DAVID, and HTN presents from his workplace with a 30-minute long episode of upper abdominal discomfort, severe diaphoresis, and pallor. The patient states he was riding in a vehicle with some coworkers this morning when the symptoms began. He was a passenger; he was not driving. He states that the upper abdominal symptoms felt like he "needed to have a bowel movement." He never had nausea, vomiting, chest pain or dyspnea. Denies palpitations. Denies syncope or near-syncope. 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 Coworkers stated he looked "pale as a ghost." He did indeed move his bowels at the penitentiary but this didn't relieve the upper abdominal discomfort. The bowel movement was small. Denies any diarrhea. No melena stool or BRBPR. He denies any recent URI symptoms, fevers, chills, or loss of appetite. Denies dysuria. He checked his BSG while at the penitentiary and it was in the 190s. Coworkers recommended he come to the ER for evaluation. Upon arrival here his pain was essentially resolved in the upper abdomen. Work-up including CT of the abd/pelvis was negative for acute findings. EKG did show rate-controlled a.fib. During my assessment he reports feeling well with full resolution of all of the aforementioned symptoms. Of note - the patient was hospitalized at [facility] for dyspnea, CHF, and a.fib. He was hospitalized from 10/15 to 10/17. He underwent cardiac catheterization which showed mild, nonobstructive CAD. He also underwent cardioversion on 10/17/22 with successful conversion to NSR. Echo during this admission showed EF 20-25% with global hypokinesis. The patient has a longstanding history of atrial fibrillation requiring ablation, cardioversion in December 2021, and multiple med trials for rhythm control (sotalol, amiodarone). Allergies Allergy/AdvReac Type Severity Reaction Status Date / Time empagliflozin AdvReac Intermediate Nausea Verified 10/30/22 16:45 [From Jardiance] Home Medications Medication Instructions Recorded Confirmed Type blood sugar diagnostic (OneTouch #100 ea 02/13/21 10/10/22 Rx Verio test strips) lancets 30 gauge (OneTouch Delica #200 ea 02/13/21 10/10/22 Rx Plus Lancet) pen needle, diabetic 32 gauge x #100 ea 02/13/21 10/10/22 Rx 5/32" (1st Tier Unifine Pentips) Basaglar KwikPen U-100 Insulin 100 20 unit (0.2 mL) subcut PM #18 mL 05/13/22 10/30/22 Rx unit/mL (3 mL) subcutaneous (insulin glargine) rivaroxaban 20 mg tablet (Xarelto) 20 mg PO HS #30 tabs 05/14/22 10/30/22 Rx metformin 500 mg tablet,extended 1,000 mg PO QAM #180 tabs 07/26/22 10/30/22 Rx release 24 hr atorvastatin 40 mg tablet 40 mg PO PM #90 tabs 09/13/22 10/30/22 Rx febuxostat 40 mg tablet (Uloric) 40 mg PO QPM #90 tabs 09/13/22 10/30/22 Rx semaglutide 1 mg/dose (4 mg/3 mL) 1 mg subcut WK 10/10/22 10/30/22 History subcutaneous pen injector (Ozempic) furosemide 40 mg tablet 40 mg PO DAILY PRN Fluid Retention 10/15/22 10/30/22 History metoprolol succinate 50 mg 50 mg PO HS 10/15/22 10/30/22 History tablet,extended release 24 hr lisinopril 10 mg tablet 10 mg PO QAM #90 tabs 10/22/22 10/30/22 Rx Past Med/Surg History Medical History (Updated 10/30/22 @ 21:19 by Brayan Knight MD) CHF NYHA class II (symptoms with moderately strenuous activities) Chronic systolic CHF (congestive heart failure) EF 20-25%; nonischemic cardiomyopathy Diabetes mellitus, type 2 IDDM Gout History of COVID-19 Dx 2020- no symptoms now History of kidney stones History of melanoma Hx (face) Hyperlipidemia LDL goal <100 Hypertension Metabolic disorder Nephrolithiasis Nonischemic cardiomyopathy Obesity Obstructive sleep apnea Per records, pt denies Paroxysmal atrial fibrillation Follows with Dr. Reese Right ureteral calculus Surgical History H/O local excision of skin lesion History of cardiac radiofrequency ablation had 08/2021 @ [facility] [place] [place] History of cardioversion multiple History of tooth extraction Family History (Updated 10/30/22 @ 21:11 by Brayan Knight MD) Sister Ovarian cancer Diabetes Breast cancer Father Diabetes Kidney stones Hypertension Atrial fibrillation Brother Diabetes Mother Diabetes GERD (gastroesophageal reflux disease) Hypertension Atrial fibrillation Other No family history of adverse response to anesthesia Denies family history of Prostate cancer Lung cancer Colorectal cancer Social History Smoking Status: Never smoker Tobacco Type: Smokeless Tobacco (Dip or Chew) Second Hand Exposure: No; Do You Dip or Chew Tobacco: No; Hx Alcohol Use: No Hx Substance Use: No Preferred Language: Citizen Of [place] Communication Ability: Effective Visual Impairment: No Limitations Hearing Ability: Normal Training Program Assistant Required: No Beliefs That Will Affect Care: None marital status: Current Living Situation: Spouse Current Living Situation Comment: Lives with and daughter current occupational status: employed current occupation: pa [employer] How many Children do You have: 4 Other Information That Helps Us Care for You: No Feels Safe at Home: Yes Safety Concerns: Feels Safe At This Time Childhood Exposure to Second-Hand Smoke: Yes Diet: regular Diet Comment: regular caffeine: No during the past year weight has: decreased > 10 lbs Dental Care, Regularly: Yes Physical Activity Frequency: Daily Physical Activity Frequency Comment: walking at work Seatbelt Use: sometimes Sunscreen Use: No Assistive Devices: None Review of Systems Review of Systems: gen - no fevers, chills; no appetite loss; no weight change eyes - no visual changes during his spell this am HENT - no sore throat, nasal congestion, or ear pain CV - no chest pain, no orthopnea, no edema, no palpitations pulm - no dyspnea or SALEH; no cough GI - upper abdominal pain - now resolved; no nausea/vomiting/melena/BRBPR - no dysuria musculo - denies any myalgias skin - no rash; had transient pallor during his spell this am endo - BSG was just shy of 200 during his spell; BSGs have been largely <200 neuro - no headache, no paresthesias arms/legs psych - no mood changes Physical Exam Physical Exam: gen - obese, NAD, looks well eyes - PERRL HENT - mouth with MMM, no lesions; TMs not seen due to cerumen b/l neck - no JVD, no lymphadenopathy heart - irregularly irregular, s1 s2, no murmur lungs - CTA b/l, no rales, no wheeze abd - soft NT ND BS+, no HSM ext - no edema, pulses 2+ b/l neuro - strength 5/5 x 4 exts; DTRs 2+ b/l skin - no rash psych - a/o x 3 Results & Data Results & Data Vital Signs (Past 12 Hours) Vital Signs Temp Pulse Pulse Resp BP BP Pulse Ox 10/30/22 13:34 80 10/30/22 13:24 102 H 18 98 10/30/22 10:50 83 21 97 10/30/22 10:40 83 22 97 10/30/22 10:30 94 H 21 95 10/30/22 10:20 101 H 20 98 10/30/22 10:10 92 H 23 96 10/30/22 10:00 86 19 96 10/30/22 09:50 81 14 97 10/30/22 09:40 86 17 97 10/30/22 09:30 99 H 18 10/30/22 09:20 89 21 10/30/22 09:16 91 H 20 10/30/22 11:06 143/89 H 10/30/22 09:43 98 10/30/22 09:32 98 H 10/30/22 08:43 98 10/30/22 09:16 36.6 C 86 18 142/103 H 98 O2 Del Method 10/30/22 13:34 10/30/22 13:24 10/30/22 10:50 10/30/22 10:40 10/30/22 10:30 10/30/22 10:20 10/30/22 10:10 10/30/22 10:00 10/30/22 09:50 10/30/22 09:40 10/30/22 09:30 10/30/22 09:20 10/30/22 09:16 10/30/22 11:06 10/30/22 09:43 10/30/22 09:32 10/30/22 08:43 Room Air 10/30/22 09:16 Room Air Laboratory Results Laboratory Results - last 24 hr 10/30/22 10/30/22 10/30/22 09:14 09:14 09:14 WBC 8.30 RBC 5.44 Hgb 16.4 Hct 48.7 MCV 89.5 MCH 30.1 MCHC 33.7 RDW Std Deviation 43.2 RDW Coeff of Kaley 13.2 Plt Count 259 MPV 11.3 Immature Gran % (Auto) 0.4 Neut % (Auto) 77.1 Lymph % (Auto) 12.7 Mitchell % (Auto) 8.0 Eos % (Auto) 1.4 Baso % (Auto) 0.4 Neut # (Auto) 6.41 Lymph # (Auto) 1.05 L Mitchell # (Auto) 0.66 H Eos # (Auto) 0.12 Baso # (Auto) 0.03 Immature Gran # (Auto) 0.03 PT 14.0 H INR 1.3 H D-Dimer < 190 Sodium 139 Potassium 4.3 Chloride 107 Carbon Dioxide 25 Anion Gap 7 BUN 20 Creatinine 1.13 Est Cr Clr Drug Dosing 105.4 Est GFR ( Amer) 86.1 Est GFR (Non-Af Amer) 74.3 BUN/Creatinine Ratio 17.7 Glucose 137 H POC Glucose Calcium 9.7 Total Bilirubin 0.6 AST 20 ALT 24 Alkaline Phosphatase 69 Troponin I High Sens 28.1 H Total Protein 7.5 Albumin 4.4 Globulin 3.1 Albumin/Globulin Ratio 1.4 Lipase 32 SARS-CoV-2, RNA, NAAT 10/30/22 10/30/22 10/30/22 10:54 16:20 18:31 WBC RBC Hgb Hct MCV MCH MCHC RDW Std Deviation RDW Coeff of Kaley Plt Count MPV Immature Gran % (Auto) Neut % (Auto) Lymph % (Auto) Mitchell % (Auto) Eos % (Auto) Baso % (Auto) Neut # (Auto) Lymph # (Auto) Mitchell # (Auto) Eos # (Auto) Baso # (Auto) Immature Gran # (Auto) PT INR D-Dimer Sodium Potassium Chloride Carbon Dioxide Anion Gap BUN Creatinine Est Cr Clr Drug Dosing Est GFR ( Amer) Est GFR (Non-Af Amer) BUN/Creatinine Ratio Glucose POC Glucose 105 H Calcium Total Bilirubin AST ALT Alkaline Phosphatase Troponin I High Sens 29.1 H Total Protein Albumin Globulin Albumin/Globulin Ratio Lipase SARS-CoV-2, RNA, NAAT NEGATIVE 10/30/22 10/30/22 20:08 20:30 WBC RBC Hgb Hct MCV MCH MCHC RDW Std Deviation RDW Coeff of Kaley Plt Count MPV Immature Gran % (Auto) Neut % (Auto) Lymph % (Auto) Mitchell % (Auto) Eos % (Auto) Baso % (Auto) Neut # (Auto) Lymph # (Auto) Mitchell # (Auto) Eos # (Auto) Baso # (Auto) Immature Gran # (Auto) PT INR D-Dimer Sodium Potassium Chloride Carbon Dioxide Anion Gap BUN Creatinine Est Cr Clr Drug Dosing Est GFR ( Amer) Est GFR (Non-Af Amer) BUN/Creatinine Ratio Glucose POC Glucose 123 H 126 H Calcium Total Bilirubin AST ALT Alkaline Phosphatase Troponin I High Sens Total Protein Albumin Globulin Albumin/Globulin Ratio Lipase SARS-CoV-2, RNA, NAAT Diagnostic Findings Chest X-Ray 10/30/22 09:21 XR chest 1V portable CLINICAL HISTORY: Chest pain, nonspecific COMPARISON STUDY: Chest CT September 11, 2021. Chest radiograph October 15, 2022. FINDINGS: There is no pneumothorax or pleural effusion. There is no consolidation to suggest pneumonia. Cardiomegaly is unchanged. There is no consolidation to suggest pneumonia. Apparent right infrahilar opacity is likely artifactual. IMPRESSION: No acute cardiopulmonary findings. Stable cardiomegaly. ACT 112: Negative or not required by law. Electronically signed by: Mickey Mora M.D. 10/30/2022 11:04 AM Abdomen/Pelvis CT 10/30/22 09:49 CT OF THE ABDOMEN AND PELVIS WITH CONTRAST CLINICAL HISTORY: Upper abdominal pain. COMPARISON STUDY: CT of the abdomen and pelvis September 11, 2021. TECHNIQUE: Following IV administration of 100 mL of Optiray, axial images of the abdomen and pelvis were obtained from the lung bases to the proximal femurs. Images were reviewed in the axial, sagittal, and coronal planes. IV contrast was administered without complication. Automated exposure control was utilized for the study. A dose lowering technique was utilized adhering to the principles of ALARA. CT DOSE: 1434.78 mGy.cm FINDINGS: Lung bases are unremarkable. No pneumatosis, free air or portal venous gas is present. There are no hepatic lesions. There is no biliary or pancreatic ductal dilatation. The spleen, adrenal glands and pancreas are unremarkable. Horseshoe kidney is again noted. There is no hydronephrosis. No ureteral calculi. There is a punctate calculus within the left renal moiety. The caliber and wall thickness of small and large bowel are normal. The appendix is normal. There is no lymphadenopathy. No ascites. No acute fractures within the visualized skeletal structures. Major vasculature is patent. IMPRESSION: 1. No acute process within the abdomen or pelvis. 2. No bowel obstruction. No bowel wall thickening. Normal appendix. 3. Horseshoe kidney. Punctate calculus within the left renal moiety. No hydronephrosis. No ureteral calculi. ACT 112: Negative or not required by law. Electronically signed by: Mickey Mora M.D. 10/30/2022 11:23 AM EKG - my reading - a.fib, rate <100, left axis deviation, nonspecific ST changes anterior leads PG Care Time/CCT Total # of Minutes Spent Total Time Spent with Patient: Total time spent is greater than 50% in coordination of care (as documented) at patient's floor/unit and/or counseling patient: Coding Level of Care Code 95530 INT INP/OBS CARE 2/55MIN Diagnoses Upper abdominal pain R10.10 Paroxysmal atrial fibrillation I48.0 Chronic systolic CHF (congestive heart failure) I50.22 Hyperlipidemia LDL goal <100 E78.5 Hypertension I10 Diabetes mellitus, type 2 E11.9 Nonischemic cardiomyopathy I42.8 Nephrolithiasis N20.0 Horseshoe kidney Q63.1
--- NOTE | 2022-10-30 17:03 | XRay Report ---
KUB CLINICAL HISTORY: Abdominal pain, constipation? COMPARISON STUDY: CT of the abdomen and pelvis performed earlier today. FINDINGS: Incidental note is made of contrast within the bladder from recent contrast-enhanced CT. A few prominent loops of small bowel are noted within the right mid abdomen. There is no convincing jeff dence for a bowel obstruction. The amount of stool is within normal limits. IMPRESSION: 1. Amount of stool within normal limits. 2. Several prominent gas-filled loops of small bowel within the right mid abdomen. The findings are u nlikely to represent a small bowel obstruction. No obstruction was shown on CT performed earlier toda y. ACT 112: Negative or not required by law. Electronically signed by: Mickey Mora M.D. 10/30/2022 5:02 PM
[2022-10-30] MEDS ORDERED: ACETAMINOPHEN 325 MG TAB PO PRN (19:54)
[2022-10-30] MEDS ORDERED: ONDANSETRON INJ 2 MG/ML 2 ML VIAL IV PRN (19:54)
[2022-10-30] MEDS ORDERED: LANTUS PER UNIT CHARGE SQ SCH (21:00)
[2022-10-30] MEDS ORDERED: RIVAROXABAN 20 MG TAB PO SCH (21:00)
[2022-10-30] MEDS ORDERED: ATORVASTATIN 40 MG TAB PO SCH (21:00)
[2022-10-30] MEDS ORDERED: METOPROLOL SUCC 50MG EXT REL TAB PO SCH (21:00)
[2022-10-30] MEDS: INSULIN ASPART PER UNIT CHARGE SC SCH ×2 (22:21→22:22)
[2022-10-31 00:05] LABS: C Reactive Protein < 0.50 mg/dl (0-0.5)
[2022-10-31 00:11] LABS: Troponin I High Sensitivity 35.8 pg/ml (0-20)
[2022-10-31 07:11] LABS: BUN Creatinine Ratio 20.2 (10-20); Calcium 8.9 mg/dl (8.6-10.3); Creatinine Clr Calc Pharmacy 118.2 ml/min; Est GFR (African American) 101.1 ml/min; Est GFR (Non-African American) 87.2 ml/min; Potassium 4.3 mmol/L (3.5-5.1)
[2022-10-31] MEDS: INSULIN ASPART PER UNIT CHARGE SC SCH ×3 (07:53→16:27)
[2022-10-31] MEDS ORDERED: lisinopril 10 MG TAB PO SCH (09:00)
[2022-10-31] MEDS ORDERED: lisinopril 10 MG TAB PO STA (09:05)
[2022-10-31 10:04] LABS: Appearance Urine Clear (Clear); Bilirubin Urine Negative (Negative); Blood Urine Negative (Negative); Color Urine Yellow; Glucose Urine UA Negative (Negative); Ketones Urine Negative (Negative); Leukocyte Esterase Urine Negative (Negative); Nitrite Urine Negative (Negative); Protein Urine Negative (Negative); Specific Gravity Urine 1.024 (1.000-1.030); Urobilinogen Urine Negative (Negative)
[2022-10-31] MEDS ORDERED: DEXTROSE 50% 50 ML SYRINGE IV PRN (11:00)
[2022-10-31] MEDS ORDERED: GLUCAGON FOR INJ 1 MG VIAL IM PRN (11:00)
[2022-10-31] MEDS ORDERED: CARBOHYDRATES FOR HYPOGLYCEMIA PO PRN (11:00)
[2022-10-31] MEDS ORDERED: GLUCOSE 10 TAB/TUBE PO PRN (11:00)
[2022-10-31] MEDS ORDERED: GLUCOSE 40% GEL 15 GM TUBE PO PRN (11:00)
--- NOTE | 2022-10-31 16:33 | Cardiology Consultation ---
Date of Consultation October 31, 2022 Assessment & Plan (1) Chest pain: (2) Cardiomyopathy: (3) Atrial fibrillation with RVR: Plan 1. Chest pain: His symptoms this morning were atypical for cardiac ischemia. He is also known to have only nonobstructive coronary disease. More consistent with high vagal tone. Very remote possibility of this represented some malignant arrhythmia. However, I would have expected more dizziness or lightheadedness. Also he did not report any symptoms of palpitations. In order to better characterize his atrial fibrillation exclude other more malignant arrhythmias will provide him with outpatient monitoring. 2. Atrial fibrillation: Recurrent. Persistent. He is quite frustrated by atrial fibrillation. Fortunately, few symptoms and overall rate control appears adequate. We did discuss additional options for treatment including repeat pulmonary vein isolation. He seems interested. However, he has some time constraints at work and would not be able to take any more sick time off until February 17. We did discuss the utility of antiarrhythmic specifically amiodarone. However, he has some concerns regarding that medication at this time prefers to simply wait for a discussion about repeat ablation with Dr. Lucero. Will continue systemic anticoagulation. 3. Nonischemic cardiomyopathy: Overall he seems well compensated. He is at risk of more malignant arrhythmias. However, we need to optimize his medical treatment. In the past he did try Jardiance and had an unusual side effect, specifically nausea. I think we could try Farxiga at some point. Currently we will switch his lisinopril to Entresto. We can add an aldosterone antagonist in the outpatient setting as well. 4. Mitral regurgitation: Mild on last echocardiogram History of Present Illness Reason for Consultation: Cardiomyopathy, atrial fibrillation Requesting Physician: Antonia Attending Physician: Brayan Knight MD History of Present Illness The patient is a 52-year-old gentleman with a longstanding history of persistent atrial fibrillation and a nonischemic cardiomyopathy. The patient reported being on his way to work yesterday. He was driving a carpal. Had the sudden onset of mid epigastric discomfort followed by severe diaphoresis. He was noted by his colleagues to also looked quite pale. The patient did not report symptoms of a rapid heartbeat or palpitations. He was not aware of dizziness or lightheadedness. No presyncopal symptoms. Feels the symptoms may have lasted for half an hour before resolving. He felt well afterwards. No similar symptoms in the past. He did undergo a cardioversion approximately 2 weeks ago. He states that the day afterwards he noticed irregularity returned to his heartbeat. However, he did not have any additional symptoms. 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 He does not perform vigorous exercise otherwise. However, he did not endorse symptoms of limiting dyspnea or orthopnea. No paroxysmal nocturnal dyspnea. No lower extremity edema. No dizziness or lightheadedness. No palpitations. Allergies Allergy/AdvReac Type Severity Reaction Status Date / Time empagliflozin AdvReac Intermediate Nausea Verified 10/30/22 16:45 [From [facility]] Home Medications Medication Instructions Recorded Confirmed Type blood sugar diagnostic (OneTouch #100 ea 02/13/21 10/10/22 Rx Verio test strips) lancets 30 gauge (OneTouch Delica #200 ea 02/13/21 10/10/22 Rx Plus Lancet) pen needle, diabetic 32 gauge x #100 ea 02/13/21 10/10/22 Rx 5/32" (1st Tier Unifine Pentips) Basaglar KwikPen U-100 Insulin 100 20 unit (0.2 mL) subcut PM #18 mL 05/13/22 10/30/22 Rx unit/mL (3 mL) subcutaneous (insulin glargine) rivaroxaban 20 mg tablet (Xarelto) 20 mg PO HS #30 tabs 05/14/22 10/30/22 Rx metformin 500 mg tablet,extended 1,000 mg PO QAM #180 tabs 07/26/22 10/30/22 Rx release 24 hr atorvastatin 40 mg tablet 40 mg PO PM #90 tabs 09/13/22 10/30/22 Rx febuxostat 40 mg tablet (Uloric) 40 mg PO QPM #90 tabs 09/13/22 10/30/22 Rx semaglutide 1 mg/dose (4 mg/3 mL) 1 mg subcut WK 10/10/22 10/30/22 History subcutaneous pen injector (Ozempic) furosemide 40 mg tablet 40 mg PO DAILY PRN Fluid Retention 10/15/22 10/30/22 History metoprolol succinate 50 mg 50 mg PO HS 10/15/22 10/30/22 History tablet,extended release 24 hr lisinopril 10 mg tablet 10 mg PO QAM #90 tabs 10/22/22 10/30/22 Rx Patient History Medical History (Updated 10/30/22 @ 21:19 by Brayan Knight MD) CHF NYHA class II (symptoms with moderately strenuous activities) Chronic systolic CHF (congestive heart failure) EF 20-25%; nonischemic cardiomyopathy Diabetes mellitus, type 2 IDDM Gout History of COVID-19 Dx 2020- no symptoms now History of kidney stones History of melanoma Hx (face) Hyperlipidemia LDL goal <100 Hypertension Metabolic disorder Nephrolithiasis Nonischemic cardiomyopathy Obesity Obstructive sleep apnea Per records, pt denies Paroxysmal atrial fibrillation Follows with Dr. Reese Right ureteral calculus Surgical History H/O local excision of skin lesion [place] cardiac [place] [facility] [place] of cardioversion multiple History of tooth extraction Family History (Updated 10/30/22 @ 21:11 by Brayan Knight MD) Sister Ovarian cancer Diabetes Breast cancer Father Diabetes Kidney stones Hypertension Atrial fibrillation Brother Diabetes Mother Diabetes GERD (gastroesophageal reflux disease) Hypertension Atrial fibrillation Other No family history of adverse response to anesthesia Denies family history of Prostate cancer Lung cancer Colorectal cancer Social History Smoking Status: Never smoker Tobacco Type: Smokeless Tobacco (Dip or Chew) Second Hand Exposure: No; Do You Dip or Chew Tobacco: No; Hx Alcohol Use: No Hx Substance Use: No Preferred Language: Ghanaian Communication Ability: Effective Visual Impairment: No Limitations Hearing Ability: Normal Worm Packer Required: No Beliefs That Will Affect Care: None marital status: Current Living Situation: Spouse Current Living Situation Comment: Lives with and daughter current occupational status: employed current occupation: [employer] How many Children do You have: 4 Other Information That Helps Us Care for You: No Feels Safe at Home: Yes Safety Concerns: Feels Safe At This Time Childhood Exposure to Second-Hand Smoke: Yes Diet: regular Diet Comment: regular caffeine: No during the past year weight has: decreased > 10 lbs Dental Care, Regularly: Yes Physical Activity Frequency: Daily Physical Activity Frequency Comment: walking at work Seatbelt Use: sometimes Sunscreen Use: No Assistive Devices: None Review of Systems Review of Systems: Per HPI Physical Exam Physical Exam: The patient is alert and oriented. Mood and affect appeared normal. He answered all questions appropriately. HEENT: Pupils are equal and reactive to light and accommodation. Extraocular movements are intact. The sclerae are anicteric. Neuro: Cranial nerves intact Lungs: Clear to auscultation bilaterally. He has good air movement without use of accessory muscles. No rales wheezes or rhonchi. Cardiac: Heart demonstrates an irregular rate and rhythm. Normal S1 and S2. No murmurs on examination. Pulses: The patient has palpable radial pulses bilaterally that are equal in intensity Extremities: There was no evidence of hypoperfusion. There is no cyanosis or clubbing. There is no edema. Skin: I did not appreciate any rashes on examination today. Results & Data Vital Signs (Past 12 Hours) Vital Signs Temp Pulse Resp BP BP Pulse Ox O2 Del Method 10/31/22 15:57 36.9 C 91 H 19 140/112 H 98 Room Air 10/31/22 12:15 36.8 C 90 19 129/98 98 Room Air 10/31/22 08:54 142/98 H 144/100 H 10/31/22 08:11 36.9 C 87 18 142/105 H 96 Room Air 10/31/22 07:24 Room Air Laboratory Results Abnormal Lab Results 10/30/22 10/30/22 10/30/22 16:20 18:31 20:08 Sodium Potassium Chloride Carbon Dioxide Anion Gap BUN Creatinine Est Cr Clr Drug Dosing Est GFR ( Amer) Est GFR (Non-Af Amer) BUN/Creatinine Ratio Glucose POC Glucose 105 H 123 H Calcium Troponin I High Sens C-Reactive Protein Urine Color Urine Appearance Urine pH Ur Specific [place] Urine Protein Urine Glucose (UA) Urine Ketones Urine Blood Urine Nitrite Urine Bilirubin Urine Urobilinogen Ur Leukocyte Esterase Urine WBC (Auto) Urine RBC (Auto) U Hyaline Cast (Auto) U Epithel Cells (Auto) Urine Bacteria (Auto) Ur Renal Epithelial Cell Urine Crystals Calcium Oxalate Crystal Uric Acid Crystals Triple Phos Crystals Other Crystals Amorphous Sediment Granular Casts Waxy Casts RBC Casts WBC Casts Other Casts Urine Mucus Urine Other Urine Trichomonas Urine Yeast Urine Sperm Ur Oval Fat Bodies SARS-CoV-2, RNA, NAAT NEGATIVE 10/30/22 10/30/22 10/31/22 20:30 23:21 04:36 Sodium Potassium Chloride Carbon Dioxide Anion Gap BUN Creatinine Est Cr Clr Drug Dosing Est GFR ( Amer) Est GFR (Non-Af Amer) BUN/Creatinine Ratio Glucose POC Glucose 126 H Calcium Troponin I High Sens 35.8 H C-Reactive Protein < 0.50 Urine Color Cancelled Urine Appearance Cancelled Urine pH Cancelled Ur Specific [place] Cancelled Urine Protein Cancelled Urine Glucose (UA) Cancelled Urine Ketones Cancelled Urine Blood Cancelled Urine Nitrite Cancelled Urine Bilirubin Cancelled Urine Urobilinogen Cancelled Ur Leukocyte Esterase Cancelled Urine WBC (Auto) Cancelled Urine RBC (Auto) Cancelled U Hyaline Cast (Auto) Cancelled U Epithel Cells (Auto) Cancelled Urine Bacteria (Auto) Cancelled Ur Renal Epithelial Cell Cancelled Urine Crystals Cancelled Calcium Oxalate Crystal Cancelled Uric Acid Crystals Cancelled Triple Phos Crystals Cancelled Other Crystals Cancelled Amorphous Sediment Cancelled Granular Casts Cancelled Waxy Casts Cancelled RBC Casts Cancelled WBC Casts Cancelled Other Casts Cancelled Urine Mucus Cancelled Urine Other Cancelled Urine Trichomonas Cancelled Urine Yeast Cancelled Urine Sperm Cancelled Ur Oval Fat Bodies Cancelled SARS-CoV-2, RNA, NAAT 10/31/22 10/31/22 10/31/22 06:35 07:24 09:57 Sodium 138 Potassium 4.3 Chloride 107 Carbon Dioxide 24 Anion Gap 7 BUN 20 Creatinine 0.99 Est Cr Clr Drug Dosing 118.2 Est GFR ( Amer) 101.1 Est GFR (Non-Af Amer) 87.2 BUN/Creatinine Ratio 20.2 H Glucose 117 H POC Glucose 122 H Calcium 8.9 Troponin I High Sens C-Reactive Protein Urine Color Yellow Urine Appearance Clear Urine pH 5.0 Ur Specific [place] 1.024 Urine Protein Negative Urine Glucose (UA) Negative Urine Ketones Negative Urine Blood Negative Urine Nitrite Negative Urine Bilirubin Negative Urine Urobilinogen Negative Ur Leukocyte Esterase Negative Urine WBC (Auto) Urine RBC (Auto) U Hyaline Cast (Auto) U Epithel Cells (Auto) Urine Bacteria (Auto) Ur Renal Epithelial Cell Urine Crystals Calcium Oxalate Crystal Uric Acid Crystals Triple Phos Crystals Other Crystals Amorphous Sediment Granular Casts Waxy Casts RBC Casts WBC Casts Other Casts Urine Mucus Urine Other Urine Trichomonas Urine Yeast Urine Sperm Ur Oval Fat Bodies SARS-CoV-2, RNA, NAAT 10/31/22 10/31/22 11:33 16:23 Sodium Potassium Chloride Carbon Dioxide Anion Gap BUN Creatinine Est Cr Clr Drug Dosing Est GFR ( Amer) Est GFR (Non-Af Amer) BUN/Creatinine Ratio Glucose POC Glucose 112 H 101 H Calcium Troponin I High Sens C-Reactive Protein Urine Color Urine Appearance Urine pH Ur Specific [place] Urine Protein Urine Glucose (UA) Urine Ketones Urine Blood Urine Nitrite Urine Bilirubin Urine Urobilinogen Ur Leukocyte Esterase Urine WBC (Auto) Urine RBC (Auto) U Hyaline Cast (Auto) U Epithel Cells (Auto) Urine Bacteria (Auto) Ur Renal Epithelial Cell Urine Crystals Calcium Oxalate Crystal Uric Acid Crystals Triple Phos Crystals Other Crystals Amorphous Sediment Granular Casts Waxy Casts RBC Casts WBC Casts Other Casts Urine Mucus Urine Other Urine Trichomonas Urine Yeast Urine Sperm Ur Oval Fat Bodies SARS-CoV-2, RNA, NAAT Diagnostic Findings Myocardial perfusion study performed 02/22/2021: No evidence of inducible ischemia. Severely reduced LV systolic function with gated imaging suggesting an ejection fraction of 24 percent. Global hypokinesis. Echocardiogram performed 02/06/2021: Ejection fraction 15-20 percent with severe global hypokinesis. Moderate LVH. Moderate biatrial dilation. Mild mitral regurgitation. Echocardiogram 10/15/2022: Ejection fraction 20 25%. Biatrial dilation. Mild mitral regurgitation. pulmonary vein isolation 08/06/2021, [facility]. Cardiac catheterization 10/16/2022: Mild nonobstructive coronary disease in the LAD. Left ventricular end-diastolic pressure 16 Cardioversion 10/17/2022 PG Care Time/CCT Total # of Minutes Spent Total Time Spent with Patient: Total time spent is greater than 50% in coordination of care (as documented) at patient's floor/unit and/or counseling patient: Coding Level of Care Code 96248 IN/OBS CONSULT LVL 4,60M Diagnoses Chest pain R07.9 Cardiomyopathy I42.9 Atrial fibrillation with RVR I48.91
--- NOTE | 2022-10-31 17:24 | Discharge Summary ---
Date of Service October 31, 2022 Admission HPI Per Admitting Provider 52yo male with nonischemic cardiomyopathy with resulting chronic systolic CHF - EF 20-25% - atrial fibrillation, T2DM, DAVID, and HTN presents from his workplace with a 30-minute long episode of upper abdominal discomfort, severe diaphoresis, and pallor. The patient states he was riding in a vehicle with some coworkers this morning when the symptoms began. He was a passenger; he was not driving. He states that the upper abdominal symptoms felt like he "needed to have a bowel movement." He never had nausea, vomiting, chest pain or dyspnea. Denies palpitations. Denies syncope or near-syncope. He works at a local senior living and when they arrived he was immediately taken to an area where he could sit down and rest. Coworkers stated he looked "pale as a ghost." He did indeed move his bowels at the senior living but this didn't relieve the upper abdominal discomfort. The bowel movement was small. Denies any diarrhea. No melena stool or BRBPR. He denies any recent URI symptoms, fevers, chills, or loss of appetite. Denies dysuria. He checked his BSG while at the senior living and it was in the 190s. Coworkers recommended he come to the ER for evaluation. Upon arrival here his pain was essentially resolved in the upper abdomen. Work-up including CT of the abd/pelvis was negative for acute findings. EKG did show rate-controlled a.fib. During my assessment he reports feeling well with full resolution of all of the aforementioned symptoms. Of note - the patient was hospitalized at [facility] for dyspnea, CHF, and a.fib. He was hospitalized from 10/15 to 10/17. He underwent cardiac catheterization which showed mild, nonobstructive CAD. He also underwent cardioversion on 10/17/22 with successful conversion to NSR. Echo during this admission showed EF 20-25% with global hypokinesis. The patient has a longstanding history of atrial fibrillation requiring ablation, cardioversion in December 2021, and multiple med trials for rhythm control (sotalol, amiodarone). Discharge Exam gen - obese, NAD, looks well eyes - PERRL HENT - mouth with MMM, no lesions; TMs not seen due to cerumen b/l neck - no JVD, no lymphadenopathy heart - irregularly irregular, s1 s2, no murmur lungs - CTA b/l, no rales, no wheeze abd - soft NT ND BS+, no HSM ext - no edema, pulses 2+ b/l neuro - strength 5/5 x 4 exts; DTRs 2+ b/l skin - no rash psych - a/o x 3 Discharge Data Allergies Allergy/AdvReac Type Severity Reaction Status Date / Time empagliflozin AdvReac Intermediate Nausea Verified 10/30/22 16:45 [From Jardiance] Consultations 10/30/22 14:48 ED Decision to Admit Stat 10/31/22 14:26 Consult Cardiology Routine Ordered Studies 10/30/22 09:49 CT abd pelvis IV con only Stat Hospital Course (1) Upper abdominal pain: Transient, 30 minute episode of upper abdominal pain this am while riding in a vehicle. No triggers for the episode - came on suddenly. Associated with severe diaphoresis and pallor. He did not have presyncope, dizziness, or syncope. No chest pain or dyspnea. He did not have nausea or emesis. No relief with having a small bowel movement. Symptoms resolved without intervention. CT abd/pelvis negative. Minimal troponin elevation is not from ACS - he just had a cardiac cath about 2 weeks ago showing mild nonobstructive CAD. He is on Xarelto chronically; VTE not suspected. He did not have palpitations during the episode. Lipase/LFTs wnl. Etiology -- intestinal spasm? Biliary/gall bladder attack? Transient intestinal ischemia? Coronary artery vasospasm? other?? Some of the description of the event suggests vasovagal type physiology but the length of the episode is too long for such and he never had dizziness/lightheadedness. Plan - * check 1 more troponin this afternoon but again ACS highly unlikely * place on telemetry - r/o tachyarrhythmia (is in a.fib but he is rate controlled) * check a set of orthostatics * check u/a and urine cx - r/o UTI * check a COVID swab * monitor overnight (2) Paroxysmal atrial fibrillation: s/p cardioversion on 10/17/22 during prior hospitalization. Was in NSR upon hospital discharge. Now back in a.fib but rates are controlled. Theoretically possible that converting back to a.fib caused #1 but highly unlikely since his rates are controlled. I spoke [place] [facility] [place] [facility] [place] no plan for repeat cardioversion while here. Simply continue rate control strategy with metoprolol. Continue xarelto. (3) Chronic systolic CHF (congestive heart failure): EF 20-25%. Compensated. Cont metoprolol succinate Cont lisinopril Lasix prn (4) Hyperlipidemia LDL goal <100: Cont statin agent (5) Hypertension: BPs are elevated upon admission. May need adjustment in lisinopril or metoprolol. Other option is changing JELLY inhibitor over to Entresto for his CHF + his HTN. (6) Diabetes mellitus, type 2: Hold metformin. BSGs ac/hs. Novolog SSI. Recent hemoglobin a1c 6.3% late September. (7) Nonischemic cardiomyopathy: Etiology uncertain. EF 20-25%. Compensated today. See above. (8) Nephrolithiasis: nonobstructing not causing any symptoms check ua and urine cx to r/o UTI, however (9) Horseshoe kidney: stable creatinine no Rx needed Plan pt's updated at bedside place on observation status Discharge Plan Discharge Items Patient Disposition: Home - Self-Care Reason For Visit: Upper abdominal pain Discharge Diagnosis: 1. episode of upper abdominal pain with severe sweating - resolved. Etiology of episode uncertain. Due to heart arrhythmia (abnormal heart rhythm)? 2. atrial fibrillation - recurrent but controlled at this time 3. chronic systolic congestive heart failure - controlled at this time 4. cardiomyopathy 5. type 2 diabetes 6. high blood pressure Activity: As commented below Activity Comment: no strenuous activities Lifting Comment: no more than 20 pounds Sexual Activity: Wait until after follow-up appointment Exercise/Sports: Wait until after follow-up appointment Non-emergency contact: Primary Care Provider and Ballroom Dance Instructor Call non-emergency contact if: you have any medication questions and your symptoms worsen Follow-up/Referrals: Any Del Rio PA-C [Physician Applications System Analyst] - 11/08/22 (follow-up for your heart ) Margarita Morgan DO [Primary Care Provider] - Diet: Carb Consistent or DM2 and Heart Healthy Fluids: 1800ml (7 cups) Ambulatory Orders: Basic Metabolic Panel (Routine) Timeframe: [id number] Location: Determined by Patient Ordered By: Brayan Jereztl Attending Provider Instructions: Mr Lomeli, You were hospitalized after having had a 30 minute episode of upper abdominal discomfort associated with severe sweating. The episode ultimately resolved on its own without any specific treatment. The exact cause of the episode was uncertain. During your stay at [facility] we did not find any infections, there were no abnormalities of your electrolytes, your CT scan of the abdomen/pelvis was normal, and - although you were back in a.fib - your heart rates were nicely controlled (less than 100 the entire stay). There was no evidence of heart attack. Your CT scan did not show gallstones. Liver tests and pancreas test were normal. Your urinalysis was normal. COVID test was negative. Dr Geovanny Reese from [facility] saw you in consult. We are concerned that perhaps you had an abnormal heart rhythm during your event. To rule out abnormal heart rhythms Dr Reese is recommending a 30-day monitor. This will be arranged for you and mailed to your home. The monitor will record your heart rhythm over that 30-day time span. Of note - we do not think the a.fib caused your event, however. Dr Reese is recommending an ablation procedure for your a.fib. This will be arranged in the near-future. Dr Reese is also recommending discontinuation of your lisinopril and starting Entresto for your congestive heart failure. Please start the Entresto on Friday morning, 11/03. Due to receiving CT scan dye you must hold your metformin at this time. Please report back for a blood draw tomorrow, 11/01/22, to recheck your kidney fu nction labs. This can be drawn at any [facility]. If the blood draw is normal you will be able to resume your metformin then. We will call you with those results. Follow-up - see separate section Return to [facility] if - * you have recurrent episodes of upper abdominal pain, chest pain, etc * you have recurrent episodes of severe sweating * you have shortness of breath * you have severe palpitations/your heart is racing fast * you feel dizzy or lightheaded * any other concerns Pending Studies at Discharge: No Stand-Alone Forms: My [facility], Work/School Release, Smoking Cessation Medications and DC Order Prescriptions: Continued (DME) OneTouch Verio test strips Strip See Rx Instructions .Route Qty: 100 5RF Rx Instructions: testing 3 times per day (DME) lancets [OneTouch Delica Plus Lancet] 30 gauge misc See Rx Instructions .Route Qty: 200 5RF Rx Instructions: testing 3 times per day (DME) pen needle, diabetic [1st Tier Unifine Pentips] 32 gauge x 5/32" needle See Rx Instructions .Route Qty: 100 5RF Rx Instructions: use with basaglar and ozempic insulin glargine [Basaglar KwikPen U-100 Insulin] 100 unit/mL (3 mL) insulin pen 20 unit subcut PM Qty: 18 5RF Xarelto 20 mg tablet 20 mg PO HS Qty: 30 5RF Rx Instructions: TAKE 1 TABLET BY MOUTH AT BEDTIME febuxostat [Uloric] 40 mg tablet 40 mg PO QPM Qty: 90 1RF atorvastatin 40 mg tablet 40 mg PO PM Qty: 90 1RF Entresto 24-26 mg tablet 1 tab PO BID Qty: 60 2RF Rx Instructions: only start after stopping lisinopril for 2 days Ozempic 1 mg/dose (4 mg/3 mL) pen injector 1 mg subcut WK Rx Instructions: FRIDAYS furosemide 40 mg tablet 40 mg PO DAILY PRN (Reason: Fluid Retention) metoprolol succinate 50 mg tablet extended release 24 hr 50 mg PO HS Held metformin 500 mg tablet extended release 24 hr 1,000 mg PO QAM Qty: 180 1RF Hold Instructions: hold until your kidney function level is repeated on 11/01/22 Discharge Orders: Discharge Order (Routine); Ordered 10/31/22 Ordered By: Brayan Knight Admission Data Admit Date/Time: 10/30/22 16:08 Attending Provider: Brayan Knight Admit Provider: Brayan Knight Primary Care Provider: Margarita Morgan Other Providers: Brayan Knight ; Nuno Reese Coding Diagnoses Upper abdominal pain R10.10 Paroxysmal atrial fibrillation I48.0 Chronic systolic CHF (congestive heart failure) I50.22 Hyperlipidemia LDL goal <100 E78.5 Hypertension I10 Diabetes mellitus, type 2 E11.9 Nonischemic cardiomyopathy I42.8 Nephrolithiasis N20.0 Horseshoe kidney Q63.1
[2022-11-01] MEDS ORDERED: lisinopril 20 MG TAB PO SCH (09:00)
== END 2022-10-31 18:34 | disposition home or self-care (01) ==
LOC: 2E 09:06 → ED 09:06 → 2E 18:32

== ENCOUNTER 2024-04-11 15:04 | Inpatient (IN) ==
[2024-04-11] MEDS: METOPROLOL TARTRATE 1 MG/ML VIAL IV STA ×2 (15:30→16:05)
[2024-04-11] MEDS: METOPROLOL TARTRATE 1 MG/ML VIAL IV ONE (15:32)
--- NOTE | 2024-04-11 15:37 | Emergency Department Note ---
Impression & Plan Atrial fibrillation with rapid ventricular response, Acute CVA (cerebrovascular accident) ED Provider Note Provider: Romero Crook MD CHIEF COMPLAINT: Right arm numbness, feeling unwell, short of breath HISTORY OF PRESENT ILLNESS: Patient is a 53-year-old gentleman significant past medical history including atrial fibrillation with multiple cardioversions and ablations in the past, left atrial appendage thrombus, cardiomyopathy with reduced EF last noted to be 2024% presenting with today for right arm weakness. Patient significant cardiac history as well as diabetes history. Has been feeling unwell for some time but particularly over the last week. Dyspnea on exertion yesterday but no chest pain. Woke up this morning did not feel quite right with a lack to bed and woke up around 8 AM with numbness and clumsiness to the right arm. No numbness or weakness in the other extremities. No dizziness or headache. No speech changes noted. States he does not usually feel his A-fib. PAST MEDICAL HISTORY: As noted above MEDICATIONS: Not currently on medications has just changed jobs and health insurance. Has been on medications for about 6+ months SOCIAL HISTORY: PHYSICAL EXAM: GENERAL: alert and oriented in no acute distress on stretcher Head: normocephalic and atraumatic EYES: No injection, discharge or icterus. PERRL, EOMI. NECK: Trachea midline. Good range of motion ENT: Mucous membranes pink and moist. Pharynx without erythema or exudate. LUNGS: Airway patent. No retractions. Breath sounds clear with good air entry bilaterally. HEART: Irregular regular tachycardic rate and rhythm. No chest wall tenderness ABDOMEN: Soft and non-tender, without guarding or rebound. SKIN: Acyanotic, warm, dry, without rashes EXTREMITIES: Without swelling, tenderness or deformity NEUROLOGICAL: No aphasia. No facial droop or slurred speech. Tongue midline sensation and movement prickly of the right wrist and hand. Clumsy movements of the right upper extremity but able to move around the shoulder and some degree of the elbow. Good movement and strength of the lower extremities bilaterally as well as left upper extremity. Ambulatory. EK beats per atrial relation right ventricular sponsor left axis. No clear acute ST segment elevation or depression with QTc of 512. CONTINUOUS CARDIAC MONITORING: was ordered and showed a heart rate of 100s-150s bpm in A-fib Patient's laboratory studies and imaging reviewed. Differential includes Infection, dehydration, metabolic abnormality, hypo/hyperglycemia, electrolyte disturbance, anemia, hypoxia, cardiac sources/arrhythmia, intracerebral event, toxicologic, neurologic, as well as other pathologies. IMPRESSION/MEDICAL DECISION MAKING: Patient presents with right upper extremity weakness and numbness. Unfortunately symptoms started 8 AM outside the window for thrombolytics. Patient without other significant deficits reported noted on exam. Patient with significant cardiac as well as diabetic history and unfortunately due to insurance issues have been off medications. Not anticoagulated in rapid A-fib. Question embolic stroke versus other type of CVA causing the right arm issues. In rapid A-fib and given some metoprolol here initially tried affect some rate control. Sent for CTA of the head and neck as well as CTA of the chest to exclude PE or signs of acute occlusion, dissection, or intercranial bleed. Blood work including electrolytes sent as well as troponin. Do not see clear acute ischemic findings on the EKG and denies active chest pain. Blood sugar elevated likely in relation to being off his medications with history of type 2 diabetes. Not anemic. CTA of the chest without acute PE noted. CT angiograms of head and neck in discussion with the radiologist Dr. Gimenez via phone without significant vascular abnormality other than noting changes in the left central sulcus concerning for stroke. This does fit with his right upper extremity issues. Heart rate is beginning control some with metoprolol. Outside the window for thrombolytics and no LVO for intervention. Discussed with Julissa swanson however regarding recommendations for antiplatelets and anticoagulation in the setting. Telestroke recommended starting aspirin and Plavix at this point and obtaining MRI to determine stroke burden. He states neurology in the morning to evaluate the amount of stroke burden and determine appropriate time to start heparin drip. Further stroke workup/care here obviously to be pursued. Discussed with the patient and his findings concerning for stroke and staying for further stroke care and control of his A-fib. They are in agreement with this. Hospitalist team contacted. DIAGNOSIS: CVA, A-fib RVR DISPOSITION: Hospitalist will evaluate Patient was agreeable with this plan. Critical Care I have personally spent 48 minutes of critical care time in the direct management of this patient. This includes bedside care, interpretation of diagnostic studies, and testing, discussion with consultants, patient, and family members, and other required patient management activities. These 48 minutes is in excess of all separately billable procedures. Past Med/Surg History Problem List (Updated 04/11/24 @ 17:59 by Natalia Tinoco PA-C) Hyperlipidemia Acute CVA (cerebrovascular accident) (Acute) Atrial fibrillation with rapid ventricular response (Acute) Horseshoe kidney Non-ST elevation LA (NSTEMI) (Acute) Parsonage-Garcia syndrome Rotator cuff tear arthropathy of left shoulder Coronary artery calcification Acute HFrEF (heart failure with reduced ejection fraction) Pulmonary nodule LVH (left ventricular hypertrophy) (Chronic) Left ventricular dysfunction (Chronic) Smokeless tobacco use (Chronic) Chronic systolic CHF (congestive heart failure) EF 20-25%; nonischemic cardiomyopathy Nephrolithiasis passed on own Gout Nonischemic cardiomyopathy Diabetes mellitus, type 2 IDDM CHF NYHA class II (symptoms with moderately strenuous activities) (Chronic) Metabolic disorder (Chronic) Obesity (Chronic) Obstructive sleep apnea (Chronic) due to weight loss, no longer needs device Paroxysmal atrial fibrillation (Chronic) Follows with Dr. Reese Hyperlipidemia LDL goal <100 (Chronic) Hypertension (Chronic) Medical History Chronic systolic CHF (congestive heart failure) History of kidney stones History of melanoma History of COVID-19 Nephrolithiasis Gout Right ureteral calculus Nonischemic cardiomyopathy CHF NYHA class II (symptoms with moderately strenuous activities) Metabolic disorder Obesity Obstructive sleep apnea Paroxysmal atrial fibrillation Diabetes mellitus, type 2 Hyperlipidemia LDL goal <100 Hypertension Surgical History H/O cardiac radiofrequency ablation History of tooth extraction History of cardiac radiofrequency ablation History of cardioversion H/O local excision of skin lesion Family History Sister Ovarian cancer Diabetes Breast cancer Father Diabetes Kidney stones Hypertension Atrial fibrillation Brother Diabetes Mother Diabetes GERD (gastroesophageal reflux disease) Hypertension Atrial fibrillation Other No family history of adverse response to anesthesia Denies family history of Prostate cancer Lung cancer Colorectal cancer Social History Smoking Status: Never smoker Tobacco Type: Smokeless Tobacco (Dip or Chew) Second Hand Exposure: Yes (hx); Do You Dip or Chew Tobacco: No; Hx Alcohol Use: Yes (hx-no longer drinks) Alcohol Intake Frequency: Monthly or Less Hx Substance Use: No Preferred Language: Yakut Communication Ability: Effective Visual Impairment: No Limitations Hearing Ability: Normal Out Of Town Collection Clerk Required: No Beliefs That Will Affect Care: None marital status: Current Living Situation: Spouse and Family Current Living Situation Comment: Lives with and daughter current occupational status: employed current occupation: [employer] How many Children do You have: 4 Feels Safe at Home: Yes Childhood Exposure to Second-Hand Smoke: Yes Diet: regular Diet Comment: regular caffeine: No during the past year weight has: decreased > 10 lbs Dental Care, Regularly: Yes Physical Activity Frequency: Daily Physical Activity Frequency Comment: walking at work Seatbelt Use: sometimes Sunscreen Use: No Assistive Devices: Glasses Allergies Allergies Allergy/AdvReac Type Severity Reaction Status Date / Time empagliflozin AdvReac Intermediate Nausea Verified 04/11/24 16:55 [From Jardiance] Home Meds Home Medications Medication Instructions Recorded Confirmed No Known Home Medications 04/11/24 04/11/24 Results & Data (ED) Vital Signs Vital Signs - 24 hr 04/11/24 15:07 04/11/24 15:13 04/11/24 15:30 Temperature 36.8 C Temperature Source Temporal Artery Scan Pulse Rate 151 H 145 H Pulse Rate from SpO2 Sensor Respiratory Rate 16 Respiratory Effort / Characteristics Non-Labored Spontaneous Respiratory Depth Normal Blood Pressure 165/132 H 162/120 H Blood Pressure Mean 143 Blood Pressure Position Sitting Pulse Oximetry 99 Oxygen Delivery Method Room Air Room Air Oxygen Flow Rate Sepsis Recent Fever Within 48 Hours No Sepsis New/Unexplained Change in Mental Status N/A Sepsis Action Taken by Nursing No Action Required 04/11/24 15:30 04/11/24 15:34 04/11/24 15:37 Temperature Temperature Source Pulse Rate 145 H 148 H Pulse Rate from SpO2 Sensor 123 H Respiratory Rate 18 Respiratory Effort / Characteristics Respiratory Depth Blood Pressure Blood Pressure Mean Blood Pressure Position Pulse Oximetry 95 99 Oxygen Delivery Method Room Air Room Air Oxygen Flow Rate 0 Sepsis Recent Fever Within 48 Hours Sepsis New/Unexplained Change in Mental Status Sepsis Action Taken by Nursing 04/11/24 16:04 04/11/24 16:05 04/11/24 16:05 Temperature Temperature Source Pulse Rate 109 H 116 H 116 H Pulse Rate from SpO2 Sensor Respiratory Rate 20 Respiratory Effort / Characteristics Respiratory Depth Blood Pressure 134/107 H 134/107 H 134/107 H Blood Pressure Mean 111 Blood Pressure Position Pulse Oximetry 96 Oxygen Delivery Method Room Air Oxygen Flow Rate Sepsis Recent Fever Within 48 Hours Sepsis New/Unexplained Change in Mental Status Sepsis Action Taken by Nursing 04/11/24 16:16 04/11/24 16:28 04/11/24 16:30 Temperature Temperature Source Pulse Rate 97 H 104 H Pulse Rate from SpO2 Sensor Respiratory Rate 16 Respiratory Effort / Characteristics Respiratory Depth Blood Pressure 146/116 H 124/100 124/100 Blood Pressure Mean 128 102 Blood Pressure Position Pulse Oximetry 97 Oxygen Delivery Method Room Air Oxygen Flow Rate Sepsis Recent Fever Within 48 Hours Sepsis New/Unexplained Change in Mental Status Sepsis Action Taken by Nursing 04/11/24 16:30 04/11/24 17:00 04/11/24 17:15 Temperature Temperature Source Pulse Rate 105 H 112 H 112 H Pulse Rate from SpO2 Sensor 119 H Respiratory Rate 18 16 19 Respiratory Effort / Characteristics Respiratory Depth Blood Pressure 124/100 140/112 H 136/109 H Blood Pressure Mean 102 121 118 Blood Pressure Position Pulse Oximetry 96 97 96 Oxygen Delivery Method Room Air Room Air Room Air Oxygen Flow Rate Sepsis Recent Fever Within 48 Hours Sepsis New/Unexplained Change in Mental Status Sepsis Action Taken by Nursing 04/11/24 17:20 Temperature Temperature Source Pulse Rate Pulse Rate from SpO2 Sensor Respiratory Rate Respiratory Effort / Characteristics Respiratory Depth Blood Pressure Blood Pressure Mean Blood Pressure Position Pulse Oximetry 99 Oxygen Delivery Method Room Air Oxygen Flow Rate Sepsis Recent Fever Within 48 Hours Sepsis New/Unexplained Change in Mental Status Sepsis Action Taken by Nursing Laboratory Data 04/11/24 15:23 04/11/24 15:23 Lab Results 04/11/24 04/11/24 04/11/24 Range/Units 15:23 15:29 17:12 WBC 6.00 (4.8-10.8) K/ul RBC 5.62 (4.70-6.10) M/uL Hgb 17.0 (14.0-18.0) g/dl POC Hgb 18.0 (14.0-18.0) g/dl Hct 50.1 (42.0-52.0) % POC Hct 53 H (42-52) % MCV 89.1 (80.0-100.0) fL MCH 30.2 (25.0-34.0) pg MCHC 33.9 (32.0-36.0) g/dL RDW Std Deviation 41.6 (36.4-46.3) fL RDW Coeff of Kaley 12.7 (11.5-14.5) % Plt Count 240 (130-400) K/uL MPV 12.6 H (9.4-12.4) fL Immature Gran % (Auto) 0.3 % Neut % (Auto) 64.7 % Lymph % (Auto) 24.2 % Garrard % (Auto) 9.3 % Eos % (Auto) 1.0 % Baso % (Auto) 0.5 % Neut # (Auto) 3.88 (1.40-6.50) K/uL Lymph # (Auto) 1.45 (1.20-3.40) K/uL Garrard # (Auto) 0.56 (0.11-0.59) K/uL Eos # (Auto) 0.06 (0.00-0.50) K/uL Baso # (Auto) 0.03 (0.00-0.20) K/uL Immature Gran # (Auto) 0.02 (0.01-0.20) K/uL PT 10.8 (9.0-12.0) Seconds INR 1.0 (0.9-1.1) APTT 24 (21-31) Seconds PTT Ratio 0.9 POC Sodium 134 L (135-144) mmol/L Sodium 131 L (136-145) mmol/L POC Potassium 4.0 (3.3-5.0) mmol/L Potassium 3.9 (3.5-5.1) mmol/L POC Chloride 95 L (101-112) mmol/L Chloride 94 L (98-107) mmol/L Carbon Dioxide 24 (21-32) mmol/L POC Total CO2 22 L (24-31) mmol/L Anion Gap 13 H (3-11) POC Anion Gap 21.0 (16-25) mmol/L POC BUN 15 (7-18) mg/dl BUN 15 (6-23) mg/dl Creatinine 1.27 (0.6-1.4) mg/dl POC Creatinine 1.2 (0.6-1.3) mg/dl Est Cr Clr Drug Dosing 87.2 ml/min eGFR 67.55 BUN/Creatinine Ratio 11.8 (10-20) Glucose 484 H* (70-99(Fasting)) mg/dl POC Glucose (70-99) mg/dl POC Glucose (other) 462 H* (70-99) mg/dl Calcium 9.8 (8.6-10.3) mg/dl POC Ioniz Calcium Glenna 1.19 (1.12-1.32) mmol/l Magnesium 1.8 (1.7-2.4) mg/dl Total Bilirubin 1.1 H (0.2-1.0) mg/dl AST 21 (13-39) U/L ALT 19 (7-52) U/L Alkaline Phosphatase 108 H (34-104) U/L Troponin I High Sens 98.3 H* 94.0 H* (0-20) pg/ml Total Protein 7.8 (6.0-8.3) gm/dl Albumin 4.9 (3.4-5.0) gm/dl Globulin 2.9 (2.5-4.0) gm/dl Albumin/Globulin Ratio 1.7 (0.9-2) 04/11/24 Range/Units 18:08 WBC (4.8-10.8) K/ul RBC (4.70-6.10) M/uL Hgb (14.0-18.0) g/dl POC Hgb (14.0-18.0) g/dl Hct (42.0-52.0) % POC Hct (42-52) % MCV (80.0-100.0) fL MCH (25.0-34.0) pg MCHC (32.0-36.0) g/dL RDW Std Deviation (36.4-46.3) fL RDW Coeff of Kaley (11.5-14.5) % Plt Count (130-400) K/uL MPV (9.4-12.4) fL Immature Gran % (Auto) % Neut % (Auto) % Lymph % (Auto) % Garrard % (Auto) % Eos % (Auto) % Baso % (Auto) % Neut # (Auto) (1.40-6.50) K/uL Lymph # (Auto) (1.20-3.40) K/uL Garrard # (Auto) (0.11-0.59) K/uL Eos # (Auto) (0.00-0.50) K/uL Baso # (Auto) (0.00-0.20) K/uL Immature Gran # (Auto) (0.01-0.20) K/uL PT (9.0-12.0) Seconds INR (0.9-1.1) APTT (21-31) Seconds PTT Ratio POC Sodium (135-144) mmol/L Sodium (136-145) mmol/L POC Potassium (3.3-5.0) mmol/L Potassium (3.5-5.1) mmol/L POC Chloride (101-112) mmol/L Chloride (98-107) mmol/L Carbon Dioxide (21-32) mmol/L POC Total CO2 (24-31) mmol/L Anion Gap (3-11) POC Anion Gap (16-25) mmol/L POC BUN (7-18) mg/dl BUN (6-23) mg/dl Creatinine (0.6-1.4) mg/dl POC Creatinine (0.6-1.3) mg/dl Est Cr Clr Drug Dosing ml/min eGFR BUN/Creatinine Ratio (10-20) Glucose (70-99(Fasting)) mg/dl POC Glucose 423 H* (70-99) mg/dl POC Glucose (other) (70-99) mg/dl Calcium (8.6-10.3) mg/dl POC Ioniz Calcium Glenna (1.12-1.32) mmol/l Magnesium (1.7-2.4) mg/dl Total Bilirubin (0.2-1.0) mg/dl AST (13-39) U/L ALT (7-52) U/L Alkaline Phosphatase (34-104) U/L Troponin I High Sens (0-20) pg/ml Total Protein (6.0-8.3) gm/dl Albumin (3.4-5.0) gm/dl Globulin (2.5-4.0) gm/dl Albumin/Globulin Ratio (0.9-2) Administered Medications Discontinued Medications Aspirin (Aspirin 81 Mg Chew) 324 mg PO NOW STA Stop: 04/11/24 16:35 Last Admin: 04/11/24 16:42 Dose: 324 mg Documented By: AURELIA Clopidogrel Bisulfate (Clopidogrel Bisulfate 300 Mg Tab) 300 mg PO NOW STA Stop: 04/11/24 16:35 Last Admin: 04/11/24 16:43 Dose: 300 mg Documented By: AURELIA Insulin Human Regular (Novolin-R Insulin Per Unit Charge) 5 units IV NOW STA Stop: 04/11/24 17:02 Last Admin: 04/11/24 18:10 Dose: 5 units Documented By: AURELIA Co-signed By: JOANN Ioversol (Optiray 320 125ml) 119 ml IV ONCE ONE Stop: 04/11/24 15:39 Last Admin: 04/11/24 15:38 Dose: 119 ml Documented By: LISSY Metoprolol Tartrate (Metoprolol Tartrate 1 Mg/Ml Vial) Confirm Administered Dose 5 mg IV .STK-MED ONE Stop: 04/11/24 15:30 Last Admin: 04/11/24 15:32 Dose: Not Given Documented By: AURELIA Metoprolol Tartrate (Metoprolol Tartrate 1 Mg/Ml Vial) 5 mg IV NOW STA Stop: 04/11/24 15:30 Last Admin: 04/11/24 15:30 Dose: 5 mg Documented By: AURELIA Metoprolol Tartrate (Metoprolol Tartrate 1 Mg/Ml Vial) 5 mg IV NOW STA Stop: 04/11/24 15:55 Last Admin: 04/11/24 16:05 Dose: 5 mg Documented By: AURELIA Imaging Data Radiologist's Impression: Chest X-Ray 04/11/24 15:13 INDICATION: Chest pain. TECHNIQUE: Frontal radiograph of the chest. COMPARISON: Noted. FINDINGS: Cardiomegaly. Mild pulmonary vascular congestion. Mild elevation of the right hemidiaphragm. No infiltrate, pleural effusion or pneumothorax. No acute osseous abnormality evident. IMPRESSION: Mild pulmonary vascular congestion. Electronically signed by Kane Sequeira 04-11-2024 4:24 PM Chest CTA 04/11/24 15:22 CT pulmonary angiogram with IV contrast History: Chest pain COMPARISON: None TECHNIQUE: CT angiography of the chest was performed without IV contrast followed by IV contrast, including 3D post processing CTA image reconstruction. Dose reduction techniques were achieved by using automatic exposure control and/or adjustment of mA and/or kV according to patient size and/or use of iterative reconstruction technique. FINDINGS: Diagnostic quality: Adequate There is no evidence for pulmonary embolism. The heart is enlarged. Moderate coronary calcification. There is no pericardial effusion. There are no abnormally enlarged hilar or mediastinal lymph nodes. The central tracheobronchial tree is clear. The lungs are clear. There is no pleural effusion. Limited visualized upper abdomen. No destructive osseous changes are seen. IMPRESSION: No evidence for pulmonary embolism. Cardiomegaly. Electronically signed by Nuno Gimenez 04-11-2024 4:[address] 04/11/24 15:[address] without contrast CT angiogram of the neck CT angiogram of the brain with contrast Provided History: Neuro deficit Comparison: None Technique: HEAD CT: Using multidetector thin collimation helical acquisition technique, axial, coronal and sagittal CT images from the skull base to the vertex were obtained without intravenous contrast. HEAD and NECK CTA: During rapid bolus intravenous injection of nonionic contrast material, axial images were obtained using thin collimation multidetector helical technique from the base of the neck through the of vertex of the head. This CT angiogram data was reconstructed at thin intervals with mild overlap. 3D reconstructions were obtained. The axial source images, multiplanar reformations, 3D reconstructions in both maximum intensity projection display and volume rendered models were reviewed. Dose reduction techniques were achieved by using automatic exposure control and/or adjustment of mA and/or kV according to patient size and/or use of iterative reconstruction technique. Findings: Head CT: There is no intracranial hemorrhage, mass effect, or midline shift. Loss of the bella/white matter differentiation about the high left central sulcus, and involving the postcentral gyrus, concerning for acute infarct. Ventricles are proportionate to the cerebral sulci. Head CTA demonstrates no aneurysm or stenosis of the major intracranial arteries. Neck CTA demonstrates no stenosis of the major cervical arteries. The origins of the great vessels from the aortic arch are patent. The normal distal right internal carotid artery measures 5 mm. The normal distal left internal carotid artery measures 5 mm. No mass is noted within the visualized portions of the cervical soft tissues or lung apices. Impression: 1. Head CTA demonstrates no aneurysm or stenosis of the major intracranial arteries, 2. Neck CTA demonstrates no stenosis of the major cervical arteries. 3. Loss of the bella/white matter differentiation about the high left central sulcus, and involving the postcentral gyrus, concerning for acute infarct. 4. No intracranial hemorrhage. Findings discussed with Dr. Crook by Dr. Gimenez at 4:09 PM, 04/11/2024 Electronically signed by Nuno Gimenez 04-11-2024 4:12 PM Head CTA 04/11/24 15:[address] without contrast CT angiogram of the neck CT angiogram of the brain with contrast Provided History: Neuro deficit Comparison: None Technique: HEAD CT: Using multidetector thin collimation helical acquisition technique, axial, coronal and sagittal CT images from the skull base to the vertex were obtained without intravenous contrast. HEAD and NECK CTA: During rapid bolus intravenous injection of nonionic contrast material, axial images were obtained using thin collimation multidetector helical technique from the base of the neck through the of vertex of the head. This CT angiogram data was reconstructed at thin intervals with mild overlap. 3D reconstructions were obtained. The axial source images, multiplanar reformations, 3D reconstructions in both maximum intensity projection display and volume rendered models were reviewed. Dose reduction techniques were achieved by using automatic exposure control and/or adjustment of mA and/or kV according to patient size and/or use of iterative reconstruction technique. Findings: Head CT: There is no intracranial hemorrhage, mass effect, or midline shift. Loss of the bella/white matter differentiation about the high left central sulcus, and involving the postcentral gyrus, concerning for acute infarct. Ventricles are proportionate to the cerebral sulci. Head CTA demonstrates no aneurysm or stenosis of the major intracranial arteries. Neck CTA demonstrates no stenosis of the major cervical arteries. The origins of the great vessels from the aortic arch are patent. The normal distal right internal carotid artery measures 5 mm. The normal distal left internal carotid artery measures 5 mm. No mass is noted within the visualized portions of the cervical soft tissues or lung apices. Impression: 1. Head CTA demonstrates no aneurysm or stenosis of the major intracranial arteries, 2. Neck CTA demonstrates no stenosis of the major cervical arteries. 3. Loss of the bella/white matter differentiation about the high left central sulcus, and involving the postcentral gyrus, concerning for acute infarct. 4. No intracranial hemorrhage. Findings discussed with Dr. Crook by Dr. Gimenez at 4:09 PM, 04/11/2024 Electronically signed by Nuno Gimenez 04-11-2024 4:12 PM Neck CTA 04/11/24 15:[address] without contrast CT angiogram of the neck CT angiogram of the brain with contrast Provided History: Neuro deficit Comparison: None Technique: HEAD CT: Using multidetector thin collimation helical acquisition technique, axial, coronal and sagittal CT images from the skull base to the vertex were obtained without intravenous contrast. HEAD and NECK CTA: During rapid bolus intravenous injection of nonionic contrast material, axial images were obtained using thin collimation multidetector helical technique from the base of the neck through the of vertex of the head. This CT angiogram data was reconstructed at thin intervals with mild overlap. 3D reconstructions were obtained. The axial source images, multiplanar reformations, 3D reconstructions in both maximum intensity projection display and volume rendered models were reviewed. Dose reduction techniques were achieved by using automatic exposure control and/or adjustment of mA and/or kV according to patient size and/or use of iterative reconstruction technique. Findings: Head CT: There is no intracranial hemorrhage, mass effect, or midline shift. Loss of the bella/white matter differentiation about the high left central sulcus, and involving the postcentral gyrus, concerning for acute infarct. Ventricles are proportionate to the cerebral sulci. Head CTA demonstrates no aneurysm or stenosis of the major intracranial arteries. Neck CTA demonstrates no stenosis of the major cervical arteries. The origins of the great vessels from the aortic arch are patent. The normal distal right internal carotid artery measures 5 mm. The normal distal left internal carotid artery measures 5 mm. No mass is noted within the visualized portions of the cervical soft tissues or lung apices. Impression: 1. Head CTA demonstrates no aneurysm or stenosis of the major intracranial arteries, 2. Neck CTA demonstrates no stenosis of the major cervical arteries. 3. Loss of the bella/white matter differentiation about the high left central sulcus, and involving the postcentral gyrus, concerning for acute infarct. 4. No intracranial hemorrhage. Findings discussed with Dr. Crook by Dr. Gimenez at 4:09 PM, 04/11/2024 Electronically signed by Nuno Gimenez 04-11-2024 4:12 PM Discharge Plan Visit Data Chief Complaint: Cardiac Assessment Stated Complaint: RT ARM CAN'T FEEL ED Provider: Romero Crook Discharge Problem: Atrial fibrillation with rapid ventricular response, Acute CVA (cerebrovascular accident) Patient Disposition: Admitted As Inpatient Forms Stand Alone Forms: [facility] [email or web address] Prescriptions Prescriptions: No Action No Known Home Medications Referrals Referrals: Margarita Morgan, [Primary Care Provider] -
[2024-04-11] MEDS: OPTIRAY 320 125ml IV ONE (15:38)
[2024-04-11 15:40] LABS: iSTAT Creatinine 1.2 mg/dl (0.6-1.3); iSTAT Ionized Calcium 1.19 mmol/l (1.12-1.32)
[2024-04-11 15:55] LABS: Basophils # (auto) 0.03 K/uL (0.00-0.20); Basophils % (auto) 0.5 %; Eosinophils # (auto) 0.06 K/uL (0.00-0.50); Hematocrit (blood only) 50.1 % (42.0-52.0); Immature Granulocytes # (auto) 0.02 K/uL (0.01-0.20); Immature Granulocytes % (auto) 0.3 %; Lymphocytes # (auto) 1.45 K/uL (1.20-3.40); Lymphocytes % (auto) 24.2 %; Mean Corpuscular Hemoglobin 30.2 pg (25.0-34.0); Mean Corpuscular Hgb Conc 33.9 g/dL (32.0-36.0); Mean Corpuscular Volume 89.1 fL (80.0-100.0); Mean Platelet Volume 12.6 fL (9.4-12.4); Monocytes # (auto) 0.56 K/uL (0.11-0.59); Monocytes % (auto) 9.3 %; Neutrophils # (auto) 3.88 K/uL (1.40-6.50); Neutrophils % (auto) 64.7 %; Platelet Count 240 K/uL (130-400); RDW Coefficient of Variation 12.7 % (11.5-14.5); RDW Standard Deviation 41.6 fL (36.4-46.3); Red Blood Count 5.62 M/uL (4.70-6.10)
--- NOTE | 2024-04-11 16:13 | CT Scan Report ---
CT pulmonary angiogram with IV contrast History: Chest pain COMPARISON: None TECHNIQUE: CT angiography of the chest was performed without IV contrast followed by IV contrast, including 3D post processing CTA image reconstruction. Dose reduction techniques were achieved by using automatic exposure control and/or adjustment of mA and/or kV according to patient size and/or use of iterative reconstruction technique. FINDINGS: Diagnostic quality: Adequate There is no evidence for pulmonary embolism. The heart is enlarged. Moderate coronary calcification. There is no pericardial effusion. There are no abnormally enlarged hilar or mediastinal lymph nodes. The central tracheobronchial tree is clear. The lungs are clear. There is no pleural effusion. Limited visualized upper abdomen. No destructive osseous changes are seen. IMPRESSION: No evidence for pulmonary embolism. Cardiomegaly. Electronically signed by Nuno Gimenez 04-11-2024 4:12 PM
--- NOTE | 2024-04-11 16:13 | CT Scan Report ---
Head CT without contrast CT angiogram of the neck CT angiogram of the brain with contrast Provided History: Neuro deficit Comparison: None Technique: HEAD CT: Using multidetector thin collimation helical acquisition technique, axial, coronal and sagittal CT images from the skull base to the vertex were obtained without intravenous contrast. HEAD and NECK CTA: During rapid bolus intravenous injection of nonionic contrast material, axial images were obtained using thin collimation multidetector helical technique from the base of the neck through the of vertex of the head. This CT angiogram data was reconstructed at thin intervals with mild overlap. 3D reconstructions were obtained. The axial source images, multiplanar reformations, 3D reconstructions in both maximum intensity projection display and volume rendered models were reviewed. Dose reduction techniques were achieved by using automatic exposure control and/or adjustment of mA and/or kV according to patient size and/or use of iterative reconstruction technique. Findings: Head CT: There is no intracranial hemorrhage, mass effect, or midline shift. Loss of the bella/white matter differentiation about the high left central sulcus, and involving the postcentral gyrus, concerning for acute infarct. Ventricles are proportionate to the cerebral sulci. Head CTA demonstrates no aneurysm or stenosis of the major intracranial arteries. Neck CTA demonstrates no stenosis of the major cervical arteries. The origins of the great vessels from the aortic arch are patent. The normal distal right internal carotid artery measures 5 mm. The normal distal left internal carotid artery measures 5 mm. No mass is noted within the visualized portions of the cervical soft tissues or lung apices. Impression: 1. Head CTA demonstrates no aneurysm or stenosis of the major intracranial arteries, 2. Neck CTA demonstrates no stenosis of the major cervical arteries. 3. Loss of the bella/white matter differentiation about the high left central sulcus, and involving the postcentral gyrus, concerning for acute infarct. 4. No intracranial hemorrhage. Findings discussed with Dr. Crook by Dr. Gimenez at 4:09 PM, 04/11/2024 Electronically signed by Nuno Gimenez 04-11-2024 4:12 PM
--- NOTE | 2024-04-11 16:24 | XRay Report ---
INDICATION: Chest pain. TECHNIQUE: Frontal radiograph of the chest. COMPARISON: Noted. FINDINGS: Cardiomegaly. Mild pulmonary vascular congestion. Mild elevation of the right hemidiaphragm. No infiltrate, pleural effusion or pneumothorax. No acute osseous abnormality evident. IMPRESSION: Mild pulmonary vascular congestion. Electronically signed by Kane Sequeira 04-11-2024 4:24 PM
[2024-04-11 16:25] LABS: Albumin Globulin Ratio 1.7 (0.9-2); Albumin Level 4.9 gm/dl (3.4-5.0); BUN Creatinine Ratio 11.8 (10-20); Bilirubin,Total 1.1 mg/dl (0.2-1.0); Calcium 9.8 mg/dl (8.6-10.3); Creatinine Clr Calc Pharmacy 87.2 ml/min; Globulin 2.9 gm/dl (2.5-4.0); Magnesium 1.8 mg/dl (1.7-2.4); Partial Thromboplastin Ratio 0.9; Partial Thromboplastin Time 24 Seconds (21-31); Potassium 3.9 mmol/L (3.5-5.1); Prothrombin Time 10.8 Seconds (9.0-12.0); Total Protein 7.8 gm/dl (6.0-8.3); Troponin I High Sensitivity 98.3 pg/ml (0-20)
[2024-04-11] MEDS: ASPIRIN 81 MG CHEW PO STA (16:42)
[2024-04-11] MEDS: CLOPIDOGREL BISULFATE 300 MG TAB PO STA (16:43)
--- NOTE | 2024-04-11 17:04 | History & Physical Report ---
Date of Service April 11, 2024 Assessment & Plan (1) Acute CVA (cerebrovascular accident): (2) Atrial fibrillation with rapid ventricular response: (3) Diabetes mellitus, type 2: (4) Chronic systolic CHF (congestive heart failure): (5) Hyperlipidemia: Plan This is a 53 year old gentleman with past medical history of A fib, obesity, HTN, HLD, Type 2 DM, nonischemic cardiomyopathy, N-STEMI who reported to the ED on 04/11 for right arm weakness. Patient has been off his daily medications for 10 months due to losing his insurance. These medications included amiodarone 200 mg daily, Eliquis 5 mg twice daily, atorvastatin 40 mg daily, Basaglar 20 units daily, Febuxostat 40 mg daily, Entresto 24 mg - 26 mg twice daily, Ozempic once weekly, spironolactone 25 mg once daily, metformin 1000 mg daily, metoprolol succinate 100 mg daily. #CVA CBC stable BMP is stable electrolytes. Glucose found to be elevated at 484 Chest x-ray: Mild pulmonary vascular congestion Chest CTA: No evidence for PE Head CT: Loss of bella/white matter differentiation about the high left central sulcus, involving the postmenstrual gyrus concerning for acute infarct. No intracranial hemorrhage Head/neck CTA: No aneurysm or stenosis in the major intracranial arteries or m ajor cervical arteries. Per the ED, telestroke at [place] has recommended Plavix, aspirin, brain MRI. Patient outside of window of [facility] Brain MRI pending Hold antihypertensives for 24 to 48 hours to allow for permissive hypertension N.p.o. pending dysphagia assessment. The patient clears assessment, can be started on heart healthy, carb consistent diet Restart statin in AM Echo pending, last echo ([facility]) 03/11/2023 revealed EF of 20 to 25%. Cholesterol panel and A1c pending for a.m. Neurology consultation pending, appreciate recommendations PT/OT consulted, appreciate recommendations #Atrial fibrillation/CHF Previously on metoprolol succinate 100 mg, amiodarone 200 mg, Entresto 24mg/26mg BID, Eliquis 5mg BID Troponin 98.3, repeat pending. Likely secondary to demand from A fib and CVA given absence of CP and no ischemic changes on EKG. S/p metoprolol tartrate 5 mg IV x 2 Start 25 mg p.o. metoprolol tartrate evening of 04/11 Appreciate neurology recommendations on when is safe to resume Eliquis Updated echo pending Consider cardiology consult based on echo results. #Type 2 Diabetes Previously on Basaglar 20 units daily, Metformin, and Ozempic BG 484 on admission. s/p 5 units IV insulin given Lantus 10 units BID Novolog sliding scale, adjust as necessary Pharmacy consulted to aide in glycemic management Updated A1c pending in AM, most recent 10/16/22 6.3% DVT prophylaxis: SCD's, encourage ambulation. restart Eliquis when able Code: DNR/DNI Case discussed w/ Dr. Jama at time of admission. History of Present Illness Primary Care Provider: Margarita Morgan, This is a 53 year old gentleman with past medical history of A fib, obesity, HTN, HLD, Type 2 DM, nonischemic cardiomyopathy, N-STEMI who reported to the ED on 04/11 for right arm weakness. Patient was seen and examined, at bedside. Patient reports that he has been off of his daily medications for about the last 10 months due to losing his insurance. He was supposed to get insurance again on 04/17.These medications included amiodarone 200 mg daily, Eliquis 5 mg twice daily, atorvastatin 40 mg daily, Basaglar 20 units daily, Febuxostat 40 mg daily, Entresto 24 mg - 26 mg twice daily, Ozempic once weekly, spironolactone 25 mg once daily, metformin 1000 mg daily, metoprolol succinate 100 mg daily. Patient reports that yesterday he had an episode of chest pain and shortness of breath. He states that this was nothing out of the ordinary for him. He reports that he then woke up this morning and did not feel quite right. He then developed right arm numbness and came to the ER for further evaluation. He denies any lower extremity weakness or numbness. He denies any changes in his vision or hearing. No facial droop. No slurred speech. Today he denies any chest pain or shortness of breath. Denies any GI or urinary complaints. Denies any lower extremity edema. Denies any lower extremity pain. While in the ED patient underwent imaging of his head and neck and was found to have a CVA. He was given 300 mg of Plavix and 324 mg of aspirin. Telestroke was consulted and had recommended pursuing an MRI and a neurology consultation at our facility. He also underwent a chest x-ray along with a CTA which were both negative. Code discussion to take place with the patient and he did confirm that he has a DNR. Allergies Allergy/AdvReac Type Severity Reaction Status Date / Time empagliflozin AdvReac Intermediate Nausea Verified 04/11/24 16:55 [From Jardiance] Home Medications Medication Instructions Recorded Confirmed Type apixaban 5 mg tablet (Eliquis) 5 mg PO BID #60 tabs 04/13/24 Rx aspirin 81 mg tablet,delayed 81 mg PO DAILY #30 tabs 04/13/24 Rx release atorvastatin 80 mg tablet 80 mg PO DAILY #30 tabs 04/13/24 Rx insulin degludec 100 unit/mL (3 20 unit (0.2 mL) subcut DAILY #15 04/13/24 Rx mL) subcutaneous pen (Tresiba mL FlexTouch U-100 insulin) metformin 500 mg tablet,extended 500 mg PO UD #60 tabs 04/13/24 Rx release 24 hr metoprolol succinate 100 mg 100 mg PO DAILY #30 tabs 04/13/24 Rx tablet,extended release 24 hr Past Med/Surg History Problem List Hyperlipidemia Acute CVA (cerebrovascular accident) (Acute) Atrial fibrillation with rapid ventricular response (Acute) Horseshoe kidney Non-ST elevation [place] (NSTEMI) (Acute) Parsonage-Garcia syndrome Rotator cuff tear arthropathy of left shoulder Coronary artery calcification Acute HFrEF (heart failure with reduced ejection fraction) Pulmonary nodule LVH (left ventricular hypertrophy) (Chronic) Left ventricular dysfunction (Chronic) Smokeless tobacco use (Chronic) Chronic systolic CHF (congestive heart failure) EF 20-25%; nonischemic cardiomyopathy Nephrolithiasis passed on own Gout Nonischemic cardiomyopathy Diabetes mellitus, type 2 IDDM CHF NYHA class II (symptoms with moderately strenuous activities) (Chronic) Metabolic disorder (Chronic) Obesity (Chronic) Obstructive sleep apnea (Chronic) due to weight loss, no longer needs device Paroxysmal atrial fibrillation (Chronic) Follows with Dr. Reese Hyperlipidemia LDL goal <100 (Chronic) Hypertension (Chronic) Medical History History of kidney stones History of melanoma Hx (face) History of COVID-19 Dx 2020- no symptoms now Right ureteral calculus hx Surgical History H/O cardiac radiofrequency ablation April 2023. History of tooth extraction History of cardiac radiofrequency ablation had 08/2021 @ [facility] History of cardioversion multiple, most recent 09/2022 H/O local excision of skin lesion Family History Sister Ovarian cancer Diabetes Breast cancer Father Diabetes Kidney stones Hypertension Atrial fibrillation Brother Diabetes Mother Diabetes GERD (gastroesophageal reflux disease) Hypertension Atrial fibrillation Other No family history of adverse response to anesthesia Denies family history of Prostate cancer Lung cancer Colorectal cancer Social History Smoking Status: Never smoker Tobacco Type: Smokeless Tobacco (Dip or Chew) Second Hand Exposure: Yes (hx); Do You Dip or Chew Tobacco: No; Hx Alcohol Use: No Hx Substance Use: No Preferred Language: Senegalese Communication Ability: Effective Visual Impairment: No Limitations Hearing Ability: Normal Switchboard Operator Assistant Required: No Beliefs That Will Affect Care: None marital status: Current Living Situation: Spouse Current Living Situation Comment: Lives with and daughter current occupational status: employed current occupation: pa [employer] How many Children do You have: 4 Feels Safe at Home: Yes Safety Concerns: Feels Safe At This Time Childhood Exposure to Second-Hand Smoke: Yes Diet: regular Diet Comment: regular caffeine: No during the past year weight has: decreased > 10 lbs Dental Care, Regularly: Yes Physical Activity Frequency: Daily Physical Activity Frequency Comment: walking at work Seatbelt Use: sometimes Sunscreen Use: No Assistive Devices: None Physical Exam Constitutional: WD/WN, vitals as above Eyes: PERRL, conjunctivae normal, anicteric sclerae Respiratory: normal respiratory effort, lungs clear to auscultation Cardiovascular: irregularly, irregular. no LE edema. Psychiatric: A+Ox3, euthymic affect No aphasia. No facial droop or slurred speech. Tongue midline sensation and movement prickly of the right wrist and hand. Decreased strength in right upper extremity. Good movement and strength of the lower extremities bilaterally as well as left upper extremity. Ambulatory. Results & Data Results & Data Vital Signs (Past 12 Hours) Vital Signs Temp Pulse Resp BP Pulse Ox O2 Del Method O2 Flow Rate 04/11/24 16:28 104 H 124/100 04/11/24 16:05 116 H 134/107 H 04/11/24 16:05 116 H 134/107 H 04/11/24 15:37 148 H 04/11/24 15:34 99 Room Air 0 04/11/24 15:30 145 H 18 95 Room Air 04/11/24 15:30 145 H 162/120 H 04/11/24 15:13 Room Air 04/11/24 15:07 36.8 C 151 H 16 165/132 H 99 Room Air Supervising Physician Co-Signing Physician Notes I personally saw and examined the patient. I independently reviewed the labs, EKG, imaging, problem list, medication list, past medical history and family history. I verified all segal points and agree with Natalia Tinoco PA-C with the following exceptions and/or additions: 53-year-old male presents to the ER with right upper extremity weakness and decreased coordination. He ran out of all of his medications in last year when he lost his insurance therefore has not been taking anything for his diabetes and atrial fibrillation O/E HS increased rate, irregular rhthm, no murmurs A/P Acute CVA - stroke order set, TTE, MRI brain, aspirin, clopidogrel, atorvastatin per telestroke neurology recommendations, consult neurology for when to restart Eliquis A. fib RVR - he has not been on Eliquis today therefore we will start with rate control using metoprolol tartrate 25 mg p.o. BID, neurology to decide when to start Eliquis as above T2DM - consult pharmacy for glycemic control. Previously did not tolerate Ozempic but reassured patient multiple other GLP-1's and he could also try SGLT2 inhibitors once his insurance kicks back in the beginning of next month PG Care Time/CCT Total # of Minutes Spent Total Time Spent with Patient: Total time spent is greater than 50% in coordination of care (as documented) at patient's floor/unit and/or counseling patient: Coding Level of Care Code 27498 INT INP/OBS CARE 3/75MIN Diagnoses Acute CVA (cerebrovascular accident) I63.9 Atrial fibrillation with rapid ventricular response I48.91 Diabetes mellitus, type 2 E11.9 Chronic systolic CHF (congestive heart failure) I50.22 Hyperlipidemia E78.5
[2024-04-11] MEDS: NovoLIN-R INSULIN PER UNIT CHARGE IV STA (18:10)
[2024-04-11] MEDS ORDERED: PHARMACY GLYCEMIC MGMT CONSULT PRN (19:28)
[2024-04-11] MEDS: INSULIN ASPART PER UNIT CHARGE SC SCH (21:04)
[2024-04-11] MEDS: LANTUS PER UNIT CHARGE SQ SCH (21:24)
[2024-04-11] MEDS: METOPROLOL TARTRATE 25 MG TAB PO SCH (21:25)
[2024-04-12] MEDS: ACETAMINOPHEN 500 MG TAB PO PRN (00:12)
[2024-04-12] MEDS ORDERED: DEXTROSE 50% 50 ML SYRINGE IV PRN (00:15)
[2024-04-12] MEDS ORDERED: GLUCOSE 40% GEL 15 GM TUBE PO PRN (00:15)
[2024-04-12] MEDS ORDERED: GLUCOSE 10 TAB/TUBE PO PRN (00:15)
[2024-04-12] MEDS ORDERED: GLUCAGON FOR INJ 1 MG VIAL SQ PRN (00:15)
[2024-04-12] MEDS ORDERED: CARBOHYDRATES FOR HYPOGLYCEMIA PO PRN (00:15)
[2024-04-12] MEDS: INSULIN ASPART PER UNIT CHARGE SC SCH (00:19)
[2024-04-12 04:05] LABS: Hematocrit (blood only) 44.6 % (42.0-52.0); Hemoglobin 15.2 g/dl (14.0-18.0); Mean Corpuscular Hemoglobin 30.3 pg (25.0-34.0); Mean Corpuscular Hgb Conc 34.1 g/dL (32.0-36.0); Mean Corpuscular Volume 88.8 fL (80.0-100.0); Mean Platelet Volume 12.1 fL (9.4-12.4); Platelet Count 232 K/uL (130-400); RDW Coefficient of Variation 12.9 % (11.5-14.5); RDW Standard Deviation 42.2 fL (36.4-46.3); Red Blood Count 5.02 M/uL (4.70-6.10); White Blood Count 6.49 K/ul (4.8-10.8)
[2024-04-12 04:19] LABS: BUN Creatinine Ratio 12.1 (10-20); Calcium 9.5 mg/dl (8.6-10.3); Creatinine Clr Calc Pharmacy 89.3 ml/min; Potassium 3.5 mmol/L (3.5-5.1)
--- NOTE | 2024-04-12 07:42 | Magnetic Resonance Report ---
EXAM: MR brain wo con CLINICAL HISTORY: stroke TECHNIQUE: Multisequential and multiplanar images of the brain were submitted for review without contrast. COMPARISON: prior CT dated 04/11/2024 is available for comparison. FINDINGS: FOcal area of diffusion restriction is seen in left chyna-rolandic region suggestive of acute infarct. Generalized parenchymal atrophy is appreciated. Small area of chronic infarct seen in right parietal lobe. Scattered foci of increased T2/FLAIR signal abnormality are identified within the bilateral periventricular and subcortical white matter, and are most commonly associated with chronic small vessel ischemic disease. No intracranial hemorrhage, mass effect, midline shift, extra-axial collection, or hydrocephalus is identified. Ventricles, sulci, and basal cisterns are symmetric and normal in size and configuration. Diffusion-weighted sequences show no evidence of acute ischemic infarction. Midline structures including the pituitary gland, corpus callosum, pineal region, and brainstem are unremarkable. The craniovertebral junction is within normal limits. No calvarial abnormalities are identified. The paranasal sinuses and mastoid air cells are clear. Orbital structures are unremarkable. Appropriate flow voids are present in the visualized intracranial vessels. IMPRESSION: 1. Persistent acute non hemorrhagic infarct in left perirolandic region. 2. Chronic small vessel ischemic disease. 3. Diffuse cerebral atrophy. Electronically signed by Lui Juárez 04-12-2024 07:41 AM
[2024-04-12 08:50] LABS: Estimated Average Glucose 424 mg/dl; Hemoglobin A1C 16.4 % (4.5-5.6)
--- NOTE | 2024-04-12 10:41 | Neurology Consultation ---
Date of Consultation April 12, 2024 Assessment & Plan (1) Acute CVA (cerebrovascular accident): (2) Atrial fibrillation with rapid ventricular response: (3) Hypertension: (4) Diabetes mellitus, type 2: (5) Chronic systolic CHF (congestive heart failure): Plan This patient suffered a relatively small left parietal acute stroke April 11 likely small vessel ischemic in nature. However, given his persistent atrial fibrillation and rapid ventricular response, I cannot entirely exclude an embolic event. There are no other signs of acute embolus but the patient does have mild to moderate old small vessel ischemic disease. CT angiography of the head and neck showed no large vessel stenoses or anomalies. Echocardiogram is pending. The patient has multiple risk factors for ischemic stroke including significant hypertension and diabetes (hemoglobin A1c 16.4) as well as dyslipidemia. He has heart failure and persistent atrial fibrillation which puts him at great risk for embolic stroke. His blood pressure and sugar are better this morning after treatment. Recommendations: 1. Agree with antiplatelet medication to prevent further stroke. Given his history I would continue with 81 mg aspirin tablet daily and add the anticoagulant 2. Consider adding anticoagulant to prevent embolic stroke. 3. Awaiting echocardiogram results 4. Physical and Occupational Therapy, increasing activity as able 5. Control blood pressure as you are doingaiming for a mean arterial pressure of 95-100. 6. Control glucose as you are doing trying to get the hemoglobin A1c, initially, less than 12. 7. Technically, the patient would be a high-dose statin candidatecontinue atorvastatin 40 mg daily. 8. Patient is going to be needing a way to obtain the medications he needs for his heart, blood pressure, and glucose. Overall, I spent a total of 90 minutes with this case including review of records, review of MRI films, direct evaluation the patient at bedside, report generation, and discussion of the case with the patient and RN at bedside, and Dr. Jama including differential diagnosis and treatment options. History of Present Illness Reason for Consultation: Patient is a 53-year-old, who I was asked to see at the request of Natalia Negrete PA-C, for neurologic evaluation regarding stroke Requesting Physician: Natalia Negrete PA-C Attending Physician: Brayan Jama MD History of Present Illness This patient has a longstanding history of multiple, complex cardiac issues including nonischemic cardiomyopathy, HFrEF (20 to 25%), hypertension, type 2 diabetes, dyslipidemia, and paroxysmal atrial fibrillation. The patient has not been able to take any of his medications because he does not have insurance yet. He is working currently but has worked long enough to get insurance (perhaps another week). Therefore, he has not been taking any of his typical medications. The patient went to sleep on April 10 at 2300 hrs, feeling well. He awoke sometime around 0 700-0 800 feeling "off". He had a little nausea but does not remember any weakness or numbness. He went back to sleep and woke up somewhere between 0830 and 0930. This time he felt his right hand and arm were weak and clumsy. He did not have any leg symptoms, face symptoms, speech or mentation problems or vision difficulties. There may have been a bit of balance problems that day but was not specific. He did not fall. He arrived to the emergency room on April 11 at 02/21/2006 with a temperature 36.8, pulse 151, respiratory rate 16, blood pressure 165/132, and O2 saturation was 96%. He was in atrial fibrillation with a rapid ventricular rate. On neurologic examination in the emergency room he had some right upper extremity weakness only. CBC was unremarkable. CHEM profile revealed a glucose of 484 and an elevated troponin of 96. Chest x-ray showed mild pulmonary vascular congestion. CT angiography of the chest showed no pulmonary embolism. CT scan of the head showed vague changes consistent with a possible left p arietal new stroke. CT angiography of the head and neck were unremarkable with no vascular anomalies or stenoses. MRI of the brain revealed an acute relatively small (to medium) left parietal stroke in the perirolandic region. There was mild to moderate old small vessel ischemic disease seen also. I reviewed all these films. This morning, the patient feels his right upper extremity is the same as yesterday. There is no change in the weakness/clumsiness. Although it tingle some there is no numbness. He has no symptoms in his right leg or right face. The left side is asymptomatic. He says he is walking this morning without any difficulty. Glucose this morning was 212. Hemoglobin A1c was 16.4. Triglycerides were 176 and total cholesterol was 186. Allergies Allergy/AdvReac Type Severity Reaction Status Date / Time empagliflozin AdvReac Intermediate Nausea Verified 04/11/24 16:55 [From Jardiance] Home Medications Medication Instructions Recorded Confirmed Type No Known Home Medications 04/11/24 04/11/24 History Patient History Medical History History of kidney stones History of melanoma Hx (face) History of COVID-19 Dx 2020- no symptoms now Right ureteral calculus hx Surgical History H/O cardiac radiofrequency ablation April 2023. History of tooth extraction [place] cardiac [place] [facility] [place] of cardioversion multiple, most recent 09/2022 H/O local excision of skin lesion Family History Sister Ovarian cancer Diabetes Breast cancer Father Diabetes Kidney stones Hypertension Atrial fibrillation Brother Diabetes Mother Diabetes GERD (gastroesophageal reflux disease) Hypertension Atrial fibrillation Other No family history of adverse response to anesthesia Denies family history of Prostate cancer Lung cancer Colorectal cancer Social History Smoking Status: Never smoker Tobacco Type: Smokeless Tobacco (Dip or Chew) Second Hand Exposure: Yes (hx); Do You Dip or Chew Tobacco: No; Hx Alcohol Use: No Hx Substance Use: No Preferred Language: Yakut Communication Ability: Effective Visual Impairment: No Limitations Hearing Ability: Normal Human Resources Representative Required: No Beliefs That Will Affect Care: None marital status: Current Living Situation: Spouse Current Living Situation Comment: Lives with and daughter current occupational status: employed current occupation: [employer] How many Children do You have: 4 Feels Safe at Home: Yes Safety Concerns: Feels Safe At This Time Childhood Exposure to Second-Hand Smoke: Yes Diet: regular Diet Comment: regular caffeine: No during the past year weight has: decreased > 10 lbs Dental Care, Regularly: Yes Physical Activity Frequency: Daily Physical Activity Frequency Comment: walking at work Seatbelt Use: sometimes Sunscreen Use: No Assistive Devices: None Review of Systems Constitutional: no fever, no fatigue and no weakness Eyes: no diplopia, no eye pain and no worsening vision Ear, Nose, Mouth, Throat: no ear pain, no tinnitus, no hearing loss, no dizziness, no snoring, no hoarseness and no dysphagia Respiratory: no cough and no dyspnea Cardiovascular: no chest pain, no palpitations and no lightheadedness Gastrointestinal: no abdominal pain, no nausea and no vomiting Musculoskeletal: no back pain, no neck pain, no radicular pain, no joint pain and no myalgia Integumentary: no rash and no lesions Neurologic: + localized weakness and + headache(s); no gait abnormality, no generalized weakness, no tingling, no numbness, no tremor(s), no abnormal movements, no abnormal speech, no confusion and no memory loss Psychiatric: no depression, no irritability, no anxiety, no difficulty concentrating, no confusion and no hallucinations Endocrine: no fatigue and no flushing Hematologic / Lymphatic: no easy bleeding and no easy bruising Allergy / Immunological: no urticaria and no problem reported Exam (Neuro) Physical Exam: The patient is right-handed. The patient is awake, alert, and attentive. Speech is normal without any aphasia or dysarthria. Mentation and thought processes are intact, with full orientation and normal fund of knowledge. Mood and affect are normal and appropriate. Appearance and grooming are normal. Short and long-term memory are intact. Pupils are 4 mm bilaterally and reactive to light. Extraocular eye muscles are intact without nystagmus. Visual acuity and visual tejeda seem normal grossly to confrontation. There are no deficits to sensation in the face in all 3 distributions of the fifth cranial nerve bilaterally. Corneal reflexes are positive bilaterally. Facial strength and symmetry was normal bilaterally. Hearing seems intact grossly to voice and finger rub bilaterally. Palate moves well without asymmetry. There is normal sternocleidomastoid and trapezius strength bilaterally. Tongue is midline with good strength bilaterally. Neck has a full range of motion without discomfort. There are no cervical bruits bilaterally. There are no cranial or ocular bruits. Heart is without murmur. There is a regular rhythm and rate. Cervical, thoracic, and lumbar spine are nontender to palpation. Gait is slightly wide-based with good arm swing and unremarkable gait in a straight line. Turns were reasonable. Balance is normal eyes open or closed. With outstretched arms there is no drift (but there was some weakness at the shoulder and the arm drop straight down some). There are no resting, postural, or action tremors. There is no ataxia with finger to nose testing. There is clumsiness and decreased facility in the right hand compared to the left which was normal. No other abnormal involuntary movements are noted. Motor strength is 5/5 diffusely in the left upper extremity including deltoids, biceps, triceps, brachioradialis, wrist flexors and extensors, embalmer assistant, and intrinsic hand muscles. Motor strength in the right upper extremity is 5/5 in the deltoid, biceps, triceps and 4/5 in the wrist extensors, embalmer assistant and intrinsic hand muscles. Motor strength is 5/5 diffusely in the legs bilaterally including hip flexors, quadriceps, hamstrings, gastrocnemius, tibialis anterior, tibialis posterior, and Peroneii muscles bilaterally. Toe extensors are normal and there is good bulk in the extensor digitorum brevis muscles bilaterally. The limbs have good tone without rigidity or spasticity. There is no atrophy noted in the muscles. Muscle bulk is normal, there is no tenderness to palpation, no myotonia to percussion, and no fasciculations seen. Sensory examination is intact to touch and pin throughout all 4 limbs diffusely. Reflexes are 1/4 in the biceps, triceps, brachioradialis, quadriceps, and Achilles tendons bilaterally. Toes are downgoing with plantar stimulation bilaterally. Peripheral pulses are present and of normal quality distally in all 4 limbs. There is no peripheral edema noted in the limbs. Results & Data Vital Signs (Past 12 Hours) Vital Signs Temp Pulse Pulse Pulse Resp BP Pulse Ox 04/12/24 09:30 04/12/24 09:21 97 H 04/12/24 08:25 36.5 C 83 18 116/84 97 04/12/24 08:14 96 H 17 111/86 96 04/12/24 07:22 103 H 04/12/24 07:00 81 18 112/71 97 04/12/24 05:00 90 16 126/85 95 04/12/24 03:00 90 16 106/84 96 04/11/24 23:30 95 H 18 130/87 96 04/11/24 22:54 105 H O2 Del Method 04/12/24 09:30 Room Air 04/12/24 09:21 04/12/24 08:25 Room Air 04/12/24 08:14 Room Air 04/12/24 07:22 04/12/24 07:00 Room Air 04/12/24 05:00 Room Air 04/12/24 03:00 Room Air 02/23/25 23:30 Room Air 04/11/24 22:54 PG Care Time/CCT Total # of Minutes Spent Total Time Spent with Patient: Total time spent is greater than 50% in coordination of care (as documented) at patient's floor/unit and/or counseling patient: Coding Level of Care Code 86223 INT INP/OBS CARE 3/75MIN Diagnoses Acute CVA (cerebrovascular accident) I63.9 Atrial fibrillation with rapid ventricular response I48.91 Hypertension I10 Diabetes mellitus, type 2 E11.9 Chronic systolic CHF (congestive heart failure) I50.22 Time Spent (min) 90
[2024-04-12] MEDS: ATORVASTATIN 40 MG TAB PO SCH (10:44)
[2024-04-12] MEDS: CLOPIDOGREL BISULFATE 75 MG TAB PO SCH (10:44)
[2024-04-12] MEDS: ASPIRIN 81 MG ECTAB PO SCH (10:44)
[2024-04-12] MEDS ORDERED: LANTUS PER UNIT CHARGE SQ ONE (11:45)
[2024-04-12] MEDS: LANTUS PER UNIT CHARGE SQ ONE (12:53)
--- NOTE | 2024-04-12 13:04 | XCELERA ---
[id number] \\[email or web address]\[id number]
--- NOTE | 2024-04-12 14:58 | Pharmacy Report ---
Pharmacy Glycemic Short Note 2 - Date of Service April 12, 2024 - Glycemic Short BSG Results (Last 24 hours): 04/11/24 04/11/24 04/11/24 15:23 15:29 18:08 Glucose 484 H* POC Glucose 423 H* POC Glucose (other) 462 H* 04/11/24 04/12/24 04/12/24 19:28 00:14 03:40 Glucose 86 POC Glucose 340 H* 207 H POC Glucose (other) 04/12/24 04/12/24 04/12/24 07:40 08:33 11:15 Glucose POC Glucose 230 H 212 H 320 H* POC Glucose (other) 04/12/24 04/12/24 11:16 14:35 Glucose POC Glucose 368 H* 210 H POC Glucose (other) OUTPATIENT ANTIDIABETIC REGIMEN: * Per patient, he has not taken his daily medications in ~10 months due to loss of insurance HbA1c: 16.4% (04/12/24) ASSESSMENT: * ELLEN is a 53 year old male who presented to ED on 04/11 due to right arm weakness, found to have suffered acute CVA * Profoundly hyperglycemic on presentation w/ HbA1c > 16% - of note, patient not taking scheduled medications for past 10 months * Serum glucose this morning of 86 mg/dL, so initially pulled back on insulin regimen, but all other blood sugars have been > 200 mg/dL. Perhaps lab error? * Will re-intensify regimen following 368 mg/dL at lunchtime PLAN FOR INPATIENT GLYCEMIC CONTROL: * Basal insulin * Lantus 25 units SQ this AM * Lantus 10-15-20 units SC HS (see EHR for details) * Reassess in AM * Bolus insulin * NovoLog per scale ACHS or Q6hrs while NPO * Goal Range: Low 110 mg/dL - High 140 mg/dL * Correction Factor: 20 mg/dL/unit * Nutritional / Prandial insulin per carb ratio of 1 unit per 7 grams CHO consumed
--- NOTE | 2024-04-12 15:26 | Electrocardiogram Report ---
Test Reason : Blood Pressure : */* mmHG Vent. Rate : 156 BPM Atrial Rate : * BPM P-R Int : * ms QRS Dur : 92 ms QT Int : 318 ms P-R-T Axes : * -34 86 degrees QTcB Int : 512 ms Atrial fibrillation with rapid ventricular response Left axis deviation Abnormal ECG When compared with ECG of 30-Oct-2022 13:22, Vent. rate has increased by 83 bpm Confirmed by Kain Tejeda ([id number]) on 04/12/2024 3:26:02 PM Referred By: Confirmed By: Kain Tejeda
--- NOTE | 2024-04-12 16:57 | Hospitalist Progress Note ---
Date of Service April 12, 2024 Assessment & Plan (1) Acute CVA (cerebrovascular accident): (2) Atrial fibrillation with rapid ventricular response: (3) Diabetes mellitus, type 2: (4) Chronic systolic CHF (congestive heart failure): (5) Hyperlipidemia: Plan This is a 53 year old gentleman with past medical history of A fib, obesity, HTN, HLD, Type 2 DM, nonischemic cardiomyopathy, N-STEMI who reported to the ED on 04/11 for right arm weakness. Patient has been off his daily medications for 10 months due to losing his insurance. These medications included amiodarone 200 mg daily, Eliquis 5 mg twice daily, atorvastatin 40 mg daily, Basaglar 20 units daily, Febuxostat 40 mg daily, Entresto 24 mg - 26 mg twice daily, Ozempic once weekly, spironolactone 25 mg once daily, metformin 1000 mg daily, metoprolol succinate 100 mg daily. #CVA CBC stable BMP is stable electrolytes. Chest x-ray: Mild pulmonary vascular congestion Chest CTA: No evidence for PE Head CT: Loss of bella/white matter differentiation about the high left central sulcus, involving the postmenstrual gyrus concerning for acute infarct. No intracranial hemorrhage Head/neck CTA: No aneurysm or stenosis in the major intracranial arteries or major cervical arteries. Per the ED, telestroke at [place] has recommended Plavix, aspirin, brain MRI. Patient outside of window of [facility] Brain MRI: persistent acute non hemorrhagic infarct in left perirolandic region. chronic small vessel ischemic disease. diffuse cerebral atrophy Hold antihypertensives for 24 to 48 hours to allow for permissive hypertension Continue Statin Echo - EF 30%, mild mitral regurg. Lipid panel stable, A1c 16.4% Neurology consulted, discussed w/ Dr. Gonsales - given hx await echo results but switch patient from Plavix to Eliquis & continue ASA daily. A1c goal < 12. continue statin. PT/OT consulted - ok to return home w/ . would benefit from outpatient PT/OT. #Atrial fibrillation/CHF Patient remains in A fib but is rate controlled Previously on metoprolol succinate 100 mg, amiodarone 200 mg, Entresto 24mg/26mg BID, Eliquis 5mg BID Troponin 98.3, repeat 94. Likely secondary to demand from A fib and CVA given absence of CP and no ischemic changes on EKG. Switch from metoprolol tartrate to succinate AM of 04/13. Start Eliquis 04/13 AM Echo as above #Type 2 Diabetes Previously on Basaglar 20 units daily, Metformin, and Ozempic Novolog sliding scale, adjust as necessary Pharmacy consulted to aide in glycemic management A1c 16.4% DVT prophylaxis: SCD's, encourage ambulation. restart Eliquis 04/13 Code: DNR/DNI Discussed w/ Dr. Gonsales 04/12 Admission and Anticipated Discharge Date Admission Date: April 11, 2024 Subjective Patient seen and examined this morning. Patient w/ reports no improvement in his right arm weakness/numbness today. He was also complaining of a headache as well. He reports frustration over his current situation as he is unsure if he will regain the strength back in his right arm for his job. He denies CP or SOB. Physical Exam Constitutional: WD/WN, vitals as above Eyes: PERRL, conjunctivae normal, anicteric sclerae Respiratory: normal respiratory effort, lungs clear to auscultation Cardiovascular: irregularly irregular, no edema Musculoskeletal: moves all extremities Psychiatric: A+Ox3, euthymic affect Results & Data Results & Data Vital Signs (Past 12 Hours) Vital Signs Temp Pulse Pulse Pulse Resp BP Pulse Ox 04/12/24 16:06 36.6 C 87 18 127/86 97 04/12/24 14:05 93 H 04/12/24 11:18 36.5 C 73 20 111/84 96 04/12/24 09:30 04/12/24 09:21 97 H 04/12/24 08:25 36.5 C 83 18 116/84 97 04/12/24 08:14 96 H 17 111/86 96 04/12/24 07:22 103 H 04/12/24 07:00 81 18 112/71 97 04/12/24 05:00 90 16 126/85 95 O2 Del Method 04/12/24 16:06 Room Air 04/12/24 14:05 04/12/24 11:18 Room Air 04/12/24 09:30 Room Air 04/12/24 09:21 04/12/24 08:25 Room Air 04/12/24 08:14 Room Air 04/12/24 07:22 04/12/24 07:00 Room Air 04/12/24 05:00 Room Air PG Care Time/CCT Total # of Minutes Spent Total Time Spent with Patient: Total time spent is greater than 50% in coordination of care (as documented) at patient's floor/unit and/or counseling patient: Coding Level of Care Code 62671 SUB INP/OBS CARE 3/50MIN Diagnoses Acute CVA (cerebrovascular accident) I63.9 Atrial fibrillation with rapid ventricular response I48.91 Diabetes mellitus, type 2 E11.9 Chronic systolic CHF (congestive heart failure) I50.22 Hyperlipidemia E78.5
[2024-04-12] MEDS ORDERED: LANTUS PER UNIT CHARGE SQ SCH (21:00)
[2024-04-12] MEDS: ONDANSETRON INJ 2 MG/ML 2 ML VIAL IV PRN (21:27)
[2024-04-13] MEDS ORDERED: ATORVASTATIN 40 MG TAB PO SCH
[2024-04-13] MEDS ORDERED: INSULIN GLARGINE 100 UNIT/ML VIAL SC SCH ×2
[2024-04-13] MEDS ORDERED: metFORMIN HCL ER 500 MG TABCR PO SCH
[2024-04-13] MEDS ORDERED: INSULIN ASPART PER UNIT CHARGE SC SCH
[2024-04-13] MEDS ORDERED: APIXABAN 5 MG TABLET PO SCH
[2024-04-13] MEDS ORDERED: METOPROLOL SUCC 50MG EXT REL TAB PO SCH
[2024-04-13] MEDS: APIXABAN 5 MG TABLET PO SCH (07:50)
[2024-04-13] MEDS: METOPROLOL SUCC 50MG EXT REL TAB PO SCH (07:50)
[2024-04-13] MEDS: ATORVASTATIN 40 MG TAB PO SCH (07:51)
[2024-04-13] MEDS: LANTUS PER UNIT CHARGE SQ SCH (08:14)
[2024-04-13] MEDS ORDERED: METOPROLOL SUCC 25MG EXT REL TAB PO SCH (09:00)
--- NOTE | 2024-04-13 10:45 | Neurology Progress Note ---
Date of Service April 13, 2024 Assessment & Plan (1) Acute CVA (cerebrovascular accident): (2) Atrial fibrillation with rapid ventricular response: (3) Hypertension: (4) Diabetes mellitus, type 2: (5) Chronic systolic CHF (congestive heart failure): Plan This patient suffered a relatively small left parietal acute stroke April 11, likely small vessel ischemic in nature. However, given his persistent atrial fibrillation and rapid ventricular response, I cannot entirely exclude an embolic event. There are no other signs of acute embolus, and the patient does have mild to moderate old small vessel ischemic disease (which would lean toward ischemic). CT angiography of the head and neck showed no large vessel stenoses or anomalies. Echocardiogram was stable to slightly improved. The patient has multiple risk factors for ischemic stroke including significant hypertension and diabetes (hemoglobin A1c 16.4) as well as dyslipidemia. He has heart failure and persistent atrial fibrillation which puts him at great risk for embolic stroke. His blood pressure and sugar are better this morning after treatment. Recommendations: 1. Continue 81 mg aspirin tablet daily. 2. Continue apixaban 5 mg twice daily. 3. Physical and Occupational Therapy, increasing activity as able 4. Control blood pressure as you are doingaiming for a mean arterial pressure of 95-100. 5. Control glucose as you are doing trying to get the hemoglobin A1c, initially, less than 12. 6. Agree with atorvastatin 80 mg dailyshe is on high-dose statin candidate. 7. Case management consult: Patient is going to be needing a way to obtain the medications he needs for his heart, blood pressure, and glucose. 8. I could follow-up as an outpatient if desired. See neurology PA 2 to 3 weeks after discharge Overall, I spent a total of 35 minutes with this case including review of records, direct evaluation the patient at bedside, report generation, and discussion of the case with the patient at bedside, and Dr. Jama including differential diagnosis and treatment options. Admission and Anticipated Discharge Date Admission Date: April 11, 2024 Subjective Patient seems to be better today and a is moving his right hand more. He has no complaint of pain or headache. Echocardiogram showed an ejection fraction of 30% which is slightly improved compared to the previous study of September 2022. Nursing reports no new issues. Glucose was 152 today. Results & Data Vital Signs (Past 12 Hours) Vital Signs Temp Pulse Pulse Resp BP Pulse Ox O2 Del Method 04/13/24 07:06 36.6 C 102 H 20 112/76 95 Room Air 04/13/24 03:25 36.5 C 79 16 113/81 98 Room Air 04/12/24 22:55 36.6 C 72 16 127/88 97 Room Air 04/12/24 22:42 101 H Exam (Neuro) Physical Exam: He is awake and alert. Speech is without aphasia or dysarthria. Mood is slightly down but affect is appropriate. Thought processes are intact to conversation Blood pressure is 112/76 with a pulse of 100. O2 saturation is 95%. He is afebrile. He is in permanent atrial fibrillation since admission. Extraocular eye muscles are intact without nystagmus. There is no facial droop. Tongue is midline. Coordination is normal in the arms without tremor or ataxia. There is some slight clumsiness of the right hand but it is much improved compared to yesterday. Motor strength is 5/5 diffusely in the upper and lower extremities both proximally distally bilaterally. Stance sitting up is normal. PG Care Time/CCT Total # of Minutes Spent Total Time Spent with Patient: Total time spent is greater than 50% in coordination of care (as documented) at patient's floor/unit and/or counseling patient: Coding Level of Care Code 42449 SUB INP/OBS CARE 2/35MIN Diagnoses Acute CVA (cerebrovascular accident) I63.9 Atrial fibrillation with rapid ventricular response I48.91 Hypertension I10 Diabetes mellitus, type 2 E11.9 Chronic systolic CHF (congestive heart failure) I50.22 Time Spent (min) 35
[2024-04-13 15:39] VITALS: BP 110/71; PULSE 119; RESP 20; TEMP 97.7; O2SAT 97
--- NOTE | 2024-04-13 16:50 | Discharge Summary ---
Discharge Summary Date of Service April 13, 2024 Principal Dx & Hospital Course #1 = Principal Diagnosis (1) Acute CVA (cerebrovascular accident): (2) Atrial fibrillation with rapid ventricular response: (3) Diabetes mellitus, type 2: (4) Chronic systolic CHF (congestive heart failure): (5) Hyperlipidemia: Plan This is a 53 year old gentleman with past medical history of A fib, obesity, HTN, HLD, Type 2 DM, nonischemic cardiomyopathy, N-STEMI who reported to the ED on 04/11 for right arm weakness. Patient has been off his daily medications for 10 months due to losing his insurance. These medications included amiodarone 200 mg daily, Eliquis 5 mg twice daily, atorvastatin 40 mg daily, Basaglar 20 units daily, Febuxostat 40 mg daily, Entresto 24 mg - 26 mg twice daily, Ozempic once weekly, spironolactone 25 mg once daily, metformin 1000 mg daily, metoprolol succinate 100 mg daily. Patient has health insurance to begin on 04/17/24. He was discharged with his medications from the hospital pharmacy to last him through 04/16/24, then will get his prescriptions from the pharmacy when his insurance is active on 04/17/24. Brain MRI that revealed acute nonhemorrhagic infarct in left perirolandic region, chronic small vessel ischemic disease, diffuse cerebral atrophy. Head/neck CTA revealed no aneurysm or stenosis in the major intracranial arteries or major cervical arteries. Echocardiogram revealed EF= 30%, moderatesevere global hypokinesis of left ventricle, LV systolic function moderateseverely reduced, mild MR, no interarterial shunt. #CVA Continue Eliquis 5 mg twice daily Continue atorvastatin 80 mg daily Continue aspirin 81 mg daily Discharged with script for outpatient PT/OT Recommend PCP follow-up in 1-2 weeks Recommend neurology follow up outpatient in next 2-3 weeks #Atrial fibrillation/CHF Previously on metoprolol succinate 100 mg, amiodarone 200 mg, Entresto 24mg/26mg BID, Eliquis 5mg BID Elevated troponin peaked at 98.3, likely secondary to demand ischemia in setting of acute CVA and A-fib. No ischemic changes on EKG Continue metoprolol succinate 100 mg daily Continue Eliquis 5 mg twice daily Deferred Entresto due to borderline hypotension Recommend cardiology follow-up outpatient in 2-4 weeks #Type 2 Diabetes Previously on Basaglar 20 units daily, Metformin, and Ozempic A1c extremely elevated at 16.4% Discharged on Lantus 20 units daily, metformin ER 500 mg daily x 1 week, then BID Recommend close follow-up and further adjustments/management with PCP DVT prophylaxis: SCDs, encourage ambulation, Eliquis BID Code: DNR/DNI Dispo: discharged home 04/13 Notes For Next Care Provider Patient was off of his home medications for 10 months due to losing his health insurance. His new health insurance is supposed to start on 04/17/2024. He was provided with medications from hospital pharmacy on discharge to cover him until his insurance is active and can fill scripts at his pharmacy. Recommend close monitoring his BSG and adjusting his regimen as needed. Recommend follow-ups with PCP, neurology, cardiology Medication Changes From Visit Aspirin and atorvastatin started for stroke Eliquis started for atrial fibrillation and stroke Metoprolol succinate started for cardiomyopathy and atrial fibrillation rate control Lantus and metformin started for diabetes Admission HPI Per Admitting Provider This is a 53 year old gentleman with past medical history of A fib, obesity, HTN, HLD, Type 2 DM, nonischemic cardiomyopathy, N-STEMI who reported to the ED on 04/11 for right arm weakness. Patient was seen and examined, at bedside. Patient reports that he has been off of his daily medications for about the last 10 months due to losing his insurance. He was supposed to get insurance again on 04/17.These medications included amiodarone 200 mg daily, Eliquis 5 mg twice daily, atorvastatin 40 mg daily, Basaglar 20 units daily, Febuxostat 40 mg daily, Entresto 24 mg - 26 mg twice daily, Ozempic once weekly, spironolactone 25 mg once daily, metformin 1000 mg daily, metoprolol succinate 100 mg daily. Patient reports that yesterday he had an episode of chest pain and shortness of breath. He states that this was nothing out of the ordinary for him. He reports that he then woke up this morning and did not feel quite right. He then developed right arm numbness and came to the ER for further evaluation. He denies any lower extremity weakness or numbness. He denies any changes in his vision or hearing. No facial droop. No slurred speech. Today he denies any chest pain or shortness of breath. Denies any GI or urinary complaints. Denies any lower extremity edema. Denies any lower extremity pain. While in the ED patient underwent imaging of his head and neck and was found to have a CVA. He was given 300 mg of Plavix and 324 mg of aspirin. Telestroke was consulted and had recommended pursuing an MRI and a neurology consultation at our facility. He also underwent a chest x-ray along with a CTA which were both negative. Code discussion to take place with the patient and he did confirm that he has a DNR. Discharge Exam General: No acute distress, nondiaphoretic, well-developed, well-nourished. Cardiac: A fib in 110s. No murmurs appreciated. No peripheral edema noted. Pulm: Clear to auscultation bilaterally without wheezes, rales or rhonchi. Normal respiratory effort. 97% on room air. Abdominal: Soft, nontender, nondistended. Bowel sounds present. Neuro: A&O x3. No aphasia. No facial droop or slurred speech. Strength improved in RUE. Slight decreased sensation in RUE. Normal movement, strength, sensation in lower extremities bilaterally. Discharge Plan Discharge Items Patient Disposition: Home - Self-Care Reason For Visit: RIGHT ARM NUMBNESS Discharge Diagnosis: Acute CVA Uncontrolled diabetes mellitus, type 2 Atrial fibrillation Activity: Per Instructions section Non-emergency contact: Primary Care Provider, [employer]adem[employer] Attorney and Neurologist Call non-emergency contact if: you have any medication questions and your symptoms worsen Follow-up/Referrals: Moises Gonsales MD [Physician] - (Follow-up with PA-Brenda in neuro office in 2-3 weeks) Margarita Morgan DO [Primary Care Provider] - (Follow-up in 1-2 weeks) Nuno Reese MD [Physician] - (Follow-up in 2-4 weeks) Diet: Carb Consistent or DM2 and Heart Healthy Addtl Attending Provider Instructions: Mr. Lomeli, You were admitted to the hospital with an acute cerebrovascular accident (CVA / aka stroke). This was luckily a relatively small stroke. The CTA scans of your head and neck showed no large vessel abnormalities, and your echocardiogram (ultrasound of your heart) was slightly improved compared to previously. Your hemoglobin A1c (average blood sugar over 3 months) was significantly elevated at 16.4%, which is an estimated average blood sugar of 424. The hospital pharmacy has dispensed your home medications through 04/16/2024, and then you can fill your prescription sent to the pharmacy starting on 04/17/2024 when your health insurance restarts. Upon discharge from the hospital: * Take Eliquis (blood thinner) 5 mg twice daily. * Take metoprolol succinate 100 mg every morning. This is primarily to control your heart rate, but also does control your blood pressure somewhat as well. * Take atorvastatin 80 mg every morning. This is to better control your cholesterol. * Take metformin 500 mg every morning x 1 week. Then take metformin 500 mg twice daily. This is to control your blood sugar. * Take Lantus insulin 20 units every morning. This is to control your blood sugar. * Take aspirin 81 mg daily. This is available [id number] (OTC), so no prescription is required. * Monitor your blood sugar 2-4 times/day at home. Notify your PCP of blood sugar values >200 x 3 days or any value <80 * Follow-up with neurology outpatient in 2-3 weeks. * Follow-up with your PCP in 1-2 weeks. * Follow-up with your downstream biomanufacturing technician in 2-4 weeks. * Continue PT/OT outpatient. I have completed a script for you to take to whichever therapy location you choose. Risk Factors for Stroke: You can reduce your chances of stroke by working with your medical provider to adopt a healthy lifestyle. Some specific ways to lower your chance of stroke are: * If you are a smoker, now is the time to stop smoking cigarettes * If you are diabetic, improve the control of your blood sugars * Avoid excessive amounts of alcohol * Control high blood pressure * Lose weight if you are overweight * Be sure to lead an active lifestyle * Eat a healthy diet low in salt, cholesterol and fat You should know about other risk factors for stroke that you are unable to control. These include: * Age 55 years or older * Male gender * Certain racial groups: , or / * Family History of Stroke, Mini stroke or Heart Attack * Sickle Cell Disease Follow Up: It is important for you to keep your follow up appointments with your medical provider. Who to Call and When: Medical Emergencies: Call 911 immediately if you experience any of the fo llowing warning signs and symptoms of Stroke: * Sudden numbness or weakness of the face, arm or leg, especially on one side of the body * Sudden confusion, trouble speaking or understanding * Sudden trouble seeing in one or both eyes * Sudden trouble walking, dizziness, loss of balance or coordination * Sudden severe headache with no cause Do not delay calling 911 if you experience any warning signs or symptoms of a stroke. Delay in seeking medical attention may affect what treatments can be given to you. . Pending Studies at Discharge: No Stand-Alone Forms: My [facility], Smoking Cessation Medications and DC Order Prescriptions: New Eliquis 5 mg Tablet 5 mg PO BID Qty: 60 0RF metoprolol succinate 100 mg tablet extended release 24 hr 100 mg PO DAILY Qty: 30 0RF aspirin 81 mg Tablet,Delayed Release (Dr/Ec) 81 mg PO DAILY Qty: 30 0RF metformin 500 mg tablet extended release 24 hr 500 mg PO UD Qty: 60 0RF Rx Instructions: Take 500 mg (1 tab) once daily through 04/19/24, then take 500 mg (1 tab) TWICE daily insulin degludec [Tresiba FlexTouch U-100] 100 unit/mL (3 mL) insulin pen 20 unit subcut DAILY Qty: 15 0RF atorvastatin 80 mg tablet 80 mg PO DAILY Qty: 30 0RF Discharge Orders: Discharge Order- CHF (Routine); Ordered 04/13/24 Ordered By: Nallely Ramires/Other Patient Handouts: Discharge Instructions for Stroke Admission Data Admit Date/Time: 04/11/24 17:19 Attending Provider: Brayan Jama Admit Provider: Brayan Jama Primary Care Provider: Margarita Morgan Other Providers: Brayan Jama; Jose Charles; Moises Gonsales; Serena Moran; Merly Saeed; Lelo Merritt; Neo Carter Other Interventions: Discharge Summary Assessment (RN) Last Done: 04/13/24 13:16 Hospital Stay Data Consultations 04/11/24 16:41 ED Decision to Admit Stat 04/11/24 19:28 Consult Neurology Routine Diagnostic Imagining Performed 04/11/24 15:22 CT angio chest PE protocol Stat 04/11/24 15:29 CT angio head w con Stat CT angio neck with con Stat CT head/brain wo con Stat 04/11/24 17:06 MRI Brain [MR brain wo con] Stat Pending Results Patient Have Any Pending Studies at Discharge: No Discharge Instructions Given to Patient (Per Discharging Provider) Mr. Lomeli, Patrick were admitted to the hospital with an acute cerebrovascular accident (CVA / aka stroke). This was luckily a relatively small stroke. The CTA scans of your head and neck showed no large vessel abnormalities, and your echocardiogram (ultrasound of your heart) was slightly improved compared to previously. Your hemoglobin A1c (average blood sugar over 3 months) was significantly elevated at 16.4%, which is an estimated average blood sugar of 424. The hospital pharmacy has dispensed your home medications through 04/16/2024, and then you can fill your prescription sent to the pharmacy starting on 04/17/2024 when your health insurance restarts. Upon discharge from the hospital: * Take Eliquis (blood thinner) 5 mg twice daily. * Take metoprolol succinate 100 mg every morning. This is primarily to control your heart rate, but also does control your blood pressure somewhat as well. * Take atorvastatin 80 mg every morning. This is to better control your cholesterol. * Take metformin 500 mg every morning x 1 week. Then take metformin 500 mg twice daily. This is to control your blood sugar. * Take Lantus insulin 20 units every morning. This is to control your blood sugar. * Take aspirin 81 mg daily. This is available [id number]-fmq-yqfheng (OTC), so no prescription is required. * Monitor your blood sugar 2-4 times/day at home. Notify your PCP of blood sugar values >200 x 3 days or any value <80 * Follow-up with neurology outpatient in 2-3 weeks. * Follow-up with your PCP in 1-2 weeks. * Follow-up with your downstream biomanufacturing technician in 2-4 weeks. * Continue PT/OT outpatient. I have completed a script for you to take to whichever therapy location you choose. Risk Factors for Stroke: You can reduce your chances of stroke by working with your medical provider to adopt a healthy lifestyle. Some specific ways to lower your chance of stroke are: * If you are a smoker, now is the time to stop smoking cigarettes * If you are diabetic, improve the control of your blood sugars * Avoid excessive amounts of alcohol * Control high blood pressure * Lose weight if you are overweight * Be sure to lead an active lifestyle * Eat a healthy diet low in salt, cholesterol and fat You should know about other risk factors for stroke that you are unable to control. These include: * Age 55 years or older * Male gender * Certain racial groups: , or / * Family History of Stroke, Mini stroke or Heart Attack * Sickle Cell Disease Follow Up: It is important for you to keep your follow up appointments with your medical provider. Who to Call and When: Medical Emergencies: Call 911 immediately if you experience any of the following warning signs and symptoms of Stroke: * Sudden numbness or weakness of the face, arm or leg, especially on one side of the body * Sudden confusion, trouble speaking or understanding * Sudden trouble seeing in one or both eyes * Sudden trouble walking, dizziness, loss of balance or coordination * Sudden severe headache with no cause Do not delay calling 911 if you experience any warning signs or symptoms of a stroke. Delay in seeking medical attention may affect what treatments can be given to you. . Supervising Physician Co-Signing Physician Notes I personally saw and examined the patient. I independently reviewed the labs, EKG, imaging, problem list, medication list. I verified all segal points and agree with Nallely Fragoso PA-C with the following exceptions and/or additions: Already significantly improved from admission with his coordination. He will be provided medications up until his insurance starts in April. We went through all of his medications and the reason why he is on these. All questions and concerns answered. Telemetry reviewed and heart rate increasing up to 140 on exertion but averages around 100. We will therefore increase his metoprolol succinate from 50 mg to 100 mg on discharge. Total Time Total Time Spent Total Time Spent (In Minutes): Greater than 30 minutes spent completing this discharge process including direct patient care, medication reconciliation, documentation, review of labs and images, and coordination of care. Coding Level of Care Code 67345 INP/OBS DISCH >30 MIN Diagnoses Acute CVA (cerebrovascular accident) I63.9 Atrial fibrillation with rapid ventricular response I48.91 Diabetes mellitus, type 2 E11.9 Chronic systolic CHF (congestive heart failure) I50.22 Hyperlipidemia E78.5
== END 2024-04-13 14:30 | disposition home or self-care (01) | DRG 65 ==
LOC: ED 15:04 → EDINP 17:19 → 2S 04-12 08:06

== ENCOUNTER 2024-04-20 16:56 | Inpatient (IN) ==
[2024-04-20 17:38] LABS: Basophils # (auto) 0.04 K/uL (0.00-0.20); Basophils % (auto) 0.6 %; Eosinophils # (auto) 0.06 K/uL (0.00-0.50); Hematocrit (blood only) 44.7 % (42.0-52.0); Hemoglobin 15.1 g/dl (14.0-18.0); Immature Granulocytes # (auto) 0.02 K/uL (0.01-0.20); Immature Granulocytes % (auto) 0.3 %; Lymphocytes # (auto) 1.39 K/uL (1.20-3.40); Lymphocytes % (auto) 22.2 %; Mean Corpuscular Hemoglobin 30.3 pg (25.0-34.0); Mean Corpuscular Hgb Conc 33.8 g/dL (32.0-36.0); Mean Corpuscular Volume 89.8 fL (80.0-100.0); Mean Platelet Volume 12.8 fL (9.4-12.4); Monocytes # (auto) 0.52 K/uL (0.11-0.59); Monocytes % (auto) 8.3 %; Neutrophils # (auto) 4.22 K/uL (1.40-6.50); Neutrophils % (auto) 67.6 %; Platelet Count 243 K/uL (130-400); RDW Coefficient of Variation 13.2 % (11.5-14.5); RDW Standard Deviation 42.8 fL (36.4-46.3); Red Blood Count 4.98 M/uL (4.70-6.10); White Blood Count 6.25 K/ul (4.8-10.8)
--- NOTE | 2024-04-20 17:46 | XRay Report ---
EXAM: Radiograph of the Chest 1 View INDICATION: Chest pain. History of atrial fibrillation. TECHNIQUE: Frontal view of the chest. COMPARISON: 04/11/2024 FINDINGS: Lungs and pleural spaces: No consolidation or pulmonary edema. No pleural effusion or pneumothorax. Stable prominent pulmonary vasculature without edema or infiltrate. Heart: Stable large shadow. Mediastinum: Normal contour. Bones/joints: No fracture, erosion or dislocation. Soft tissues: No abnormality noted. No radiopaque foreign body noted. Upper abdomen: No abnormality noted. IMPRESSION: No acute cardiopulmonary disease. ACT 112: N/A Electronically signed by Itzel Valencia 04-20-2024 5:42 PM
[2024-04-20 17:52] LABS: Albumin Globulin Ratio 1.4 (0.9-2); Albumin Level 4.3 gm/dl (3.4-5.0); BUN Creatinine Ratio 16.5 (10-20); Bilirubin,Total 0.9 mg/dl (0.2-1.0); Magnesium 1.6 mg/dl (1.7-2.4); Potassium 4.4 mmol/L (3.5-5.1); Total Protein 7.3 gm/dl (6.0-8.3); Troponin I High Sensitivity 73.6 pg/ml (0-20)
[2024-04-20 17:57] LABS: INR 1.2 (0.9-1.1); Partial Thromboplastin Ratio 0.9; Partial Thromboplastin Time 25 Seconds (21-31); Prothrombin Time 12.5 Seconds (9.0-12.0)
[2024-04-20] MEDS: MAGNESIUM SULFATE / D5W 1 GM/100 ML BAG IV ONE (18:10)
--- NOTE | 2024-04-20 18:18 | Emergency Department Note ---
Impression & Plan SOB (shortness of breath) ED Provider Note NAME: CARLI BROUSSARD AGE: 53 SEX: Male INFORMANT: Patient ED PROVIDER(S): Neo Oliver MD CHIEF COMPLAINT: Shortness of breath PLAN: Disposition: Admitted Outpatient prescription management: none Referral: None MEDICAL DECISION MAKING: Patient presented because of shortness of breath. Chest x-ray revealed no evidence of pneumonia or pneumothorax. His ECG did show rapid atrial fibrillation. Cardiac monitoring revealed mild rapid atrial fibrillation but no significant elevations above 120. The patient had an unremarkable CBC. Chemistry panel revealed hyperglycemia. Patient had elevated LFTs. Cardiac troponin mildly elevated although better than previous measurements. Magnesium was mildly low and this was repleted. Patient was sent for CT imaging and BioFire testing performed. BioFire negative. CT imaging revealed no clearance of pulmonary embolism or pneumonia. Mild edema noted. Given the patient's previous low EF and findings on examination here there is concerns for CHF exacerbation. Patient was given IV Lasix. Consultation was made with Dr. Huffman of the [facility] service. Case discussed and diagnostics were reviewed. Patient was evaluated in the ER for further management. Care/management discussed with: parks and recreation manager Level of care consideration(s): After review of the information above and other included data, I feel the patient requires escalation of care to admission Triage Nursing notes: reviewed and agree them. Vital Signs: reviewed and remarkable for tachycardia Additional History obtained from: Patient's helps with the history and details regarding recent admission and discharge. Chronic Medical/Social Conditions affecting care: A-fib, CVA Prior/ Outside/ External records reviewed: Prior discharge summary reviewed. Patient was off of his cardiac medications and anticoagulation prior to the onset of his acute stroke. Patient admits to taking all his medications since discharge. Differential Diagnosis: Reactive airway disease, pneumonia, pneumothorax, COPD, CHF, infections, cardiac ischemia, pulmonary embolism, musculoskeletal, gastrointestinal, as well as other pathologies. Diagnostics, independently interpreted by me: ECG: Twelve-lead ECG reveals atrial fibrillation with RVR at 118 bpm. Low voltage QRS. No ST elevation. Cardiac Monitoring: Cardiac monitoring ordered by me: The patient was placed on continuous cardiac monitoring and observed. It revealed atrial fibrillation at 115 bpm. Medical decision rules: none Imaging studies: Chest x-ray. Findings: A chest x-ray was performed and revealed no pneumothorax, effusion, infiltrate, pulmonary edema, free air under the diaphragm, or wide mediastinum. Impression: No acute disease. HPI: 53 year old Male arrives for evaluation of shortness of breath. This started last week and is worsening. The patient also notes the following associated symptoms, cough, chest pressure, dyspnea. The patient has found no relieving factors. Current pain is rated as 8/10. Patient was admitted and discharged last week secondary to a stroke. He has a history of A-fib and diabetes. Denies any direct sick contacts. Pt denies LOC, headache, fevers, chills, diaphoresis, visual changes, neck pain, weight gain, nausea, vomiting, abdominal pain, back pain, melena, hematochezia, urinary symptoms, numbness, weakness, lymphadenopathy, rash, or other complaints.. PAST MEDICAL HISTORY: See Below, A-fib, diabetes, CVA, CAD, CHF PAST SURGICAL HISTORY: See Below, SOCIAL HISTORY: See Below, HOME MEDICATIONS: See Below ALLERGIES: See Below VITALS: See Below PHYSICAL EXAMINATION: GENERAL: Awake, alert, dyspneic-appearing, in no distress HENT: Normocephalic, atraumatic. Oropharynx unremarkable. EYES: Normal conjunctiva. Sclera non-icteric. NECK: Inspection normal. Non-tender. Supple. No nuchal rigidity. FROM. No masses. RESPIRATORY: Clear to auscultation. No wheezes. No rales. Normal respiratory effort. CARDIAC: Tachycardic rate. Irregular rhythm. No murmurs. No rubs. Extremities warm and well perfused. Pulses equal. No JVD. GI: Soft, non-distended. No tenderness to palpation. No rebound or guarding. No masses. MUSCULOSKELETAL: Atraumatic. Chest examination reveals no tenderness. The back is symmetrical on inspection without obvious abnormality. There is no CVA tenderness to palpation. No joint edema. LOWER EXTREMITIES: Calves are equal size bilaterally and non-tender. 1+ edema. No discoloration. NEURO: Normal sensorium. No sensory or motor deficits noted. SKIN: No rash or jaundice noted. PROCEDURES: none CRITICAL CARE: none OBSERVATION NOTE: none Past Med/Surg History Problem List SOB (shortness of breath) (Acute) Hyperlipidemia Acute CVA (cerebrovascular accident) (Acute) Atrial fibrillation with rapid ventricular response (Acute) Horseshoe kidney Non-ST elevation IA (NSTEMI) (Acute) Parsonage-Garcia syndrome Rotator cuff tear arthropathy of left shoulder Coronary artery calcification Acute HFrEF (heart failure with reduced ejection fraction) Pulmonary nodule LVH (left ventricular hypertrophy) (Chronic) Left ventricular dysfunction (Chronic) Smokeless tobacco use (Chronic) Chronic systolic CHF (congestive heart failure) EF 20-25%; nonischemic cardiomyopathy Nephrolithiasis passed on own Gout Nonischemic cardiomyopathy Diabetes mellitus, type 2 IDDM CHF NYHA class II (symptoms with moderately strenuous activities) (Chronic) Metabolic disorder (Chronic) Obesity (Chronic) Obstructive sleep apnea (Chronic) due to weight loss, no longer needs device Paroxysmal atrial fibrillation (Chronic) Follows with Dr. Reese Hyperlipidemia LDL goal <100 (Chronic) Hypertension (Chronic) Medical History History of kidney stones History of melanoma Hx (face) History of COVID-19 Dx 2020- no symptoms now Right ureteral calculus hx Surgical History H/O cardiac radiofrequency ablation April 2023. History of tooth extraction History of cardiac radiofrequency ablation had 08/2021 @ [facility] [place] History of cardioversion multiple, most recent 09/2022 H/O local excision of skin lesion Family History Sister Ovarian cancer Diabetes Breast cancer Father Diabetes Kidney stones Hypertension Atrial fibrillation Brother Diabetes Mother Diabetes GERD (gastroesophageal reflux disease) Hypertension Atrial fibrillation Other No family history of adverse response to anesthesia Denies family history of Prostate cancer Lung cancer Colorectal cancer Social History Smoking Status: Never smoker Tobacco Type: Smokeless Tobacco (Dip or Chew) Second Hand Exposure: No; Do You Dip or Chew Tobacco: Yes; Tobacco Cessation Education Requested by Patient: No Hx Alcohol Use: No Hx Substance Use: No Preferred Language: Arabic Communication Ability: Effective Visual Impairment: No Limitations Hearing Ability: Normal Soil Science Professor Required: No Beliefs That Will Affect Care: None marital status: Current Living Situation: Spouse Current Living Situation Comment: Lives with and daughter current occupational status: employed current occupation: [employer] How many Children do You have: 4 Other Information That Helps Us Care for You: No Feels Safe at Home: Yes Safety Concerns: Feels Safe At This Time Childhood Exposure to Second-Hand Smoke: Yes Diet: regular Diet Comment: regular caffeine: No during the past year weight has: decreased > 10 lbs Dental Care, Regularly: Yes Physical Activity Frequency: Daily Physical Activity Frequency Comment: walking at work Seatbelt Use: sometimes Sunscreen Use: No Assistive Devices: None Allergies Allergies Allergy/AdvReac Type Severity Reaction Status Date / Time empagliflozin AdvReac Intermediate Nausea Verified 04/11/24 16:55 [From Jardiance] Home Meds Home Medications Medication Instructions Recorded Confirmed aspirin 81 mg tablet,delayed 162 mg PO DAILY 04/20/24 04/20/24 release insulin glargine 100 unit/mL (3 24 unit subcut QAM 04/20/24 04/20/24 mL) subcutaneous pen (Basaglar KwikPen U-100 Insulin) Previous Rx's Medication Instructions Recorded apixaban 5 mg tablet (Eliquis) 5 mg PO BID #60 tabs 04/13/24 atorvastatin 80 mg tablet 80 mg PO DAILY #30 tabs 04/13/24 metformin 500 mg tablet,extended 500 mg PO UD #60 tabs 04/13/24 release 24 hr metoprolol succinate 100 mg 100 mg PO DAILY #30 tabs 04/13/24 tablet,extended release 24 hr Results & Data (ED) Vital Signs Vital Signs - 24 hr 04/20/24 16:57 04/20/24 17:21 04/20/24 17:21 Temperature 36.6 C Temperature Source Temporal Artery Scan Pulse Rate 126 H Pulse Rate [Apical] 120 H Pulse Rhythm [Apical] Pulse Strength [Apical] Respiratory Rate 28 H 24 Respiratory Effort / Characteristics Non-Labored Spontaneous Non-Labored Spontaneous Respiratory Depth Normal Normal Respiratory Pattern Regular Blood Pressure 130/95 Blood Pressure [Left Arm] 119/98 Blood Pressure Mean 106 Blood Pressure Mean [Left Arm] 105 Blood Pressure Position [Left Arm] Pulse Oximetry 100 99 99 Oxygen Delivery Method Room Air Room Air Room Air Sepsis Recent Fever Within 48 Hours No Sepsis New/Unexplained Change in Mental Status N/A Sepsis Action Taken by Nursing No Action Required 04/20/24 17:21 04/20/24 17:40 04/20/24 19:32 Temperature Temperature Source Pulse Rate 130 H Pulse Rate [Apical] 92 H Pulse Rhythm [Apical] Irregular Pulse Strength [Apical] Normal Respiratory Rate 19 Respiratory Effort / Characteristics Non-Labored Spontaneous Respiratory Depth Normal Respiratory Pattern Regular Blood Pressure Blood Pressure [Left Arm] 118/91 Blood Pressure Mean Blood Pressure Mean [Left Arm] 100 Blood Pressure Position [Left Arm] Sitting Pulse Oximetry 98 98 Oxygen Delivery Method Room Air Room Air Sepsis Recent Fever Within 48 Hours Sepsis New/Unexplained Change in Mental Status Sepsis Action Taken by Nursing Laboratory Data 04/20/24 17:13 04/20/24 17:13 Lab Results 04/20/24 04/20/24 04/20/24 Range/Units 17:12 17:13 19:16 WBC 6.25 (4.8-10.8) K/ul RBC 4.98 (4.70-6.10) M/uL Hgb 15.1 (14.0-18.0) g/dl Hct 44.7 (42.0-52.0) % MCV 89.8 (80.0-100.0) fL MCH 30.3 (25.0-34.0) pg MCHC 33.8 (32.0-36.0) g/dL RDW Std Deviation 42.8 (36.4-46.3) fL RDW Coeff of Kaley 13.2 (11.5-14.5) % Plt Count 243 (130-400) K/uL MPV 12.8 H (9.4-12.4) fL Immature Gran % (Auto) 0.3 % Neut % (Auto) 67.6 % Lymph % (Auto) 22.2 % [place] % (Auto) 8.3 % Eos % (Auto) 1.0 % Baso % (Auto) 0.6 % Neut # (Auto) 4.22 (1.40-6.50) K/uL Lymph # (Auto) 1.39 (1.20-3.40) K/uL [place] # (Auto) 0.52 (0.11-0.59) K/uL Eos # (Auto) 0.06 (0.00-0.50) K/uL Baso # (Auto) 0.04 (0.00-0.20) K/uL Immature Gran # (Auto) 0.02 (0.01-0.20) K/uL PT 12.5 H (9.0-12.0) Seconds INR 1.2 H (0.9-1.1) APTT 25 (21-31) Seconds PTT Ratio 0.9 Sodium 133 L (136-145) mmol/L Potassium 4.4 (3.5-5.1) mmol/L Chloride 101 (98-107) mmol/L Carbon Dioxide 23 (21-32) mmol/L Anion Gap 9 (3-11) BUN 23 (6-23) mg/dl Creatinine 1.39 (0.6-1.4) mg/dl Est Cr Clr Drug Dosing 86.0 ml/min eGFR 60.62 BUN/Creatinine Ratio 16.5 (10-20) Glucose 349 H* (70-99(Fasting)) mg/dl POC Glucose 310 H* (70-99) mg/dl Calcium 10.0 (8.6-10.3) mg/dl Magnesium 1.6 L (1.7-2.4) mg/dl Total Bilirubin 0.9 (0.2-1.0) mg/dl AST 73 H (13-39) U/L ALT 145 H (7-52) U/L Alkaline Phosphatase 125 H (34-104) U/L Troponin I High Sens 73.6 H* 64.4 H* (0-20) pg/ml B-Natriuretic Peptide 679 H (0-100) pg/ml Total Protein 7.3 (6.0-8.3) gm/dl Albumin 4.3 (3.4-5.0) gm/dl Globulin 3.0 (2.5-4.0) gm/dl Albumin/Globulin Ratio 1.4 (0.9-2) Adenovirus (PCR) Not Detected (NotDetected) B. pertussis DNA (PCR) Not Detected (NotDetected) B.parapertussis DNA PCR Not Detected (NotDetected) C. pneumoniae DNA (PCR) Not Detected (NotDetected) Coronavirus OC43 (PCR) Not Detected (NotDetected) Coronavirus HKU1 (PCR) Not Detected (NotDetected) Coronavirus 229E (PCR) Not Detected (NotDetected) SARS-CoV-2 (PCR) Not Detected (NotDetected) Coronavirus NL63 (PCR) Not Detected (NotDetected) Human Metapneumovir PCR Not Detected (NotDetected) Influenza Type A (PCR) Not Detected (NotDetected) Influenza Type B (PCR) Not Detected (NotDetected) M. pneumoniae (PCR) Not Detected (NotDetected) Parainfluenza 1 (PCR) Not Detected (NotDetected) Parainfluenza 2 (PCR) Not Detected (NotDetected) Parainfluenza 3 (PCR) Not Detected (NotDetected) Parainfluenza 4 (PCR) Not Detected (NotDetected) RSV (PCR) Not Detected (NotDetected) Entero/Rhino (PCR) Not Detected (NotDetected) Administered Medications Apixaban (Apixaban 5 Mg Tablet) 5 mg PO BID [facility] Stop: 05/20/24 23:10 Last Admin: 04/21/24 00:09 Dose: 5 mg Documented By: BONNIE Insulin Aspart (Insulin Aspart Per Unit Charge) 0 units SC [facility] Stop: 05/20/24 23:10 Last Admin: 04/21/24 00:09 Dose: 3 units Documented By: BONNIE Co-signed By: CLEMENTINA Discontinued Medications Furosemide (Furosemide Inj 20 Mg/2 Ml Vial) 20 mg IV ONE ONE Stop: 04/20/24 19:39 Last Admin: 04/20/24 19:48 Dose: 20 mg Documented By: GIOVANA Magnesium Sulfate/Dextrose (Magnesium Sulfate / D5w) 1 gm in 100 mls @ 50 mls/hr IV ONE ONE Stop: 04/20/24 19:56 Last Infusion: 04/20/24 20:15 Dose: Infused Documented By: Admin: 04/20/24 18:10 Dose: 50 mls/hr Documented By: GIOVANA Insulin Aspart (Insulin Aspart Per Unit Charge) 3 units SC NOW STA Stop: 04/20/24 20:38 Last Admin: 04/20/24 20:48 Dose: 3 units Documented By: GIOVANA Co-signed By: CHIQUITA Insulin Glargine (Lantus Per Unit Charge) 12 units SQ NOW STA Stop: 04/20/24 20:38 Last Admin: 04/20/24 20:48 Dose: 12 units Documented By: GIOVANA Co-signed By: CHIQUITA Ioversol (Optiray 320 125ml) 100 ml IV ONCE ONE Stop: 04/20/24 18:57 Last Admin: 04/20/24 18:56 Dose: 100 ml Documented By: PLW Imaging Data Radiologist's Impression: Chest X-Ray 04/20/24 17:01 EXAM: Radiograph of the Chest 1 View INDICATION: Chest pain. History of atrial fibrillation. TECHNIQUE: Frontal view of the chest. COMPARISON: 04/11/2024 FINDINGS: Lungs and pleural spaces: No consolidation or pulmonary edema. No pleural effusion or pneumothorax. Stable prominent pulmonary vasculature without edema or infiltrate. Heart: Stable large shadow. Mediastinum: Normal contour. Bones/joints: No fracture, erosion or dislocation. Soft tissues: No abnormality noted. No radiopaque foreign body noted. Upper abdomen: No abnormality noted. IMPRESSION: No acute cardiopulmonary disease. ACT 112: N/A Electronically signed by Itzel Valencia 04-20-2024 5:42 PM Chest CTA 04/20/24 18:00 Clinical history: Difficulty breathing Technique: Axial computed tomography images were obtained of the chest after the administration of intravenous contrast according to the CT angiogram protocol Findings: There is no definite sign of pulmonary embolism. Contrast opacification of the some of the peripheral arteries is suboptimal, however There is mild pulmonary edema involving the lung bases. The lungs otherwise appear clear without infiltrate or mass. There is no pleural effusion or pneumothorax. There is no sign of pulmonary fibrosis or other diffuse interstitial process. No endobronchial lesion is seen There is no mediastinal, hilar, or axillary adenopathy. The thoracic aorta appears unremarkable with no sign of aneurysm or dissection. There is no pericardial effusion. There is coronary atherosis The visualized upper abdomen appears unremarkable. No fracture is seen. No focal osseous lesion is evident Impression: 1. No definite sign of pulmonary embolism 2. Mild pulmonary edema 3. Coronary atherosclerosis Electronically signed by José Miguel Chacon 04-20-2024 7:09 PM Discharge Plan Visit Data Chief Complaint: Shortness of Breath/Dyspnea Stated Complaint: SOB, CHEST PRESSURE, STROKE LAST WEEK ED Provider: Neo Oliver Discharge Problem: SOB (shortness of breath) Patient Disposition: Admitted As Inpatient Discharge Instructions Interventions: ED Discharge Assessment Last Done: 04/20/24 23:10
[2024-04-20 18:24] LABS: Adenovirus PCR Not Detected (NotDetected); Bordetella parapertussis PCR Not Detected (NotDetected); Bordetella pertussis PCR Not Detected (NotDetected); Chlamydia pneumoniae PCR Not Detected (NotDetected); Coronavirus 229E PCR Not Detected (NotDetected); Coronavirus CoV-2 (COVID19)PCR Not Detected (NotDetected); Coronavirus HKU1 PCR Not Detected (NotDetected); Coronavirus NL63 PCR Not Detected (NotDetected); Coronavirus OC43PCR Not Detected (NotDetected); Human Metapneumovirus PCR Not Detected (NotDetected); Influenza A PCR Not Detected (NotDetected); Influenza B PCR Not Detected (NotDetected); Mycoplasma pneumoniae PCR Not Detected (NotDetected); Parainfluenza Virus 1 PCR Not Detected (NotDetected); Parainfluenza Virus 2 PCR Not Detected (NotDetected); Parainfluenza Virus 3 PCR Not Detected (NotDetected); Parainfluenza Virus 4 PCR Not Detected (NotDetected); Respiratory Syncytial VirusPCR Not Detected (NotDetected); Rhinovirus/Enterovirus PCR Not Detected (NotDetected)
[2024-04-20] MEDS: OPTIRAY 320 125ml IV ONE (18:56)
--- NOTE | 2024-04-20 19:10 | CT Scan Report ---
Clinical history: Difficulty breathing Technique: Axial computed tomography images were obtained of the chest after the administration of intravenous contrast according to the CT angiogram protocol Findings: There is no definite sign of pulmonary embolism. Contrast opacification of the some of the peripheral arteries is suboptimal, however There is mild pulmonary edema involving the lung bases. The lungs otherwise appear clear without infiltrate or mass. There is no pleural effusion or pneumothorax. There is no sign of pulmonary fibrosis or other diffuse interstitial process. No endobronchial lesion is seen There is no mediastinal, hilar, or axillary adenopathy. The thoracic aorta appears unremarkable with no sign of aneurysm or dissection. There is no pericardial effusion. There is coronary atherosis The visualized upper abdomen appears unremarkable. No fracture is seen. No focal osseous lesion is evident Impression: 1. No definite sign of pulmonary embolism 2. Mild pulmonary edema 3. Coronary atherosclerosis Electronically signed by José Miguel Chacon 04-20-2024 7:09 PM
[2024-04-20] MEDS: FUROSEMIDE INJ 20 MG/2 ML VIAL IV ONE (19:48)
--- NOTE | 2024-04-20 20:26 | History & Physical Report ---
Date of Service April 20, 2024 Assessment & Plan (1) Acute HFrEF (heart failure with reduced ejection fraction): (2) Abnormal liver function test: (3) Atrial fibrillation with rapid ventricular response: (4) Diabetes mellitus, type 2: (5) Hypertension: (6) Hyperlipidemia LDL goal <100: (7) Obstructive sleep apnea: Plan 53yo male with history of NICM, global hypokinesis with EF of 30% per last echo 04/12/24, atrial fibrillation on Eliquis anticoagulation, recent admission for a cute CVA returning with one week of progressive SOB, SALEH, Orthopnea, Edema and weight gain. BNP elevated at 679 #Acute on chronic exacerbation of HFrEF - patient reports a dry weight of approximately 250-255#. Presently weighing 272.8#. Patient does not take Lasix. He was administered 20mg IV Lasix in the ER and has urinated approximately 1875mL. Concern that patient is possibly developing right sided heart failure as well with abnormal LFTs and hepatojugular reflux. -Admit to PCU -Continue diuresis with Lasix 20mg IV BID -Monitor strict intake/output and daily standing weights -Monitor BMP q 12 hours to assess renal function and electrolytes with diuresis -Repeat 2D echo to assess EF, possible right sided heart failure #Abnormal LFTs - patient reports development of orange colored urine and light stools. He has abnormal LFTs - AST=73, FHQ=523, DX=416. Possibly hepatic congestion in setting of acute on chronic HFrEF, possible hepatic injury secondary to recently resumed statin. -Check Liver ultrasound -Repeat LFTs in AM -Hold Atorvastatin for now #Atrial Fibrillation = elevated rate on arrival. Patient is compliant with his Eliquis -Continue Eliquis 5mg po BID -Continue Metoprolol 100mg po daily #Diabetes - overall poorly controlled. Last [id number] on 04/12/24. Patient reports compliance with his Metformin as well as insulin. Elevated glucose 349 on arrival -Hold Metformin -Lantus 12u BID - give first dose now -ISS -Goal blood sugar 110 - 140 #Hypertension - blood pressure controlled -Continue Metoprolol -Monitor #Hyperlipidemia - chronic. Atorvastatin resumed at last hospitalization in setting of CVA -Holding Atorvastin in setting of abnormal LFTs #DAVID - chronic -CPAP qHS F/E/N - Diuresis with Lasix 20mg IV BID, monitor electrolytes, CC/AHA diet as tolerated Ppx - Continue home Eliquis Code - Full Dispo - Admit to medical with telemetry History of Present Illness Chief Complaint: shortness of breath Primary Care Provider: Margarita Morgan DO Kaiden Lomeli is a 53yo male with complicated medical history presenting with SALEH, SOB, Orthopnea, edema and weight gain. Patient with history of NICM with global hypokinesis and EF of 30% per echo 05/10/24, atrial fibrillation on Eliquis anticoagulation, DM, HTN. Patient was recently admitted to [facility] from 04/11/24 - 04/13/24 after presenting with right arm weakness. Unfortunately he had been off his medications due to insurance issues and sustained a small CVA. He was discharged home and reports he began feeling ill on the day of discharge. Since then he has had progressive orthopnea, SALEH, SOB at rest and PND. He states that the last two nights he has not been able to lay flat and has been sleeping sitting up. He has woken up gasping for air and feeling as though he "was drowning". He has also developed bilateral LE edema. Additionally patient reports weight gain of approximately 20# since returning home. He believes that his dry weight is 250-255#. He has had Lasix at home in the past for volume overload but has never needed it. He has been experiencing more palpitations over the last week as well as some chest heaviness when he becomes short of breath. Additionally he reports an increasing in belching, poor appetite, decreased oral intake as well as bright orange colored urine and light, fahad colored stools. No additional complaints at this time. In the ER patient is afebrile, mildly tachycardic in atrial fibrilation ER Course: Lasix 20mg IV Allergies Allergy/AdvReac Type Severity Reaction Status Date / Time empagliflozin AdvReac Intermediate Nausea Verified 04/11/24 16:55 [From Jardiance] Home Medications Medication Instructions Recorded Confirmed Type apixaban 5 mg tablet (Eliquis) 5 mg PO BID #60 tabs 04/13/24 04/20/24 Rx atorvastatin 80 mg tablet 80 mg PO DAILY #30 tabs 04/13/24 04/20/24 Rx metformin 500 mg tablet,extended 500 mg PO UD #60 tabs 04/13/24 04/20/24 Rx release 24 hr metoprolol succinate 100 mg 100 mg PO DAILY #30 tabs 04/13/24 04/20/24 Rx tablet,extended release 24 hr aspirin 81 mg tablet,delayed 162 mg PO DAILY 04/20/24 04/20/24 History release insulin glargine 100 unit/mL (3 24 unit subcut QAM 04/20/24 04/20/24 History mL) subcutaneous pen (Basaglar KwikPen U-100 Insulin) Past Med/Surg History Problem List SOB (shortness of breath) (Acute) Hyperlipidemia Acute CVA (cerebrovascular accident) (Acute) Atrial fibrillation with rapid ventricular response (Acute) Horseshoe kidney Non-ST elevation [place] (NSTEMI) (Acute) Parsonage-Garcia syndrome Rotator cuff tear arthropathy of left shoulder Coronary artery calcification Acute HFrEF (heart failure with reduced ejection fraction) Pulmonary nodule LVH (left ventricular hypertrophy) (Chronic) Left ventricular dysfunction (Chronic) Smokeless tobacco use (Chronic) Chronic systolic CHF (congestive heart failure) EF 20-25%; nonischemic cardiomyopathy Nephrolithiasis passed on own Gout Nonischemic cardiomyopathy Diabetes mellitus, type 2 IDDM CHF NYHA class II (symptoms with moderately strenuous activities) (Chronic) Metabolic disorder (Chronic) Obesity (Chronic) Obstructive sleep apnea (Chronic) due to weight loss, no longer needs device Paroxysmal atrial fibrillation (Chronic) Follows with Dr. Reese Hyperlipidemia LDL goal <100 (Chronic) Hypertension (Chronic) Medical History History of kidney stones History of melanoma Hx (face) History of COVID-19 Dx 2020- no symptoms now Right ureteral calculus hx Surgical History H/O cardiac radiofrequency ablation April 2023. History of tooth extraction History of cardiac radiofrequency ablation had 08/2021 @ [facility] [place] History of cardioversion multiple, most recent 09/2022 H/O local excision of skin lesion Family History Sister Ovarian cancer Diabetes Breast cancer Father Diabetes Kidney stones Hypertension Atrial fibrillation Brother Diabetes Mother Diabetes GERD (gastroesophageal reflux disease) Hypertension Atrial fibrillation Other No family history of adverse response to anesthesia Denies family history of Prostate cancer Lung cancer Colorectal cancer Social History Smoking Status: Unknown if ever smoked Tobacco Type: Smokeless Tobacco (Dip or Chew) Second Hand Exposure: Yes (hx); Do You Dip or Chew Tobacco: No; Hx Alcohol Use: No Hx Substance Use: No Preferred Language: Mongolian Communication Ability: Effective Visual Impairment: No Limitations Hearing Ability: Normal Grounds Restoration Specialist Required: No Beliefs That Will Affect Care: None marital status: Current Living Situation: Spouse Current Living Situation Comment: Lives with and daughter current occupational status: employed 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 How many Children do You have: 4 Feels Safe at Home: Yes Childhood Exposure to Second-Hand Smoke: Yes Diet: regular Diet Comment: regular caffeine: No during the past year weight has: decreased > 10 lbs Dental Care, Regularly: Yes Physical Activity Frequency: Daily Physical Activity Frequency Comment: walking at work Seatbelt Use: sometimes Sunscreen Use: No Assistive Devices: None Review of Systems Review of Systems: All systems reviewed & are unremarkable except as noted in HPI & below Physical Exam Physical Exam: General: patient resting comfortably, NAD, non-toxic in appearance, AA&O x 4 Skin: warm, dry, intact, no rashes or lesions HEENT: NC/AT, PERRL, EOMI, anicteric sclera, conjunctiva without injection, external ear normal to inspection and nontender, nares patent, moist mucus membranes, dentition intact, no oropharyngeal lesions, neck supple, trachea midline, no LAD, no thyromegaly, + JVD to angle of jaw, +Hepatojugular reflux Heart: +S1/S2, irregularly irregular, no m/r/g Lungs: equal air entry bilaterally, crackles in bilateral bases, no rhonchi or wheezes Abd: +BS, soft, NT/ND, no masses/organomegaly/ascites Ext: warm, 2+ pulses in UE/LE bilaterally, no clubbing/cyanosis, 2+ pitting edema of bilateral LE, edema present on thighs as well Neuro: nonfocal, patient AA&O x 4, speech intact, no facial droop, moving all extremities on command with equal strength 5/5 Results & Data Results & Data Vital Signs (Past 12 Hours) Vital Signs Temp Pulse Pulse Resp BP BP Pulse Ox 04/20/24 19:32 92 H 19 118/91 98 04/20/24 17:40 130 H 04/20/24 17:21 98 04/20/24 17:21 120 H 24 119/98 99 04/20/24 17:21 99 04/20/24 16:57 36.6 C 126 H 28 H 130/95 100 O2 Del Method 04/20/24 19:32 Room Air 04/20/24 17:40 04/20/24 17:21 Room Air 04/20/24 17:21 Room Air 04/20/24 17:21 Room Air 04/20/24 16:57 Room Air Laboratory Results Laboratory Results WBC 6.25 K/ul (4.8-10.8) 04/20/24 17:13 RBC 4.98 M/uL (4.70-6.10) 04/20/24 17:13 Hgb 15.1 g/dl (14.0-18.0) 04/20/24 17:13 Hct 44.7 % (42.0-52.0) 04/20/24 17:13 MCV 89.8 fL (80.0-100.0) 04/20/24 17:13 MCH 30.3 pg (25.0-34.0) 04/20/24 17:13 MCHC 33.8 g/dL (32.0-36.0) 04/20/24 17:13 RDW Std Deviation 42.8 fL (36.4-46.3) 04/20/24 17:13 RDW Coeff of Kaley 13.2 % (11.5-14.5) 04/20/24 17:13 Plt Count 243 K/uL (130-400) 04/20/24 17:13 MPV 12.8 fL (9.4-12.4) H 04/20/24 17:13 Immature Gran % (Auto) 0.3 % 04/20/24 17:13 Neut % (Auto) 67.6 % 04/20/24 17:13 Lymph % (Auto) 22.2 % 04/20/24 17:13 [place] % (Auto) 8.3 % 04/20/24 17:13 Eos % (Auto) 1.0 % 04/20/24 17:13 Baso % (Auto) 0.6 % 04/20/24 17:13 Neut # (Auto) 4.22 K/uL (1.40-6.50) 04/20/24 17:13 Lymph # (Auto) 1.39 K/uL (1.20-3.40) 04/20/24 17:13 [place] # (Auto) 0.52 K/uL (0.11-0.59) 04/20/24 17:13 Eos # (Auto) 0.06 K/uL (0.00-0.50) 04/20/24 17:13 Baso # (Auto) 0.04 K/uL (0.00-0.20) 04/20/24 17:13 Immature Gran # (Auto) 0.02 K/uL (0.01-0.20) 04/20/24 17:13 PT 12.5 Seconds (9.0-12.0) H 04/20/24 17:13 INR 1.2 (0.9-1.1) H 04/20/24 17:13 APTT 25 Seconds (21-31) 04/20/24 17:13 PTT Ratio 0.9 04/20/24 17:13 Sodium 133 mmol/L (136-145) L 04/20/24 17:13 Potassium 4.4 mmol/L (3.5-5.1) 04/20/24 17:13 Chloride 101 mmol/L (98-107) 04/20/24 17:13 Carbon Dioxide 23 mmol/L (21-32) 04/20/24 17:13 Anion Gap 9 (3-11) 04/20/24 17:13 BUN 23 mg/dl (6-23) 04/20/24 17:13 Creatinine 1.39 mg/dl (0.6-1.4) 04/20/24 17:13 Est Cr Clr Drug Dosing 86.0 ml/min 04/20/24 17:13 eGFR 60.62 04/20/24 17:13 BUN/Creatinine Ratio 16.5 (10-20) 04/20/24 17:13 Glucose 349 mg/dl (70-99(Fasting)) H* 04/20/24 17:13 POC Glucose 181 mg/dl (70-99) H 04/21/24 00:01 Calcium 10.0 mg/dl (8.6-10.3) 04/20/24 17:13 Magnesium 1.6 mg/dl (1.7-2.4) L 04/20/24 17:13 Total Bilirubin 0.9 mg/dl (0.2-1.0) 04/20/24 17:13 AST 73 U/L (13-39) H 04/20/24 17:13 ALT 145 U/L (7-52) H 04/20/24 17:13 Alkaline Phosphatase 125 U/L (34-104) H 04/20/24 17:13 Troponin I High Sens 64.4 pg/ml (0-20) H* 04/20/24 19:16 B-Natriuretic Peptide 679 pg/ml (0-100) H 04/20/24 17:13 Total Protein 7.3 gm/dl (6.0-8.3) 04/20/24 17:13 Albumin 4.3 gm/dl (3.4-5.0) 04/20/24 17:13 Globulin 3.0 gm/dl (2.5-4.0) 04/20/24 17:13 Albumin/Globulin Ratio 1.4 (0.9-2) 04/20/24 17:13 Adenovirus (PCR) Not Detected (NotDetected) 04/20/24 17:13 B. pertussis DNA (PCR) Not Detected (NotDetected) 04/20/24 17:13 B.parapertussis DNA PCR Not Detected (NotDetected) 04/20/24 17:13 C. pneumoniae DNA (PCR) Not Detected (NotDetected) 04/20/24 17:13 Coronavirus OC43 (PCR) Not Detected (NotDetected) 04/20/24 17:13 Coronavirus HKU1 (PCR) Not Detected (NotDetected) 04/20/24 17:13 Coronavirus 229E (PCR) Not Detected (NotDetected) 04/20/24 17:13 SARS-CoV-2 (PCR) Not Detected (NotDetected) 04/20/24 17:13 Coronavirus NL63 (PCR) Not Detected (NotDetected) 04/20/24 17:13 Human Metapneumovir PCR Not Detected (NotDetected) 04/20/24 17:13 Influenza Type A (PCR) Not Detected (NotDetected) 04/20/24 17:13 Influenza Type B (PCR) Not Detected (NotDetected) 04/20/24 17:13 M. pneumoniae (PCR) Not Detected (NotDetected) 04/20/24 17:13 Parainfluenza 1 (PCR) Not Detected (NotDetected) 04/20/24 17:13 Parainfluenza 2 (PCR) Not Detected (NotDetected) 04/20/24 17:13 Parainfluenza 3 (PCR) Not Detected (NotDetected) 04/20/24 17:13 Parainfluenza 4 (PCR) Not Detected (NotDetected) 04/20/24 17:13 RSV (PCR) Not Detected (NotDetected) 04/20/24 17:13 Entero/Rhino (PCR) Not Detected (NotDetected) 04/20/24 17:13 Impressions Chest X-Ray 04/20/24 17:01 EXAM: Radiograph of the Chest 1 View INDICATION: Chest pain. History of atrial fibrillation. TECHNIQUE: Frontal view of the chest. COMPARISON: 04/11/2024 FINDINGS: Lungs and pleural spaces: No consolidation or pulmonary edema. No pleural effusion or pneumothorax. Stable prominent pulmonary vasculature without edema or infiltrate. Heart: Stable large shadow. Mediastinum: Normal contour. Bones/joints: No fracture, erosion or dislocation. Soft tissues: No abnormality noted. No radiopaque foreign body noted. Upper abdomen: No abnormality noted. IMPRESSION: No acute cardiopulmonary disease. ACT 112: N/A Electronically signed by Itzel Valencia 04-20-2024 5:42 PM Chest CTA 04/20/24 18:00 Clinical history: Difficulty breathing Technique: Axial computed tomography images were obtained of the chest after the administration of intravenous contrast according to the CT angiogram protocol Findings: There is no definite sign of pulmonary embolism. Contrast opacification of the some of the peripheral arteries is suboptimal, however There is mild pulmonary edema involving the lung bases. The lungs otherwise appear clear without infiltrate or mass. There is no pleural effusion or pneumothorax. There is no sign of pulmonary fibrosis or other diffuse interstitial process. No endobronchial lesion is seen There is no mediastinal, hilar, or axillary adenopathy. The thoracic aorta appears unremarkable with no sign of aneurysm or dissection. There is no pericardial effusion. There is coronary atherosis The visualized upper abdomen appears unremarkable. No fracture is seen. No focal osseous lesion is evident Impression: 1. No definite sign of pulmonary embolism 2. Mild pulmonary edema 3. Coronary atherosclerosis Electronically signed by José Miguel Chacon 04-20-2024 7:09 PM ECG Additional Comments: EKG with AF with RVR, rate of 118bpm, PVCs present, Low voltage QRS, QRS=94, UGu=205, no acute ischemic changes Code Status & VTE Plan VTE Prophylaxis Plan VTE Prophylaxis will be ordered: Yes PG Care Time/CCT Total # of Minutes Spent Total Time Spent with Patient: Total time spent is greater than 50% in coordination of care (as documented) at patient's floor/unit and/or counseling patient: Coding Level of Care Code 05601 INT INP/OBS CARE 3/75MIN Diagnoses Acute HFrEF (heart failure with reduced ejection fraction) I50.21 Abnormal liver function test R94.5 Atrial fibrillation with rapid ventricular response I48.91 Diabetes mellitus, type 2 E11.9 Hypertension I10 Hyperlipidemia LDL goal <100 E78.5 Obstructive sleep apnea G47.33
[2024-04-20] MEDS: LANTUS PER UNIT CHARGE SQ STA (20:48)
[2024-04-20] MEDS: INSULIN ASPART PER UNIT CHARGE SC STA (20:48)
[2024-04-20] MEDS ORDERED: ACETAMINOPHEN 325 MG TAB PO PRN (23:11)
[2024-04-20] MEDS ORDERED: DEXTROSE 50% 50 ML SYRINGE IV PRN (23:11)
[2024-04-20] MEDS ORDERED: GLUCOSE 40% GEL 15 GM TUBE PO PRN (23:11)
[2024-04-20] MEDS ORDERED: CARBOHYDRATES FOR HYPOGLYCEMIA PO PRN (23:11)
[2024-04-20] MEDS ORDERED: GLUCOSE 10 TAB/TUBE PO PRN (23:11)
[2024-04-20] MEDS ORDERED: ONDANSETRON INJ 2 MG/ML 2 ML VIAL IV PRN (23:11)
[2024-04-20] MEDS ORDERED: GLUCAGON FOR INJ 1 MG VIAL SQ PRN (23:11)
[2024-04-21] MEDS: APIXABAN 5 MG TABLET PO SCH (00:09)
[2024-04-21] MEDS: INSULIN ASPART PER UNIT CHARGE SC SCH (00:09)
--- NOTE | 2024-04-21 01:35 | Ultrasound Report ---
EXAM: US liver CLINICAL HISTORY: Abnormal LFTs TECHNIQUE: Limited ultrasound of the liver and gallbladder was performed in grayscale and Doppler. Multiple images were obtained in transverse and longitudinal planes. COMPARISON: No prior studies are available for comparison. FINDINGS: Liver: Liver size: Liver appears enlarged in size (LS=20.2cm) with heterogeneous bright echotexture and subtle border irregularities No evidence of focal lesions, cysts, or masses. Hepatic vasculature appears normal. Gallbladder: Gallbladder size: Gallbladder appears contracted No gallstones, wall thickening (2.6mm), or pericholecystic fluid noted in visualized part. No evidence of gallbladder wall edema or signs of acute cholecystitis. Biliary Tree: Common bile duct diameter: 4.7mm. The common bile duct is within normal limits in caliber and not dilated. No evidence of choledocholithiasis or biliary obstruction. Right kidney: The visualized part of right kidney shows lower pole hypoechoic area with surrounding echogenic wall measuring 3.1 x 2.2 x 2.7 cm. Minimal ascites seen subhepatic IMPRESSION: 1. Enlarged liver with features of chronic parenchymal liver disease 2. Minimal ascites were seen subhepatic 3. The right kidney shows lower pole hypoechoic area with a surrounding echogenic wall measuring 3.1 x 2.2 x 2.7 cm, if clinically needed, a contrast-enhanced CT study is advised for better characterization Electronically signed by Yu Deng 04-21-2024 01:34 AM
[2024-04-21 04:37] LABS: Hematocrit (blood only) 40.6 % (42.0-52.0); Hemoglobin 13.3 g/dl (14.0-18.0); Mean Corpuscular Hemoglobin 29.7 pg (25.0-34.0); Mean Corpuscular Hgb Conc 32.8 g/dL (32.0-36.0); Mean Corpuscular Volume 90.6 fL (80.0-100.0); Mean Platelet Volume 12.6 fL (9.4-12.4); Platelet Count 228 K/uL (130-400); RDW Coefficient of Variation 13.2 % (11.5-14.5); RDW Standard Deviation 43.5 fL (36.4-46.3); Red Blood Count 4.48 M/uL (4.70-6.10); White Blood Count 6.63 K/ul (4.8-10.8)
[2024-04-21 04:42] LABS: Albumin Level 3.7 gm/dl (3.4-5.0); BUN Creatinine Ratio 18.6 (10-20); Bilirubin Direct 0.1 mg/dl (0-0.2); Bilirubin,Total 0.8 mg/dl (0.2-1.0); Creatinine Clr Calc Pharmacy 101.3 ml/min; Magnesium 1.7 mg/dl (1.7-2.4); Potassium 3.5 mmol/L (3.5-5.1); Total Protein 6.2 gm/dl (6.0-8.3)
[2024-04-21 05:00] LABS: INR 1.2 (0.9-1.1)
[2024-04-21] MEDS: ASPIRIN 81 MG ECTAB PO SCH (08:11)
[2024-04-21] MEDS: METOPROLOL SUCC 50MG EXT REL TAB PO SCH (08:12)
[2024-04-21] MEDS: FUROSEMIDE INJ 20 MG/2 ML VIAL IV SCH (08:14)
[2024-04-21] MEDS: LANTUS PER UNIT CHARGE SQ SCH (08:14)
[2024-04-21] MEDS: POTASSIUM CHLORIDE CRTAB 20 MEQ TABCR PO SCH (08:25)
[2024-04-21] MEDS ORDERED: METOCLOPRAMIDE HCL INJ 5 MG/ML 2 ML VIAL IV SCH (11:00)
[2024-04-21] MEDS: METOCLOPRAMIDE HCL 10 MG in SYRINGE 0 ML IV SCH (11:11)
[2024-04-21] MEDS: METOCLOPRAMIDE HCL INJ 5 MG/ML 2 ML VIAL IV SCH (11:37)
--- NOTE | 2024-04-21 12:22 | Hospitalist Progress Note ---
Date of Service April 21, 2024 Assessment & Plan (1) Acute HFrEF (heart failure with reduced ejection fraction): Plan: Continue parenteral Lasix diuresis. Monitor intake and output. Repeat portable chest x-ray again tomorrow, April 22. Fortunately he is on room air. Cardiac echo reveals global left ventricular hypokinesis with estimated EF 30%. (2) Abnormal liver function test: Plan: Passive hepatic congestion from CHF is the most likely cause of elevated LFTs and protracted nausea. Statin has been discontinued temporarily. Scheduled IV Reglan for nausea for now (3) Atrial fibrillation with rapid ventricular response: Plan: Present on admission. Now resolved. Telemetry. Continue rate control measures and Eliquis (4) Diabetes mellitus, type 2: Plan: Stable. ADA diet. Sliding scale coverage. Continue basal insulin (5) Hypertension: Plan: Stable. Continue current medical (6) Hyperlipidemia LDL goal <100: Plan: Statin therapy temporarily on hold due to elevated LFTs Plan Hopeful discharge to home tomorrow, April 22, if CHF and nausea resolve. Admission and Anticipated Discharge Date Admission Date: April 20, 2024 Subjective Brisk diuresis with parenteral Lasix. Protracted nausea is probably due to passive hepatic congestion which should improve with diuresis. In the meantime, scheduled dosing of IV Reglan has been ordered. Will repeat chest x-ray again tomorrow, April 22. Potassium has decreased to 3.5 with diuresis and oral potassium supplements have been started. Oral statin therapy will be discontinued due to elevated LFTs. This can be restarted at a later date. Cardiac echo reveals global left ventricular hypokinesis with estimated ejection fraction of 30%. Liver ultrasound reveals hepatomegaly with evidence of chronic disease. Review of Systems 2 Review of Systems: Constitutionalno fever or chills ENTno blurred vision, no double vision, no epistaxis, no sore throat Respiratoryno cough, no wheezing, no shortness of breath Cardiacno palpitations, no chest pain, no syncope GIprotracted nausea. No vomiting. No diarrhea, melena, hematochezia GUno urinary retention, no urinary incontinence, no dysuria, no hematuria Musculoskeletalno joint pain, no muscle tenderness Skinno bruising, no rashes, no pruritus Neurono isolated weakness, no paresthesia, no weakness Psychno depression, no anxiety Physical Exam 2 Physical Exam: General-alert and oriented x3, no fever, no chills HEENT-head atraumatic and normocephalic, pupils equal and reactive to light, extraocular muscles intact Neck-no lymphadenopathy or thyromegaly, trachea midline Chest-clear to auscultation. No rales, wheezing or rhonchi Cardiac-regular rate and rhythm, normal S1 and S2 Abdomen-normal bowel sounds, no hepatosplenomegaly Extremities-no cyanosis, clubbing, or edema Neuro-cranial nerves II through XII intact, motor and sensory function within normal limits, strength symmetrical, no focal deficits Psych-normal affect, normal mood Results & Data Results & Data Vital Signs (Past 12 Hours) Vital Signs Temp Pulse Pulse Resp BP Pulse Ox O2 Del Method 04/21/24 12:02 112 H 15 122/91 96 Room Air 04/21/24 10:48 36.3 C L 04/21/24 08:27 116 H 15 135/96 96 Room Air 04/21/24 07:26 101 H 04/21/24 05:00 98 H 18 113/95 93 Room Air 04/21/24 03:00 82 16 101/75 95 BiPAP 04/21/24 02:27 85 16 98 FiO2 04/21/24 12:02 04/21/24 10:48 04/21/24 08:27 04/21/24 07:26 04/21/24 05:00 04/21/24 03:00 20 04/21/24 02:27 21 Laboratory Results 04/21/24 03:42 04/21/24 03:42 PG Care Time/CCT Total # of Minutes Spent Total Time Spent with Patient: Total time spent is greater than 50% in coordination of care (as documented) at patient's floor/unit and/or counseling patient: Coding Level of Care Code 39922 SUB INP/OBS CARE 3/50MIN Diagnoses Acute HFrEF (heart failure with reduced ejection fraction) I50.21 Abnormal liver function test R94.5 Atrial fibrillation with rapid ventricular response I48.91 Diabetes mellitus, type 2 E11.9 Hypertension I10 Hyperlipidemia LDL goal <100 E78.5
--- NOTE | 2024-04-21 17:47 | XCELERA ---
[id number] [id number]
--- NOTE | 2024-04-21 21:32 | Electrocardiogram Report ---
Test Reason : Blood Pressure : */* mmHG Vent. Rate : 118 BPM Atrial Rate : * BPM P-R Int : * ms QRS Dur : 94 ms QT Int : 282 ms P-R-T Axes : * -17 154 degrees QTcB Int : 395 ms Atrial fibrillation with rapid ventricular response with premature ventricular or aberrantly conducte d complexes Low voltage QRS Possible Inferior infarct , age undetermined Cannot rule out Anterior infarct , age undetermined Abnormal ECG When compared with ECG of 11-Apr-2024 15:14, Nonspecific T wave abnormality now evident in Anterior leads Confirmed by Jai Tovar ([id number]) on 04/21/2024 9:32:18 PM Referred By: Confirmed By: Jai Tovar
[2024-04-21] MEDS ORDERED: ALBUT/IPRATROP 3MG/0.5MG NEB 3 ML VIAL NEB PRN (22:09)
[2024-04-21] MEDS: METOPROLOL TARTRATE 50 MG TAB PO STA (23:04)
[2024-04-21] MEDS: FUROSEMIDE INJ 20 MG/2 ML VIAL IV ONE (23:05)
--- NOTE | 2024-04-22 00:50 | XRay Report ---
Exam(s): XR CXR 1 VIEW And EXAM: XR Chest, 1 View CLINICAL HISTORY: Reason for exam: sob. TECHNIQUE: Frontal view of the chest. COMPARISON: XR Chest dated 04/20/2024 at 1727 FINDINGS: See Impression. IMPRESSION: 1. Stable enlarged cardiac silhouette. 2. Lungs appear clear. Electronically signed by: Johny Travis M.D. 04/22/24 00:49 AM
[2024-04-22 03:39] VITALS: RESP 16
[2024-04-22 06:50] LABS: BUN Creatinine Ratio 18.9 (10-20); Calcium 9.3 mg/dl (8.6-10.3); Creatinine Clr Calc Pharmacy 94.1 ml/min; Potassium 3.8 mmol/L (3.5-5.1)
--- NOTE | 2024-04-22 07:34 | XRay Report ---
EXAM: XR chest 1V portable CLINICAL HISTORY: CHF TECHNIQUE: An X-ray image of the chest is obtained in 1 AP projection. COMPARISON: prior 04/20/2024. FINDINGS: Pulmonary Parenchyma: Prominent bronchovascular markings, could be related to congestion/bronchitis. No evidence of consolidation, collapse, or focal opacities. No pulmonary nodules are identified. No evidence of pleural effusion or pleural thickening. Heart and Mediastinum: Cardiomegaly. No mediastinal widening or masses. No hilar or mediastinal lymphadenopathy. Bony Thorax: Bony thorax appears intact without fractures or deformities. Soft Tissues: Soft tissues overlying the chest wall are unremarkable. IMPRESSION: 1. Mild cardiomegaly, and prominent bronchovascular markings, could be related to congestion/bronchitis. 2. Findings are stable. 3. No acute cardiopulmonary abnormalities are identified. Electronically signed by Yu Deng 04-22-2024 07:33 AM
--- NOTE | 2024-04-22 07:38 | Electrocardiogram Report ---
Test Reason : Blood Pressure : */* mmHG Vent. Rate : 97 BPM Atrial Rate : 79 BPM P-R Int : * ms QRS Dur : 102 ms QT Int : 396 ms P-R-T Axes : * -19 160 degrees QTcB Int : 502 ms Atrial fibrillation with premature ventricular or aberrantly conducted complexes Low voltage QRS Old Inferior infarct (cited on or before 20-Apr-2024) Poor R wave progression, consider anterior LA vs. lead placement vs. LVH Prolonged QT Abnormal ECG When compared with ECG of 20-Apr-2024 17:07, HR has decreased by 21 bpm Otherwise no significant change Confirmed by Adebayo Peña ([id number]) on 04/22/2024 7:38:40 AM Referred By: REFERRED SELF Confirmed By: Adebayo Peña
[2024-04-22 07:49] VITALS: TEMP 97.3
[2024-04-22 11:54] VITALS: BP 109/77; PULSE 105; O2SAT 98
--- NOTE | 2024-04-22 12:45 | Discharge Summary ---
Discharge Summary Date of Service April 22, 2024 Principal Dx & Hospital Course #1 = Principal Diagnosis (1) Acute HFrEF (heart failure with reduced ejection fraction): Treated while hospitalized with parenteral Lasix diuresis. Monitor intake and output. Chest x-ray done today, April 22, reveals resolution of CHF. He is on room air. Cardiac echo reveals global left ventricular hypokinesis with estimated EF 30%. (2) Abnormal liver function test: Passive hepatic congestion from CHF is the most likely cause of elevated LFTs and protracted nausea. Statin has been discontinued temporarily. Treated while hospitalized with scheduled IV Reglan for nausea. He will remain off statin therapy until his liver enzymes normalized (3) Atrial fibrillation with rapid ventricular response: Present on admission. Now resolved. Telemetry. Continue rate control measures and Eliquis (4) Diabetes mellitus, type 2: Stable. ADA diet. Sliding scale coverage. Continue basal insulin (5) Hypertension: Stable. Continue current medical (6) Hyperlipidemia LDL goal <100: Statin therapy temporarily on hold until liver enzymes normalize. This can be followed by the PCP [facility] today, April 22. Continue Lasix 40 mg daily taken in the early afternoon Admission HPI Per Admitting Provider Kaiden Lomeli is a 53yo male with complicated medical history presenting with SALEH, SOB, Orthopnea, edema and weight gain. Patient with history of NICM with global hypokinesis and EF of 30% per echo 05/10/24, atrial fibrillation on Eliquis anticoagulation, DM, HTN. Patient was recently admitted to [facility] from 04/11/24 - 04/13/24 after presenting with right arm weakness. Unfortunately he had been off his medications due to insurance issues and sustained a small CVA. He was discharged home and reports he began feeling ill on the day of discharge. Since then he has had progressive orthopnea, SALEH, SOB at rest and PND. He states that the last two nights he has not been able to lay flat and has been sleeping sitting up. He has woken up gasping for air and feeling as though he "was drowning". He has also developed bilateral LE edema. Additionally patient reports weight gain of approximately 20# since returning home. He believes that his dry weight is 250-255#. He has had Lasix at home in the past for volume overload but has never needed it. He has been experiencing more palpitations over the last week as well as some chest heaviness when he becomes short of breath. Additionally he reports an increasing in belching, poor appetite, decreased oral intake as well as bright orange colored urine and light, fahad colored stools. No additional complaints at this time. In the ER patient is afebrile, mildly tachycardic in atrial fibrilation ER Course: Lasix 20mg IV Discharge Exam General-alert and oriented x3, no fever, no chills HEENT-head atraumatic and normocephalic, pupils equal and reactive to light, extraocular muscles intact Neck-no lymphadenopathy or thyromegaly, trachea midline Chest-clear to auscultation. No rales, wheezing or rhonchi Cardiac-regular rate and rhythm, normal S1 and S2 Abdomen-normal bowel sounds, no hepatosplenomegaly Extremities-no cyanosis, clubbing, or edema Neuro-cranial nerves II through XII intact, motor and sensory function within normal limits, strength symmetrical, no focal deficits Psych-normal affect, normal mood Discharge Plan Discharge Items Patient Disposition: Home - Self-Care Reason For Visit: SOB Discharge Diagnosis: Acute on chronic systolic congestive heart failure, passive hepatic congestion causing protracted nausea, elevated liver function enzymes due to passive hepatic liver congestion, chronic atrial fibrillation with rapid ventricular rate Activity: Resume your previous activity Non-emergency contact: Primary Care Provider and Lidar Technician Call non-emergency contact if: your symptoms worsen Follow-up/Referrals: Margarita Morgan DO [Primary Care Provider] - Diet: Carb Consistent or DM2 and Heart Healthy Addtl Attending Provider Instructions: Take Lasix (furosemide) once daily in the early afternoon. Atorvastatin has been temporarily discontinued until the liver enzymes normalized. All other medications remain the same Pending Studies at Discharge: No Stand-Alone Forms: My [facility] [employer], Smoking Cessation Medications and DC Order Prescriptions: New furosemide [Lasix] 40 mg tablet 40 mg PO DAILY Qty: 30 0RF Continued Eliquis 5 mg Tablet 5 mg PO BID Qty: 60 0RF metoprolol succinate 100 mg tablet extended release 24 hr 100 mg PO DAILY Qty: 30 0RF metformin 500 mg tablet extended release 24 hr 500 mg PO UD Qty: 60 0RF Rx Instructions: Take 500 mg (1 tab) once daily through 04/19/24, then take 500 mg (1 tab) TWICE daily aspirin 81 mg tablet,delayed release (DR/EC) 162 mg PO DAILY insulin glargine [Basaglar KwikPen U-100 Insulin] 100 unit/mL (3 mL) insulin pen 24 unit subcut QAM MDD 50 Discontinued atorvastatin 80 mg tablet 80 mg PO DAILY Qty: 30 0RF Discharge Orders: Discharge Order- CHF (Routine); Ordered 04/22/24 Ordered By: Davian Morton Admission Data Admit Date/Time: 04/20/24 20:26 Attending Provider: Davian Morton Admit Provider: Jennie Huffman Primary Care Provider: Margarita Morgan Other Providers: Jennie Huffman Hospital Stay Data Consultations 04/20/24 19:53 ED Decision to Admit Stat Diagnostic Imagining Performed 04/20/24 18:00 CT angio chest PE protocol Stat 04/20/24 23:11 US liver Routine Pending Results Patient Have Any Pending Studies at Discharge: No Discharge Instructions Given to Patient (Per Discharging Provider) Take Lasix (furosemide) once daily in the early afternoon. Atorvastatin has been temporarily discontinued until the liver enzymes normalized. All other medications remain the same Total Time Total Time Spent Total Time Spent (In Minutes): 50 minutes Coding Level of Care Code 10305 INP/OBS DISCH >30 MIN Diagnoses Acute HFrEF (heart failure with reduced ejection fraction) I50.21 Abnormal liver function test R94.5 Atrial fibrillation with rapid ventricular response I48.91 Diabetes mellitus, type 2 E11.9 Hypertension I10 Hyperlipidemia LDL goal <100 E78.5
== END 2024-04-22 15:50 | disposition home or self-care (01) | DRG 291 ==
LOC: SUATTDRO → ED 16:56 → EDINP 20:26 → SUATTDRO 20:26 → 2N 23:10
DX: Z82.49 Family history of ischemic heart disease and other diseases of the circulatory system; I25.10 Atherosclerotic heart disease of native coronary artery without angina pectoris; Z79.84 Long term (current) use of oral hypoglycemic drugs; E78.5 Hyperlipidemia, unspecified; I11.0 Hypertensive heart disease with heart failure; K76.1 Chronic passive congestion of liver; G47.33 Obstructive sleep apnea (adult) (pediatric); Z88.8 Allergy status to other drugs, medicaments and biological substances; I50.23 Acute on chronic systolic (congestive) heart failure; Z83.3 Family history of diabetes mellitus; Z86.73 Personal history of transient ischemic attack (TIA), and cerebral infarction without residual deficits; I42.8 Other cardiomyopathies; Z79.4 Long term (current) use of insulin; E11.65 Type 2 diabetes mellitus with hyperglycemia; Z79.899 Other long term (current) drug therapy; F17.200 Nicotine dependence, unspecified, uncomplicated; I48.20 Chronic atrial fibrillation, unspecified; Z79.01 Long term (current) use of anticoagulants